=== PATIENT | female | born 1965 | race Caucasian/White ===

== ENCOUNTER 2021-06-09 20:17 | Inpatient (IN) | payer MEDICARE, MEDICAID ==
[~2021-06-09] VITALS: Ht 165.1 cm; Wt 85.4 kg
[2021-06-09] MEDS ORDERED: MAG HYDROX/AL HYDROX/SIMETH 30 ML ORAL.SUSP PO PRN (21:45)
[2021-06-09] MEDS ORDERED: MAGNESIUM HYDROXIDE 2,400 MG/30 ML ORAL.SUSP. PO PRN (21:45)
[2021-06-09] MEDS ORDERED: METHYL SALICYLATE/MENTHOL TOPICAL OINTMENT 57GM TUBE. TP PRN (21:45)
[2021-06-09 22:09] LABS: BASO # 0.1 x10^3/uL (0.0-0.2); BASO % 1 % (0-3); EOS # 0.2 x10^3/uL (0.0-0.7); EOS % 2 % (0-3); HEMOGLOBIN 11.3 g/dL (12.0-15.5); LYMPH % 19 % (24-48); MEAN CORPUSCULAR HEMOGLOBIN 29 pg (25-35); MEAN CORPUSCULAR HGB CONC 33 g/dL (31-37); MEAN CORPUSCULAR VOLUME 88 fL (79-100); MONO % 9 % (0-9); NEUT # 7.2 x10^3uL (1.8-7.7); NEUT % 68 % (31-73); PLATELET COUNT 249 x10^3/uL (140-400); RED BLOOD COUNT 3.88 x10^6/uL (3.50-5.40); RED CELL DISTRIBUTION WIDTH 13.9 % (11.5-14.5); WHITE BLOOD COUNT 10.6 x10^3/uL (4.0-11.0)
[2021-06-09] MEDS ORDERED: ATOR20TA58 PO (22:15)
[2021-06-09] MEDS ORDERED: DICY20TA PO (22:15)
[2021-06-09] MEDS ORDERED: ASPI-889 PO (22:15)
[2021-06-09] MEDS ORDERED: FERR324T14 PO (22:15)
[2021-06-09 22:16] LABS: CALCIUM 9.2 mg/dL (8.5-10.1); GFR 57.4; POTASSIUM 3.5 mmol/L (3.5-5.1)
[2021-06-09 22:22] LABS: ALBUMIN 3.7 g/dL (3.4-5.0); ALBUMIN/GLOBULIN RATIO 1.2 (1.0-1.7); MAGNESIUM 2.1 mg/dL (1.8-2.4); TOTAL BILIRUBIN 0.5 mg/dL (0.2-1.0); TOTAL PROTEIN 6.9 g/dL (6.4-8.2)
[2021-06-09] MEDS ORDERED: OLANZapine 5 MG TABLET PO PRN (22:30)
[2021-06-09] MEDS ORDERED: DICYCLOMINE HCL 20 MG TABLET PO PRN (22:30)
[2021-06-09] MEDS ORDERED: SERT100T PO (22:46)
[2021-06-09] MEDS ORDERED: ONDA4TAB12 PO (22:46)
[2021-06-09] MEDS ORDERED: NITR100C PO (22:46)
[2021-06-09] MEDS ORDERED: ASCO500C PO (22:46)
[2021-06-09] MEDS ORDERED: PNV1TABL34 PO (22:46)
[2021-06-09] MEDS ORDERED: PANT40TA3 PO (22:46)
[2021-06-09] MEDS ORDERED: INSU100V8 SQ (22:46)
[2021-06-09] MEDS ORDERED: LINA290C PO (22:46)
[2021-06-09] MEDS ORDERED: LEVO175T5 PO (22:46)
[2021-06-09] MEDS ORDERED: QUET100T4 PO (22:46)
[2021-06-09] MEDS ORDERED: GLIP5TAB10 PO (22:46)
[2021-06-09] MEDS ORDERED: OLAN5TAB3 PO (22:46)
[2021-06-09] MEDS ORDERED: FLUT16SP21 NS (22:46)
[2021-06-09] MEDS ORDERED: ALOG12.5 PO (22:46)
[2021-06-09] MEDS ORDERED: SUCR1TAB PO (22:46)
[2021-06-09] MEDS ORDERED: MEGE400O4 PO (22:46)
[2021-06-09] MEDS ORDERED: LAMO100T5 PO (22:46)
[2021-06-09] MEDS ORDERED: DEXTROSE 50% 25 GM / 50ML DISP.SYRIN. IV PRN (23:00)
[2021-06-09 23:20] VITALS: BP 136/81
[2021-06-10] MEDS: LEVOTHYROXINE 175 MCG TABLET PO SCH (05:30)
[2021-06-10 06:35] VITALS: BP 153/74
[2021-06-10] MEDS: glipiZIDE 5 MG TABLET PO SCH ×2 (08:53→20:38)
[2021-06-10] MEDS: ASCORBIC ACID 500 MG TABLET PO SCH (08:53)
[2021-06-10] MEDS: SERTRALINE 100 MG TABLET. PO SCH (08:53)
[2021-06-10] MEDS: lamoTRIgine 25 MG TABLET. PO SCH ×2 (08:53→20:38)
[2021-06-10] MEDS: QUEtiapine 100 MG TABLET. PO SCH ×3 (08:53→20:38)
[2021-06-10] MEDS: LUBIPROSTONE 24 MCG CAPSULE PO SCH ×2 (08:53→20:38)
[2021-06-10] MEDS: lamoTRIgine 100 MG TABLET. PO SCH ×2 (08:53→20:38)
[2021-06-10] MEDS: PANTOPRAZOLE 40 MG TABLET. PO SCH (08:54)
[2021-06-10] MEDS: FERROUS SULFATE 325 MG TABLET. PO SCH (08:54)
[2021-06-10] MEDS: ASPIRIN ENTERIC COATED 81 MG TABLET.DR. PO SCH (08:54)
[2021-06-10] MEDS: SUCRALFATE 1 GM TABLET. PO SCH ×2 (08:54→20:38)
[2021-06-10] MEDS: PRENATAL MULTIVITAMIN TABLET. PO SCH (08:54)
[2021-06-10] MEDS: MEGESTROL 400 MG/10 ML ORAL.SUSP. PO SCH ×2 (08:54→18:01)
[2021-06-10] MEDS: LINAGLIPTIN 5 MG TABLET PO SCH (08:54)
[2021-06-10] MEDS ORDERED: ONDANSETRON ODT 4 MG TAB.RAPDIS PO SCH (09:00)
[2021-06-10] MEDS: FLUTICASONE 50MCG/NASAL SPRAY 16GM BOTTLE. NS SCH (09:19)
[2021-06-10] MEDS: INSULIN LISPRO 300 UNITS/3 ML VIAL. SQ SCH ×3 (09:27→17:00)
[2021-06-10] MEDS: INSULIN GLARGINE SYRINGE. SQ SCH (09:28)
[2021-06-10] MEDS ORDERED: NITROFURANTOIN MACROCRYSTAL 100 MG PO SCH (10:30)
[2021-06-10] MEDS: NITROFURANTOIN MONOHYD/M-CRYST 100 MG CAPSULE. PO SCH ×2 (13:40→20:38)
[2021-06-10 15:49] VITALS: BP 136/76
[2021-06-10 16:23] LABS: CHOLESTEROL/HDL RATIO 2.8; THYROID STIM HORMONE (TSH) 60.46 uIU/mL (0.358-3.740)
[2021-06-10] MEDS: CHOLECALCIFEROL (VITAMIN D3) 50,000 UNIT CAPSULE PO SCH (18:03)
[2021-06-10] MEDS ORDERED: POLYETHYLENE GLYCOL 3350 17 GM PACKET. PO PRN (19:45)
[2021-06-10] MEDS ORDERED: POLY17PO52 PO (20:03)
[2021-06-10] MEDS ORDERED: ONDANSETRON ODT 4 MG TAB.RAPDIS PO PRN (20:27)
[2021-06-10] MEDS: ATORVASTATIN CALCIUM 20 MG TABLET PO SCH (20:38)
--- NOTE | 2021-06-10 22:26 | PDOC ---
Exam Note: Adolph Note: Please also refer to the separate dictated note~for this date of service dictated separately.~Patient seen individually. Discussed the patient with Nursing staff reviewed the chart.~Reviewed interim history and current functioning. Reviewed vital signs,~Labs/ Radiology~and current medications noted below. Continue current treatment with the changes noted in the dictated addendum note Assessment: Vital Signs/I&O: Vital Signs Date Time Temp Pulse Resp B/P (MAP) Pulse Ox O2 Delivery O2 Flow Rate FiO2 06/10/21 15:49 98.6 74 17 136/76 (96) 96 Labs: Laboratory Tests Test 06/10/21 07:45 06/10/21 11:43 06/10/21 16:34 06/10/21 19:31 Glucose (Fingerstick) 173 mg/dL (70-99) H 144 mg/dL (70-99) H 97 mg/dL (70-99) 118 mg/dL (70-99) H Current Medications: Meds: Current Medications Medications (Trade) Dose Ordered Sig/Karsten Route PRN Reason Start Time Stop Time Status Last Admin Dose Admin Aspirin (Aspirin Enteric Coated) 81 mg DAILY PO 06/10/21 09:00 06/10/21 08:54 Atorvastatin Calcium (Lipitor) 20 mg QHS PO 06/10/21 21:00 06/10/21 20:38 Fluticasone Propionate (Flonase) 2 spray DAILY NS 06/10/21 09:00 06/10/21 09:19 Glipizide (Glucotrol) 5 mg BID PO 06/10/21 09:00 06/10/21 20:38 Insulin Glargine (Lantus Syringe) 16 unit DAILY SQ 06/10/21 09:00 06/10/21 09:28 Lamotrigine (LaMICtal) 100 mg BID PO 06/10/21 09:00 06/10/21 20:38 Levothyroxine Sodium (Synthroid) 175 mcg DAILY06 PO 06/10/21 06:00 06/10/21 05:30 Megestrol Acetate (Megace Oral Susp) 400 mg BIDWMEALS PO 06/10/21 08:00 06/10/21 18:01 Ondansetron HCl (Zofran Odt) 4 mg BID PO 06/10/21 09:00 06/10/21 20:29 DC 06/10/21 08:53 Pantoprazole Sodium (Protonix) 40 mg DAILYAC PO 06/10/21 07:30 06/10/21 08:54 Quetiapine Fumarate (SEROquel) 100 mg TID PO 06/10/21 09:00 06/10/21 20:38 Sertraline HCl (Zoloft) 100 mg DAILY PO 06/10/21 09:00 06/10/21 08:53 Sucralfate (Carafate) 2 gm BID PO 06/10/21 09:00 06/10/21 20:38 Linagliptin (Tradjenta) 5 mg DAILY PO 06/10/21 09:00 06/10/21 08:54 Ascorbic Acid (Vitamin C) 500 mg DAILY PO 06/10/21 09:00 06/10/21 08:53 Ferrous Sulfate (Feosol) 325 mg DAILY PO 06/10/21 09:00 06/10/21 08:54 Lubiprostone (Amitiza) 24 mcg BID PO 06/10/21 09:00 06/10/21 20:38 Multivit/ Folic Acid/Iron (Multivitamin ) 1 tab DAILY PO 06/10/21 09:00 06/10/21 08:54 Insulin Human Lispro (HumaLOG) 0-7 UNITS TIDWMEALS SQ 06/10/21 08:00 06/10/21 09:27 Lamotrigine (LaMICtal) 25 mg BID PO 06/10/21 09:00 06/10/21 20:38 Nitrofurantoin Macrocrystals (Macrobid) 100 mg BID PO 06/10/21 10:45 06/14/21 22:00 06/10/21 20:38 Vitamin D (Vitamin D3) 50,000 unit WEEKLY PO 06/10/21 17:00 06/10/21 18:03 I have reviewed the current psychotropics carefully including drug interactions. Risk benefit ratio favors no change other than as noted in my dictated progress note. RIGOBERTO SANDERS MD Jun 10, 2021 22:26
[2021-06-11 00:12] LABS: HEMOGLOBIN A1C 6.6 % (4.8-5.6)
[2021-06-11 02:08] LABS: THYROXINE 5.4 ug/dL (4.5-12.0)
[2021-06-11] MEDS: LEVOTHYROXINE 175 MCG TABLET PO SCH (04:40)
[2021-06-11 06:11] VITALS: BP 145/71
[2021-06-11] MEDS: NITROFURANTOIN MONOHYD/M-CRYST 100 MG CAPSULE. PO SCH ×2 (07:49→21:21)
[2021-06-11] MEDS: glipiZIDE 5 MG TABLET PO SCH ×2 (07:49→21:19)
[2021-06-11] MEDS: MEGESTROL 400 MG/10 ML ORAL.SUSP. PO SCH ×3 (07:49→17:43)
[2021-06-11] MEDS: lamoTRIgine 100 MG TABLET. PO SCH ×2 (07:49→21:19)
[2021-06-11] MEDS: LUBIPROSTONE 24 MCG CAPSULE PO SCH ×2 (07:49→21:23)
[2021-06-11] MEDS: lamoTRIgine 25 MG TABLET. PO SCH ×2 (07:50→21:19)
[2021-06-11] MEDS: SERTRALINE 100 MG TABLET. PO SCH (07:50)
[2021-06-11] MEDS: FERROUS SULFATE 325 MG TABLET. PO SCH (07:50)
[2021-06-11] MEDS: ASCORBIC ACID 500 MG TABLET PO SCH (07:50)
[2021-06-11] MEDS: PANTOPRAZOLE 40 MG TABLET. PO SCH (07:50)
[2021-06-11] MEDS: LINAGLIPTIN 5 MG TABLET PO SCH (07:50)
[2021-06-11] MEDS: PRENATAL MULTIVITAMIN TABLET. PO SCH (07:50)
[2021-06-11] MEDS: SUCRALFATE 1 GM TABLET. PO SCH ×2 (07:50→21:21)
[2021-06-11] MEDS: QUEtiapine 100 MG TABLET. PO SCH ×3 (07:50→21:19)
[2021-06-11] MEDS: ASPIRIN ENTERIC COATED 81 MG TABLET.DR. PO SCH (07:50)
[2021-06-11] MEDS: FLUTICASONE 50MCG/NASAL SPRAY 16GM BOTTLE. NS SCH ×2 (07:55→09:00)
[2021-06-11] MEDS: INSULIN LISPRO 300 UNITS/3 ML VIAL. SQ SCH ×3 (08:00→17:00)
[2021-06-11] MEDS: INSULIN GLARGINE SYRINGE. SQ SCH (09:10)
--- NOTE | 2021-06-11 15:10 | CONS ---
DATE OF CONSULTATION: 06/10/2021 REASON FOR CONSULTATION: Medical management. HISTORY OF PRESENT ILLNESS: The patient is a 55-year-old female patient, resident at [facility] [place], who apparently was seen at [facility] on 06/07/2021 with marked agitation, behavioral disturbances. She apparently was very combative, screaming, cussing, seeing and hearing things that are not really, like hallucination. Has required sedatives like ketamine and Versed by EMS and antipsychotic in the ER including Haldol to calm her down. She was found to have a UTI and severe hypokalemia with a potassium of only 2.8. She was admitted to the ICU for further care. Her clozapine was discontinued and was started on Seroquel 100 mg 3 times a day, p.r.n. Zyprexa, and p.r.n. Versed. She was basically admitted to [facility] on account of talking to the devil, attempting to climb out of the window, walking in the halls naked, fighting staff, all this in a background of schizoaffective disorder with acute exacerbation. PAST MEDICAL HISTORY: Significant for type 2 diabetes mellitus, hypothyroidism, constipation, hyperlipidemia, irritable bowel syndrome. PAST PSYCHIATRIC HISTORY: Significant for major depressive disorder with questionable bipolar disorder, schizoaffective disorder. PAST SURGICAL HISTORY: Significant for total thyroidectomy for her thyroid cancer. FAMILY HISTORY: Positive for depression and alcoholism. SOCIAL HISTORY: The patient is currently residing at [facility]. ALLERGIES: She is allergic to BETA BLOCKERS, CAFFEINE, and PSEUDOEPHEDRINE. MEDICATIONS: She is currently on the following medications: She is on atorvastatin calcium 20 mg at bedtime, olanzapine 2.5 mg every 2 hours, nitrofurantoin macrocrystal 100 mg twice a day, lamotrigine 25 mg twice a day, multivitamin 1 tablet once a day, Amitiza 24 mcg twice a day, ferrous sulfate 325 mg once a day, ascorbic acid 500 mg once a day, linagliptin 5 mg once a day, sucralfate 2 grams twice a day, sertraline 100 mg daily, quetiapine fumarate 100 mg 3 times a day, ondansetron 4 mg twice a day, lamotrigine 100 mg twice a day. She is on Lantus insulin 16 units at bedtime, glipizide 5 mg twice a day, fluticasone for Flonase 2 sprays to each nostril once a day, aspirin 81 mg once a day. She is on Megace 400 mg twice a day with meals and she is on Humalog insulin as per insulin sliding scale before meals, levothyroxine 175 mcg daily. She is on dicyclomine 20 mg every 6 hours, milk of magnesia 30 mL p.o. daily p.r.n. for constipation, Mylanta 15 mL after meals and as needed, acetaminophen 650 mg p.o. every 6 hours as needed. PHYSICAL EXAMINATION: GENERAL: When I examined her, she was resting flat in bed, in no apparent respiratory distress. No pallor, jaundice, cyanosis or thyromegaly. No jugular venous distention. No limb edema. VITAL SIGNS: Her heart rate was 74, blood pressure was 136/76, temperature 98.6, respiratory rate was 17 and oxygen saturation was 96%. The patient did not allow us to stay there or even talk to her and was dismissive, ____ seems to be grossly intact. LABORATORY DATA: Showed a white cell count of 10.6, hemoglobin 11, hematocrit 34, MCV 88 and platelet count 249,000 with normal manual differential. Her D-dimer was 0.98. Her chemistry showed that her serum sodium was 145, potassium 3.5, chloride 108, bicarbonate 27, anion gap of 10, BUN 10, creatinine 1, estimated GFR was 57 mL per minute. Her glucose 127, calcium was 9.2, magnesium 2.1. Total bilirubin, AST, ALT, alkaline phosphatase were normal. Total protein 6.9, albumin 3.7. Serum iron, TIBC and iron saturation, all consistent with replete iron stores. Her serum triglycerides was 120, total cholesterol 106, LDL was 44, VLDL was 24, HDL was 68 and the ratio was 2.8. Her TSH was extremely high at ____ and her 25-hydroxy vitamin D was only 16 ng/mL. Her treponema pallidum antibodies nonreactive. ASSESSMENT AND PLAN: In summary, this is a 55-year-old female patient, a resident at [facility] [place], who was admitted to this unit on account of talking to the devil, attempting to climb out of the window, walking in the [place] naked, fighting staff, all this in a background of schizoaffective disorder. Medically, she has multiple medical problems including type 2 diabetes mellitus, which she is on glipizide as well as Lantus and Humalog insulin; hypothyroidism secondary to total thyroidectomy; however, her TSH was high at 60.460; gastroesophageal reflux disease; hyperlipidemia; chronic constipation; irritable bowel syndrome. She also has a vitamin D deficiency as well as urinary tract infection. My plan is to start her on vitamin D in the form of cholecalciferol 50,000 units once a week and as far as her TSH, she seemed to be on a decent dose of levothyroxine at 175, however, whether she is really compliant with that or not. I will check her baseline T3, T4, free T4 and perhaps repeat this after a week after ensuring that she takes her Synthroid regularly an hour before breakfast. NORI/RYAN/LEXII DR: Tulio TID: [id number]
[2021-06-11 16:36] VITALS: BP 135/77
[2021-06-11] MEDS: ATORVASTATIN CALCIUM 20 MG TABLET PO SCH (21:19)
--- NOTE | 2021-06-11 22:05 | PDOC ---
Exam Note: Adolph Note: Please also refer to the separate dictated note~for this date of service dictated separately.~Patient seen individually. Discussed the patient with Nursing staff reviewed the chart.~Reviewed interim history and current functioning. Reviewed vital signs,~Labs/ Radiology~and current medications noted below. Continue current treatment with the changes noted in the dictated addendum note Assessment: Vital Signs/I&O: Vital Signs Date Time Temp Pulse Resp B/P (MAP) Pulse Ox O2 Delivery O2 Flow Rate FiO2 06/11/21 16:36 98.0 65 18 135/77 (96) 95 I & O 06/10/21 06/10/21 06/11/21 15:00 23:00 07:00 Intake Total 240 ml 960 ml Balance 240 ml 960 ml Labs: Laboratory Tests Test 06/11/21 07:59 06/11/21 12:17 06/11/21 17:42 06/11/21 19:44 Glucose (Fingerstick) 173 mg/dL (70-99) H 131 mg/dL (70-99) H 96 mg/dL (70-99) 152 mg/dL (70-99) H Current Medications: Meds: Laboratory Tests Test 06/11/21 07:59 06/11/21 12:17 06/11/21 17:42 06/11/21 19:44 Glucose (Fingerstick) 173 mg/dL 131 mg/dL 96 mg/dL 152 mg/dL Current Medications Medications (Trade) Dose Ordered Sig/Karsten Route PRN Reason Start Time Stop Time Status Last Admin Dose Admin Acetaminophen (Tylenol) 650 mg PRN Q6HRS PRN PO MILD PAIN / TEMP > 100.3'F 06/09/21 21:45 Multi-Ingredient Ointment (Analgesic [place]) 1 bia PRN QID PRN TP MUSCLE PAIN 06/09/21 21:45 Al Hydroxide/Mg Hydroxide (Mylanta Plus Xs) 15 ml PRN AFTMEALHC PRN PO DYSPEPSIA 06/09/21 21:45 Magnesium Hydroxide (Milk Of Magnesia) 2,400 mg PRN QHS PRN PO CONSTIPATION 06/09/21 21:45 Aspirin (Aspirin Enteric Coated) 81 mg DAILY PO 06/10/21 09:00 06/11/21 07:50 Atorvastatin Calcium (Lipitor) 20 mg QHS PO 06/10/21 21:00 06/11/21 21:19 Dicyclomine HCl (Bentyl) 20 mg PRN Q6HRS PRN PO GI SYMPTOMS 06/09/21 22:30 Fluticasone Propionate (Flonase) 2 spray DAILY NS 06/10/21 09:00 06/10/21 09:19 Glipizide (Glucotrol) 5 mg BID PO 06/10/21 09:00 06/11/21 21:19 Insulin Glargine (Lantus Syringe) 16 unit DAILY SQ 06/10/21 09:00 06/11/21 09:10 Lamotrigine (LaMICtal) 100 mg BID PO 06/10/21 09:00 06/11/21 21:19 Levothyroxine Sodium (Synthroid) 175 mcg DAILY06 PO 06/10/21 06:00 06/11/21 04:40 Megestrol Acetate (Megace Oral Susp) 400 mg BIDWMEALS PO 06/10/21 08:00 06/11/21 17:43 Olanzapine (ZyPREXA) 5 mg PRN Q2HR PRN PO ANXIETY / AGITATION 06/09/21 22:30 06/10/21 10:34 DC Ondansetron HCl (Zofran Odt) 4 mg BID PO 06/10/21 09:00 06/10/21 20:29 DC 06/10/21 08:53 Pantoprazole Sodium (Protonix) 40 mg DAILYAC PO 06/10/21 07:30 06/11/21 07:50 Quetiapine Fumarate (SEROquel) 100 mg TID PO 06/10/21 09:00 06/11/21 21:19 Sertraline HCl (Zoloft) 100 mg DAILY PO 06/10/21 09:00 06/11/21 07:50 Sucralfate (Carafate) 2 gm BID PO 06/10/21 09:00 06/11/21 21:21 Linagliptin (Tradjenta) 5 mg DAILY PO 06/10/21 09:00 06/11/21 07:50 Ascorbic Acid (Vitamin C) 500 mg DAILY PO 06/10/21 09:00 06/11/21 07:50 Ferrous Sulfate (Feosol) 325 mg DAILY PO 06/10/21 09:00 06/11/21 07:50 Lubiprostone (Amitiza) 24 mcg BID PO 06/10/21 09:00 06/11/21 21:23 Non-Formulary Medication (Nitrofurantoin Macrocrystal (Nitrofurantoin)) 100 mg BID PO 06/10/21 10:30 06/14/21 22:00 Cancel Multivit/ Folic Acid/Iron (Multivitamin ) 1 tab DAILY PO 06/10/21 09:00 06/11/21 07:50 Insulin Human Lispro (HumaLOG) 0-7 UNITS TIDWMEALS SQ 06/10/21 08:00 06/10/21 09:27 Dextrose (Dextrose 50%-Water Syringe) 12.5 gm PRN Q15MIN PRN IV SEE COMMENTS 06/09/21 23:00 Lamotrigine (LaMICtal) 25 mg BID PO 06/10/21 09:00 06/11/21 21:19 Nitrofurantoin Macrocrystals (Macrobid) 100 mg BID PO 06/10/21 10:45 06/14/21 22:00 06/11/21 21:21 Olanzapine (ZyPREXA ZYDIS) 2.5 mg PRN Q2HR PRN PO PSYCHOSIS 06/10/21 10:45 Vitamin D (Vitamin D3) 50,000 unit WEEKLY PO 06/10/21 17:00 06/10/21 18:03 Polyethylene Glycol (miraLAX) 17 gm PRN DAILY PRN PO CONSTIPATION 06/10/21 19:45 Ondansetron HCl (Zofran Odt) 4 mg PRN Q4HRS PRN PO NAUSEA/VOMITING 06/10/21 20:27 I have reviewed the current psychotropics carefully including drug interactions. Risk benefit ratio favors no change other than as noted in my dictated progress note. RIGOBERTO SANDERS MD Jun 11, 2021 22:05
--- NOTE | 2021-06-11 23:23 | HP ---
DATE OF SERVICE: 06/11/2021 ADMIT DATE: 06/09/2021 PSYCHIATRIC ADMISSION HISTORY/EVALUATION This is a late entry, date of service 06/10/2021, covers elements not covered in my initial note. I met with the patient on the evening of 06/10, discussed with nursing staff, reviewed the chart. Previously, I discussed the patient with Brianna De Dios, merchandising coordinator and nursing staff. I had reviewed referring information from [facility] briefly. IDENTIFYING DATA: The patient is a 55-year-old female referred to us from the above facility by her primary care physician. She has a diagnosis of schizoaffective disorder, bipolar type with acute exacerbation. She was talking to the devil, attempting to climb out of the window, walking in the halls naked, biting staff. Behaviors were deemed unmanageable at the facility. She had failed outpatient psychiatric interventions resulting in this referral. CHIEF COMPLAINT: "You can go away. Thank you." Despite this, the patient did interact and was able to give me some relevant history, but much of this was obtained from other sources. HISTORY OF PRESENT ILLNESS: The patient has a history of schizoaffective disorder, bipolar type. She has been residing at the [facility] some time increasingly psychotic, manic, grandiose, irritable, angry with some sleep and appetite changes. She was referred from the shelter to the [facility] that also found her to have a UTI and started on Macrobid for it. PAST PSYCHIATRIC HISTORY: As above. MEDICAL HISTORY: UTI, diabetes mellitus, hypothyroidism, GERD, irritable bowel syndrome, chronic constipation, environmental allergies and hyperlipidemia. CODE STATUS: Full code. ALLERGIES: SUDAFED, CAFFEINE, BETA BLOCKERS. CURRENT PSYCHOTROPICS: Zoloft 100 mg a day, Seroquel 100 mg 3 times a day, Lamictal 125 mg b.i.d., Zyprexa was added p.r.n. after she was admitted to us. She has had a poor appetite and is also on Megace. FAMILY HISTORY: Noncontributory. SOCIAL HISTORY: No alcohol, drug abuse, physical, sexual, elder abuse history is noted. She is not known to be a perpetrator. Reaction to hospitalization, the patient accepting of it. REVIEW OF SYSTEMS: No CV, , pulmonary, eye system symptoms on review. MENTAL STATUS EXAM: The patient was seen individually on evening of 06/10. She is oriented reasonably. Speech is coherent, often responses monosyllabic, paranoid, suspicious, somewhat dismissive, distractible. No active suicidal or homicidal ideation. She appears psychotic. IMPRESSION: Schizoaffective disorder, bipolar type, mixed, with psychotic features; anxiety disorder, unspecified; impulse control disorder, unspecified. Rest as above. PLAN: Admit to Geropsychiatry Unit at [facility]. I will see the patient daily individually from a psychiatric standpoint. Medical followup, Dr. Whipple/Dr. Alarcon. Continue patient on current psychotropics. Consider changing Seroquel to Risperdal given her marked psychotic symptoms. Consider adding Depakote as a mood stabilizer. We will get past psychiatric records to make further adjustments as clinically indicated. The patient was also staffed at a treatment team meeting with the entire team on 06/10. Uche, RN and Chepe RN were the nurses at treatment team meeting together with Pam and Eddie. Appetite is 50%. She has been spending much time in her room. We will continue to monitor this as we adjust her psychotropics. ESTIMATED LENGTH OF STAY: 10-12 days. DISPOSITION PLANS: Back to shelter when stable. ROBERTO DR: Jolie TID: [id number]
[2021-06-12 01:24] LABS: THYROXINE 5.8 ug/dL (4.5-12.0)
[2021-06-12] MEDS: LEVOTHYROXINE 175 MCG TABLET PO SCH (06:00)
[2021-06-12 06:59] VITALS: BP 130/63
[2021-06-12] MEDS: FLUTICASONE 50MCG/NASAL SPRAY 16GM BOTTLE. NS SCH (07:28)
[2021-06-12] MEDS: NITROFURANTOIN MONOHYD/M-CRYST 100 MG CAPSULE. PO SCH ×2 (07:28→21:16)
[2021-06-12] MEDS: lamoTRIgine 25 MG TABLET. PO SCH ×2 (07:28→21:17)
[2021-06-12] MEDS: LINAGLIPTIN 5 MG TABLET PO SCH (07:29)
[2021-06-12] MEDS: glipiZIDE 5 MG TABLET PO SCH ×2 (07:29→21:16)
[2021-06-12] MEDS: lamoTRIgine 100 MG TABLET. PO SCH ×2 (07:29→21:17)
[2021-06-12] MEDS: PRENATAL MULTIVITAMIN TABLET. PO SCH (07:29)
[2021-06-12] MEDS: PANTOPRAZOLE 40 MG TABLET. PO SCH (07:30)
[2021-06-12] MEDS: ASCORBIC ACID 500 MG TABLET PO SCH (07:30)
[2021-06-12] MEDS: MEGESTROL 400 MG/10 ML ORAL.SUSP. PO SCH ×2 (07:30→17:33)
[2021-06-12] MEDS: FERROUS SULFATE 325 MG TABLET. PO SCH (07:30)
[2021-06-12] MEDS: LUBIPROSTONE 24 MCG CAPSULE PO SCH ×2 (07:40→21:16)
[2021-06-12] MEDS: SERTRALINE 100 MG TABLET. PO SCH (07:40)
[2021-06-12] MEDS: SUCRALFATE 1 GM TABLET. PO SCH ×2 (07:40→21:17)
[2021-06-12] MEDS: ASPIRIN ENTERIC COATED 81 MG TABLET.DR. PO SCH (07:40)
--- NOTE | 2021-06-12 08:55 | PN ---
DATE: 06/11/2021 PSYCHIATRIC PROGRESS NOTE This note covers elements not covered in my initial note of 06/11. SUBJECTIVE: I met with the patient on the evening of 06/11, discussed with CRISS Steward. The patient has been withdrawn, remains psychotic, refused her Megace. Appetite is fair. She has had some intermittent hallucinations as well. Reviewed her history, diagnosis of schizoaffective disorder, bipolar type. Met with her in her room. REVIEW OF SYSTEMS: No CV, , pulmonary, eye system symptoms on review. Reliability poor. She remains paranoid and dismissive. MENTAL STATUS EXAMINATION: Oriented to herself, situation. Speech is moderate latency, often responses monosyllabic. Abstraction fair. Computation impaired. Language function intact. Remains quite paranoid. LABORATORY DATA: Reviewed. IMPRESSION: Schizoaffective disorder, bipolar type, mixed, with psychotic features; anxiety disorder, unspecified; impulse control disorder. Rest as above. PLAN: Change the Seroquel 100 mg t.i.d. to Risperdal 0.5 mg twice a day and given her diagnosis of schizoaffective disorder, we will go ahead and add Depakote extended release 500 mg p.o. at bedtime. Check CBC, CMP, valproic acid level in 3 days and make further adjustments as clinically indicated. KAYLAN DR: Jolie TID: [id number]
[2021-06-12 08:57] LABS: VAL ACID < 3 mcg/mL (50-100)
[2021-06-12] MEDS: INSULIN LISPRO 300 UNITS/3 ML VIAL. SQ SCH ×3 (10:08→18:50)
[2021-06-12] MEDS: INSULIN GLARGINE SYRINGE. SQ SCH (10:56)
[2021-06-12] MEDS: risperiDONE 0.25 MG TABLET. PO SCH ×2 (11:07→21:16)
[2021-06-12 15:57] VITALS: BP 120/77
[2021-06-12] MEDS: ATORVASTATIN CALCIUM 20 MG TABLET PO SCH (21:17)
[2021-06-12] MEDS: DIVALPROEX ER 500 MG TAB.ER.24H PO SCH (21:22)
--- NOTE | 2021-06-12 22:11 | PDOC ---
Exam Note: Adolph Note: Please also refer to the separate dictated note~for this date of service dictated separately.~Patient seen individually. Discussed the patient with Nursing staff reviewed the chart.~Reviewed interim history and current functioning. Reviewed vital signs,~Labs/ Radiology~and current medications noted below. Continue current treatment with the changes noted in the dictated addendum note Assessment: Vital Signs/I&O: Vital Signs Date Time Temp Pulse Resp B/P (MAP) Pulse Ox O2 Delivery O2 Flow Rate FiO2 06/12/21 15:57 97.4 76 20 120/77 (91) 97 06/12/21 06:59 Room Air I & O 06/11/21 06/11/21 06/12/21 15:00 23:00 07:00 Intake Total 400 ml Output Total 100 ml Balance 300 ml Labs: Laboratory Tests Test 06/12/21 07:45 06/12/21 07:52 06/12/21 10:42 06/12/21 11:46 Valproic Acid Level < 3 mcg/mL (50-100) L Valproic Acid Last Dose Date Unknown Valproic Acid Last Dose Time Unknown Glucose (Fingerstick) 169 mg/dL (70-99) H 142 mg/dL (70-99) H 166 mg/dL (70-99) H Test 06/12/21 16:59 06/12/21 20:14 Glucose (Fingerstick) 226 mg/dL (70-99) H 165 mg/dL (70-99) H Current Medications: Meds: Laboratory Tests Test 06/12/21 07:45 06/12/21 07:52 06/12/21 10:42 06/12/21 11:46 Valproic Acid (Depakene) Level < 3 mcg/mL Valproic Acid Last Dose Date Unknown Valproic Acid Last Dose Time Unknown Glucose (Fingerstick) 169 mg/dL 142 mg/dL 166 mg/dL Test 06/12/21 16:59 06/12/21 20:14 Glucose (Fingerstick) 226 mg/dL 165 mg/dL Current Medications Medications (Trade) Dose Ordered Sig/Karsten Route PRN Reason Start Time Stop Time Status Last Admin Dose Admin Acetaminophen (Tylenol) 650 mg PRN Q6HRS PRN PO MILD PAIN / TEMP > 100.3'F 06/09/21 21:45 Multi-Ingredient Ointment (Analgesic [place]) 1 bia PRN QID PRN TP MUSCLE PAIN 06/09/21 21:45 Al Hydroxide/Mg Hydroxide (Mylanta Plus Xs) 15 ml PRN AFTMEALHC PRN PO DYSPEPSIA 06/09/21 21:45 Magnesium Hydroxide (Milk Of Magnesia) 2,400 mg PRN QHS PRN PO CONSTIPATION 06/09/21 21:45 Aspirin (Aspirin Enteric Coated) 81 mg DAILY PO 06/10/21 09:00 06/12/21 07:40 Atorvastatin Calcium (Lipitor) 20 mg QHS PO 06/10/21 21:00 06/12/21 21:17 Dicyclomine HCl (Bentyl) 20 mg PRN Q6HRS PRN PO GI SYMPTOMS 06/09/21 22:30 Fluticasone Propionate (Flonase) 2 spray DAILY NS 06/10/21 09:00 06/12/21 07:28 Glipizide (Glucotrol) 5 mg BID PO 06/10/21 09:00 06/12/21 21:16 Insulin Glargine (Lantus Syringe) 16 unit DAILY SQ 06/10/21 09:00 06/12/21 10:56 Lamotrigine (LaMICtal) 100 mg BID PO 06/10/21 09:00 06/12/21 21:17 Levothyroxine Sodium (Synthroid) 175 mcg DAILY06 PO 06/10/21 06:00 06/12/21 06:00 Megestrol Acetate (Megace Oral Susp) 400 mg BIDWMEALS PO 06/10/21 08:00 06/12/21 17:33 Olanzapine (ZyPREXA) 5 mg PRN Q2HR PRN PO ANXIETY / AGITATION 06/09/21 22:30 06/10/21 10:34 DC Ondansetron HCl (Zofran Odt) 4 mg BID PO 06/10/21 09:00 06/10/21 20:29 DC 06/10/21 08:53 Pantoprazole Sodium (Protonix) 40 mg DAILYAC PO 06/10/21 07:30 06/12/21 07:30 Quetiapine Fumarate (SEROquel) 100 mg TID PO 06/10/21 09:00 06/12/21 04:58 DC 06/11/21 21:19 Sertraline HCl (Zoloft) 100 mg DAILY PO 06/10/21 09:00 06/12/21 07:40 Sucralfate (Carafate) 2 gm BID PO 06/10/21 09:00 06/12/21 21:17 Linagliptin (Tradjenta) 5 mg DAILY PO 06/10/21 09:00 06/12/21 07:29 Ascorbic Acid (Vitamin C) 500 mg DAILY PO 06/10/21 09:00 06/12/21 07:30 Ferrous Sulfate (Feosol) 325 mg DAILY PO 06/10/21 09:00 06/12/21 07:30 Lubiprostone (Amitiza) 24 mcg BID PO 06/10/21 09:00 06/12/21 21:16 Non-Formulary Medication (Nitrofurantoin Macrocrystal (Nitrofurantoin)) 100 mg BID PO 06/10/21 10:30 06/14/21 22:00 Cancel Multivit/ Folic Acid/Iron (Multivitamin ) 1 tab DAILY PO 06/10/21 09:00 06/12/21 07:29 Insulin Human Lispro (HumaLOG) 0-7 UNITS TIDWMEALS SQ 06/10/21 08:00 06/12/21 18:50 Dextrose (Dextrose 50%-Water Syringe) 12.5 gm PRN Q15MIN PRN IV SEE COMMENTS 06/09/21 23:00 Lamotrigine (LaMICtal) 25 mg BID PO 06/10/21 09:00 06/12/21 21:17 Nitrofurantoin Macrocrystals (Macrobid) 100 mg BID PO 06/10/21 10:45 06/14/21 22:00 06/12/21 21:16 Olanzapine (ZyPREXA ZYDIS) 2.5 mg PRN Q2HR PRN PO PSYCHOSIS 06/10/21 10:45 Vitamin D (Vitamin D3) 50,000 unit WEEKLY PO 06/10/21 17:00 06/10/21 18:03 Polyethylene Glycol (miraLAX) 17 gm PRN DAILY PRN PO CONSTIPATION 06/10/21 19:45 Ondansetron HCl (Zofran Odt) 4 mg PRN Q4HRS PRN PO NAUSEA/VOMITING 06/10/21 20:27 Risperidone (RisperDAL) 0.5 mg BID PO 06/12/21 09:00 06/12/21 21:16 Divalproex Sodium (Depakote Er) 500 mg QHS PO 06/12/21 21:00 06/12/21 21:22 Current Medications Medications (Trade) Dose Ordered Sig/Karsten Route PRN Reason Start Time Stop Time Status Last Admin Dose Admin Risperidone (RisperDAL) 0.5 mg BID PO 06/12/21 09:00 06/12/21 21:16 Divalproex Sodium (Depakote Er) 500 mg QHS PO 06/12/21 21:00 06/12/21 21:22 I have reviewed the current psychotropics carefully including drug interactions. Risk benefit ratio favors no change other than as noted in my dictated progress note. Diagnosis: Problems: (1) Schizoaffective disorder, bipolar type (2) Bipolar disorder, current episode mixed, severe, with psychotic features (3) Anxiety disorder, unspecified (4) Impulse control disorder, unspecified RIGOBERTO SANDERS MD Jun 12, 2021 22:11
[2021-06-13] MEDS: ACETAMINOPHEN 325 MG TABLET PO PRN ×2 (03:15→22:26)
[2021-06-13] MEDS: LEVOTHYROXINE 175 MCG TABLET PO SCH (05:52)
[2021-06-13 06:49] VITALS: BP 137/65
[2021-06-13] MEDS: INSULIN LISPRO 300 UNITS/3 ML VIAL. SQ SCH ×3 (08:00→17:00)
[2021-06-13] MEDS: lamoTRIgine 100 MG TABLET. PO SCH ×2 (09:00→19:44)
[2021-06-13] MEDS: LUBIPROSTONE 24 MCG CAPSULE PO SCH ×2 (09:00→19:44)
[2021-06-13] MEDS: FLUTICASONE 50MCG/NASAL SPRAY 16GM BOTTLE. NS SCH (09:00)
[2021-06-13] MEDS: INSULIN GLARGINE SYRINGE. SQ SCH (09:00)
--- NOTE | 2021-06-13 09:06 | PDOC ---
Exam Note: Adolph Note: This note is a late entry for 06/12/2021 covers elements not covered in my initial note. Subjective: The patient was seen individually on 06/12/2021, discussed and reviewed the chart with Bin KAHN. The patient slept 7-3/4 hours previous night. Reportedly the patient remains somewhat anxious, labile, pushing the limits with staff members per nursing report, asking to leave, refusing more than 2 medications at a time. Review of Systems: Ambulation impaired, in wheelchair. No CV, , pulmonary, eye, ENT system symptoms on review. Reliability poor. Mental Status Exam: Patient is reasonably oriented. She was lying in bed. Speech coherent, rapid. Abstraction fair. Computation impaired. Language function intact. Mood and affect is less labile. Laboratory Data: Reviewed. Impression: Schizoaffective disorder, bipolar type, mixed with psychotic features. Anxiety disorder unspecified. Impulse control disorder. Plan: Maintain rest of the psychotropics unchanged. Reviewed drug interactions, risk-benefit ratio. Assessment: Vital Signs/I&O: Vital Signs Date Time Temp Pulse Resp B/P (MAP) Pulse Ox O2 Delivery O2 Flow Rate FiO2 06/13/21 06:49 99.8 63 18 137/65 (89) 97 06/12/21 06:59 Room Air I & O 06/12/21 06/12/21 06/13/21 15:00 23:00 07:00 Intake Total 0 ml 100 ml Balance 0 ml 100 ml Labs: Laboratory Tests Test 06/12/21 10:42 06/12/21 11:46 06/12/21 16:59 06/12/21 20:14 Glucose (Fingerstick) 142 mg/dL (70-99) H 166 mg/dL (70-99) H 226 mg/dL (70-99) H 165 mg/dL (70-99) H Test 06/13/21 07:46 Glucose (Fingerstick) 211 mg/dL (70-99) H Current Medications: Meds: Current Medications Medications (Trade) Dose Ordered Sig/Karsten Route PRN Reason Start Time Stop Time Status Last Admin Dose Admin Divalproex Sodium (Depakote Er) 500 mg QHS PO 06/12/21 21:00 06/12/21 21:22 I have reviewed the current psychotropics carefully including drug interactions. Risk benefit ratio favors no change other than as noted in my dictated progress note. Diagnosis: Problems: (1) Schizoaffective disorder, bipolar type (2) Impulse control disorder, unspecified (3) Anxiety disorder, unspecified (4) Bipolar disorder, current episode mixed, severe, with psychotic features RIGOBERTO SANDERS MD Jun 13, 2021 09:05
[2021-06-13] MEDS: PRENATAL MULTIVITAMIN TABLET. PO SCH (09:20)
[2021-06-13] MEDS: LINAGLIPTIN 5 MG TABLET PO SCH (09:20)
[2021-06-13] MEDS: NITROFURANTOIN MONOHYD/M-CRYST 100 MG CAPSULE. PO SCH ×2 (09:20→19:44)
[2021-06-13] MEDS: MEGESTROL 400 MG/10 ML ORAL.SUSP. PO SCH ×2 (09:20→17:32)
[2021-06-13] MEDS: ASCORBIC ACID 500 MG TABLET PO SCH (09:20)
[2021-06-13] MEDS: FERROUS SULFATE 325 MG TABLET. PO SCH (09:20)
[2021-06-13] MEDS: glipiZIDE 5 MG TABLET PO SCH ×2 (09:20→19:43)
[2021-06-13] MEDS: risperiDONE 0.25 MG TABLET. PO SCH (09:20)
[2021-06-13] MEDS: SERTRALINE 100 MG TABLET. PO SCH (09:21)
[2021-06-13] MEDS: PANTOPRAZOLE 40 MG TABLET. PO SCH (09:21)
[2021-06-13] MEDS: ASPIRIN ENTERIC COATED 81 MG TABLET.DR. PO SCH (09:21)
[2021-06-13] MEDS: lamoTRIgine 25 MG TABLET. PO SCH ×2 (09:21→19:44)
[2021-06-13] MEDS: SUCRALFATE 1 GM TABLET. PO SCH ×2 (09:21→19:43)
[2021-06-13 16:05] VITALS: BP 160/82
[2021-06-13] MEDS: DIVALPROEX ER 500 MG TAB.ER.24H PO SCH (19:44)
[2021-06-13] MEDS: ATORVASTATIN CALCIUM 20 MG TABLET PO SCH (19:44)
[2021-06-13] MEDS: risperiDONE 1 MG TABLET. PO SCH (19:46)
--- NOTE | 2021-06-13 22:00 | PDOC ---
Exam Note: Adolph Note: Please also refer to the separate dictated note~for this date of service dictated separately.~Patient seen individually. Discussed the patient with Nursing staff reviewed the chart.~Reviewed interim history and current functioning. Reviewed vital signs,~Labs/ Radiology~and current medications noted below. Continue current treatment with the changes noted in the dictated addendum note Assessment: Vital Signs/I&O: Vital Signs Date Time Temp Pulse Resp B/P (MAP) Pulse Ox O2 Delivery O2 Flow Rate FiO2 06/13/21 16:05 98.1 88 18 160/82 (108) 99 06/12/21 06:59 Room Air I & O 06/12/21 06/12/21 06/13/21 15:00 23:00 07:00 Intake Total 0 ml 100 ml Balance 0 ml 100 ml Labs: Laboratory Tests Test 06/13/21 07:46 06/13/21 11:45 06/13/21 16:32 Glucose (Fingerstick) 211 mg/dL (70-99) H 158 mg/dL (70-99) H 142 mg/dL (70-99) H Current Medications: Meds: Laboratory Tests Test 06/13/21 07:46 06/13/21 11:45 06/13/21 16:32 Glucose (Fingerstick) 211 mg/dL 158 mg/dL 142 mg/dL Current Medications Medications (Trade) Dose Ordered Sig/Karsten Route PRN Reason Start Time Stop Time Status Last Admin Dose Admin Acetaminophen (Tylenol) 650 mg PRN Q6HRS PRN PO MILD PAIN / TEMP > 100.3'F 06/09/21 21:45 06/13/21 03:15 Multi-Ingredient Ointment (Analgesic [place]) 1 bia PRN QID PRN TP MUSCLE PAIN 06/09/21 21:45 Al Hydroxide/Mg Hydroxide (Mylanta Plus Xs) 15 ml PRN AFTMEALHC PRN PO DYSPEPSIA 06/09/21 21:45 Magnesium Hydroxide (Milk Of Magnesia) 2,400 mg PRN QHS PRN PO CONSTIPATION 06/09/21 21:45 Aspirin (Aspirin Enteric Coated) 81 mg DAILY PO 06/10/21 09:00 06/13/21 09:21 Atorvastatin Calcium (Lipitor) 20 mg QHS PO 06/10/21 21:00 06/13/21 19:44 Dicyclomine HCl (Bentyl) 20 mg PRN Q6HRS PRN PO GI SYMPTOMS 06/09/21 22:30 Fluticasone Propionate (Flonase) 2 spray DAILY NS 06/10/21 09:00 06/13/21 09:00 Glipizide (Glucotrol) 5 mg BID PO 06/10/21 09:00 06/13/21 19:43 Insulin Glargine (Lantus Syringe) 16 unit DAILY SQ 06/10/21 09:00 06/12/21 10:56 Lamotrigine (LaMICtal) 100 mg BID PO 06/10/21 09:00 06/13/21 19:44 Levothyroxine Sodium (Synthroid) 175 mcg DAILY06 PO 06/10/21 06:00 06/13/21 05:52 Megestrol Acetate (Megace Oral Susp) 400 mg BIDWMEALS PO 06/10/21 08:00 06/13/21 17:32 Olanzapine (ZyPREXA) 5 mg PRN Q2HR PRN PO ANXIETY / AGITATION 06/09/21 22:30 06/10/21 10:34 DC Ondansetron HCl (Zofran Odt) 4 mg BID PO 06/10/21 09:00 06/10/21 20:29 DC 06/10/21 08:53 Pantoprazole Sodium (Protonix) 40 mg DAILYAC PO 06/10/21 07:30 06/13/21 09:21 Quetiapine Fumarate (SEROquel) 100 mg TID PO 06/10/21 09:00 06/12/21 04:58 DC 06/11/21 21:19 Sertraline HCl (Zoloft) 100 mg DAILY PO 06/10/21 09:00 06/13/21 09:21 Sucralfate (Carafate) 2 gm BID PO 06/10/21 09:00 06/13/21 19:43 Linagliptin (Tradjenta) 5 mg DAILY PO 06/10/21 09:00 06/13/21 09:20 Ascorbic Acid (Vitamin C) 500 mg DAILY PO 06/10/21 09:00 06/13/21 09:20 Ferrous Sulfate (Feosol) 325 mg DAILY PO 06/10/21 09:00 06/13/21 09:20 Lubiprostone (Amitiza) 24 mcg BID PO 06/10/21 09:00 06/13/21 19:44 Non-Formulary Medication (Nitrofurantoin Macrocrystal (Nitrofurantoin)) 100 mg BID PO 06/10/21 10:30 06/14/21 22:00 Cancel Multivit/ Folic Acid/Iron (Multivitamin ) 1 tab DAILY PO 06/10/21 09:00 06/13/21 09:20 Insulin Human Lispro (HumaLOG) 0-7 UNITS TIDWMEALS SQ 06/10/21 08:00 06/12/21 18:50 Dextrose (Dextrose 50%-Water Syringe) 12.5 gm PRN Q15MIN PRN IV SEE COMMENTS 06/09/21 23:00 Lamotrigine (LaMICtal) 25 mg BID PO 06/10/21 09:00 06/13/21 19:44 Nitrofurantoin Macrocrystals (Macrobid) 100 mg BID PO 06/10/21 10:45 06/14/21 22:00 06/13/21 19:44 Olanzapine (ZyPREXA ZYDIS) 2.5 mg PRN Q2HR PRN PO PSYCHOSIS 06/10/21 10:45 06/13/21 13:38 Vitamin D (Vitamin D3) 50,000 unit WEEKLY PO 06/10/21 17:00 06/10/21 18:03 Polyethylene Glycol (miraLAX) 17 gm PRN DAILY PRN PO CONSTIPATION 06/10/21 19:45 Ondansetron HCl (Zofran Odt) 4 mg PRN Q4HRS PRN PO NAUSEA/VOMITING 06/10/21 20:27 Risperidone (RisperDAL) 0.5 mg BID PO 06/12/21 09:00 06/13/21 18:26 DC 06/13/21 09:20 Divalproex Sodium (Depakote Er) 500 mg QHS PO 06/12/21 21:00 06/13/21 19:44 Risperidone (RisperDAL) 1 mg BID PO 06/13/21 21:00 06/13/21 19:46 Current Medications Medications (Trade) Dose Ordered Sig/Karsten Route PRN Reason Start Time Stop Time Status Last Admin Dose Admin Risperidone (RisperDAL) 1 mg BID PO 4/11/22 21:00 06/13/21 19:46 I have reviewed the current psychotropics carefully including drug interactions. Risk benefit ratio favors no change other than as noted in my dictated progress note. Diagnosis: Problems: (1) Schizoaffective disorder, bipolar type (2) Impulse control disorder, unspecified (3) Anxiety disorder, unspecified (4) Bipolar disorder, current episode mixed, severe, with psychotic features RIGOBERTO SANDERS MD Jun 13, 2021 22:00
[2021-06-14] MEDS: LEVOTHYROXINE 175 MCG TABLET PO SCH (05:31)
[2021-06-14 06:32] VITALS: BP 157/86
[2021-06-14 07:10] LABS: VAL ACID 19 mcg/mL (50-100)
[2021-06-14] MEDS: PANTOPRAZOLE 40 MG TABLET. PO SCH (07:30)
[2021-06-14] MEDS: INSULIN LISPRO 300 UNITS/3 ML VIAL. SQ SCH ×3 (08:00→17:00)
[2021-06-14] MEDS: MEGESTROL 400 MG/10 ML ORAL.SUSP. PO SCH ×2 (08:00→17:29)
[2021-06-14] MEDS: lamoTRIgine 100 MG TABLET. PO SCH ×2 (09:00→20:01)
[2021-06-14] MEDS: glipiZIDE 5 MG TABLET PO SCH ×2 (09:00→20:02)
[2021-06-14] MEDS: risperiDONE 1 MG TABLET. PO SCH (09:00)
[2021-06-14] MEDS: ASCORBIC ACID 500 MG TABLET PO SCH (09:00)
[2021-06-14] MEDS: ASPIRIN ENTERIC COATED 81 MG TABLET.DR. PO SCH (09:00)
[2021-06-14] MEDS: SUCRALFATE 1 GM TABLET. PO SCH ×2 (09:00→20:02)
[2021-06-14] MEDS: LUBIPROSTONE 24 MCG CAPSULE PO SCH ×2 (09:00→20:02)
[2021-06-14] MEDS: FLUTICASONE 50MCG/NASAL SPRAY 16GM BOTTLE. NS SCH (09:00)
[2021-06-14] MEDS: NITROFURANTOIN MONOHYD/M-CRYST 100 MG CAPSULE. PO SCH ×2 (09:00→20:01)
[2021-06-14] MEDS: SERTRALINE 100 MG TABLET. PO SCH (09:00)
[2021-06-14] MEDS: PRENATAL MULTIVITAMIN TABLET. PO SCH (09:00)
[2021-06-14] MEDS: LINAGLIPTIN 5 MG TABLET PO SCH (09:00)
[2021-06-14] MEDS: lamoTRIgine 25 MG TABLET. PO SCH ×2 (09:00→20:01)
[2021-06-14] MEDS: FERROUS SULFATE 325 MG TABLET. PO SCH (09:00)
[2021-06-14] MEDS: INSULIN GLARGINE SYRINGE. SQ SCH (09:27)
[2021-06-14 15:54] VITALS: BP 146/77
[2021-06-14] MEDS: DIVALPROEX ER 500 MG TAB.ER.24H PO SCH (20:01)
[2021-06-14] MEDS: risperiDONE ORAL 1 MG/ML 30ml BOTTLE. PO SCH (20:01)
[2021-06-14] MEDS: ATORVASTATIN CALCIUM 20 MG TABLET PO SCH (20:02)
[2021-06-14] MEDS ORDERED: risperiDONE ORAL 1 MG/ML 30ml BOTTLE. SL SCH (21:00)
--- NOTE | 2021-06-14 21:56 | PDOC ---
Exam Note: Adolph Note: Please also refer to the separate dictated note~for this date of service dictated separately.~Patient seen individually. Discussed the patient with Nursing staff reviewed the chart.~Reviewed interim history and current functioning. Reviewed vital signs,~Labs/ Radiology~and current medications noted below. Continue current treatment with the changes noted in the dictated addendum note Assessment: Vital Signs/I&O: Vital Signs Date Time Temp Pulse Resp B/P (MAP) Pulse Ox O2 Delivery O2 Flow Rate FiO2 06/14/21 15:54 98.4 67 18 146/77 (100) 96 06/12/21 06:59 Room Air I & O 06/13/21 06/13/21 06/14/21 15:00 23:00 07:00 Intake Total 240 ml 120 ml Output Total 100 ml Balance 140 ml 120 ml Labs: Laboratory Tests Test 06/14/21 06:38 06/14/21 07:47 06/14/21 12:03 06/14/21 17:09 Valproic Acid Level 19 mcg/mL (50-100) L Valproic Acid Last Dose Date 06/13/21 Valproic Acid Last Dose Time 2100 Glucose (Fingerstick) 106 mg/dL (70-99) H 118 mg/dL (70-99) H 134 mg/dL (70-99) H Test 06/14/21 19:33 Glucose (Fingerstick) 174 mg/dL (70-99) H Current Medications: Meds: Laboratory Tests Test 06/14/21 06:38 06/14/21 07:47 06/14/21 12:03 06/14/21 17:09 Valproic Acid (Depakene) Level 19 mcg/mL Valproic Acid Last Dose Date 06/13/21 Valproic Acid Last Dose Time 2100 Glucose (Fingerstick) 106 mg/dL 118 mg/dL 134 mg/dL Test 06/14/21 19:33 Glucose (Fingerstick) 174 mg/dL Current Medications Medications (Trade) Dose Ordered Sig/Karsten Route PRN Reason Start Time Stop Time Status Last Admin Dose Admin Acetaminophen (Tylenol) 650 mg PRN Q6HRS PRN PO MILD PAIN / TEMP > 100.3'F 06/09/21 21:45 06/13/21 22:26 Multi-Ingredient Ointment (Analgesic [place]) 1 bia PRN QID PRN TP MUSCLE PAIN 06/09/21 21:45 Al Hydroxide/Mg Hydroxide (Mylanta Plus Xs) 15 ml PRN AFTMEALHC PRN PO DYSPEPSIA 06/09/21 21:45 Magnesium Hydroxide (Milk Of Magnesia) 2,400 mg PRN QHS PRN PO 1ST CHOICE CONSTIPATION 06/09/21 21:45 Aspirin (Aspirin Enteric Coated) 81 mg DAILY PO 06/10/21 09:00 06/13/21 09:21 Atorvastatin Calcium (Lipitor) 20 mg QHS PO 06/10/21 21:00 06/14/21 20:02 Dicyclomine HCl (Bentyl) 20 mg PRN Q6HRS PRN PO GI SYMPTOMS 06/09/21 22:30 Fluticasone Propionate (Flonase) 2 spray DAILY NS 06/10/21 09:00 06/13/21 09:00 Glipizide (Glucotrol) 5 mg BID PO 06/10/21 09:00 06/14/21 20:02 Insulin Glargine (Lantus Syringe) 16 unit DAILY SQ 06/10/21 09:00 06/14/21 09:27 Lamotrigine (LaMICtal) 100 mg BID PO 06/10/21 09:00 06/14/21 20:01 Levothyroxine Sodium (Synthroid) 175 mcg DAILY06 PO 06/10/21 06:00 06/14/21 05:31 Megestrol Acetate (Megace Oral Susp) 400 mg BIDWMEALS PO 06/10/21 08:00 06/14/21 17:29 Olanzapine (ZyPREXA) 5 mg PRN Q2HR PRN PO ANXIETY / AGITATION 06/09/21 22:30 06/10/21 10:34 DC Ondansetron HCl (Zofran Odt) 4 mg BID PO 06/10/21 09:00 06/10/21 20:29 DC 06/10/21 08:53 Pantoprazole Sodium (Protonix) 40 mg DAILYAC PO 06/10/21 07:30 06/13/21 09:21 Quetiapine Fumarate (SEROquel) 100 mg TID PO 06/10/21 09:00 06/12/21 04:58 DC 06/11/21 21:19 Sertraline HCl (Zoloft) 100 mg DAILY PO 06/10/21 09:00 06/13/21 09:21 Sucralfate (Carafate) 2 gm BID PO 06/10/21 09:00 06/14/21 20:02 Linagliptin (Tradjenta) 5 mg DAILY PO 06/10/21 09:00 06/13/21 09:20 Ascorbic Acid (Vitamin C) 500 mg DAILY PO 06/10/21 09:00 06/13/21 09:20 Ferrous Sulfate (Feosol) 325 mg DAILY PO 06/10/21 09:00 06/13/21 09:20 Lubiprostone (Amitiza) 24 mcg BID PO 06/10/21 09:00 06/14/21 20:02 Non-Formulary Medication (Nitrofurantoin Macrocrystal (Nitrofurantoin)) 100 mg BID PO 06/10/21 10:30 06/14/21 22:00 Cancel Multivit/ Folic Acid/Iron (Multivitamin ) 1 tab DAILY PO 06/10/21 09:00 06/13/21 09:20 Insulin Human Lispro (HumaLOG) 0-7 UNITS TIDWMEALS SQ 06/10/21 08:00 06/12/21 18:50 Dextrose (Dextrose 50%-Water Syringe) 12.5 gm PRN Q15MIN PRN IV SEE COMMENTS 06/09/21 23:00 Lamotrigine (LaMICtal) 25 mg BID PO 06/10/21 09:00 06/14/21 20:01 Nitrofurantoin Macrocrystals (Macrobid) 100 mg BID PO 06/10/21 10:45 06/14/21 22:00 06/14/21 20:01 Olanzapine (ZyPREXA ZYDIS) 2.5 mg PRN Q2HR PRN PO PSYCHOSIS 06/10/21 10:45 06/14/21 19:52 DC 06/13/21 22:29 Vitamin D (Vitamin D3) 50,000 unit WEEKLY PO 06/10/21 17:00 06/10/21 18:03 Polyethylene Glycol (miraLAX) 17 gm PRN DAILY PRN PO 2ND CHOICE CONSTIPATION 06/10/21 19:45 Ondansetron HCl (Zofran Odt) 4 mg PRN Q4HRS PRN PO NAUSEA/VOMITING 06/10/21 20:27 06/14/21 11:11 Risperidone (RisperDAL) 0.5 mg BID PO 06/12/21 09:00 06/13/21 18:26 DC 06/13/21 09:20 Divalproex Sodium (Depakote Er) 500 mg QHS PO 06/12/21 21:00 06/14/21 17:08 DC 06/13/21 19:44 Risperidone (RisperDAL) 1 mg BID PO 06/13/21 21:00 06/14/21 18:34 DC 06/13/21 19:46 Divalproex Sodium (Depakote Er) 1,000 mg QHS PO 06/14/21 21:00 06/14/21 20:01 Risperidone (RisperDAL) 2 mg BID SL 06/14/21 21:00 Cancel Risperidone (RisperDAL) 2 mg DAILY PO 06/14/21 18:45 06/14/21 20:01 Olanzapine (ZyPREXA ZYDIS) 5 mg PRN Q2HR PRN PO PSYCHOSIS 06/14/21 20:00 Olanzapine (ZyPREXA ZYDIS) 10 mg 1X ONCE PO 06/14/21 20:00 06/14/21 20:01 DC 06/14/21 20:02 Current Medications Medications (Trade) Dose Ordered Sig/Karsten Route PRN Reason Start Time Stop Time Status Last Admin Dose Admin Divalproex Sodium (Depakote Er) 1,000 mg QHS PO 06/14/21 21:00 06/14/21 20:01 Risperidone (RisperDAL) 2 mg DAILY PO 06/14/21 18:45 06/14/21 20:01 Olanzapine (ZyPREXA ZYDIS) 10 mg 1X ONCE PO 06/14/21 20:00 06/14/21 20:01 DC 06/14/21 20:02 I have reviewed the current psychotropics carefully including drug interactions. Risk benefit ratio favors no change other than as noted in my dictated progress note. Diagnosis: Problems: (1) Schizoaffective disorder, bipolar type (2) Impulse control disorder, unspecified (3) Anxiety disorder, unspecified (4) Bipolar disorder, current episode mixed, severe, with psychotic features RIGOBERTO SANDERS MD Jun 14, 2021 21:56
[2021-06-15] MEDS: LEVOTHYROXINE 175 MCG TABLET PO SCH (06:08)
[2021-06-15 06:24] VITALS: BP 148/82
[2021-06-15] MEDS: SUCRALFATE 1 GM TABLET. PO SCH ×2 (07:58→20:02)
[2021-06-15] MEDS: ASPIRIN ENTERIC COATED 81 MG TABLET.DR. PO SCH (07:58)
[2021-06-15] MEDS: FERROUS SULFATE 325 MG TABLET. PO SCH (07:58)
[2021-06-15] MEDS: PRENATAL MULTIVITAMIN TABLET. PO SCH (07:59)
[2021-06-15] MEDS: LINAGLIPTIN 5 MG TABLET PO SCH (07:59)
[2021-06-15] MEDS: LUBIPROSTONE 24 MCG CAPSULE PO SCH ×2 (07:59→20:02)
[2021-06-15] MEDS: lamoTRIgine 25 MG TABLET. PO SCH ×2 (07:59→20:02)
[2021-06-15] MEDS: lamoTRIgine 100 MG TABLET. PO SCH ×2 (07:59→20:02)
[2021-06-15] MEDS: glipiZIDE 5 MG TABLET PO SCH ×2 (07:59→20:02)
[2021-06-15] MEDS: PANTOPRAZOLE 40 MG TABLET. PO SCH (08:00)
[2021-06-15] MEDS: SERTRALINE 100 MG TABLET. PO SCH (08:00)
[2021-06-15] MEDS: INSULIN LISPRO 300 UNITS/3 ML VIAL. SQ SCH ×3 (08:00→18:20)
[2021-06-15] MEDS: FLUTICASONE 50MCG/NASAL SPRAY 16GM BOTTLE. NS SCH (08:00)
[2021-06-15] MEDS: MEGESTROL 400 MG/10 ML ORAL.SUSP. PO SCH ×2 (08:00→18:17)
[2021-06-15] MEDS: ASCORBIC ACID 500 MG TABLET PO SCH (08:00)
[2021-06-15] MEDS: risperiDONE ORAL 1 MG/ML 30ml BOTTLE. PO SCH (08:01)
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
[2021-06-15] MEDS: INSULIN GLARGINE SYRINGE. SQ SCH (09:00)
[2021-06-15] MEDS: DIVALPROEX ER 500 MG TAB.ER.24H PO SCH (20:02)
[2021-06-15] MEDS: ATORVASTATIN CALCIUM 20 MG TABLET PO SCH (20:02)
[2021-06-15 21:00] VITALS: BP 137/79
--- NOTE | 2021-06-15 21:53 | PDOC ---
Exam Note: Adolph Note: Please also refer to the separate dictated note~for this date of service dictated separately.~Patient seen individually. Discussed the patient with Nursing staff reviewed the chart.~Reviewed interim history and current functioning. Reviewed vital signs,~Labs/ Radiology~and current medications noted below. Continue current treatment with the changes noted in the dictated addendum note Assessment: Vital Signs/I&O: Vital Signs Date Time Temp Pulse Resp B/P (MAP) Pulse Ox O2 Delivery O2 Flow Rate FiO2 06/15/21 06:24 97.9 67 22 148/82 (104) 98 06/12/21 06:59 Room Air I & O 06/14/21 06/14/21 06/15/21 15:00 23:00 07:00 Intake Total 0 ml 180 ml Balance 0 ml 180 ml Labs: Laboratory Tests Test 06/15/21 08:13 06/15/21 12:01 06/15/21 17:11 06/15/21 19:26 Glucose (Fingerstick) 119 mg/dL (70-99) H 127 mg/dL (70-99) H 204 mg/dL (70-99) H 143 mg/dL (70-99) H Current Medications: Meds: Laboratory Tests Test 06/15/21 08:13 06/15/21 12:01 06/15/21 17:11 06/15/21 19:26 Glucose (Fingerstick) 119 mg/dL 127 mg/dL 204 mg/dL 143 mg/dL Current Medications Medications (Trade) Dose Ordered Sig/Karsten Route PRN Reason Start Time Stop Time Status Last Admin Dose Admin Acetaminophen (Tylenol) 650 mg PRN Q6HRS PRN PO MILD PAIN / TEMP > 100.3'F 06/09/21 21:45 06/13/21 22:26 Multi-Ingredient Ointment (Analgesic [place]) 1 bia PRN QID PRN TP MUSCLE PAIN 06/09/21 21:45 Al Hydroxide/Mg Hydroxide (Mylanta Plus Xs) 15 ml PRN AFTMEALHC PRN PO DYSPEPSIA 06/09/21 21:45 Magnesium Hydroxide (Milk Of Magnesia) 2,400 mg PRN QHS PRN PO 1ST CHOICE CONSTIPATION 06/09/21 21:45 Aspirin (Aspirin Enteric Coated) 81 mg DAILY PO 06/10/21 09:00 06/15/21 07:58 Atorvastatin Calcium (Lipitor) 20 mg QHS PO 06/10/21 21:00 06/15/21 20:02 Dicyclomine HCl (Bentyl) 20 mg PRN Q6HRS PRN PO GI SYMPTOMS 06/09/21 22:30 Fluticasone Propionate (Flonase) 2 spray DAILY NS 06/10/21 09:00 06/15/21 08:00 Glipizide (Glucotrol) 5 mg BID PO 06/10/21 09:00 06/15/21 20:02 Insulin Glargine (Lantus Syringe) 16 unit DAILY SQ 06/10/21 09:00 06/15/21 09:00 Lamotrigine (LaMICtal) 100 mg BID PO 06/10/21 09:00 06/15/21 20:02 Levothyroxine Sodium (Synthroid) 175 mcg DAILY06 PO 06/10/21 06:00 06/15/21 06:08 Megestrol Acetate (Megace Oral Susp) 400 mg BIDWMEALS PO 06/10/21 08:00 06/15/21 18:17 Olanzapine (ZyPREXA) 5 mg PRN Q2HR PRN PO ANXIETY / AGITATION 06/09/21 22:30 06/10/21 10:34 DC Ondansetron HCl (Zofran Odt) 4 mg BID PO 06/10/21 09:00 06/10/21 20:29 DC 06/10/21 08:53 Pantoprazole Sodium (Protonix) 40 mg DAILYAC PO 06/10/21 07:30 06/15/21 08:00 Quetiapine Fumarate (SEROquel) 100 mg TID PO 06/10/21 09:00 06/12/21 04:58 DC 06/11/21 21:19 Sertraline HCl (Zoloft) 100 mg DAILY PO 06/10/21 09:00 06/15/21 08:00 Sucralfate (Carafate) 2 gm BID PO 06/10/21 09:00 06/15/21 20:02 Linagliptin (Tradjenta) 5 mg DAILY PO 06/10/21 09:00 06/15/21 07:59 Ascorbic Acid (Vitamin C) 500 mg DAILY PO 06/10/21 09:00 06/15/21 08:00 Ferrous Sulfate (Feosol) 325 mg DAILY PO 06/10/21 09:00 06/15/21 07:58 Lubiprostone (Amitiza) 24 mcg BID PO 06/10/21 09:00 06/15/21 20:02 Non-Formulary Medication (Nitrofurantoin Macrocrystal (Nitrofurantoin)) 100 mg BID PO 06/10/21 10:30 06/14/21 22:00 Cancel Multivit/ Folic Acid/Iron (Multivitamin ) 1 tab DAILY PO 06/10/21 09:00 06/15/21 07:59 Insulin Human Lispro (HumaLOG) 0-7 UNITS TIDWMEALS SQ 06/10/21 08:00 06/15/21 18:20 Dextrose (Dextrose 50%-Water Syringe) 12.5 gm PRN Q15MIN PRN IV SEE COMMENTS 06/09/21 23:00 Lamotrigine (LaMICtal) 25 mg BID PO 06/10/21 09:00 06/15/21 20:02 Nitrofurantoin Macrocrystals (Macrobid) 100 mg BID PO 06/10/21 10:45 06/14/21 22:00 DC 06/14/21 20:01 Olanzapine (ZyPREXA ZYDIS) 2.5 mg PRN Q2HR PRN PO PSYCHOSIS 06/10/21 10:45 06/14/21 19:52 DC 06/13/21 22:29 Vitamin D (Vitamin D3) 50,000 unit WEEKLY PO 06/10/21 17:00 06/10/21 18:03 Polyethylene Glycol (miraLAX) 17 gm PRN DAILY PRN PO 2ND CHOICE CONSTIPATION 06/10/21 19:45 Ondansetron HCl (Zofran Odt) 4 mg PRN Q4HRS PRN PO NAUSEA/VOMITING 06/10/21 20:27 06/14/21 11:11 Risperidone (RisperDAL) 0.5 mg BID PO 06/12/21 09:00 06/13/21 18:26 DC 06/13/21 09:20 Divalproex Sodium (Depakote Er) 500 mg QHS PO 06/12/21 21:00 06/14/21 17:08 DC 06/13/21 19:44 Risperidone (RisperDAL) 1 mg BID PO 06/13/21 21:00 06/14/21 18:34 DC 06/13/21 19:46 Divalproex Sodium (Depakote Er) 1,000 mg QHS PO 06/14/21 21:00 06/15/21 20:02 Risperidone (RisperDAL) 2 mg BID SL 06/14/21 21:00 Cancel Risperidone (RisperDAL) 2 mg DAILY PO 06/14/21 18:45 06/15/21 08:01 Olanzapine (ZyPREXA ZYDIS) 5 mg PRN Q2HR PRN PO PSYCHOSIS 06/14/21 20:00 06/15/21 20:59 Olanzapine (ZyPREXA ZYDIS) 10 mg 1X ONCE PO 06/14/21 20:00 06/14/21 20:01 DC 06/14/21 20:02 I have reviewed the current psychotropics carefully including drug interactions. Risk benefit ratio favors no change other than as noted in my dictated progress note. Diagnosis: Problems: (1) Schizoaffective disorder, bipolar type (2) Impulse control disorder, unspecified (3) Anxiety disorder, unspecified (4) Bipolar disorder, current episode mixed, severe, with psychotic features RIGOBERTO SANDERS MD Jun 15, 2021 21:53
[2021-06-15 23:05] LABS: BASO # 0.2 x10^3/uL (0.0-0.2); BASO % 1 % (0-3); EOS # 0.2 x10^3/uL (0.0-0.7); EOS % 2 % (0-3); HEMATOCRIT 33.9 % (36.0-47.0); HEMOGLOBIN 11.2 g/dL (12.0-15.5); LYMPH # 2.3 x10^3/uL (1.0-4.8); LYMPH % 19 % (24-48); MEAN CORPUSCULAR HEMOGLOBIN 29 pg (25-35); MEAN CORPUSCULAR HGB CONC 33 g/dL (31-37); MEAN CORPUSCULAR VOLUME 88 fL (79-100); MONO # 1.1 x10^3/uL (0.0-1.1); MONO % 9 % (0-9); NEUT # 8.6 x10^3uL (1.8-7.7); NEUT % 70 % (31-73); PLATELET COUNT 267 x10^3/uL (140-400); RED BLOOD COUNT 3.84 x10^6/uL (3.50-5.40); RED CELL DISTRIBUTION WIDTH 14.4 % (11.5-14.5); WHITE BLOOD COUNT 12.4 x10^3/uL (4.0-11.0)
--- NOTE | 2021-06-15 23:26 | EKG ---
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
[2021-06-15 23:48] LABS: ALBUMIN 3.8 g/dL (3.4-5.0); ALBUMIN/GLOBULIN RATIO 1.3 (1.0-1.7); CALCIUM 9.1 mg/dL (8.5-10.1); CREATININE 1.1 mg/dL (0.6-1.0); GFR 51.4; POTASSIUM 4.8 mmol/L (3.5-5.1); TOTAL BILIRUBIN 0.4 mg/dL (0.2-1.0); TOTAL PROTEIN 6.7 g/dL (6.4-8.2)
[2021-06-16] MEDS: LEVOTHYROXINE 175 MCG TABLET PO SCH (04:51)
[2021-06-16] MEDS: ACETAMINOPHEN 325 MG TABLET PO PRN (04:52)
[2021-06-16 06:03] VITALS: BP 148/94
[2021-06-16] MEDS: INSULIN LISPRO 300 UNITS/3 ML VIAL. SQ SCH ×3 (08:00→17:00)
[2021-06-16] MEDS: lamoTRIgine 25 MG TABLET. PO SCH ×2 (09:49→10:00)
[2021-06-16] MEDS: PANTOPRAZOLE 40 MG TABLET. PO SCH (09:49)
[2021-06-16] MEDS: LUBIPROSTONE 24 MCG CAPSULE PO SCH ×2 (09:49→21:00)
[2021-06-16] MEDS: LINAGLIPTIN 5 MG TABLET PO SCH (09:49)
[2021-06-16] MEDS: glipiZIDE 5 MG TABLET PO SCH ×3 (09:49→20:14)
[2021-06-16] MEDS: lamoTRIgine 100 MG TABLET. PO SCH (09:49)
[2021-06-16] MEDS: PRENATAL MULTIVITAMIN TABLET. PO SCH (09:49)
[2021-06-16] MEDS: ASPIRIN ENTERIC COATED 81 MG TABLET.DR. PO SCH ×2 (09:50→10:00)
[2021-06-16] MEDS: SUCRALFATE 1 GM TABLET. PO SCH ×2 (09:50→20:13)
[2021-06-16] MEDS: MEGESTROL 400 MG/10 ML ORAL.SUSP. PO SCH ×2 (09:50→17:00)
[2021-06-16] MEDS: FERROUS SULFATE 325 MG TABLET. PO SCH (09:50)
[2021-06-16] MEDS: SERTRALINE 100 MG TABLET. PO SCH ×2 (09:50→10:00)
[2021-06-16] MEDS: ASCORBIC ACID 500 MG TABLET PO SCH (09:50)
[2021-06-16] MEDS: risperiDONE ORAL 1 MG/ML 30ml BOTTLE. PO SCH ×3 (09:51→11:30)
[2021-06-16] MEDS: FLUTICASONE 50MCG/NASAL SPRAY 16GM BOTTLE. NS SCH (09:54)
[2021-06-16] MEDS: INSULIN GLARGINE SYRINGE. SQ SCH (09:56)
[2021-06-16 16:19] VITALS: BP 127/72
[2021-06-16] MEDS ORDERED: risperiDONE ORAL 1 MG/ML 30ml BOTTLE. SL ONE (20:00)
[2021-06-16] MEDS: DIVALPROEX ER 500 MG TAB.ER.24H PO SCH (20:13)
[2021-06-16] MEDS: traZODone 50 MG TABLET. PO PRN ×2 (20:14→23:44)
[2021-06-16] MEDS: ATORVASTATIN CALCIUM 20 MG TABLET PO SCH (20:14)
--- NOTE | 2021-06-16 22:17 | PDOC ---
Exam Note: Adolph Note: Please also refer to the separate dictated note~for this date of service dictated separately.~Patient seen individually. Discussed the patient with Nursing staff reviewed the chart.~Reviewed interim history and current functioning. Reviewed vital signs,~Labs/ Radiology~and current medications noted below. Continue current treatment with the changes noted in the dictated addendum note Assessment: Vital Signs/I&O: Vital Signs Date Time Temp Pulse Resp B/P (MAP) Pulse Ox O2 Delivery O2 Flow Rate FiO2 06/16/21 16:19 98.1 77 20 127/72 (90) 96 06/16/21 06:03 Room Air I & O 06/15/21 06/15/21 06/16/21 15:00 23:00 07:00 Intake Total 0 ml 0 ml Balance 0 ml 0 ml Labs: Laboratory Tests Test 06/15/21 22:53 06/16/21 07:48 06/16/21 12:19 06/16/21 17:14 White Blood Count 12.4 x10^3/uL (4.0-11.0) H Red Blood Count 3.84 x10^6/uL (3.50-5.40) Hemoglobin 11.2 g/dL (12.0-15.5) L Hematocrit 33.9 % (36.0-47.0) L Mean Corpuscular Volume 88 fL (79-100) Mean Corpuscular Hemoglobin 29 pg (25-35) Mean Corpuscular Hemoglobin Concent 33 g/dL (31-37) Red Cell Distribution Width 14.4 % (11.5-14.5) Platelet Count 267 x10^3/uL (140-400) Neutrophils (%) (Auto) 70 % (31-73) Lymphocytes (%) (Auto) 19 % (24-48) L Monocytes (%) (Auto) 9 % (0-9) Eosinophils (%) (Auto) 2 % (0-3) Basophils (%) (Auto) 1 % (0-3) Neutrophils # (Auto) 8.6 x10^3uL (1.8-7.7) H Lymphocytes # (Auto) 2.3 x10^3/uL (1.0-4.8) Monocytes # (Auto) 1.1 x10^3/uL (0.0-1.1) Eosinophils # (Auto) 0.2 x10^3/uL (0.0-0.7) Basophils # (Auto) 0.2 x10^3/uL (0.0-0.2) Sodium Level 146 mmol/L (136-145) H Potassium Level 4.8 mmol/L (3.5-5.1) Chloride Level 109 mmol/L (98-107) H Carbon Dioxide Level 28 mmol/L (21-32) Anion Gap 9 (6-14) Blood Urea Nitrogen 14 mg/dL (7-20) Creatinine 1.1 mg/dL (0.6-1.0) H Estimated GFR (Cockcroft-Gault) 51.4 BUN/Creatinine Ratio 13 (6-20) Glucose Level 111 mg/dL (70-99) H Calcium Level 9.1 mg/dL (8.5-10.1) Total Bilirubin 0.4 mg/dL (0.2-1.0) Aspartate Amino Transferase (AST) 9 U/L (15-37) L Alanine Aminotransferase (ALT) 19 U/L (14-59) Alkaline Phosphatase 90 U/L (46-116) Creatine Kinase 90 U/L (26-192) Myoglobin 69 ng/mL (9-82) Troponin I High Sensitivity 6 ng/L (4-50) Total Protein 6.7 g/dL (6.4-8.2) Albumin 3.8 g/dL (3.4-5.0) Albumin/Globulin Ratio 1.3 (1.0-1.7) Glucose (Fingerstick) 117 mg/dL (70-99) H 121 mg/dL (70-99) H 102 mg/dL (70-99) H Test 06/16/21 19:07 Glucose (Fingerstick) 130 mg/dL (70-99) H Current Medications: Meds: Laboratory Tests Test 06/15/21 22:53 06/16/21 07:48 06/16/21 12:19 06/16/21 17:14 White Blood Count 12.4 x10^3/uL Red Blood Count 3.84 x10^6/uL Hemoglobin 11.2 g/dL Hematocrit 33.9 % Mean Corpuscular Volume 88 fL Mean Corpuscular Hemoglobin 29 pg Mean Corpuscular Hemoglobin Concent 33 g/dL Red Cell Distribution Width 14.4 % Platelet Count 267 x10^3/uL Neutrophils (%) (Auto) 70 % Lymphocytes (%) (Auto) 19 % Monocytes (%) (Auto) 9 % Eosinophils (%) (Auto) 2 % Basophils (%) (Auto) 1 % Neutrophils # (Auto) 8.6 x10^3uL Lymphocytes # (Auto) 2.3 x10^3/uL Monocytes # (Auto) 1.1 x10^3/uL Eosinophils # (Auto) 0.2 x10^3/uL Basophils # (Auto) 0.2 x10^3/uL Sodium Level 146 mmol/L Potassium Level 4.8 mmol/L Chloride Level 109 mmol/L Carbon Dioxide Level 28 mmol/L Anion Gap 9 Blood Urea Nitrogen 14 mg/dL Creatinine 1.1 mg/dL Estimated GFR (Cockcroft-Gault) 51.4 BUN/Creatinine Ratio 13 Glucose Level 111 mg/dL Calcium Level 9.1 mg/dL Total Bilirubin 0.4 mg/dL Aspartate Amino Transf (AST/SGOT) 9 U/L Alanine Aminotransferase (ALT/SGPT) 19 U/L Alkaline Phosphatase 90 U/L Creatine Kinase 90 U/L Myoglobin 69 ng/mL Troponin I High Sensitivity 6 ng/L Total Protein 6.7 g/dL Albumin 3.8 g/dL Albumin/Globulin Ratio 1.3 Glucose (Fingerstick) 117 mg/dL 121 mg/dL 102 mg/dL Test 06/16/21 19:07 Glucose (Fingerstick) 130 mg/dL Current Medications Medications (Trade) Dose Ordered Sig/Karsten Route PRN Reason Start Time Stop Time Status Last Admin Dose Admin Acetaminophen (Tylenol) 650 mg PRN Q6HRS PRN PO MILD PAIN / TEMP > 100.3'F 06/09/21 21:45 06/16/21 04:52 Multi-Ingredient Ointment (Analgesic [place]) 1 bia PRN QID PRN TP MUSCLE PAIN 06/09/21 21:45 Al Hydroxide/Mg Hydroxide (Mylanta Plus Xs) 15 ml PRN AFTMEALHC PRN PO DYSPEPSIA 06/09/21 21:45 Magnesium Hydroxide (Milk Of Magnesia) 2,400 mg PRN QHS PRN PO 1ST CHOICE CONSTIPATION 06/09/21 21:45 Aspirin (Aspirin Enteric Coated) 81 mg DAILY PO 06/10/21 09:00 06/15/21 07:58 Atorvastatin Calcium (Lipitor) 20 mg QHS PO 06/10/21 21:00 06/16/21 20:14 Dicyclomine HCl (Bentyl) 20 mg PRN Q6HRS PRN PO GI SYMPTOMS 06/09/21 22:30 Fluticasone Propionate (Flonase) 2 spray DAILY NS 06/10/21 09:00 06/16/21 09:54 Glipizide (Glucotrol) 5 mg BID PO 06/10/21 09:00 06/16/21 20:14 Insulin Glargine (Lantus Syringe) 16 unit DAILY SQ 06/10/21 09:00 06/16/21 09:56 Lamotrigine (LaMICtal) 100 mg BID PO 06/10/21 09:00 06/16/21 13:52 DC 06/16/21 09:49 Levothyroxine Sodium (Synthroid) 175 mcg DAILY06 PO 06/10/21 06:00 06/16/21 04:51 Megestrol Acetate (Megace Oral Susp) 400 mg BIDWMEALS PO 06/10/21 08:00 06/16/21 09:50 Olanzapine (ZyPREXA) 5 mg PRN Q2HR PRN PO ANXIETY / AGITATION 06/09/21 22:30 06/10/21 10:34 DC Ondansetron HCl (Zofran Odt) 4 mg BID PO 06/10/21 09:00 06/10/21 20:29 DC 06/10/21 08:53 Pantoprazole Sodium (Protonix) 40 mg DAILYAC PO 06/10/21 07:30 06/16/21 09:49 Quetiapine Fumarate (SEROquel) 100 mg TID PO 06/10/21 09:00 06/12/21 04:58 DC 06/11/21 21:19 Sertraline HCl (Zoloft) 100 mg DAILY PO 06/10/21 09:00 06/16/21 13:52 DC 06/15/21 08:00 Sucralfate (Carafate) 2 gm BID PO 06/10/21 09:00 06/16/21 20:13 Linagliptin (Tradjenta) 5 mg DAILY PO 06/10/21 09:00 06/16/21 09:49 Ascorbic Acid (Vitamin C) 500 mg DAILY PO 06/10/21 09:00 06/16/21 09:50 Ferrous Sulfate (Feosol) 325 mg DAILY PO 06/10/21 09:00 06/16/21 09:50 Lubiprostone (Amitiza) 24 mcg BID PO 06/10/21 09:00 06/16/21 09:49 Non-Formulary Medication (Nitrofurantoin Macrocrystal (Nitrofurantoin)) 100 mg BID PO 06/10/21 10:30 06/14/21 22:00 Cancel Multivit/ Folic Acid/Iron (Multivitamin ) 1 tab DAILY PO 06/10/21 09:00 06/16/21 09:49 Insulin Human Lispro (HumaLOG) 0-7 UNITS TIDWMEALS SQ 06/10/21 08:00 06/15/21 18:20 Dextrose (Dextrose 50%-Water Syringe) 12.5 gm PRN Q15MIN PRN IV SEE COMMENTS 06/09/21 23:00 Lamotrigine (LaMICtal) 25 mg BID PO 06/10/21 09:00 06/16/21 13:52 DC 06/15/21 20:02 Nitrofurantoin Macrocrystals (Macrobid) 100 mg BID PO 06/10/21 10:45 06/14/21 22:00 DC 06/14/21 20:01 Olanzapine (ZyPREXA ZYDIS) 2.5 mg PRN Q2HR PRN PO PSYCHOSIS 06/10/21 10:45 06/14/21 19:52 DC 06/13/21 22:29 Vitamin D (Vitamin D3) 50,000 unit WEEKLY PO 06/10/21 17:00 06/10/21 18:03 Polyethylene Glycol (miraLAX) 17 gm PRN DAILY PRN PO 2ND CHOICE CONSTIPATION 06/10/21 19:45 Ondansetron HCl (Zofran Odt) 4 mg PRN Q4HRS PRN PO NAUSEA/VOMITING 06/10/21 20:27 06/14/21 11:11 Risperidone (RisperDAL) 0.5 mg BID PO 06/12/21 09:00 06/13/21 18:26 DC 06/13/21 09:20 Divalproex Sodium (Depakote Er) 500 mg QHS PO 06/12/21 21:00 06/14/21 17:08 DC 06/13/21 19:44 Risperidone (RisperDAL) 1 mg BID PO 06/13/21 21:00 06/14/21 18:34 DC 06/13/21 19:46 Divalproex Sodium (Depakote Er) 1,000 mg QHS PO 06/14/21 21:00 06/16/21 20:13 Risperidone (RisperDAL) 2 mg BID SL 06/14/21 21:00 Cancel Risperidone (RisperDAL) 2 mg DAILY PO 06/14/21 18:45 06/16/21 19:50 DC 06/16/21 11:30 Olanzapine (ZyPREXA ZYDIS) 5 mg PRN Q2HR PRN PO PSYCHOSIS 06/14/21 20:00 06/16/21 20:15 Olanzapine (ZyPREXA ZYDIS) 10 mg 1X ONCE PO 06/14/21 20:00 06/14/21 20:01 DC 06/14/21 20:02 Risperidone (RisperDAL) 1 mg 1X ONCE SL 06/16/21 20:00 06/16/21 20:01 DC 06/16/21 20:14 Risperidone (RisperDAL) 3 mg DAILY SL 06/17/21 09:00 Trazodone HCl (Desyrel) 50 mg PRN QHS PRN PO INSOMNIA, MAY REPEAT X1 06/16/21 20:00 06/16/21 20:14 Current Medications Medications (Trade) Dose Ordered Sig/Kar[place] Route PRN Reason Start Time Stop Time Status Last Admin Dose Admin Risperidone (RisperDAL) 1 mg 1X ONCE SL 06/16/21 20:00 06/16/21 20:01 DC 06/16/21 20:14 Trazodone HCl (Desyrel) 50 mg PRN QHS PRN PO INSOMNIA, MAY REPEAT X1 06/16/21 20:00 06/16/21 20:14 I have reviewed the current psychotropics carefully including drug interactions. Risk benefit ratio favors no change other than as noted in my dictated progress note. Diagnosis: Problems: (1) Schizoaffective disorder, bipolar type (2) Impulse control disorder, unspecified (3) Anxiety disorder, unspecified (4) Bipolar disorder, current episode mixed, severe, with psychotic features RIGOBERTO SANDERS MD Jun 16, 2021 22:17
[2021-06-16 22:59] LABS: BACTERIA,URINE MANY /HPF (0-FEW); CLARITY,URINE CLOUDY; COLOR,URINE YELLOW; GLUCOSE,URINE NEG (NEG); NITRITE,URINE NEG (NEG); SQUAMOUS EPITHELIAL CELL,UR OCC /LPF; UROBILINOGEN,URINE 0.2 mg/dL (0.2 mg/dL); WBC,URINE >40 /HPF (0-4)
[2021-06-17] MEDS: LEVOTHYROXINE 175 MCG TABLET PO SCH (06:03)
[2021-06-17 06:09] VITALS: BP 138/84
[2021-06-17 06:25] LABS: BASO # 0.1 x10^3/uL (0.0-0.2); BASO % 1 % (0-3); EOS # 0.2 x10^3/uL (0.0-0.7); EOS % 2 % (0-3); HEMOGLOBIN 11.2 g/dL (12.0-15.5); LYMPH # 2.4 x10^3/uL (1.0-4.8); LYMPH % 28 % (24-48); MEAN CORPUSCULAR HEMOGLOBIN 29 pg (25-35); MEAN CORPUSCULAR HGB CONC 33 g/dL (31-37); MEAN CORPUSCULAR VOLUME 89 fL (79-100); MONO # 0.7 x10^3/uL (0.0-1.1); MONO % 8 % (0-9); NEUT # 5.4 x10^3uL (1.8-7.7); NEUT % 61 % (31-73); PLATELET COUNT 264 x10^3/uL (140-400); RED BLOOD COUNT 3.84 x10^6/uL (3.50-5.40); RED CELL DISTRIBUTION WIDTH 14.3 % (11.5-14.5); WHITE BLOOD COUNT 8.8 x10^3/uL (4.0-11.0)
[2021-06-17 06:43] LABS: ALBUMIN 3.5 g/dL (3.4-5.0); ALBUMIN/GLOBULIN RATIO 1.2 (1.0-1.7); ALK PHOS 79 U/L (46-116); ALT (SGPT) 17 U/L (14-59); ANION GAP 11 (6-14); AST (SGOT) 10 U/L (15-37); BLOOD UREA NITROGEN 17 mg/dL (7-20); BUN/CREATININE RATIO 15 (6-20); CALCIUM 8.7 mg/dL (8.5-10.1); CARBON DIOXIDE 26 mmol/L (21-32); CHLORIDE 108 mmol/L (98-107); CREATININE 1.1 mg/dL (0.6-1.0); GFR 51.4; GLUCOSE 92 mg/dL (70-99); POTASSIUM 4.3 mmol/L (3.5-5.1); SODIUM 145 mmol/L (136-145); TOTAL BILIRUBIN 0.4 mg/dL (0.2-1.0); TOTAL PROTEIN 6.4 g/dL (6.4-8.2)
[2021-06-17 06:47] LABS: VAL ACID 71 mcg/mL (50-100)
[2021-06-17] MEDS: INSULIN LISPRO 300 UNITS/3 ML VIAL. SQ SCH ×3 (08:00→17:00)
[2021-06-17] MEDS: glipiZIDE 5 MG TABLET PO SCH ×2 (10:59→21:01)
[2021-06-17] MEDS: PANTOPRAZOLE 40 MG TABLET. PO SCH (10:59)
[2021-06-17] MEDS: ASCORBIC ACID 500 MG TABLET PO SCH (11:00)
[2021-06-17] MEDS: LUBIPROSTONE 24 MCG CAPSULE PO SCH ×2 (11:00→21:02)
[2021-06-17] MEDS: FERROUS SULFATE 325 MG TABLET. PO SCH (11:00)
[2021-06-17] MEDS: SUCRALFATE 1 GM TABLET. PO SCH ×2 (11:00→21:01)
[2021-06-17] MEDS: LINAGLIPTIN 5 MG TABLET PO SCH (11:00)
[2021-06-17] MEDS: ASPIRIN ENTERIC COATED 81 MG TABLET.DR. PO SCH (11:00)
[2021-06-17] MEDS: MEGESTROL 400 MG/10 ML ORAL.SUSP. PO SCH ×2 (11:00→17:33)
[2021-06-17] MEDS: CHOLECALCIFEROL (VITAMIN D3) 50,000 UNIT CAPSULE PO SCH (11:00)
[2021-06-17] MEDS: PRENATAL MULTIVITAMIN TABLET. PO SCH (11:00)
[2021-06-17] MEDS: risperiDONE ORAL 1 MG/ML 30ml BOTTLE. SL SCH (11:02)
[2021-06-17] MEDS: FLUTICASONE 50MCG/NASAL SPRAY 16GM BOTTLE. NS SCH (11:04)
[2021-06-17] MEDS: INSULIN GLARGINE SYRINGE. SQ SCH (11:11)
--- NOTE | 2021-06-17 12:01 | PDOC ---
Exam Note: Adolph Note: This note is a late entry for 06/15/2021 covers elements not covered in my initial note. Subjective: The patient was seen individually on 06/15/2021, discussed and reviewed the chart with Chepe KAHN. The patient slept 3 hours previous night. She has had a very difficult day. She has been psychotic, agitated, grandiose, yelling, screaming, slapping staff and others, spitting on the floor, aggressive, sexually inappropriate. Appetite 10%. She throws her food on the floor. Review of Systems: Ambulation impaired, in wheelchair. No CV, , pulmonary, eye, ENT system symptoms on review. Reliability poor due to her psychosis. Mental Status Exam: Patient is oriented to herself. Insight, judgment, recent and remote memory, attention and concentration, fund of knowledge is poor consistent with her diagnoses. She has marked mood lability, psychotic, paranoid, distractible, yelling out to me Dr. Macario. Laboratory Data: Reviewed. Impression: Bipolar disorder mixed with psychotic features. Anxiety disorder unspecified. Impulse control disorder unspecified. Plan: Maintain rest of the psychotropics unchanged including Risperdal liquid 2 mg a day. We may need to increase this. We may stop her Lamictal since it probably has limited benefit and bipolar manic with psychosis and also Zoloft since it could be worsening her mood swings. Reviewed drug interactions, risk- benefit ratio. Assessment: Vital Signs/I&O: Vital Signs Date Time Temp Pulse Resp B/P (MAP) Pulse Ox O2 Delivery O2 Flow Rate FiO2 06/17/21 06:09 98.8 78 16 138/84 (102) 97 06/16/21 06:03 Room Air I & O 06/16/21 06/16/21 06/17/21 15:00 23:00 07:00 Intake Total 80 ml 60 ml Balance 80 ml 60 ml Labs: Laboratory Tests Test 06/16/21 12:19 06/16/21 17:14 06/16/21 19:07 06/16/21 22:35 Glucose (Fingerstick) 121 mg/dL (70-99) H 102 mg/dL (70-99) H 130 mg/dL (70-99) H Urine Collection Type U cath Urine Color Yellow Urine Clarity Cloudy Urine pH 6.5 Urine Specific [place] >=1.030 Urine Protein Neg (NEG-TRACE) Urine Glucose (UA) Neg mg/dL (NEG) Urine Ketones (Stick) 15 mg/dL (NEG) Urine Blood Trace (NEG) Urine Nitrite Neg (NEG) Urine Bilirubin Neg (NEG) Urine Urobilinogen Dipstick 0.2 mg/dL (0.2 mg/dL) Urine Leukocyte Esterase Large (NEG) Urine RBC 1-2 /HPF (0-2) Urine WBC >40 /HPF (0-4) Urine Squamous Epithelial Cells Occ /LPF Urine Bacteria Many /HPF (0-FEW) Test 06/17/21 06:05 06/17/21 07:51 06/17/21 11:18 White Blood Count 8.8 x10^3/uL (4.0-11.0) Red Blood Count 3.84 x10^6/uL (3.50-5.40) Hemoglobin 11.2 g/dL (12.0-15.5) L Hematocrit 34.0 % (36.0-47.0) L Mean Corpuscular Volume 89 fL (79-100) Mean Corpuscular Hemoglobin 29 pg (25-35) Mean Corpuscular Hemoglobin Concent 33 g/dL (31-37) Red Cell Distribution Width 14.3 % (11.5-14.5) Platelet Count 264 x10^3/uL (140-400) Neutrophils (%) (Auto) 61 % (31-73) Lymphocytes (%) (Auto) 28 % (24-48) Monocytes (%) (Auto) 8 % (0-9) Eosinophils (%) (Auto) 2 % (0-3) Basophils (%) (Auto) 1 % (0-3) Neutrophils # (Auto) 5.4 x10^3uL (1.8-7.7) Lymphocytes # (Auto) 2.4 x10^3/uL (1.0-4.8) Monocytes # (Auto) 0.7 x10^3/uL (0.0-1.1) Eosinophils # (Auto) 0.2 x10^3/uL (0.0-0.7) Basophils # (Auto) 0.1 x10^3/uL (0.0-0.2) Sodium Level 145 mmol/L (136-145) Potassium Level 4.3 mmol/L (3.5-5.1) Chloride Level 108 mmol/L (98-107) H Carbon Dioxide Level 26 mmol/L (21-32) Anion Gap 11 (6-14) Blood Urea Nitrogen 17 mg/dL (7-20) Creatinine 1.1 mg/dL (0.6-1.0) H Estimated GFR (Cockcroft-Gault) 51.4 BUN/Creatinine Ratio 15 (6-20) Glucose Level 92 mg/dL (70-99) Calcium Level 8.7 mg/dL (8.5-10.1) Total Bilirubin 0.4 mg/dL (0.2-1.0) Aspartate Amino Transferase (AST) 10 U/L (15-37) L Alanine Aminotransferase (ALT) 17 U/L (14-59) Alkaline Phosphatase 79 U/L (46-116) Ammonia 14 mcmol/L (11-34) Total Protein 6.4 g/dL (6.4-8.2) Albumin 3.5 g/dL (3.4-5.0) Albumin/Globulin Ratio 1.2 (1.0-1.7) Valproic Acid Level 71 mcg/mL (50-100) Valproic Acid Last Dose Date 06/16/21 Valproic Acid Last Dose Time 2100 Glucose (Fingerstick) 103 mg/dL (70-99) H 116 mg/dL (70-99) H Current Medications: Meds: Current Medications Medications (Trade) Dose Ordered Sig/Kar[place] Route PRN Reason Start Time Stop Time Status Last Admin Dose Admin Risperidone (RisperDAL) 1 mg 1X ONCE SL 06/16/21 20:00 06/16/21 20:01 DC 06/16/21 20:14 Risperidone (RisperDAL) 3 mg DAILY SL 06/17/21 09:00 06/17/21 11:02 Trazodone HCl (Desyrel) 50 mg PRN QHS PRN PO INSOMNIA, MAY REPEAT X1 06/16/21 20:00 06/16/21 23:44 I have reviewed the current psychotropics carefully including drug interactions. Risk benefit ratio favors no change other than as noted in my dictated progress note. Diagnosis: Problems: (1) Schizoaffective disorder, bipolar type (2) Impulse control disorder, unspecified (3) Anxiety disorder, unspecified (4) Bipolar disorder, current episode mixed, severe, with psychotic features RIGOBERTO SANDERS MD Jun 17, 2021 12:01
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
[2021-06-17 15:51] VITALS: BP 146/80
[2021-06-17] MEDS: ATORVASTATIN CALCIUM 20 MG TABLET PO SCH (21:02)
[2021-06-17] MEDS: DIVALPROEX ER 500 MG TAB.ER.24H PO SCH (21:02)
--- NOTE | 2021-06-17 21:26 | PDOC ---
Exam Note: Adolph Note: Please also refer to the separate dictated note~for this date of service dictated separately.~Patient seen individually. Discussed the patient with Nursing staff reviewed the chart.~Reviewed interim history and current functioning. Reviewed vital signs,~Labs/ Radiology~and current medications noted below. Continue current treatment with the changes noted in the dictated addendum note Assessment: Vital Signs/I&O: Vital Signs Date Time Temp Pulse Resp B/P (MAP) Pulse Ox O2 Delivery O2 Flow Rate FiO2 06/17/21 15:51 98.0 67 20 146/80 (102) 98 06/16/21 06:03 Room Air I & O 06/16/21 06/16/21 06/17/21 15:00 23:00 07:00 Intake Total 80 ml 60 ml Balance 80 ml 60 ml Labs: Laboratory Tests Test 06/16/21 22:35 06/17/21 06:05 06/17/21 07:51 06/17/21 11:18 Urine Collection Type U cath Urine Color Yellow Urine Clarity Cloudy Urine pH 6.5 Urine Specific [place] >=1.030 Urine Protein Neg (NEG-TRACE) Urine Glucose (UA) Neg mg/dL (NEG) Urine Ketones (Stick) 15 mg/dL (NEG) Urine Blood Trace (NEG) Urine Nitrite Neg (NEG) Urine Bilirubin Neg (NEG) Urine Urobilinogen Dipstick 0.2 mg/dL (0.2 mg/dL) Urine Leukocyte Esterase Large (NEG) Urine RBC 1-2 /HPF (0-2) Urine WBC >40 /HPF (0-4) Urine Squamous Epithelial Cells Occ /LPF Urine Bacteria Many /HPF (0-FEW) White Blood Count 8.8 x10^3/uL (4.0-11.0) Red Blood Count 3.84 x10^6/uL (3.50-5.40) Hemoglobin 11.2 g/dL (12.0-15.5) L Hematocrit 34.0 % (36.0-47.0) L Mean Corpuscular Volume 89 fL (79-100) Mean Corpuscular Hemoglobin 29 pg (25-35) Mean Corpuscular Hemoglobin Concent 33 g/dL (31-37) Red Cell Distribution Width 14.3 % (11.5-14.5) Platelet Count 264 x10^3/uL (140-400) Neutrophils (%) (Auto) 61 % (31-73) Lymphocytes (%) (Auto) 28 % (24-48) Monocytes (%) (Auto) 8 % (0-9) Eosinophils (%) (Auto) 2 % (0-3) Basophils (%) (Auto) 1 % (0-3) Neutrophils # (Auto) 5.4 x10^3uL (1.8-7.7) Lymphocytes # (Auto) 2.4 x10^3/uL (1.0-4.8) Monocytes # (Auto) 0.7 x10^3/uL (0.0-1.1) Eosinophils # (Auto) 0.2 x10^3/uL (0.0-0.7) Basophils # (Auto) 0.1 x10^3/uL (0.0-0.2) Sodium Level 145 mmol/L (136-145) Potassium Level 4.3 mmol/L (3.5-5.1) Chloride Level 108 mmol/L (98-107) H Carbon Dioxide Level 26 mmol/L (21-32) Anion Gap 11 (6-14) Blood Urea Nitrogen 17 mg/dL (7-20) Creatinine 1.1 mg/dL (0.6-1.0) H Estimated GFR (Cockcroft-Gault) 51.4 BUN/Creatinine Ratio 15 (6-20) Glucose Level 92 mg/dL (70-99) Calcium Level 8.7 mg/dL (8.5-10.1) Total Bilirubin 0.4 mg/dL (0.2-1.0) Aspartate Amino Transferase (AST) 10 U/L (15-37) L Alanine Aminotransferase (ALT) 17 U/L (14-59) Alkaline Phosphatase 79 U/L (46-116) Ammonia 14 mcmol/L (11-34) Total Protein 6.4 g/dL (6.4-8.2) Albumin 3.5 g/dL (3.4-5.0) Albumin/Globulin Ratio 1.2 (1.0-1.7) Valproic Acid Level 71 mcg/mL (50-100) Valproic Acid Last Dose Date 06/16/21 Valproic Acid Last Dose Time 2100 Glucose (Fingerstick) 103 mg/dL (70-99) H 116 mg/dL (70-99) H Test 06/17/21 19:06 Glucose (Fingerstick) 99 mg/dL (70-99) Current Medications: Meds: Laboratory Tests Test 06/16/21 22:35 06/17/21 06:05 06/17/21 07:51 06/17/21 11:18 Urine Collection Type U cath Urine Color Yellow Urine Clarity Cloudy Urine pH 6.5 Urine Specific [place] >=1.030 Urine Protein Neg Urine Glucose (UA) Neg mg/dL Urine Ketones (Stick) 15 mg/dL Urine Blood Trace Urine Nitrite Neg Urine Bilirubin Neg Urine Urobilinogen Dipstick 0.2 mg/dL Urine Leukocyte Esterase Large Urine RBC 1-2 /HPF Urine WBC >40 /HPF Urine Squamous Epithelial Cells Occ /LPF Urine Bacteria Many /HPF White Blood Count 8.8 x10^3/uL Red Blood Count 3.84 x10^6/uL Hemoglobin 11.2 g/dL Hematocrit 34.0 % Mean Corpuscular Volume 89 fL Mean Corpuscular Hemoglobin 29 pg Mean Corpuscular Hemoglobin Concent 33 g/dL Red Cell Distribution Width 14.3 % Platelet Count 264 x10^3/uL Neutrophils (%) (Auto) 61 % Lymphocytes (%) (Auto) 28 % Monocytes (%) (Auto) 8 % Eosinophils (%) (Auto) 2 % Basophils (%) (Auto) 1 % Neutrophils # (Auto) 5.4 x10^3uL Lymphocytes # (Auto) 2.4 x10^3/uL Monocytes # (Auto) 0.7 x10^3/uL Eosinophils # (Auto) 0.2 x10^3/uL Basophils # (Auto) 0.1 x10^3/uL Sodium Level 145 mmol/L Potassium Level 4.3 mmol/L Chloride Level 108 mmol/L Carbon Dioxide Level 26 mmol/L Anion Gap 11 Blood Urea Nitrogen 17 mg/dL Creatinine 1.1 mg/dL Estimated GFR (Cockcroft-Gault) 51.4 BUN/Creatinine Ratio 15 Glucose Level 92 mg/dL Calcium Level 8.7 mg/dL Total Bilirubin 0.4 mg/dL Aspartate Amino Transf (AST/SGOT) 10 U/L Alanine Aminotransferase (ALT/SGPT) 17 U/L Alkaline Phosphatase 79 U/L Ammonia 14 mcmol/L Total Protein 6.4 g/dL Albumin 3.5 g/dL Albumin/Globulin Ratio 1.2 Valproic Acid (Depakene) Level 71 mcg/mL Valproic Acid Last Dose Date 06/16/21 Valproic Acid Last Dose Time 2100 Glucose (Fingerstick) 103 mg/dL 116 mg/dL Test 06/17/21 19:06 Glucose (Fingerstick) 99 mg/dL Current Medications Medications (Trade) Dose Ordered Sig/Karsten Route PRN Reason Start Time Stop Time Status Last Admin Dose Admin Acetaminophen (Tylenol) 650 mg PRN Q6HRS PRN PO MILD PAIN / TEMP > 100.3'F 06/09/21 21:45 06/16/21 04:52 Multi-Ingredient Ointment (Analgesic [place]) 1 bia PRN QID PRN TP MUSCLE PAIN 06/09/21 21:45 Al Hydroxide/Mg Hydroxide (Mylanta Plus Xs) 15 ml PRN AFTMEALHC PRN PO DYSPEPSIA 06/09/21 21:45 Magnesium Hydroxide (Milk Of Magnesia) 2,400 mg PRN QHS PRN PO 1ST CHOICE CONSTIPATION 06/09/21 21:45 Aspirin (Aspirin Enteric Coated) 81 mg DAILY PO 06/10/21 09:00 06/17/21 11:00 Atorvastatin Calcium (Lipitor) 20 mg QHS PO 06/10/21 21:00 06/17/21 21:02 Dicyclomine HCl (Bentyl) 20 mg PRN Q6HRS PRN PO GI SYMPTOMS 06/09/21 22:30 Fluticasone Propionate (Flonase) 2 spray DAILY NS 06/10/21 09:00 06/17/21 11:04 Glipizide (Glucotrol) 5 mg BID PO 06/10/21 09:00 06/17/21 21:01 Insulin Glargine (Lantus Syringe) 16 unit DAILY SQ 06/10/21 09:00 06/17/21 11:11 Lamotrigine (LaMICtal) 100 mg BID PO 06/10/21 09:00 06/16/21 13:52 DC 06/16/21 09:49 Levothyroxine Sodium (Synthroid) 175 mcg DAILY06 PO 06/10/21 06:00 06/17/21 06:03 Megestrol Acetate (Megace Oral Susp) 400 mg BIDWMEALS PO 06/10/21 08:00 06/17/21 17:33 Olanzapine (ZyPREXA) 5 mg PRN Q2HR PRN PO ANXIETY / AGITATION 06/09/21 22:30 06/10/21 10:34 DC Ondansetron HCl (Zofran Odt) 4 mg BID PO 06/10/21 09:00 06/10/21 20:29 DC 06/10/21 08:53 Pantoprazole Sodium (Protonix) 40 mg DAILYAC PO 06/10/21 07:30 06/17/21 10:59 Quetiapine Fumarate (SEROquel) 100 mg TID PO 06/10/21 09:00 06/12/21 04:58 DC 06/11/21 21:19 Sertraline HCl (Zoloft) 100 mg DAILY PO 06/10/21 09:00 06/16/21 13:52 DC 06/15/21 08:00 Sucralfate (Carafate) 2 gm BID PO 06/10/21 09:00 06/17/21 21:01 Linagliptin (Tradjenta) 5 mg DAILY PO 06/10/21 09:00 06/17/21 11:00 Ascorbic Acid (Vitamin C) 500 mg DAILY PO 06/10/21 09:00 06/17/21 11:00 Ferrous Sulfate (Feosol) 325 mg DAILY PO 06/10/21 09:00 06/17/21 11:00 Lubiprostone (Amitiza) 24 mcg BID PO 06/10/21 09:00 06/17/21 21:02 Non-Formulary Medication (Nitrofurantoin Macrocrystal (Nitrofurantoin)) 100 mg BID PO 06/10/21 10:30 06/14/21 22:00 Cancel Multivit/ Folic Acid/Iron (Multivitamin ) 1 tab DAILY PO 06/10/21 09:00 06/17/21 11:00 Insulin Human Lispro (HumaLOG) 0-7 UNITS TIDWMEALS SQ 06/10/21 08:00 06/15/21 18:20 Dextrose (Dextrose 50%-Water Syringe) 12.5 gm PRN Q15MIN PRN IV SEE COMMENTS 06/09/21 23:00 Lamotrigine (LaMICtal) 25 mg BID PO 06/10/21 09:00 06/16/21 13:52 DC 06/15/21 20:02 Nitrofurantoin Macrocrystals (Macrobid) 100 mg BID PO 06/10/21 10:45 06/14/21 22:00 DC 06/14/21 20:01 Olanzapine (ZyPREXA ZYDIS) 2.5 mg PRN Q2HR PRN PO PSYCHOSIS 06/10/21 10:45 06/14/21 19:52 DC 06/13/21 22:29 Vitamin D (Vitamin D3) 50,000 unit WEEKLY PO 06/10/21 17:00 06/17/21 11:00 Polyethylene Glycol (miraLAX) 17 gm PRN DAILY PRN PO 2ND CHOICE CONSTIPATION 06/10/21 19:45 Ondansetron HCl (Zofran Odt) 4 mg PRN Q4HRS PRN PO NAUSEA/VOMITING 06/10/21 20:27 06/14/21 11:11 Risperidone (RisperDAL) 0.5 mg BID PO 06/12/21 09:00 06/13/21 18:26 DC 06/13/21 09:20 Divalproex Sodium (Depakote Er) 500 mg QHS PO 06/12/21 21:00 06/14/21 17:08 DC 06/13/21 19:44 Risperidone (RisperDAL) 1 mg BID PO 06/13/21 21:00 06/14/21 18:34 DC 06/13/21 19:46 Divalproex Sodium (Depakote Er) 1,000 mg QHS PO 06/14/21 21:00 06/17/21 21:02 Risperidone (RisperDAL) 2 mg BID SL 06/14/21 21:00 Cancel Risperidone (RisperDAL) 2 mg DAILY PO 06/14/21 18:45 06/16/21 19:50 DC 06/16/21 11:30 Olanzapine (ZyPREXA ZYDIS) 5 mg PRN Q2HR PRN PO PSYCHOSIS 06/14/21 20:00 06/16/21 20:15 Olanzapine (ZyPREXA ZYDIS) 10 mg 1X ONCE PO 06/14/21 20:00 06/14/21 20:01 DC 06/14/21 20:02 Risperidone (RisperDAL) 1 mg 1X ONCE SL 06/16/21 20:00 06/16/21 20:01 DC 06/16/21 20:14 Risperidone (RisperDAL) 3 mg DAILY SL 06/17/21 09:00 06/17/21 11:02 Trazodone HCl (Desyrel) 50 mg PRN QHS PRN PO INSOMNIA, MAY REPEAT X1 06/16/21 20:00 06/16/21 23:44 Current Medications Medications (Trade) Dose Ordered Sig/Karsten Route PRN Reason Start Time Stop Time Status Last Admin Dose Admin Risperidone (RisperDAL) 3 mg DAILY SL 06/17/21 09:00 06/17/21 11:02 I have reviewed the current psychotropics carefully including drug interactions. Risk benefit ratio favors no change other than as noted in my dictated progress note. Diagnosis: Problems: (1) Schizoaffective disorder, bipolar type (2) Impulse control disorder, unspecified (3) Anxiety disorder, unspecified (4) Bipolar disorder, current episode mixed, severe, with psychotic features RIGOBERTO SANDERS MD Jun 17, 2021 21:26
[2021-06-18] MEDS: LEVOTHYROXINE 175 MCG TABLET PO SCH (05:59)
--- NOTE | 2021-06-18 06:32 | PDOC ---
Exam Note: Adolph Note: This note is a late entry for 06/17/2021 covers elements not covered in my initial note. Subjective: The patient was seen individually on 06/17/2021, discussed and reviewed the chart with Uche KAHN. The patient slept 4-3/4 hours previous night. Previous night the patient was talking to herself, resistive to m edications. She was in her bed most of the day, did take her Risperdal which has been increased to 3 mg liquid and valproic acid level today is 71 therapeutic. I met with her in her room. She confuses me for someone else. Review of Systems: Ambulation impaired, in wheelchair. No CV, , pulmonary, eye, ENT system symptoms on review. Mental Status Exam: Patient is oriented to herself. Insight, judgment, recent memory is intact. Language function intact. Attention span short. She is not undressing herself, not yelling or actively hallucinating though still delusional as I closely assessed her. She seems to be responding to the changes in her psychotropics. No suicidal or homicidal ideation. Laboratory Data: Reviewed. Impression: Bipolar 1 disorder manic with psychotic features. Anxiety disorder unspecified. Impulse control disorder unspecified. Mild cognitive impairment. Plan: Continue Depakote at current dosage, Risperdal oral 3 mg daily and rest unchanged. Reviewed drug interactions, risk-benefit ratio. Assessment: Vital Signs/I&O: Vital Signs Date Time Temp Pulse Resp B/P (MAP) Pulse Ox O2 Delivery O2 Flow Rate FiO2 06/17/21 15:51 98.0 67 20 146/80 (102) 98 06/16/21 06:03 Room Air I & O 06/17/21 06/17/21 06/18/21 15:00 23:00 07:00 Intake Total 0 ml 120 ml Balance 0 ml 120 ml Labs: Laboratory Tests Test 06/17/21 07:51 06/17/21 11:18 06/17/21 19:06 Glucose (Fingerstick) 103 mg/dL (70-99) H 116 mg/dL (70-99) H 99 mg/dL (70-99) Current Medications: Meds: Current Medications Medications (Trade) Dose Ordered Sig/Karsten Route PRN Reason Start Time Stop Time Status Last Admin Dose Admin Risperidone (RisperDAL) 3 mg DAILY SL 06/17/21 09:00 06/17/21 11:02 I have reviewed the current psychotropics carefully including drug interactions. Risk benefit ratio favors no change other than as noted in my dictated progress note. Diagnosis: Problems: (1) Schizoaffective disorder, bipolar type (2) Impulse control disorder, unspecified (3) Anxiety disorder, unspecified (4) Bipolar disorder, current episode mixed, severe, with psychotic features RIGOBERTO SANDERS MD Jun 18, 2021 06:32
[2021-06-18 06:47] VITALS: BP 114/72
[2021-06-18] MEDS: INSULIN LISPRO 300 UNITS/3 ML VIAL. SQ SCH ×3 (08:00→17:00)
[2021-06-18] MEDS: INSULIN GLARGINE SYRINGE. SQ SCH ×2 (09:00→11:59)
[2021-06-18] MEDS: FERROUS SULFATE 325 MG TABLET. PO SCH (09:56)
[2021-06-18] MEDS: ASCORBIC ACID 500 MG TABLET PO SCH (09:56)
[2021-06-18] MEDS: glipiZIDE 5 MG TABLET PO SCH ×2 (09:56→20:20)
[2021-06-18] MEDS: PANTOPRAZOLE 40 MG TABLET. PO SCH (09:57)
[2021-06-18] MEDS: SUCRALFATE 1 GM TABLET. PO SCH ×2 (09:57→20:20)
[2021-06-18] MEDS: LINAGLIPTIN 5 MG TABLET PO SCH (09:57)
[2021-06-18] MEDS: risperiDONE ORAL 1 MG/ML 30ml BOTTLE. SL SCH (09:57)
[2021-06-18] MEDS: PRENATAL MULTIVITAMIN TABLET. PO SCH (09:57)
[2021-06-18] MEDS: ASPIRIN ENTERIC COATED 81 MG TABLET.DR. PO SCH (09:57)
[2021-06-18] MEDS: MEGESTROL 400 MG/10 ML ORAL.SUSP. PO SCH ×2 (09:57→17:00)
[2021-06-18] MEDS: LUBIPROSTONE 24 MCG CAPSULE PO SCH ×2 (09:57→20:20)
[2021-06-18] MEDS: FLUTICASONE 50MCG/NASAL SPRAY 16GM BOTTLE. NS SCH (09:59)
[2021-06-18 16:00] VITALS: BP 107/60
[2021-06-18] MEDS: DIVALPROEX ER 500 MG TAB.ER.24H PO SCH (20:19)
[2021-06-18] MEDS: ATORVASTATIN CALCIUM 20 MG TABLET PO SCH (20:19)
--- NOTE | 2021-06-18 22:26 | PDOC ---
Exam Note: Adolph Note: Please also refer to the separate dictated note~for this date of service dictated separately.~Patient seen individually. Discussed the patient with Nursing staff reviewed the chart.~Reviewed interim history and current functioning. Reviewed vital signs,~Labs/ Radiology~and current medications noted below. Continue current treatment with the changes noted in the dictated addendum note Assessment: Vital Signs/I&O: Vital Signs Date Time Temp Pulse Resp B/P (MAP) Pulse Ox O2 Delivery O2 Flow Rate FiO2 06/18/21 16:00 97.7 80 22 107/60 (76) 96 06/16/21 06:03 Room Air I & O 06/17/21 06/17/21 06/18/21 15:00 23:00 07:00 Intake Total 0 ml 120 ml Balance 0 ml 120 ml Labs: Laboratory Tests Test 06/18/21 07:26 06/18/21 11:33 06/18/21 16:51 06/18/21 19:22 Glucose (Fingerstick) 75 mg/dL (70-99) 157 mg/dL (70-99) H 149 mg/dL (70-99) H 118 mg/dL (70-99) H Current Medications: Meds: Laboratory Tests Test 06/18/21 07:26 06/18/21 11:33 06/18/21 16:51 06/18/21 19:22 Glucose (Fingerstick) 75 mg/dL 157 mg/dL 149 mg/dL 118 mg/dL Current Medications Medications (Trade) Dose Ordered Sig/Karsten Route PRN Reason Start Time Stop Time Status Last Admin Dose Admin Acetaminophen (Tylenol) 650 mg PRN Q6HRS PRN PO MILD PAIN / TEMP > 100.3'F 06/09/21 21:45 06/16/21 04:52 Multi-Ingredient Ointment (Analgesic [place]) 1 bia PRN QID PRN TP MUSCLE PAIN 06/09/21 21:45 Al Hydroxide/Mg Hydroxide (Mylanta Plus Xs) 15 ml PRN AFTMEALHC PRN PO DYSPEPSIA 06/09/21 21:45 Magnesium Hydroxide (Milk Of Magnesia) 2,400 mg PRN QHS PRN PO 1ST CHOICE CONSTIPATION 06/09/21 21:45 Aspirin (Aspirin Enteric Coated) 81 mg DAILY PO 06/10/21 09:00 06/18/21 09:57 Atorvastatin Calcium (Lipitor) 20 mg QHS PO 06/10/21 21:00 06/18/21 20:19 Dicyclomine HCl (Bentyl) 20 mg PRN Q6HRS PRN PO GI SYMPTOMS 06/09/21 22:30 Fluticasone Propionate (Flonase) 2 spray DAILY NS 06/10/21 09:00 06/18/21 09:59 Glipizide (Glucotrol) 5 mg BID PO 06/10/21 09:00 06/18/21 20:20 Insulin Glargine (Lantus Syringe) 16 unit DAILY SQ 06/10/21 09:00 06/18/21 11:59 Lamotrigine (LaMICtal) 100 mg BID PO 06/10/21 09:00 06/16/21 13:52 DC 06/16/21 09:49 Levothyroxine Sodium (Synthroid) 175 mcg DAILY06 PO 06/10/21 06:00 06/18/21 05:59 Megestrol Acetate (Megace Oral Susp) 400 mg BIDWMEALS PO 06/10/21 08:00 06/18/21 09:57 Olanzapine (ZyPREXA) 5 mg PRN Q2HR PRN PO ANXIETY / AGITATION 06/09/21 22:30 06/10/21 10:34 DC Ondansetron HCl (Zofran Odt) 4 mg BID PO 06/10/21 09:00 06/10/21 20:29 DC 06/10/21 08:53 Pantoprazole Sodium (Protonix) 40 mg DAILYAC PO 06/10/21 07:30 06/18/21 09:57 Quetiapine Fumarate (SEROquel) 100 mg TID PO 06/10/21 09:00 06/12/21 04:58 DC 06/11/21 21:19 Sertraline HCl (Zoloft) 100 mg DAILY PO 06/10/21 09:00 06/16/21 13:52 DC 06/15/21 08:00 Sucralfate (Carafate) 2 gm BID PO 06/10/21 09:00 06/18/21 20:20 Linagliptin (Tradjenta) 5 mg DAILY PO 06/10/21 09:00 06/18/21 09:57 Ascorbic Acid (Vitamin C) 500 mg DAILY PO 06/10/21 09:00 06/18/21 09:56 Ferrous Sulfate (Feosol) 325 mg DAILY PO 06/10/21 09:00 06/18/21 09:56 Lubiprostone (Amitiza) 24 mcg BID PO 06/10/21 09:00 06/18/21 20:20 Non-Formulary Medication (Nitrofurantoin Macrocrystal (Nitrofurantoin)) 100 mg BID PO 06/10/21 10:30 06/14/21 22:00 Cancel Multivit/ Folic Acid/Iron (Multivitamin ) 1 tab DAILY PO 06/10/21 09:00 06/18/21 09:57 Insulin Human Lispro (HumaLOG) 0-7 UNITS TIDWMEALS SQ 06/10/21 08:00 06/15/21 18:20 Dextrose (Dextrose 50%-Water Syringe) 12.5 gm PRN Q15MIN PRN IV SEE COMMENTS 06/09/21 23:00 Lamotrigine (LaMICtal) 25 mg BID PO 06/10/21 09:00 06/16/21 13:52 DC 06/15/21 20:02 Nitrofurantoin Macrocrystals (Macrobid) 100 mg BID PO 06/10/21 10:45 06/14/21 22:00 DC 06/14/21 20:01 Olanzapine (ZyPREXA ZYDIS) 2.5 mg PRN Q2HR PRN PO PSYCHOSIS 06/10/21 10:45 06/14/21 19:52 DC 06/13/21 22:29 Vitamin D (Vitamin D3) 50,000 unit WEEKLY PO 06/10/21 17:00 06/17/21 11:00 Polyethylene Glycol (miraLAX) 17 gm PRN DAILY PRN PO 2ND CHOICE CONSTIPATION 06/10/21 19:45 Ondansetron HCl (Zofran Odt) 4 mg PRN Q4HRS PRN PO NAUSEA/VOMITING 06/10/21 20:27 06/14/21 11:11 Risperidone (RisperDAL) 0.5 mg BID PO 06/12/21 09:00 06/13/21 18:26 DC 06/13/21 09:20 Divalproex Sodium (Depakote Er) 500 mg QHS PO 06/12/21 21:00 06/14/21 17:08 DC 06/13/21 19:44 Risperidone (RisperDAL) 1 mg BID PO 06/13/21 21:00 06/14/21 18:34 DC 06/13/21 19:46 Divalproex Sodium (Depakote Er) 1,000 mg QHS PO 06/14/21 21:00 06/18/21 20:19 Risperidone (RisperDAL) 2 mg BID SL 06/14/21 21:00 Cancel Risperidone (RisperDAL) 2 mg DAILY PO 06/14/21 18:45 06/16/21 19:50 DC 06/16/21 11:30 Olanzapine (ZyPREXA ZYDIS) 5 mg PRN Q2HR PRN PO PSYCHOSIS 06/14/21 20:00 06/18/21 03:23 Olanzapine (ZyPREXA ZYDIS) 10 mg 1X ONCE PO 06/14/21 20:00 06/14/21 20:01 DC 06/14/21 20:02 Risperidone (RisperDAL) 1 mg 1X ONCE SL 06/16/21 20:00 06/16/21 20:01 DC 06/16/21 20:14 Risperidone (RisperDAL) 3 mg DAILY SL 06/17/21 09:00 06/18/21 09:57 Trazodone HCl (Desyrel) 50 mg PRN QHS PRN PO INSOMNIA, MAY REPEAT X1 06/16/21 20:00 06/16/21 23:44 I have reviewed the current psychotropics carefully including drug interactions. Risk benefit ratio favors no change other than as noted in my dictated progress note. Diagnosis: Problems: (1) Schizoaffective disorder, bipolar type (2) Impulse control disorder, unspecified (3) Anxiety disorder, unspecified (4) Bipolar disorder, current episode mixed, severe, with psychotic features RIGOBERTO SANDERS MD Jun 18, 2021 22:26
[2021-06-19] MEDS: LEVOTHYROXINE 175 MCG TABLET PO SCH (05:34)
[2021-06-19] MEDS: PANTOPRAZOLE 40 MG TABLET. PO SCH ×2 (07:30→08:46)
[2021-06-19] MEDS: INSULIN LISPRO 300 UNITS/3 ML VIAL. SQ SCH ×3 (08:00→17:36)
[2021-06-19] MEDS: ASPIRIN ENTERIC COATED 81 MG TABLET.DR. PO SCH ×2 (08:46→09:00)
[2021-06-19] MEDS: FLUTICASONE 50MCG/NASAL SPRAY 16GM BOTTLE. NS SCH ×2 (08:46→09:00)
[2021-06-19] MEDS: glipiZIDE 5 MG TABLET PO SCH ×4 (08:46→21:00)
[2021-06-19] MEDS: SUCRALFATE 1 GM TABLET. PO SCH ×4 (08:46→21:00)
[2021-06-19] MEDS: LUBIPROSTONE 24 MCG CAPSULE PO SCH ×4 (08:46→21:00)
[2021-06-19] MEDS: risperiDONE ORAL 1 MG/ML 30ml BOTTLE. SL SCH ×2 (08:46→09:00)
[2021-06-19] MEDS: PRENATAL MULTIVITAMIN TABLET. PO SCH ×2 (08:46→09:00)
[2021-06-19] MEDS: ASCORBIC ACID 500 MG TABLET PO SCH ×2 (08:47→09:00)
[2021-06-19] MEDS: LINAGLIPTIN 5 MG TABLET PO SCH ×2 (08:47→09:00)
[2021-06-19] MEDS: FERROUS SULFATE 325 MG TABLET. PO SCH ×2 (08:47→09:00)
[2021-06-19] MEDS: INSULIN GLARGINE SYRINGE. SQ SCH (09:14)
[2021-06-19 16:53] VITALS: BP 133/64
[2021-06-19] MEDS: DIVALPROEX ER 500 MG TAB.ER.24H PO SCH ×2 (20:29→21:00)
[2021-06-19] MEDS: ATORVASTATIN CALCIUM 20 MG TABLET PO SCH ×2 (20:30→21:00)
[2021-06-19] MEDS: NITROFURANTOIN MONOHYD/M-CRYST 100 MG CAPSULE. PO SCH ×2 (20:30→21:00)
--- NOTE | 2021-06-19 21:50 | PDOC ---
Exam Note: Adolph Note: Please also refer to the separate dictated note~for this date of service dictated separately.~Patient seen individually. Discussed the patient with Nursing staff reviewed the chart.~Reviewed interim history and current functioning. Reviewed vital signs,~Labs/ Radiology~and current medications noted below. Continue current treatment with the changes noted in the dictated addendum note Assessment: Vital Signs/I&O: Vital Signs Date Time Temp Pulse Resp B/P (MAP) Pulse Ox O2 Delivery O2 Flow Rate FiO2 06/19/21 16:53 98.7 85 13 133/64 (87) 98 Room Air I & O 06/18/21 06/18/21 06/19/21 15:00 23:00 07:00 Intake Total 240 ml 1000 ml Balance 240 ml 1000 ml Labs: Laboratory Tests Test 06/19/21 07:35 06/19/21 12:32 06/19/21 16:51 06/19/21 19:29 Glucose (Fingerstick) 163 mg/dL (70-99) H 223 mg/dL (70-99) H 164 mg/dL (70-99) H 200 mg/dL (70-99) H Current Medications: Meds: Laboratory Tests Test 06/19/21 07:35 06/19/21 12:32 06/19/21 16:51 06/19/21 19:29 Glucose (Fingerstick) 163 mg/dL 223 mg/dL 164 mg/dL 200 mg/dL Current Medications Medications (Trade) Dose Ordered Sig/Karsten Route PRN Reason Start Time Stop Time Status Last Admin Dose Admin Acetaminophen (Tylenol) 650 mg PRN Q6HRS PRN PO MILD PAIN / TEMP > 100.3'F 06/09/21 21:45 06/16/21 04:52 Multi-Ingredient Ointment (Analgesic [place]) 1 bia PRN QID PRN TP MUSCLE PAIN 06/09/21 21:45 Al Hydroxide/Mg Hydroxide (Mylanta Plus Xs) 15 ml PRN AFTMEALHC PRN PO DYSPEPSIA 06/09/21 21:45 Magnesium Hydroxide (Milk Of Magnesia) 2,400 mg PRN QHS PRN PO 1ST CHOICE CONSTIPATION 06/09/21 21:45 Aspirin (Aspirin Enteric Coated) 81 mg DAILY PO 06/10/21 09:00 06/19/21 09:00 Atorvastatin Calcium (Lipitor) 20 mg QHS PO 06/10/21 21:00 06/19/21 20:30 Dicyclomine HCl (Bentyl) 20 mg PRN Q6HRS PRN PO GI SYMPTOMS 06/09/21 22:30 Fluticasone Propionate (Flonase) 2 spray DAILY NS 06/10/21 09:00 06/18/21 09:59 Glipizide (Glucotrol) 5 mg BID PO 06/10/21 09:00 06/19/21 20:29 Insulin Glargine (Lantus Syringe) 16 unit DAILY SQ 06/10/21 09:00 06/19/21 09:14 Lamotrigine (LaMICtal) 100 mg BID PO 06/10/21 09:00 06/16/21 13:52 DC 06/16/21 09:49 Levothyroxine Sodium (Synthroid) 175 mcg DAILY06 PO 06/10/21 06:00 06/19/21 05:34 Megestrol Acetate (Megace Oral Susp) 400 mg BIDWMEALS PO 06/10/21 08:00 06/19/21 01:22 DC 06/18/21 09:57 Olanzapine (ZyPREXA) 5 mg PRN Q2HR PRN PO ANXIETY / AGITATION 06/09/21 22:30 06/10/21 10:34 DC Ondansetron HCl (Zofran Odt) 4 mg BID PO 06/10/21 09:00 06/10/21 20:29 DC 06/10/21 08:53 Pantoprazole Sodium (Protonix) 40 mg DAILYAC PO 06/10/21 07:30 06/19/21 07:30 Quetiapine Fumarate (SEROquel) 100 mg TID PO 06/10/21 09:00 06/12/21 04:58 DC 06/11/21 21:19 Sertraline HCl (Zoloft) 100 mg DAILY PO 06/10/21 09:00 06/16/21 13:52 DC 06/15/21 08:00 Sucralfate (Carafate) 2 gm BID PO 06/10/21 09:00 06/19/21 20:28 Linagliptin (Tradjenta) 5 mg DAILY PO 06/10/21 09:00 06/19/21 09:00 Ascorbic Acid (Vitamin C) 500 mg DAILY PO 06/10/21 09:00 06/19/21 09:00 Ferrous Sulfate (Feosol) 325 mg DAILY PO 06/10/21 09:00 06/19/21 09:00 Lubiprostone (Amitiza) 24 mcg BID PO 06/10/21 09:00 06/19/21 20:28 Non-Formulary Medication (Nitrofurantoin Macrocrystal (Nitrofurantoin)) 100 mg BID PO 06/10/21 10:30 06/14/21 22:00 Cancel Multivit/ Folic Acid/Iron (Multivitamin ) 1 tab DAILY PO 06/10/21 09:00 06/19/21 09:00 Insulin Human Lispro (HumaLOG) 0-7 UNITS TIDWMEALS SQ 06/10/21 08:00 06/19/21 17:36 Dextrose (Dextrose 50%-Water Syringe) 12.5 gm PRN Q15MIN PRN IV SEE COMMENTS 06/09/21 23:00 Lamotrigine (LaMICtal) 25 mg BID PO 06/10/21 09:00 06/16/21 13:52 DC 06/15/21 20:02 Nitrofurantoin Macrocrystals (Macrobid) 100 mg BID PO 06/10/21 10:45 06/14/21 22:00 DC 06/14/21 20:01 Olanzapine (ZyPREXA ZYDIS) 2.5 mg PRN Q2HR PRN PO PSYCHOSIS 06/10/21 10:45 06/14/21 19:52 DC 06/13/21 22:29 Vitamin D (Vitamin D3) 50,000 unit WEEKLY PO 06/10/21 17:00 06/17/21 11:00 Polyethylene Glycol (miraLAX) 17 gm PRN DAILY PRN PO 2ND CHOICE CONSTIPATION 06/10/21 19:45 Ondansetron HCl (Zofran Odt) 4 mg PRN Q4HRS PRN PO NAUSEA/VOMITING 06/10/21 20:27 06/14/21 11:11 Risperidone (RisperDAL) 0.5 mg BID PO 06/12/21 09:00 06/13/21 18:26 DC 06/13/21 09:20 Divalproex Sodium (Depakote Er) 500 mg QHS PO 06/12/21 21:00 06/14/21 17:08 DC 06/13/21 19:44 Risperidone (RisperDAL) 1 mg BID PO 06/13/21 21:00 06/14/21 18:34 DC 06/13/21 19:46 Divalproex Sodium (Depakote Er) 1,000 mg QHS PO 06/14/21 21:00 06/19/21 20:29 Risperidone (RisperDAL) 2 mg BID SL 06/14/21 21:00 Cancel Risperidone (RisperDAL) 2 mg DAILY PO 06/14/21 18:45 06/16/21 19:50 DC 06/16/21 11:30 Olanzapine (ZyPREXA ZYDIS) 5 mg PRN Q2HR PRN PO PSYCHOSIS 06/14/21 20:00 06/19/21 05:50 Olanzapine (ZyPREXA ZYDIS) 10 mg 1X ONCE PO 06/14/21 20:00 06/14/21 20:01 DC 06/14/21 20:02 Risperidone (RisperDAL) 1 mg 1X ONCE SL 06/16/21 20:00 06/16/21 20:01 DC 06/16/21 20:14 Risperidone (RisperDAL) 3 mg DAILY SL 06/17/21 09:00 06/19/21 09:00 Trazodone HCl (Desyrel) 50 mg PRN QHS PRN PO INSOMNIA, MAY REPEAT X1 06/16/21 20:00 06/16/21 23:44 Nitrofurantoin Macrocrystals (Macrobid) 100 mg BID PO 06/19/21 21:00 06/26/21 09:01 06/19/21 20:30 Current Medications Medications (Trade) Dose Ordered Sig/Karsten Route PRN Reason Start Time Stop Time Status Last Admin Dose Admin Nitrofurantoin Macrocrystals (Macrobid) 100 mg BID PO 06/19/21 21:00 06/26/21 09:01 06/19/21 20:30 I have reviewed the current psychotropics carefully including drug interactions. Risk benefit ratio favors no change other than as noted in my dictated progress note. Diagnosis: Problems: (1) Schizoaffective disorder, bipolar type (2) Impulse control disorder, unspecified (3) Anxiety disorder, unspecified (4) Bipolar disorder, current episode mixed, severe, with psychotic features RIGOBERTO SANDERS MD Jun 19, 2021 21:50
[2021-06-20] MEDS: risperiDONE ORAL 1 MG/ML 30ml BOTTLE. SL SCH ×2 (05:32→08:37)
[2021-06-20] MEDS: LEVOTHYROXINE 175 MCG TABLET PO SCH ×2 (05:32→10:30)
[2021-06-20 06:32] VITALS: BP 119/78
[2021-06-20] MEDS: INSULIN LISPRO 300 UNITS/3 ML VIAL. SQ SCH ×3 (08:00→17:00)
--- NOTE | 2021-06-20 08:13 | PDOC ---
Exam Note: Adolph Note: This note is a late entry for 06/18/2021 covers elements not covered in my initial note. Subjective: The patient was seen individually on 06/18/2021, discussed and reviewed the chart with Yemi KAHN. The patient slept 5-1/2 hours previous night. She took a snack and some Glucerna for supper. At 3 a.m. she woke up, was quite psychotic and paranoid, talking about the satan and the devil, delusional. Appetite is fair. We will stop the Megace. UA has reflex to culture. We will defer to Dr. Alarcon/Dr. Whipple. I met with her in her room. She was lying in bed, half off the bed. Staff intervened. She remains psychotic. Review of Systems: Ambulation impaired, in wheelchair. No CV, , pulmonary, eye, ENT system symptoms on review. She complains of tiredness. Reliability poor. Mental Status Exam: Patient is oriented to herself. Insight, judgment, recent memory is intact. Language function intact. Attention span short. Mood and affect labile, quite paranoid, psychotic. No suicidal or homicidal ideation. Laboratory Data: Reviewed. Impression: Bipolar 1 disorder manic with psychotic features. Anxiety disorder unspecified. Impulse control disorder unspecified. Mild cognitive impairment. Plan: Treat the UTI. Maintain oral Risperdal 3 mg daily, Depakote ER 1000 mg h.s. level is therapeutic. Adjust as clinically indicated. Reviewed drug interactions, risk-benefit ratio. Assessment: Vital Signs/I&O: Vital Signs Date Time Temp Pulse Resp B/P (MAP) Pulse Ox O2 Delivery O2 Flow Rate FiO2 06/20/21 06:32 98.1 76 16 119/78 (92) 97 06/19/21 16:53 Room Air I & O 06/19/21 06/19/21 06/20/21 15:00 23:00 07:00 Intake Total 120 ml 100 ml Balance 120 ml 100 ml Labs: Laboratory Tests Test 06/19/21 12:32 06/19/21 16:51 06/19/21 19:29 06/20/21 08:03 Glucose (Fingerstick) 223 mg/dL (70-99) H 164 mg/dL (70-99) H 200 mg/dL (70-99) H 149 mg/dL (70-99) H Current Medications: I have reviewed the current psychotropics carefully including drug interactions. Risk benefit ratio favors no change other than as noted in my dictated progress note. Diagnosis: Problems: (1) Schizoaffective disorder, bipolar type (2) Impulse control disorder, unspecified (3) Anxiety disorder, unspecified (4) Bipolar disorder, current episode mixed, severe, with psychotic features RIGOBERTO SANDERS MD Jun 20, 2021 08:13
--- NOTE | 2021-06-20 08:32 | PDOC ---
Exam Note: Adolph Note: This note is a late entry for 06/19/2021 covers elements not covered in my initial note. Subjective: The patient was seen individually on 06/19/2021, discussed and reviewed the chart with Yemi KAHN. The patient slept 7 hours previous night. She did well last night. Refused a.m. medications. Appetite was good last evening. She was threatening to punch at nursing staff but did not act out. Paranoia is better. I met with her in the dayroom. She was seated in the side not watching television. She does have recurrent UTI. Macrobid has been restarted. Review of Systems: Ambulation impaired, in wheelchair. No CV, , pulmonary, eye, ENT system symptoms on review. Mental Status Exam: Patient is oriented to herself and situation. Speech coherent, less pressured. Abstraction fair. Computation impaired. Language function intact less paranoid. No suicidal or homicidal ideation. Laboratory Data: Reviewed. Impression: Bipolar 1 disorder manic with psychotic features. Anxiety disorder unspecified. Impulse control disorder unspecified. Mild cognitive impairment. Plan: Treat the UTI, defer to Dr. Alarcon. Maintain rest psychotropics unchanged including Risperdal liquid 3 mg daily, Depakote ER 1000mg h.s. Level therapeutic at 71, Zyprexa p.r.n. Reviewed drug interactions, risk-benefit ratio. Assessment: Vital Signs/I&O: Vital Signs Date Time Temp Pulse Resp B/P (MAP) Pulse Ox O2 Delivery O2 Flow Rate FiO2 06/20/21 06:32 98.1 76 16 119/78 (92) 97 06/19/21 16:53 Room Air I & O 06/19/21 06/19/21 06/20/21 15:00 23:00 07:00 Intake Total 120 ml 100 ml Balance 120 ml 100 ml Labs: Laboratory Tests Test 06/19/21 12:32 06/19/21 16:51 06/19/21 19:29 06/20/21 08:03 Glucose (Fingerstick) 223 mg/dL (70-99) H 164 mg/dL (70-99) H 200 mg/dL (70-99) H 149 mg/dL (70-99) H Current Medications: I have reviewed the current psychotropics carefully including drug interactions. Risk benefit ratio favors no change other than as noted in my dictated progress note. Diagnosis: Problems: (1) Schizoaffective disorder, bipolar type (2) Impulse control disorder, unspecified (3) Anxiety disorder, unspecified (4) Bipolar disorder, current episode mixed, severe, with psychotic features RIGOBERTO SANDERS MD Jun 20, 2021 08:32
[2021-06-20] MEDS: INSULIN GLARGINE SYRINGE. SQ SCH (09:00)
[2021-06-20] MEDS: FLUTICASONE 50MCG/NASAL SPRAY 16GM BOTTLE. NS SCH (09:00)
[2021-06-20] MEDS: glipiZIDE 5 MG TABLET PO SCH ×2 (10:30→21:00)
[2021-06-20] MEDS: LINAGLIPTIN 5 MG TABLET PO SCH (10:30)
[2021-06-20] MEDS: ASCORBIC ACID 500 MG TABLET PO SCH (10:30)
[2021-06-20] MEDS: ASPIRIN ENTERIC COATED 81 MG TABLET.DR. PO SCH (10:30)
[2021-06-20] MEDS: PANTOPRAZOLE 40 MG TABLET. PO SCH (10:30)
[2021-06-20] MEDS: FERROUS SULFATE 325 MG TABLET. PO SCH (10:30)
[2021-06-20] MEDS: PRENATAL MULTIVITAMIN TABLET. PO SCH (10:30)
[2021-06-20] MEDS: NITROFURANTOIN MONOHYD/M-CRYST 100 MG CAPSULE. PO SCH ×2 (10:30→21:00)
[2021-06-20] MEDS: SUCRALFATE 1 GM TABLET. PO SCH ×2 (10:30→21:00)
[2021-06-20] MEDS: LUBIPROSTONE 24 MCG CAPSULE PO SCH ×2 (10:30→21:00)
[2021-06-20 15:50] VITALS: BP 146/96
[2021-06-20 15:52] VITALS: BP 146/92
[2021-06-20] MEDS: DIVALPROEX ER 500 MG TAB.ER.24H PO SCH (21:00)
[2021-06-20] MEDS: ATORVASTATIN CALCIUM 20 MG TABLET PO SCH (21:00)
--- NOTE | 2021-06-20 21:52 | PDOC ---
Exam Note: Adolph Note: Please also refer to the separate dictated note~for this date of service dictated separately.~Patient seen individually. Discussed the patient with Nursing staff reviewed the chart.~Reviewed interim history and current functioning. Reviewed vital signs,~Labs/ Radiology~and current medications noted below. Continue current treatment with the changes noted in the dictated addendum note Assessment: Vital Signs/I&O: Vital Signs Date Time Temp Pulse Resp B/P (MAP) Pulse Ox O2 Delivery O2 Flow Rate FiO2 06/20/21 15:52 97.5 76 18 146/92 (110) 98 06/19/21 16:53 Room Air I & O 06/19/21 06/19/21 06/20/21 15:00 23:00 07:00 Intake Total 120 ml 100 ml Balance 120 ml 100 ml Labs: Laboratory Tests Test 06/20/21 08:03 06/20/21 11:32 06/20/21 16:59 06/20/21 19:34 Glucose (Fingerstick) 149 mg/dL (70-99) H 178 mg/dL (70-99) H 225 mg/dL (70-99) H 165 mg/dL (70-99) H Current Medications: Meds: Laboratory Tests Test 06/20/21 08:03 06/20/21 11:32 06/20/21 16:59 06/20/21 19:34 Glucose (Fingerstick) 149 mg/dL 178 mg/dL 225 mg/dL 165 mg/dL Current Medications Medications (Trade) Dose Ordered Sig/Karsten Route PRN Reason Start Time Stop Time Status Last Admin Dose Admin Acetaminophen (Tylenol) 650 mg PRN Q6HRS PRN PO MILD PAIN / TEMP > 100.3'F 06/09/21 21:45 06/16/21 04:52 Multi-Ingredient Ointment (Analgesic [place]) 1 bia PRN QID PRN TP MUSCLE PAIN 06/09/21 21:45 Al Hydroxide/Mg Hydroxide (Mylanta Plus Xs) 15 ml PRN AFTMEALHC PRN PO DYSPEPSIA 06/09/21 21:45 Magnesium Hydroxide (Milk Of Magnesia) 2,400 mg PRN QHS PRN PO 1ST CHOICE CONSTIPATION 06/09/21 21:45 Aspirin (Aspirin Enteric Coated) 81 mg DAILY PO 06/10/21 09:00 06/20/21 10:30 Atorvastatin Calcium (Lipitor) 20 mg QHS PO 06/10/21 21:00 06/20/21 21:00 Dicyclomine HCl (Bentyl) 20 mg PRN Q6HRS PRN PO GI SYMPTOMS 06/09/21 22:30 Fluticasone Propionate (Flonase) 2 spray DAILY NS 06/10/21 09:00 06/18/21 09:59 Glipizide (Glucotrol) 5 mg BID PO 06/10/21 09:00 06/20/21 21:00 Insulin Glargine (Lantus Syringe) 16 unit DAILY SQ 06/10/21 09:00 06/19/21 09:14 Lamotrigine (LaMICtal) 100 mg BID PO 06/10/21 09:00 06/16/21 13:52 DC 06/16/21 09:49 Levothyroxine Sodium (Synthroid) 175 mcg DAILY06 PO 06/10/21 06:00 06/20/21 10:30 Megestrol Acetate (Megace Oral Susp) 400 mg BIDWMEALS PO 06/10/21 08:00 06/19/21 01:22 DC 06/18/21 09:57 Olanzapine (ZyPREXA) 5 mg PRN Q2HR PRN PO ANXIETY / AGITATION 06/09/21 22:30 06/10/21 10:34 DC Ondansetron HCl (Zofran Odt) 4 mg BID PO 06/10/21 09:00 06/10/21 20:29 DC 06/10/21 08:53 Pantoprazole Sodium (Protonix) 40 mg DAILYAC PO 06/10/21 07:30 06/20/21 10:30 Quetiapine Fumarate (SEROquel) 100 mg TID PO 06/10/21 09:00 06/12/21 04:58 DC 06/11/21 21:19 Sertraline HCl (Zoloft) 100 mg DAILY PO 06/10/21 09:00 06/16/21 13:52 DC 06/15/21 08:00 Sucralfate (Carafate) 2 gm BID PO 06/10/21 09:00 06/20/21 21:00 Linagliptin (Tradjenta) 5 mg DAILY PO 06/10/21 09:00 06/20/21 10:30 Ascorbic Acid (Vitamin C) 500 mg DAILY PO 06/10/21 09:00 06/20/21 10:30 Ferrous Sulfate (Feosol) 325 mg DAILY PO 06/10/21 09:00 06/20/21 10:30 Lubiprostone (Amitiza) 24 mcg BID PO 06/10/21 09:00 06/20/21 21:00 Non-Formulary Medication (Nitrofurantoin Macrocrystal (Nitrofurantoin)) 100 mg BID PO 06/10/21 10:30 06/14/21 22:00 Cancel Multivit/ Folic Acid/Iron (Multivitamin ) 1 tab DAILY PO 06/10/21 09:00 06/20/21 10:30 Insulin Human Lispro (HumaLOG) 0-7 UNITS TIDWMEALS SQ 06/10/21 08:00 06/20/21 12:44 Dextrose (Dextrose 50%-Water Syringe) 12.5 gm PRN Q15MIN PRN IV SEE COMMENTS 06/09/21 23:00 Lamotrigine (LaMICtal) 25 mg BID PO 06/10/21 09:00 06/16/21 13:52 DC 06/15/21 20:02 Nitrofurantoin Macrocrystals (Macrobid) 100 mg BID PO 06/10/21 10:45 06/14/21 22:00 DC 06/14/21 20:01 Olanzapine (ZyPREXA ZYDIS) 2.5 mg PRN Q2HR PRN PO PSYCHOSIS 06/10/21 10:45 06/14/21 19:52 DC 06/13/21 22:29 Vitamin D (Vitamin D3) 50,000 unit WEEKLY PO 06/10/21 17:00 06/17/21 11:00 Polyethylene Glycol (miraLAX) 17 gm PRN DAILY PRN PO 2ND CHOICE CONSTIPATION 06/10/21 19:45 Ondansetron HCl (Zofran Odt) 4 mg PRN Q4HRS PRN PO NAUSEA/VOMITING 06/10/21 20:27 06/14/21 11:11 Risperidone (RisperDAL) 0.5 mg BID PO 06/12/21 09:00 06/13/21 18:26 DC 06/13/21 09:20 Divalproex Sodium (Depakote Er) 500 mg QHS PO 06/12/21 21:00 06/14/21 17:08 DC 06/13/21 19:44 Risperidone (RisperDAL) 1 mg BID PO 06/13/21 21:00 06/14/21 18:34 DC 06/13/21 19:46 Divalproex Sodium (Depakote Er) 1,000 mg QHS PO 06/14/21 21:00 06/20/21 21:00 Risperidone (RisperDAL) 2 mg BID SL 06/14/21 21:00 Cancel Risperidone (RisperDAL) 2 mg DAILY PO 06/14/21 18:45 06/16/21 19:50 DC 06/16/21 11:30 Olanzapine (ZyPREXA ZYDIS) 5 mg PRN Q2HR PRN PO PSYCHOSIS 06/14/21 20:00 06/19/21 05:50 Olanzapine (ZyPREXA ZYDIS) 10 mg 1X ONCE PO 06/14/21 20:00 06/14/21 20:01 DC 06/14/21 20:02 Risperidone (RisperDAL) 1 mg 1X ONCE SL 06/16/21 20:00 06/16/21 20:01 DC 06/16/21 20:14 Risperidone (RisperDAL) 3 mg DAILY SL 06/17/21 09:00 06/20/21 08:37 Trazodone HCl (Desyrel) 50 mg PRN QHS PRN PO INSOMNIA, MAY REPEAT X1 06/16/21 20:00 06/16/21 23:44 Nitrofurantoin Macrocrystals (Macrobid) 100 mg BID PO 06/19/21 21:00 06/26/21 09:01 06/20/21 21:00 I have reviewed the current psychotropics carefully including drug interactions. Risk benefit ratio favors no change other than as noted in my dictated progress note. Diagnosis: Problems: (1) Schizoaffective disorder, bipolar type (2) Impulse control disorder, unspecified (3) Anxiety disorder, unspecified (4) Bipolar disorder, current episode mixed, severe, with psychotic features RIGOBERTO SANDERS MD Jun 20, 2021 21:52
[2021-06-21] MEDS: LEVOTHYROXINE 175 MCG TABLET PO SCH (06:00)
[2021-06-21] MEDS: LUBIPROSTONE 24 MCG CAPSULE PO SCH ×3 (07:48→21:27)
[2021-06-21] MEDS: PANTOPRAZOLE 40 MG TABLET. PO SCH (07:48)
[2021-06-21] MEDS: ASCORBIC ACID 500 MG TABLET PO SCH (07:49)
[2021-06-21] MEDS: SUCRALFATE 1 GM TABLET. PO SCH ×3 (07:49→21:28)
[2021-06-21] MEDS: glipiZIDE 5 MG TABLET PO SCH ×3 (07:49→21:28)
[2021-06-21] MEDS: PRENATAL MULTIVITAMIN TABLET. PO SCH (07:49)
[2021-06-21] MEDS: FERROUS SULFATE 325 MG TABLET. PO SCH (07:49)
[2021-06-21] MEDS: ASPIRIN ENTERIC COATED 81 MG TABLET.DR. PO SCH (07:50)
[2021-06-21] MEDS: NITROFURANTOIN MONOHYD/M-CRYST 100 MG CAPSULE. PO SCH ×3 (07:50→21:28)
[2021-06-21] MEDS: FLUTICASONE 50MCG/NASAL SPRAY 16GM BOTTLE. NS SCH (08:06)
[2021-06-21] MEDS: risperiDONE ORAL 1 MG/ML 30ml BOTTLE. SL SCH (08:06)
[2021-06-21] MEDS: LINAGLIPTIN 5 MG TABLET PO SCH (08:08)
--- NOTE | 2021-06-21 08:37 | PDOC ---
Exam Note: Adolph Note: This note is a late entry for 06/20/2021 covers elements not covered in my initial note. Subjective: The patient was seen individually on 06/20/2021, discussed and reviewed the chart with Claire KAHN. The patient slept 7-1/4 hours previous night. The patient refused her medications this morning, took them later at 10.30. This evening she has been quite psychotic but more redirectable. I met with her in her room. She puts herself frequently on the floor. Review of Systems: Ambulation impaired, in wheelchair. No CV, , pulmonary, eye, ENT system symptoms on review. Reliability poor. Mental Status Exam: Patient is oriented to herself and situation. Speech coherent, has some latency, rapid at times. Abstraction fair. Computation impaired. Language function intact Mood and affect labile. Laboratory Data: Reviewed. Impression: Bipolar 1 disorder manic with psychotic features. Anxiety disorder unspecified. Impulse control disorder unspecified. Mild cognitive impairment. Plan: Continue current psychotropics. Encourage compliance with her medicatio ns. Maintain Risperdal, Depakote along with Zyprexa and trazodone p.r.n. Adjust as clinically indicated. Assessment: Vital Signs/I&O: Vital Signs Date Time Temp Pulse Resp B/P (MAP) Pulse Ox O2 Delivery O2 Flow Rate FiO2 06/20/21 15:52 97.5 76 18 146/92 (110) 98 06/19/21 16:53 Room Air I & O 06/20/21 06/20/21 06/21/21 14:59 22:59 06:59 Intake Total 600 ml 0 ml Balance 600 ml 0 ml Labs: Laboratory Tests Test 06/20/21 11:32 06/20/21 16:59 06/20/21 19:34 06/21/21 07:51 Glucose (Fingerstick) 178 mg/dL (70-99) H 225 mg/dL (70-99) H 165 mg/dL (70-99) H 173 mg/dL (70-99) H Current Medications: I have reviewed the current psychotropics carefully including drug interactions. Risk benefit ratio favors no change other than as noted in my dictated progress note. Diagnosis: Problems: (1) Schizoaffective disorder, bipolar type (2) Impulse control disorder, unspecified (3) Anxiety disorder, unspecified (4) Bipolar disorder, current episode manic severe with psychotic features RIGOBERTO SANDERS MD Jun 21, 2021 08:37
[2021-06-21] MEDS: INSULIN LISPRO 300 UNITS/3 ML VIAL. SQ SCH ×3 (09:17→17:45)
[2021-06-21] MEDS: INSULIN GLARGINE SYRINGE. SQ SCH (09:18)
[2021-06-21 16:06] VITALS: BP 143/82
[2021-06-21] MEDS: ATORVASTATIN CALCIUM 20 MG TABLET PO SCH ×2 (19:52→21:28)
[2021-06-21] MEDS: DIVALPROEX ER 500 MG TAB.ER.24H PO SCH ×2 (19:53→21:28)
--- NOTE | 2021-06-21 21:32 | PDOC ---
Exam Note: Adolph Note: Please also refer to the separate dictated note~for this date of service dictated separately.~Patient seen individually. Discussed the patient with Nursing staff reviewed the chart.~Reviewed interim history and current functioning. Reviewed vital signs,~Labs/ Radiology~and current medications noted below. Continue current treatment with the changes noted in the dictated addendum note Assessment: Vital Signs/I&O: Vital Signs Date Time Temp Pulse Resp B/P (MAP) Pulse Ox O2 Delivery O2 Flow Rate FiO2 06/21/21 16:06 98.4 83 20 143/82 (102) 96 06/19/21 16:53 Room Air I & O 06/20/21 06/20/21 06/21/21 14:59 22:59 06:59 Intake Total 600 ml 0 ml Balance 600 ml 0 ml Labs: Laboratory Tests Test 06/21/21 07:51 06/21/21 10:43 06/21/21 12:07 06/21/21 17:03 Glucose (Fingerstick) 173 mg/dL (70-99) H 195 mg/dL (70-99) H 285 mg/dL (70-99) H POC SARS CoV-2 Antigen Negative (NEGATIVE) Test 06/21/21 19:06 Glucose (Fingerstick) 320 mg/dL (70-99) H Current Medications: Meds: Laboratory Tests Test 06/21/21 07:51 06/21/21 10:43 06/21/21 12:07 06/21/21 17:03 Glucose (Fingerstick) 173 mg/dL 195 mg/dL 285 mg/dL POC SARS CoV-2 Antigen Negative Test 06/21/21 19:06 Glucose (Fingerstick) 320 mg/dL Current Medications Medications (Trade) Dose Ordered Sig/Karsten Route PRN Reason Start Time Stop Time Status Last Admin Dose Admin Acetaminophen (Tylenol) 650 mg PRN Q6HRS PRN PO MILD PAIN / TEMP > 100.3'F 06/09/21 21:45 06/16/21 04:52 Multi-Ingredient Ointment (Analgesic [place]) 1 bia PRN QID PRN TP MUSCLE PAIN 06/09/21 21:45 Al Hydroxide/Mg Hydroxide (Mylanta Plus Xs) 15 ml PRN AFTMEALHC PRN PO DYSPEPSIA 06/09/21 21:45 Magnesium Hydroxide (Milk Of Magnesia) 2,400 mg PRN QHS PRN PO 1ST CHOICE CONSTIPATION 06/09/21 21:45 Aspirin (Aspirin Enteric Coated) 81 mg DAILY PO 06/10/21 09:00 06/21/21 07:50 Atorvastatin Calcium (Lipitor) 20 mg QHS PO 06/10/21 21:00 06/20/21 21:00 Dicyclomine HCl (Bentyl) 20 mg PRN Q6HRS PRN PO GI SYMPTOMS 06/09/21 22:30 Fluticasone Propionate (Flonase) 2 spray DAILY NS 06/10/21 09:00 06/21/21 08:06 Glipizide (Glucotrol) 5 mg BID PO 06/10/21 09:00 06/21/21 07:49 Insulin Glargine (Lantus Syringe) 16 unit DAILY SQ 06/10/21 09:00 06/21/21 09:18 Lamotrigine (LaMICtal) 100 mg BID PO 06/10/21 09:00 06/16/21 13:52 DC 06/16/21 09:49 Levothyroxine Sodium (Synthroid) 175 mcg DAILY06 PO 06/10/21 06:00 06/21/21 06:00 Megestrol Acetate (Megace Oral Susp) 400 mg BIDWMEALS PO 06/10/21 08:00 06/19/21 01:22 DC 06/18/21 09:57 Olanzapine (ZyPREXA) 5 mg PRN Q2HR PRN PO ANXIETY / AGITATION 06/09/21 22:30 06/10/21 10:34 DC Ondansetron HCl (Zofran Odt) 4 mg BID PO 06/10/21 09:00 06/10/21 20:29 DC 06/10/21 08:53 Pantoprazole Sodium (Protonix) 40 mg DAILYAC PO 06/10/21 07:30 06/21/21 07:48 Quetiapine Fumarate (SEROquel) 100 mg TID PO 06/10/21 09:00 06/12/21 04:58 DC 06/11/21 21:19 Sertraline HCl (Zoloft) 100 mg DAILY PO 06/10/21 09:00 06/16/21 13:52 DC 06/15/21 08:00 Sucralfate (Carafate) 2 gm BID PO 4/8/22 09:00 06/21/21 07:49 Linagliptin (Tradjenta) 5 mg DAILY PO 06/10/21 09:00 06/21/21 08:08 Ascorbic Acid (Vitamin C) 500 mg DAILY PO 06/10/21 09:00 06/21/21 07:49 Ferrous Sulfate (Feosol) 325 mg DAILY PO 06/10/21 09:00 06/21/21 07:49 Lubiprostone (Amitiza) 24 mcg BID PO 06/10/21 09:00 06/21/21 07:48 Non-Formulary Medication (Nitrofurantoin Macrocrystal (Nitrofurantoin)) 100 mg BID PO 06/10/21 10:30 06/14/21 22:00 Cancel Multivit/ Folic Acid/Iron (Multivitamin ) 1 tab DAILY PO 06/10/21 09:00 06/21/21 07:49 Insulin Human Lispro (HumaLOG) 0-7 UNITS TIDWMEALS SQ 06/10/21 08:00 06/21/21 17:45 Dextrose (Dextrose 50%-Water Syringe) 12.5 gm PRN Q15MIN PRN IV SEE COMMENTS 06/09/21 23:00 Lamotrigine (LaMICtal) 25 mg BID PO 06/10/21 09:00 06/16/21 13:52 DC 06/15/21 20:02 Nitrofurantoin Macrocrystals (Macrobid) 100 mg BID PO 06/10/21 10:45 06/14/21 22:00 DC 06/14/21 20:01 Olanzapine (ZyPREXA ZYDIS) 2.5 mg PRN Q2HR PRN PO PSYCHOSIS 06/10/21 10:45 06/14/21 19:52 DC 06/13/21 22:29 Vitamin D (Vitamin D3) 50,000 unit WEEKLY PO 06/10/21 17:00 06/17/21 11:00 Polyethylene Glycol (miraLAX) 17 gm PRN DAILY PRN PO 2ND CHOICE CONSTIPATION 06/10/21 19:45 Ondansetron HCl (Zofran Odt) 4 mg PRN Q4HRS PRN PO NAUSEA/VOMITING 06/10/21 20:27 06/14/21 11:11 Risperidone (RisperDAL) 0.5 mg BID PO 06/12/21 09:00 06/13/21 18:26 DC 06/13/21 09:20 Divalproex Sodium (Depakote Er) 500 mg QHS PO 06/12/21 21:00 06/14/21 17:08 DC 06/13/21 19:44 Risperidone (RisperDAL) 1 mg BID PO 06/13/21 21:00 06/14/21 18:34 DC 06/13/21 19:46 Divalproex Sodium (Depakote Er) 1,000 mg QHS PO 06/14/21 21:00 06/20/21 21:00 Risperidone (RisperDAL) 2 mg BID SL 06/14/21 21:00 Cancel Risperidone (RisperDAL) 2 mg DAILY PO 06/14/21 18:45 06/16/21 19:50 DC 06/16/21 11:30 Olanzapine (ZyPREXA ZYDIS) 5 mg PRN Q2HR PRN PO PSYCHOSIS 06/14/21 20:00 06/19/21 05:50 Olanzapine (ZyPREXA ZYDIS) 10 mg 1X ONCE PO 06/14/21 20:00 06/14/21 20:01 DC 06/14/21 20:02 Risperidone (RisperDAL) 1 mg 1X ONCE SL 06/16/21 20:00 06/16/21 20:01 DC 06/16/21 20:14 Risperidone (RisperDAL) 3 mg DAILY SL 06/17/21 09:00 06/21/21 08:06 Trazodone HCl (Desyrel) 50 mg PRN QHS PRN PO INSOMNIA, MAY REPEAT X1 06/16/21 20:00 06/16/21 23:44 Nitrofurantoin Macrocrystals (Macrobid) 100 mg BID PO 06/19/21 21:00 06/26/21 09:01 06/21/21 07:50 I have reviewed the current psychotropics carefully including drug interactions. Risk benefit ratio favors no change other than as noted in my dictated progress note. Diagnosis: Problems: (1) Schizoaffective disorder, bipolar type (2) Impulse control disorder, unspecified (3) Anxiety disorder, unspecified (4) Bipolar disorder, current episode manic severe with psychotic features RIGOBERTO SANDERS MD Jun 21, 2021 21:32
[2021-06-22] MEDS: LEVOTHYROXINE 175 MCG TABLET PO SCH (05:53)
[2021-06-22 06:02] VITALS: BP 142/81
[2021-06-22] MEDS: INSULIN LISPRO 300 UNITS/3 ML VIAL. SQ SCH ×3 (07:51→18:05)
[2021-06-22] MEDS: glipiZIDE 5 MG TABLET PO SCH ×3 (08:38→21:00)
[2021-06-22] MEDS: LINAGLIPTIN 5 MG TABLET PO SCH (08:38)
[2021-06-22] MEDS: FLUTICASONE 50MCG/NASAL SPRAY 16GM BOTTLE. NS SCH (08:38)
[2021-06-22] MEDS: NITROFURANTOIN MONOHYD/M-CRYST 100 MG CAPSULE. PO SCH ×3 (08:38→21:00)
[2021-06-22] MEDS: LUBIPROSTONE 24 MCG CAPSULE PO SCH ×3 (08:38→21:00)
[2021-06-22] MEDS: FERROUS SULFATE 325 MG TABLET. PO SCH (08:39)
[2021-06-22] MEDS: SUCRALFATE 1 GM TABLET. PO SCH ×3 (08:39→21:00)
[2021-06-22] MEDS: ASCORBIC ACID 500 MG TABLET PO SCH (08:39)
[2021-06-22] MEDS: ASPIRIN ENTERIC COATED 81 MG TABLET.DR. PO SCH (08:39)
[2021-06-22] MEDS: PRENATAL MULTIVITAMIN TABLET. PO SCH (08:39)
[2021-06-22] MEDS: PANTOPRAZOLE 40 MG TABLET. PO SCH (08:39)
--- NOTE | 2021-06-22 08:43 | PDOC ---
Exam Note: Adolph Note: This note is a late entry for 06/21/2021 covers elements not covered in my initial note. Subjective: The patient was seen individually on 06/21/2021, discussed and reviewed the chart with Chepe KAHN. The patient slept 9 hours previous night. Overall the patient is doing well. Appetite is fair. She ate her breakfast and lunch in her room. She did attend a group activity, compliant with medications, less aggressive, less psychotic. Review of Systems: Ambulation impaired, in wheelchair. No CV, , pulmonary, eye, ENT system symptoms on review. Mental Status Exam: Patient is oriented to herself and situation. Speech coherent, has some latency. Abstraction fair. Computation impaired. Language function intact. Attention span short. Mood and affect withdrawn, still psychotic but improved. Laboratory Data: Reviewed. Impression: Bipolar 1 disorder manic with psychotic features. Anxiety disorder unspecified. Impulse control disorder unspecified. Mild cognitive impairment. Plan: Continue current psychotropics. Adjust as clinically indicated. We are repeating valproic acid level. Maintain Risperdal 3 mg a day, Zyprexa p.r.n. Assessment: Vital Signs/I&O: Vital Signs Date Time Temp Pulse Resp B/P (MAP) Pulse Ox O2 Delivery O2 Flow Rate FiO2 06/22/21 06:02 98.5 66 18 142/81 (101) 97 Room Air I & O 06/21/21 06/21/21 06/22/21 15:00 23:00 07:00 Intake Total 480 ml 660 ml Balance 480 ml 660 ml Labs: Laboratory Tests Test 06/21/21 10:43 06/21/21 12:07 06/21/21 17:03 06/21/21 19:06 POC SARS CoV-2 Antigen Negative (NEGATIVE) Glucose (Fingerstick) 195 mg/dL (70-99) H 285 mg/dL (70-99) H 320 mg/dL (70-99) H Test 06/22/21 07:26 Glucose (Fingerstick) 149 mg/dL (70-99) H Current Medications: I have reviewed the current psychotropics carefully including drug interactions. Risk benefit ratio favors no change other than as noted in my dictated progress note. Diagnosis: Problems: (1) Schizoaffective disorder, bipolar type (2) Impulse control disorder, unspecified (3) Anxiety disorder, unspecified (4) Bipolar disorder, current episode manic severe with psychotic features RIGOEBRTO SANDERS MD Jun 22, 2021 08:43
[2021-06-22] MEDS: INSULIN GLARGINE SYRINGE. SQ SCH (09:00)
[2021-06-22] MEDS: risperiDONE ORAL 1 MG/ML 30ml BOTTLE. SL SCH (10:23)
[2021-06-22 16:14] VITALS: BP 128/83
[2021-06-22] MEDS: DIVALPROEX ER 500 MG TAB.ER.24H PO SCH (20:03)
[2021-06-22] MEDS: ATORVASTATIN CALCIUM 20 MG TABLET PO SCH ×2 (20:03→21:00)
--- NOTE | 2021-06-22 21:40 | PDOC ---
Exam Note: Adolph Note: Please also refer to the separate dictated note~for this date of service dictated separately.~Patient seen individually. Discussed the patient with Nursing staff reviewed the chart.~Reviewed interim history and current functioning. Reviewed vital signs,~Labs/ Radiology~and current medications noted below. Continue current treatment with the changes noted in the dictated addendum note Assessment: Vital Signs/I&O: Vital Signs Date Time Temp Pulse Resp B/P (MAP) Pulse Ox O2 Delivery O2 Flow Rate FiO2 06/22/21 16:14 97.6 94 16 128/83 (98) 98 06/22/21 06:02 Room Air I & O 06/21/21 06/21/21 06/22/21 14:59 22:59 06:59 Intake Total 480 ml 660 ml Balance 480 ml 660 ml Labs: Laboratory Tests Test 06/22/21 07:26 06/22/21 12:05 06/22/21 16:58 06/22/21 19:40 Glucose (Fingerstick) 149 mg/dL (70-99) H 292 mg/dL (70-99) H 358 mg/dL (70-99) H 291 mg/dL (70-99) H Current Medications: Meds: Laboratory Tests Test 06/22/21 07:26 06/22/21 12:05 06/22/21 16:58 06/22/21 19:40 Glucose (Fingerstick) 149 mg/dL 292 mg/dL 358 mg/dL 291 mg/dL Current Medications Medications (Trade) Dose Ordered Sig/Karsten Route PRN Reason Start Time Stop Time Status Last Admin Dose Admin Acetaminophen (Tylenol) 650 mg PRN Q6HRS PRN PO MILD PAIN / TEMP > 100.3'F 06/09/21 21:45 06/16/21 04:52 Multi-Ingredient Ointment (Analgesic [place]) 1 bia PRN QID PRN TP MUSCLE PAIN 06/09/21 21:45 Al Hydroxide/Mg Hydroxide (Mylanta Plus Xs) 15 ml PRN AFTMEALHC PRN PO DYSPEPSIA 06/09/21 21:45 Magnesium Hydroxide (Milk Of Magnesia) 2,400 mg PRN QHS PRN PO 1ST CHOICE CONSTIPATION 06/09/21 21:45 Aspirin (Aspirin Enteric Coated) 81 mg DAILY PO 06/10/21 09:00 06/22/21 08:39 Atorvastatin Calcium (Lipitor) 20 mg QHS PO 06/10/21 21:00 06/22/21 20:03 Dicyclomine HCl (Bentyl) 20 mg PRN Q6HRS PRN PO GI SYMPTOMS 06/09/21 22:30 Fluticasone Propionate (Flonase) 2 spray DAILY NS 06/10/21 09:00 06/22/21 08:38 Glipizide (Glucotrol) 5 mg BID PO 06/10/21 09:00 06/22/21 20:03 Insulin Glargine (Lantus Syringe) 16 unit DAILY SQ 06/10/21 09:00 06/22/21 09:00 Lamotrigine (LaMICtal) 100 mg BID PO 06/10/21 09:00 06/16/21 13:52 DC 06/16/21 09:49 Levothyroxine Sodium (Synthroid) 175 mcg DAILY06 PO 06/10/21 06:00 06/22/21 05:53 Megestrol Acetate (Megace Oral Susp) 400 mg BIDWMEALS PO 06/10/21 08:00 06/19/21 01:22 DC 06/18/21 09:57 Olanzapine (ZyPREXA) 5 mg PRN Q2HR PRN PO ANXIETY / AGITATION 06/09/21 22:30 06/10/21 10:34 DC Ondansetron HCl (Zofran Odt) 4 mg BID PO 06/10/21 09:00 06/10/21 20:29 DC 06/10/21 08:53 Pantoprazole Sodium (Protonix) 40 mg DAILYAC PO 06/10/21 07:30 06/22/21 08:39 Quetiapine Fumarate (SEROquel) 100 mg TID PO 06/10/21 09:00 06/12/21 04:58 DC 06/11/21 21:19 Sertraline HCl (Zoloft) 100 mg DAILY PO 06/10/21 09:00 06/16/21 13:52 DC 06/15/21 08:00 Sucralfate (Carafate) 2 gm BID PO 06/10/21 09:00 06/22/21 20:04 Linagliptin (Tradjenta) 5 mg DAILY PO 06/10/21 09:00 06/22/21 08:38 Ascorbic Acid (Vitamin C) 500 mg DAILY PO 06/10/21 09:00 06/22/21 08:39 Ferrous Sulfate (Feosol) 325 mg DAILY PO 06/10/21 09:00 06/22/21 08:39 Lubiprostone (Amitiza) 24 mcg BID PO 06/10/21 09:00 06/22/21 20:04 Non-Formulary Medication (Nitrofurantoin Macrocrystal (Nitrofurantoin)) 100 mg BID PO 06/10/21 10:30 06/14/21 22:00 Cancel Multivit/ Folic Acid/Iron (Multivitamin ) 1 tab DAILY PO 06/10/21 09:00 06/22/21 08:39 Insulin Human Lispro (HumaLOG) 0-7 UNITS TIDWMEALS SQ 06/10/21 08:00 06/22/21 18:05 Dextrose (Dextrose 50%-Water Syringe) 12.5 gm PRN Q15MIN PRN IV SEE COMMENTS 06/09/21 23:00 Lamotrigine (LaMICtal) 25 mg BID PO 06/10/21 09:00 06/16/21 13:52 DC 06/15/21 20:02 Nitrofurantoin Macrocrystals (Macrobid) 100 mg BID PO 06/10/21 10:45 06/14/21 22:00 DC 06/14/21 20:01 Olanzapine (ZyPREXA ZYDIS) 2.5 mg PRN Q2HR PRN PO PSYCHOSIS 06/10/21 10:45 06/14/21 19:52 DC 06/13/21 22:29 Vitamin D (Vitamin D3) 50,000 unit WEEKLY PO 06/10/21 17:00 06/17/21 11:00 Polyethylene Glycol (miraLAX) 17 gm PRN DAILY PRN PO 2ND CHOICE CONSTIPATION 06/10/21 19:45 Ondansetron HCl (Zofran Odt) 4 mg PRN Q4HRS PRN PO NAUSEA/VOMITING 06/10/21 20:27 06/14/21 11:11 Risperidone (RisperDAL) 0.5 mg BID PO 06/12/21 09:00 06/13/21 18:26 DC 06/13/21 09:20 Divalproex Sodium (Depakote Er) 500 mg QHS PO 06/12/21 21:00 06/14/21 17:08 DC 06/13/21 19:44 Risperidone (RisperDAL) 1 mg BID PO 06/13/21 21:00 06/14/21 18:34 DC 06/13/21 19:46 Divalproex Sodium (Depakote Er) 1,000 mg QHS PO 06/14/21 21:00 06/22/21 20:03 Risperidone (RisperDAL) 2 mg BID SL 06/14/21 21:00 Cancel Risperidone (RisperDAL) 2 mg DAILY PO 06/14/21 18:45 06/16/21 19:50 DC 06/16/21 11:30 Olanzapine (ZyPREXA ZYDIS) 5 mg PRN Q2HR PRN PO PSYCHOSIS 06/14/21 20:00 06/19/21 05:50 Olanzapine (ZyPREXA ZYDIS) 10 mg 1X ONCE PO 06/14/21 20:00 06/14/21 20:01 DC 06/14/21 20:02 Risperidone (RisperDAL) 1 mg 1X ONCE SL 06/16/21 20:00 06/16/21 20:01 DC 06/16/21 20:14 Risperidone (RisperDAL) 3 mg DAILY SL 06/17/21 09:00 06/22/21 10:23 Trazodone HCl (Desyrel) 50 mg PRN QHS PRN PO INSOMNIA, MAY REPEAT X1 06/16/21 20:00 06/16/21 23:44 Nitrofurantoin Macrocrystals (Macrobid) 100 mg BID PO 06/19/21 21:00 06/26/21 09:01 06/22/21 20:03 I have reviewed the current psychotropics carefully including drug interactions. Risk benefit ratio favors no change other than as noted in my dictated progress note. Diagnosis: Problems: (1) Schizoaffective disorder, bipolar type (2) Impulse control disorder, unspecified (3) Anxiety disorder, unspecified (4) Bipolar disorder, current episode mixed, severe, with psychotic features (5) Bipolar disorder, current episode manic severe with psychotic features RIGOBERTO SANDERS MD Jun 22, 2021 21:40
[2021-06-23] MEDS: LEVOTHYROXINE 175 MCG TABLET PO SCH ×2 (05:45→06:00)
[2021-06-23 06:11] VITALS: BP 126/76
[2021-06-23 06:24] LABS: BASO # 0.1 x10^3/uL (0.0-0.2); BASO % 1 % (0-3); EOS # 0.2 x10^3/uL (0.0-0.7); EOS % 2 % (0-3); HEMATOCRIT 32.9 % (36.0-47.0); HEMOGLOBIN 10.8 g/dL (12.0-15.5); LYMPH # 1.8 x10^3/uL (1.0-4.8); LYMPH % 18 % (24-48); MEAN CORPUSCULAR HEMOGLOBIN 29 pg (25-35); MEAN CORPUSCULAR HGB CONC 33 g/dL (31-37); MEAN CORPUSCULAR VOLUME 89 fL (79-100); MONO # 0.8 x10^3/uL (0.0-1.1); MONO % 8 % (0-9); NEUT # 7.2 x10^3uL (1.8-7.7); NEUT % 71 % (31-73); PLATELET COUNT 224 x10^3/uL (140-400); RED BLOOD COUNT 3.71 x10^6/uL (3.50-5.40); RED CELL DISTRIBUTION WIDTH 13.9 % (11.5-14.5); WHITE BLOOD COUNT 10.2 x10^3/uL (4.0-11.0)
[2021-06-23 07:06] LABS: ALBUMIN 3.2 g/dL (3.4-5.0); ALBUMIN/GLOBULIN RATIO 1.1 (1.0-1.7); ALK PHOS 83 U/L (46-116); ALT (SGPT) 15 U/L (14-59); ANION GAP 7 (6-14); AST (SGOT) 7 U/L (15-37); BLOOD UREA NITROGEN 21 mg/dL (7-20); BUN/CREATININE RATIO 26 (6-20); CALCIUM 8.9 mg/dL (8.5-10.1); CARBON DIOXIDE 26 mmol/L (21-32); CHLORIDE 107 mmol/L (98-107); CREATININE 0.8 mg/dL (0.6-1.0); GFR 74.2; GLUCOSE 205 mg/dL (70-99); POTASSIUM 4.5 mmol/L (3.5-5.1); SODIUM 140 mmol/L (136-145); TOTAL BILIRUBIN 0.2 mg/dL (0.2-1.0)
[2021-06-23 07:14] LABS: VAL ACID 37 mcg/mL (50-100)
[2021-06-23] MEDS: INSULIN LISPRO 300 UNITS/3 ML VIAL. SQ SCH ×3 (08:00→17:00)
[2021-06-23] MEDS: LUBIPROSTONE 24 MCG CAPSULE PO SCH ×2 (08:11→20:36)
[2021-06-23] MEDS: NITROFURANTOIN MONOHYD/M-CRYST 100 MG CAPSULE. PO SCH ×2 (08:11→20:36)
[2021-06-23] MEDS: glipiZIDE 5 MG TABLET PO SCH ×2 (08:11→20:36)
[2021-06-23] MEDS: ASPIRIN ENTERIC COATED 81 MG TABLET.DR. PO SCH (08:11)
[2021-06-23] MEDS: PANTOPRAZOLE 40 MG TABLET. PO SCH (08:11)
[2021-06-23] MEDS: FERROUS SULFATE 325 MG TABLET. PO SCH (08:12)
[2021-06-23] MEDS: PRENATAL MULTIVITAMIN TABLET. PO SCH (08:12)
[2021-06-23] MEDS: LINAGLIPTIN 5 MG TABLET PO SCH (08:12)
[2021-06-23] MEDS: SUCRALFATE 1 GM TABLET. PO SCH ×2 (08:12→20:36)
[2021-06-23] MEDS: ASCORBIC ACID 500 MG TABLET PO SCH (08:12)
[2021-06-23] MEDS: FLUTICASONE 50MCG/NASAL SPRAY 16GM BOTTLE. NS SCH (08:13)
--- NOTE | 2021-06-23 08:28 | PDOC ---
Exam Note: Adolph Note: This note is a late entry for 06/22/2021 covers elements not covered in my initial note. Subjective: The patient was seen individually on 06/22/2021, discussed and reviewed the chart with Chepe KAHN. The patient slept 6 hours previous night. I met with the patient after she had had her supper. Overall the patient has been somewhat impulsive, making sexually inappropriate comments. She had less than 50% breakfast and dinner, somewhat sedated, tired. Blood sugar was 292, defer to Dr. Whipple. We will repeat CBC, CMP, valproic acid level in the morning. Review of Systems: Ambulation impaired. No CV, , pulmonary, eye, ENT system symptoms on review. Mental Status Exam: Patient is awake, alert and oriented to place and situation. She often refers to me as Dr. Macario, apparently remembering her psychiatrist who has treated her in the past. Speech has some latency, coherent. Often response is monosyllabic, less paranoid, less psychotic, somewhat distractible. Abstraction fair. Computation impaired. Language function intact. Mood and affect withdrawn, less psychotic. No suicidal or homicidal ideation. Laboratory Data: Reviewed. Impression: Bipolar 1 disorder manic with psychotic features. Anxiety disorder unspecified. Impulse control disorder unspecified. Mild cognitive impairment. Plan: Continue current psychotropics. Adjust as clinically indicated. We are repeating valproic acid level. Maintain Risperdal at current dosage. We will check valproic acid level to maintain therapeutic level. Continue Zyprexa p.r.n. Assessment: Vital Signs/I&O: Vital Signs Date Time Temp Pulse Resp B/P (MAP) Pulse Ox O2 Delivery O2 Flow Rate FiO2 06/23/21 06:11 98.3 60 18 126/76 (93) 100 06/22/21 06:02 Room Air I & O 06/22/21 06/22/21 06/23/21 15:00 23:00 07:00 Intake Total 920 ml 480 ml Balance 920 ml 480 ml Labs: Laboratory Tests Test 06/22/21 12:05 06/22/21 16:58 06/22/21 19:40 06/23/21 06:15 Glucose (Fingerstick) 292 mg/dL (70-99) H 358 mg/dL (70-99) H 291 mg/dL (70-99) H White Blood Count 10.2 x10^3/uL (4.0-11.0) Red Blood Count 3.71 x10^6/uL (3.50-5.40) Hemoglobin 10.8 g/dL (12.0-15.5) L Hematocrit 32.9 % (36.0-47.0) L Mean Corpuscular Volume 89 fL (79-100) Mean Corpuscular Hemoglobin 29 pg (25-35) Mean Corpuscular Hemoglobin Concent 33 g/dL (31-37) Red Cell Distribution Width 13.9 % (11.5-14.5) Platelet Count 224 x10^3/uL (140-400) Neutrophils (%) (Auto) 71 % (31-73) Lymphocytes (%) (Auto) 18 % (24-48) L Monocytes (%) (Auto) 8 % (0-9) Eosinophils (%) (Auto) 2 % (0-3) Basophils (%) (Auto) 1 % (0-3) Neutrophils # (Auto) 7.2 x10^3uL (1.8-7.7) Lymphocytes # (Auto) 1.8 x10^3/uL (1.0-4.8) Monocytes # (Auto) 0.8 x10^3/uL (0.0-1.1) Eosinophils # (Auto) 0.2 x10^3/uL (0.0-0.7) Basophils # (Auto) 0.1 x10^3/uL (0.0-0.2) Sodium Level 140 mmol/L (136-145) Potassium Level 4.5 mmol/L (3.5-5.1) Chloride Level 107 mmol/L (98-107) Carbon Dioxide Level 26 mmol/L (21-32) Anion Gap 7 (6-14) Blood Urea Nitrogen 21 mg/dL (7-20) H Creatinine 0.8 mg/dL (0.6-1.0) Estimated GFR (Cockcroft-Gault) 74.2 BUN/Creatinine Ratio 26 (6-20) H Glucose Level 205 mg/dL (70-99) H Calcium Level 8.9 mg/dL (8.5-10.1) Total Bilirubin 0.2 mg/dL (0.2-1.0) Aspartate Amino Transferase (AST) 7 U/L (15-37) L Alanine Aminotransferase (ALT) 15 U/L (14-59) Alkaline Phosphatase 83 U/L (46-116) Total Protein 6.0 g/dL (6.4-8.2) L Albumin 3.2 g/dL (3.4-5.0) L Albumin/Globulin Ratio 1.1 (1.0-1.7) Valproic Acid Level 37 mcg/mL (50-100) L Valproic Acid Last Dose Date 06/22/21 Valproic Acid Last Dose Time 2100 Test 06/23/21 07:41 Glucose (Fingerstick) 207 mg/dL (70-99) H Current Medications: I have reviewed the current psychotropics carefully including drug interactions. Risk benefit ratio favors no change other than as noted in my dictated progress note. Diagnosis: Problems: (1) Schizoaffective disorder, bipolar type (2) Impulse control disorder, unspecified (3) Anxiety disorder, unspecified (4) Bipolar disorder, current episode mixed, severe, with psychotic features RIGOBERTO SANDERS MD Jun 23, 2021 08:28
[2021-06-23] MEDS: INSULIN GLARGINE SYRINGE. SQ SCH (09:00)
[2021-06-23] MEDS: risperiDONE ORAL 1 MG/ML 30ml BOTTLE. SL SCH (13:29)
[2021-06-23 15:43] VITALS: BP 136/78
[2021-06-23] MEDS: DIVALPROEX ER 500 MG TAB.ER.24H PO SCH (20:36)
[2021-06-23] MEDS: ATORVASTATIN CALCIUM 20 MG TABLET PO SCH (20:36)
--- NOTE | 2021-06-23 21:26 | PDOC ---
Exam Note: Adolph Note: Please also refer to the separate dictated note~for this date of service dictated separately.~Patient seen individually. Discussed the patient with Nursing staff reviewed the chart.~Reviewed interim history and current functioning. Reviewed vital signs,~Labs/ Radiology~and current medications noted below. Continue current treatment with the changes noted in the dictated addendum note Assessment: Vital Signs/I&O: Vital Signs Date Time Temp Pulse Resp B/P (MAP) Pulse Ox O2 Delivery O2 Flow Rate FiO2 06/23/21 15:43 98.6 62 19 136/78 (97) 97 06/22/21 06:02 Room Air I & O 06/22/21 06/22/21 06/23/21 14:59 22:59 06:59 Intake Total 920 ml 480 ml Balance 920 ml 480 ml Labs: Laboratory Tests Test 06/23/21 06:15 06/23/21 07:41 06/23/21 12:09 06/23/21 17:01 White Blood Count 10.2 x10^3/uL (4.0-11.0) Red Blood Count 3.71 x10^6/uL (3.50-5.40) Hemoglobin 10.8 g/dL (12.0-15.5) L Hematocrit 32.9 % (36.0-47.0) L Mean Corpuscular Volume 89 fL (79-100) Mean Corpuscular Hemoglobin 29 pg (25-35) Mean Corpuscular Hemoglobin Concent 33 g/dL (31-37) Red Cell Distribution Width 13.9 % (11.5-14.5) Platelet Count 224 x10^3/uL (140-400) Neutrophils (%) (Auto) 71 % (31-73) Lymphocytes (%) (Auto) 18 % (24-48) L Monocytes (%) (Auto) 8 % (0-9) Eosinophils (%) (Auto) 2 % (0-3) Basophils (%) (Auto) 1 % (0-3) Neutrophils # (Auto) 7.2 x10^3uL (1.8-7.7) Lymphocytes # (Auto) 1.8 x10^3/uL (1.0-4.8) Monocytes # (Auto) 0.8 x10^3/uL (0.0-1.1) Eosinophils # (Auto) 0.2 x10^3/uL (0.0-0.7) Basophils # (Auto) 0.1 x10^3/uL (0.0-0.2) Sodium Level 140 mmol/L (136-145) Potassium Level 4.5 mmol/L (3.5-5.1) Chloride Level 107 mmol/L (98-107) Carbon Dioxide Level 26 mmol/L (21-32) Anion Gap 7 (6-14) Blood Urea Nitrogen 21 mg/dL (7-20) H Creatinine 0.8 mg/dL (0.6-1.0) Estimated GFR (Cockcroft-Gault) 74.2 BUN/Creatinine Ratio 26 (6-20) H Glucose Level 205 mg/dL (70-99) H Calcium Level 8.9 mg/dL (8.5-10.1) Total Bilirubin 0.2 mg/dL (0.2-1.0) Aspartate Amino Transferase (AST) 7 U/L (15-37) L Alanine Aminotransferase (ALT) 15 U/L (14-59) Alkaline Phosphatase 83 U/L (46-116) Total Protein 6.0 g/dL (6.4-8.2) L Albumin 3.2 g/dL (3.4-5.0) L Albumin/Globulin Ratio 1.1 (1.0-1.7) Valproic Acid Level 37 mcg/mL (50-100) L Valproic Acid Last Dose Date 06/22/21 Valproic Acid Last Dose Time 2100 Glucose (Fingerstick) 207 mg/dL (70-99) H 132 mg/dL (70-99) H 209 mg/dL (70-99) H Test 06/23/21 19:21 Glucose (Fingerstick) 194 mg/dL (70-99) H Current Medications: Meds: Laboratory Tests Test 06/23/21 06:15 06/23/21 07:41 06/23/21 12:09 06/23/21 17:01 White Blood Count 10.2 x10^3/uL Red Blood Count 3.71 x10^6/uL Hemoglobin 10.8 g/dL Hematocrit 32.9 % Mean Corpuscular Volume 89 fL Mean Corpuscular Hemoglobin 29 pg Mean Corpuscular Hemoglobin Concent 33 g/dL Red Cell Distribution Width 13.9 % Platelet Count 224 x10^3/uL Neutrophils (%) (Auto) 71 % Lymphocytes (%) (Auto) 18 % Monocytes (%) (Auto) 8 % Eosinophils (%) (Auto) 2 % Basophils (%) (Auto) 1 % Neutrophils # (Auto) 7.2 x10^3uL Lymphocytes # (Auto) 1.8 x10^3/uL Monocytes # (Auto) 0.8 x10^3/uL Eosinophils # (Auto) 0.2 x10^3/uL Basophils # (Auto) 0.1 x10^3/uL Sodium Level 140 mmol/L Potassium Level 4.5 mmol/L Chloride Level 107 mmol/L Carbon Dioxide Level 26 mmol/L Anion Gap 7 Blood Urea Nitrogen 21 mg/dL Creatinine 0.8 mg/dL Estimated GFR (Cockcroft-Gault) 74.2 BUN/Creatinine Ratio 26 Glucose Level 205 mg/dL Calcium Level 8.9 mg/dL Total Bilirubin 0.2 mg/dL Aspartate Amino Transf (AST/SGOT) 7 U/L Alanine Aminotransferase (ALT/SGPT) 15 U/L Alkaline Phosphatase 83 U/L Total Protein 6.0 g/dL Albumin 3.2 g/dL Albumin/Globulin Ratio 1.1 Valproic Acid (Depakene) Level 37 mcg/mL Valproic Acid Last Dose Date 06/22/21 Valproic Acid Last Dose Time 2100 Glucose (Fingerstick) 207 mg/dL 132 mg/dL 209 mg/dL Test 06/23/21 19:21 Glucose (Fingerstick) 194 mg/dL Current Medications Medications (Trade) Dose Ordered Sig/Karsten Route PRN Reason Start Time Stop Time Status Last Admin Dose Admin Acetaminophen (Tylenol) 650 mg PRN Q6HRS PRN PO MILD PAIN / TEMP > 100.3'F 06/09/21 21:45 06/16/21 04:52 Multi-Ingredient Ointment (Analgesic [place]) 1 bia PRN QID PRN TP MUSCLE PAIN 06/09/21 21:45 Al Hydroxide/Mg Hydroxide (Mylanta Plus Xs) 15 ml PRN AFTMEALHC PRN PO DYSPEPSIA 06/09/21 21:45 Magnesium Hydroxide (Milk Of Magnesia) 2,400 mg PRN QHS PRN PO 1ST CHOICE CONSTIPATION 06/09/21 21:45 Aspirin (Aspirin Enteric Coated) 81 mg DAILY PO 06/10/21 09:00 06/23/21 08:11 Atorvastatin Calcium (Lipitor) 20 mg QHS PO 06/10/21 21:00 06/23/21 20:36 Dicyclomine HCl (Bentyl) 20 mg PRN Q6HRS PRN PO GI SYMPTOMS 06/09/21 22:30 Fluticasone Propionate (Flonase) 2 spray DAILY NS 06/10/21 09:00 06/23/21 08:13 Glipizide (Glucotrol) 5 mg BID PO 06/10/21 09:00 06/23/21 20:36 Insulin Glargine (Lantus Syringe) 16 unit DAILY SQ 06/10/21 09:00 06/23/21 09:00 Lamotrigine (LaMICtal) 100 mg BID PO 06/10/21 09:00 06/16/21 13:52 DC 06/16/21 09:49 Levothyroxine Sodium (Synthroid) 175 mcg DAILY06 PO 06/10/21 06:00 06/23/21 06:00 Megestrol Acetate (Megace Oral Susp) 400 mg BIDWMEALS PO 06/10/21 08:00 06/19/21 01:22 DC 06/18/21 09:57 Olanzapine (ZyPREXA) 5 mg PRN Q2HR PRN PO ANXIETY / AGITATION 06/09/21 22:30 06/10/21 10:34 DC Ondansetron HCl (Zofran Odt) 4 mg BID PO 06/10/21 09:00 06/10/21 20:29 DC 06/10/21 08:53 Pantoprazole Sodium (Protonix) 40 mg DAILYAC PO 06/10/21 07:30 06/23/21 08:11 Quetiapine Fumarate (SEROquel) 100 mg TID PO 06/10/21 09:00 06/12/21 04:58 DC 06/11/21 21:19 Sertraline HCl (Zoloft) 100 mg DAILY PO 06/10/21 09:00 06/16/21 13:52 DC 06/15/21 08:00 Sucralfate (Carafate) 2 gm BID PO 06/10/21 09:00 06/23/21 20:36 Linagliptin (Tradjenta) 5 mg DAILY PO 06/10/21 09:00 06/23/21 08:12 Ascorbic Acid (Vitamin C) 500 mg DAILY PO 06/10/21 09:00 06/23/21 08:12 Ferrous Sulfate (Feosol) 325 mg DAILY PO 06/10/21 09:00 06/23/21 08:12 Lubiprostone (Amitiza) 24 mcg BID PO 06/10/21 09:00 06/23/21 20:36 Non-Formulary Medication (Nitrofurantoin Macrocrystal (Nitrofurantoin)) 100 mg BID PO 06/10/21 10:30 06/14/21 22:00 Cancel Multivit/ Folic Acid/Iron (Multivitamin ) 1 tab DAILY PO 06/10/21 09:00 06/23/21 08:12 Insulin Human Lispro (HumaLOG) 0-7 UNITS TIDWMEALS SQ 06/10/21 08:00 06/22/21 18:05 Dextrose (Dextrose 50%-Water Syringe) 12.5 gm PRN Q15MIN PRN IV SEE COMMENTS 06/09/21 23:00 Lamotrigine (LaMICtal) 25 mg BID PO 06/10/21 09:00 06/16/21 13:52 DC 06/15/21 20:02 Nitrofurantoin Macrocrystals (Macrobid) 100 mg BID PO 06/10/21 10:45 06/14/21 22:00 DC 06/14/21 20:01 Olanzapine (ZyPREXA ZYDIS) 2.5 mg PRN Q2HR PRN PO PSYCHOSIS 06/10/21 10:45 06/14/21 19:52 DC 06/13/21 22:29 Vitamin D (Vitamin D3) 50,000 unit WEEKLY PO 06/10/21 17:00 06/17/21 11:00 Polyethylene Glycol (miraLAX) 17 gm PRN DAILY PRN PO 2ND CHOICE CONSTIPATION 06/10/21 19:45 Ondansetron HCl (Zofran Odt) 4 mg PRN Q4HRS PRN PO NAUSEA/VOMITING 06/10/21 20:27 06/14/21 11:11 Risperidone (RisperDAL) 0.5 mg BID PO 06/12/21 09:00 06/13/21 18:26 DC 06/13/21 09:20 Divalproex Sodium (Depakote Er) 500 mg QHS PO 06/12/21 21:00 06/14/21 17:08 DC 06/13/21 19:44 Risperidone (RisperDAL) 1 mg BID PO 06/13/21 21:00 06/14/21 18:34 DC 06/13/21 19:46 Divalproex Sodium (Depakote Er) 1,000 mg QHS PO 06/14/21 21:00 06/23/21 18:52 DC 06/22/21 20:03 Risperidone (RisperDAL) 2 mg BID SL 06/14/21 21:00 Cancel Risperidone (RisperDAL) 2 mg DAILY PO 06/14/21 18:45 06/16/21 19:50 DC 06/16/21 11:30 Olanzapine (ZyPREXA ZYDIS) 5 mg PRN Q2HR PRN PO PSYCHOSIS 06/14/21 20:00 06/19/21 05:50 Olanzapine (ZyPREXA ZYDIS) 10 mg 1X ONCE PO 06/14/21 20:00 06/14/21 20:01 DC 06/14/21 20:02 Risperidone (RisperDAL) 1 mg 1X ONCE SL 06/16/21 20:00 06/16/21 20:01 DC 06/16/21 20:14 Risperidone (RisperDAL) 3 mg DAILY SL 06/17/21 09:00 06/23/21 13:29 Trazodone HCl (Desyrel) 50 mg PRN QHS PRN PO INSOMNIA, MAY REPEAT X1 06/16/21 20:00 06/16/21 23:44 Nitrofurantoin Macrocrystals (Macrobid) 100 mg BID PO 06/19/21 21:00 06/26/21 09:01 06/23/21 20:36 Divalproex Sodium (Depakote Er) 1,500 mg QHS PO 06/23/21 21:00 06/23/21 20:36 Current Medications Medications (Trade) Dose Ordered Sig/Karsten Route PRN Reason Start Time Stop Time Status Last Admin Dose Admin Divalproex Sodium (Depakote Er) 1,500 mg QHS PO 06/23/21 21:00 06/23/21 20:36 I have reviewed the current psychotropics carefully including drug interactions. Risk benefit ratio favors no change other than as noted in my dictated progress note. Diagnosis: Problems: (1) Schizoaffective disorder, bipolar type (2) Impulse control disorder, unspecified (3) Anxiety disorder, unspecified (4) Bipolar disorder, current episode mixed, severe, with psychotic features (5) Bipolar disorder, current episode manic severe with psychotic features RIGOBERTO SANDERS MD Jun 23, 2021 21:26
[2021-06-24] MEDS: LEVOTHYROXINE 175 MCG TABLET PO SCH (05:27)
[2021-06-24 06:20] VITALS: BP 123/78
[2021-06-24] MEDS: INSULIN LISPRO 300 UNITS/3 ML VIAL. SQ SCH ×3 (08:00→17:00)
[2021-06-24] MEDS: PANTOPRAZOLE 40 MG TABLET. PO SCH (08:01)
[2021-06-24] MEDS: NITROFURANTOIN MONOHYD/M-CRYST 100 MG CAPSULE. PO SCH ×2 (08:02→20:11)
[2021-06-24] MEDS: FERROUS SULFATE 325 MG TABLET. PO SCH (08:02)
[2021-06-24] MEDS: CHOLECALCIFEROL (VITAMIN D3) 50,000 UNIT CAPSULE PO SCH (08:02)
[2021-06-24] MEDS: LUBIPROSTONE 24 MCG CAPSULE PO SCH ×2 (08:02→20:11)
[2021-06-24] MEDS: ASCORBIC ACID 500 MG TABLET PO SCH (08:02)
[2021-06-24] MEDS: LINAGLIPTIN 5 MG TABLET PO SCH (08:02)
[2021-06-24] MEDS: ASPIRIN ENTERIC COATED 81 MG TABLET.DR. PO SCH (08:02)
[2021-06-24] MEDS: glipiZIDE 5 MG TABLET PO SCH ×2 (08:02→20:11)
[2021-06-24] MEDS: PRENATAL MULTIVITAMIN TABLET. PO SCH (08:02)
[2021-06-24] MEDS: SUCRALFATE 1 GM TABLET. PO SCH ×2 (08:03→20:12)
[2021-06-24] MEDS: FLUTICASONE 50MCG/NASAL SPRAY 16GM BOTTLE. NS SCH (08:04)
[2021-06-24] MEDS: risperiDONE ORAL 1 MG/ML 30ml BOTTLE. SL SCH (08:04)
--- NOTE | 2021-06-24 09:00 | PDOC ---
Exam Note: Adolph Note: This note is a late entry for 06/23/2021 covers elements not covered in my initial note. Subjective: The patient was reviewed at treatment team meeting individually in the morning on 06/23/2021 with Thi Marsh, Brianna Massey, and Anita Alan (social work administrator), Krystin, activity therapy, and Jacey KAHN, discussed and reviewed the chart. The patient slept 6 hours previous night. Appetite 29%. Average sleep 4-3/4 hours. She often refuses her medications, takes it later, calling staff by interrogatory names. Staff refer to her as wild one. Previous night she was biting at staff, yesterday provoking other patients against the staff. I met with her in her room. Review of Systems: Ambulation impaired. No CV, , pulmonary, eye, ENT system symptoms on review. Mental Status Exam: Patient is awake, alert and oriented to place and situation. She remains somewhat paranoid but as I processed this with her gradually she was more accepting of where she was and less paranoid, psychotic. Speech coherent. Often response is monosyllabic, less paranoid, less psychotic, somewhat distractible. Abstraction fair. Computation impaired. Language function intact. Mood and affect less paranoid, psychotic. No suicidal or homicidal ideation. Laboratory Data: Reviewed. Impression: Bipolar 1 disorder manic with psychotic features. Anxiety disorder unspecified. Impulse control disorder unspecified. Mild cognitive impairment. Plan: Continue current psychotropics. Adjust as clinically indicated. Assessment: Vital Signs/I&O: Vital Signs Date Time Temp Pulse Resp B/P (MAP) Pulse Ox O2 Delivery O2 Flow Rate FiO2 06/24/21 06:20 98.4 75 20 123/78 (93) 96 Room Air I & O 06/23/21 06/23/21 06/24/21 15:00 23:00 07:00 Intake Total 240 ml 120 ml Balance 240 ml 120 ml Labs: Laboratory Tests Test 06/23/21 12:09 06/23/21 17:01 06/23/21 19:21 06/24/21 08:11 Glucose (Fingerstick) 132 mg/dL (70-99) H 209 mg/dL (70-99) H 194 mg/dL (70-99) H 225 mg/dL (70-99) H Current Medications: Meds: Current Medications Medications (Trade) Dose Ordered Sig/Karsten Route PRN Reason Start Time Stop Time Status Last Admin Dose Admin Divalproex Sodium (Depakote Er) 1,500 mg QHS PO 06/23/21 21:00 06/23/21 20:36 I have reviewed the current psychotropics carefully including drug interactions. Risk benefit ratio favors no change other than as noted in my dictated progress note. Diagnosis: Problems: (1) Schizoaffective disorder, bipolar type (2) Impulse control disorder, unspecified (3) Anxiety disorder, unspecified (4) Bipolar disorder, current episode mixed, severe, with psychotic features (5) Bipolar disorder, current episode manic severe with psychotic features RIGOBERTO SANDERS MD Jun 24, 2021 09:00
[2021-06-24] MEDS: INSULIN GLARGINE SYRINGE. SQ SCH (09:17)
[2021-06-24 15:24] VITALS: BP 133/84
[2021-06-24] MEDS: ATORVASTATIN CALCIUM 20 MG TABLET PO SCH (20:12)
[2021-06-24] MEDS: DIVALPROEX ER 500 MG TAB.ER.24H PO SCH (20:13)
--- NOTE | 2021-06-24 21:45 | PDOC ---
Exam Note: Adolph Note: Please also refer to the separate dictated note~for this date of service dictated separately.~Patient seen individually. Discussed the patient with Nursing staff reviewed the chart.~Reviewed interim history and current functioning. Reviewed vital signs,~Labs/ Radiology~and current medications noted below. Continue current treatment with the changes noted in the dictated addendum note Assessment: Vital Signs/I&O: Vital Signs Date Time Temp Pulse Resp B/P (MAP) Pulse Ox O2 Delivery O2 Flow Rate FiO2 06/24/21 15:24 97.7 65 17 133/84 (100) 100 Room Air I & O 06/23/21 06/23/21 06/24/21 15:00 23:00 07:00 Intake Total 240 ml 120 ml Balance 240 ml 120 ml Labs: Laboratory Tests Test 06/24/21 08:11 06/24/21 11:11 06/24/21 16:28 06/24/21 19:14 Glucose (Fingerstick) 225 mg/dL (70-99) H 228 mg/dL (70-99) H 275 mg/dL (70-99) H 191 mg/dL (70-99) H Current Medications: Meds: Laboratory Tests Test 06/24/21 08:11 06/24/21 11:11 06/24/21 16:28 06/24/21 19:14 Glucose (Fingerstick) 225 mg/dL 228 mg/dL 275 mg/dL 191 mg/dL Current Medications Medications (Trade) Dose Ordered Sig/Karsten Route PRN Reason Start Time Stop Time Status Last Admin Dose Admin Acetaminophen (Tylenol) 650 mg PRN Q6HRS PRN PO MILD PAIN / TEMP > 100.3'F 06/09/21 21:45 06/16/21 04:52 Multi-Ingredient Ointment (Analgesic [place]) 1 bia PRN QID PRN TP MUSCLE PAIN 06/09/21 21:45 Al Hydroxide/Mg Hydroxide (Mylanta Plus Xs) 15 ml PRN AFTMEALHC PRN PO DYSPEPSIA 06/09/21 21:45 Magnesium Hydroxide (Milk Of Magnesia) 2,400 mg PRN QHS PRN PO 1ST CHOICE CONSTIPATION 06/09/21 21:45 Aspirin (Aspirin Enteric Coated) 81 mg DAILY PO 06/10/21 09:00 06/24/21 08:02 Atorvastatin Calcium (Lipitor) 20 mg QHS PO 06/10/21 21:00 06/24/21 20:12 Dicyclomine HCl (Bentyl) 20 mg PRN Q6HRS PRN PO GI SYMPTOMS 06/09/21 22:30 Fluticasone Propionate (Flonase) 2 spray DAILY NS 06/10/21 09:00 06/24/21 08:04 Glipizide (Glucotrol) 5 mg BID PO 06/10/21 09:00 06/24/21 20:11 Insulin Glargine (Lantus Syringe) 16 unit DAILY SQ 06/10/21 09:00 06/24/21 09:17 Lamotrigine (LaMICtal) 100 mg BID PO 06/10/21 09:00 06/16/21 13:52 DC 06/16/21 09:49 Levothyroxine Sodium (Synthroid) 175 mcg DAILY06 PO 06/10/21 06:00 06/24/21 05:27 Megestrol Acetate (Megace Oral Susp) 400 mg BIDWMEALS PO 06/10/21 08:00 06/19/21 01:22 DC 06/18/21 09:57 Olanzapine (ZyPREXA) 5 mg PRN Q2HR PRN PO ANXIETY / AGITATION 06/09/21 22:30 06/10/21 10:34 DC Ondansetron HCl (Zofran Odt) 4 mg BID PO 06/10/21 09:00 06/10/21 20:29 DC 06/10/21 08:53 Pantoprazole Sodium (Protonix) 40 mg DAILYAC PO 06/10/21 07:30 06/24/21 08:01 Quetiapine Fumarate (SEROquel) 100 mg TID PO 06/10/21 09:00 06/12/21 04:58 DC 06/11/21 21:19 Sertraline HCl (Zoloft) 100 mg DAILY PO 06/10/21 09:00 06/16/21 13:52 DC 06/15/21 08:00 Sucralfate (Carafate) 2 gm BID PO 06/10/21 09:00 06/24/21 20:12 Linagliptin (Tradjenta) 5 mg DAILY PO 06/10/21 09:00 06/24/21 08:02 Ascorbic Acid (Vitamin C) 500 mg DAILY PO 06/10/21 09:00 06/24/21 08:02 Ferrous Sulfate (Feosol) 325 mg DAILY PO 06/10/21 09:00 06/24/21 08:02 Lubiprostone (Amitiza) 24 mcg BID PO 06/10/21 09:00 06/24/21 20:11 Non-Formulary Medication (Nitrofurantoin Macrocrystal (Nitrofurantoin)) 100 mg BID PO 06/10/21 10:30 06/14/21 22:00 Cancel Multivit/ Folic Acid/Iron (Multivitamin ) 1 tab DAILY PO 06/10/21 09:00 06/24/21 08:02 Insulin Human Lispro (HumaLOG) 0-7 UNITS TIDWMEALS SQ 06/10/21 08:00 06/24/21 17:00 Dextrose (Dextrose 50%-Water Syringe) 12.5 gm PRN Q15MIN PRN IV SEE COMMENTS 06/09/21 23:00 Lamotrigine (LaMICtal) 25 mg BID PO 06/10/21 09:00 06/16/21 13:52 DC 06/15/21 20:02 Nitrofurantoin Macrocrystals (Macrobid) 100 mg BID PO 06/10/21 10:45 06/14/21 22:00 DC 06/14/21 20:01 Olanzapine (ZyPREXA ZYDIS) 2.5 mg PRN Q2HR PRN PO PSYCHOSIS 06/10/21 10:45 06/14/21 19:52 DC 06/13/21 22:29 Vitamin D (Vitamin D3) 50,000 unit WEEKLY PO 06/10/21 17:00 06/24/21 08:02 Polyethylene Glycol (miraLAX) 17 gm PRN DAILY PRN PO 2ND CHOICE CONSTIPATION 06/10/21 19:45 Ondansetron HCl (Zofran Odt) 4 mg PRN Q4HRS PRN PO NAUSEA/VOMITING 06/10/21 20:27 06/14/21 11:11 Risperidone (RisperDAL) 0.5 mg BID PO 06/12/21 09:00 06/13/21 18:26 DC 06/13/21 09:20 Divalproex Sodium (Depakote Er) 500 mg QHS PO 06/12/21 21:00 06/14/21 17:08 DC 06/13/21 19:44 Risperidone (RisperDAL) 1 mg BID PO 06/13/21 21:00 06/14/21 18:34 DC 06/13/21 19:46 Divalproex Sodium (Depakote Er) 1,000 mg QHS PO 06/14/21 21:00 06/23/21 18:52 DC 06/22/21 20:03 Risperidone (RisperDAL) 2 mg BID SL 06/14/21 21:00 Cancel Risperidone (RisperDAL) 2 mg DAILY PO 06/14/21 18:45 06/16/21 19:50 DC 06/16/21 11:30 Olanzapine (ZyPREXA ZYDIS) 5 mg PRN Q2HR PRN PO PSYCHOSIS 06/14/21 20:00 06/24/21 20:11 Olanzapine (ZyPREXA ZYDIS) 10 mg 1X ONCE PO 06/14/21 20:00 06/14/21 20:01 DC 06/14/21 20:02 Risperidone (RisperDAL) 1 mg 1X ONCE SL 06/16/21 20:00 06/16/21 20:01 DC 06/16/21 20:14 Risperidone (RisperDAL) 3 mg DAILY SL 06/17/21 09:00 06/24/21 08:04 Trazodone HCl (Desyrel) 50 mg PRN QHS PRN PO INSOMNIA, MAY REPEAT X1 06/16/21 20:00 06/16/21 23:44 Nitrofurantoin Macrocrystals (Macrobid) 100 mg BID PO 06/19/21 21:00 06/26/21 09:01 06/24/21 20:11 Divalproex Sodium (Depakote Er) 1,500 mg QHS PO 06/23/21 21:00 06/24/21 20:13 I have reviewed the current psychotropics carefully including drug interactions. Risk benefit ratio favors no change other than as noted in my dictated progress note. Diagnosis: Problems: (1) Schizoaffective disorder, bipolar type (2) Impulse control disorder, unspecified (3) Anxiety disorder, unspecified (4) Bipolar disorder, current episode mixed, severe, with psychotic features RIGOBERTO SANDERS MD Jun 24, 2021 21:45
[2021-06-25 05:21] VITALS: BP 112/63
[2021-06-25] MEDS: risperiDONE ORAL 1 MG/ML 30ml BOTTLE. SL SCH (06:16)
[2021-06-25] MEDS: LEVOTHYROXINE 175 MCG TABLET PO SCH (06:16)
[2021-06-25] MEDS: PANTOPRAZOLE 40 MG TABLET. PO SCH (07:30)
[2021-06-25] MEDS: INSULIN LISPRO 300 UNITS/3 ML VIAL. SQ SCH ×3 (08:00→17:00)
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
[2021-06-25] MEDS: FLUTICASONE 50MCG/NASAL SPRAY 16GM BOTTLE. NS SCH (09:00)
[2021-06-25] MEDS: INSULIN GLARGINE SYRINGE. SQ SCH (09:00)
[2021-06-25] MEDS: SUCRALFATE 1 GM TABLET. PO SCH ×3 (09:00→21:00)
[2021-06-25] MEDS: PRENATAL MULTIVITAMIN TABLET. PO SCH (09:00)
[2021-06-25] MEDS: ASPIRIN ENTERIC COATED 81 MG TABLET.DR. PO SCH (10:43)
[2021-06-25] MEDS: LUBIPROSTONE 24 MCG CAPSULE PO SCH ×3 (10:43→21:00)
[2021-06-25] MEDS: LINAGLIPTIN 5 MG TABLET PO SCH (10:43)
[2021-06-25] MEDS: ASCORBIC ACID 500 MG TABLET PO SCH (10:43)
[2021-06-25] MEDS: NITROFURANTOIN MONOHYD/M-CRYST 100 MG CAPSULE. PO SCH ×3 (10:43→21:00)
[2021-06-25] MEDS: FERROUS SULFATE 325 MG TABLET. PO SCH (10:44)
[2021-06-25] MEDS: glipiZIDE 5 MG TABLET PO SCH ×3 (10:44→21:00)
[2021-06-25 15:58] VITALS: BP 137/84
[2021-06-25] MEDS: ATORVASTATIN CALCIUM 20 MG TABLET PO SCH ×2 (20:44→21:00)
[2021-06-25] MEDS: DIVALPROEX ER 500 MG TAB.ER.24H PO SCH ×2 (20:45→21:00)
--- NOTE | 2021-06-25 22:03 | PDOC ---
Exam Note: Adolph Note: Please also refer to the separate dictated note~for this date of service dictated separately.~Patient seen individually. Discussed the patient with Nursing staff reviewed the chart.~Reviewed interim history and current functioning. Reviewed vital signs,~Labs/ Radiology~and current medications noted below. Continue current treatment with the changes noted in the dictated addendum note Assessment: Vital Signs/I&O: Vital Signs Date Time Temp Pulse Resp B/P (MAP) Pulse Ox O2 Delivery O2 Flow Rate FiO2 06/25/21 15:58 97.2 88 18 137/84 (101) 98 06/24/21 15:24 Room Air I & O 06/24/21 06/24/21 06/25/21 15:00 23:00 07:00 Intake Total 720 ml 360 ml Balance 720 ml 360 ml Labs: Laboratory Tests Test 06/25/21 07:48 06/25/21 11:37 06/25/21 16:45 06/25/21 19:30 Glucose (Fingerstick) 166 mg/dL (70-99) H 238 mg/dL (70-99) H 145 mg/dL (70-99) H 209 mg/dL (70-99) H Current Medications: Meds: Laboratory Tests Test 06/25/21 07:48 06/25/21 11:37 06/25/21 16:45 06/25/21 19:30 Glucose (Fingerstick) 166 mg/dL 238 mg/dL 145 mg/dL 209 mg/dL Current Medications Medications (Trade) Dose Ordered Sig/Karsten Route PRN Reason Start Time Stop Time Status Last Admin Dose Admin Acetaminophen (Tylenol) 650 mg PRN Q6HRS PRN PO MILD PAIN / TEMP > 100.3'F 06/09/21 21:45 06/16/21 04:52 Multi-Ingredient Ointment (Analgesic [place]) 1 bia PRN QID PRN TP MUSCLE PAIN 06/09/21 21:45 Al Hydroxide/Mg Hydroxide (Mylanta Plus Xs) 15 ml PRN AFTMEALHC PRN PO DYSPEPSIA 06/09/21 21:45 Magnesium Hydroxide (Milk Of Magnesia) 2,400 mg PRN QHS PRN PO 1ST CHOICE CONSTIPATION 06/09/21 21:45 Aspirin (Aspirin Enteric Coated) 81 mg DAILY PO 06/10/21 09:00 06/25/21 10:43 Atorvastatin Calcium (Lipitor) 20 mg QHS PO 06/10/21 21:00 06/25/21 20:44 Dicyclomine HCl (Bentyl) 20 mg PRN Q6HRS PRN PO GI SYMPTOMS 06/09/21 22:30 Fluticasone Propionate (Flonase) 2 spray DAILY NS 06/10/21 09:00 06/25/21 09:00 Glipizide (Glucotrol) 5 mg BID PO 06/10/21 09:00 06/25/21 20:43 Insulin Glargine (Lantus Syringe) 16 unit DAILY SQ 06/10/21 09:00 06/25/21 09:00 Lamotrigine (LaMICtal) 100 mg BID PO 06/10/21 09:00 06/16/21 13:52 DC 06/16/21 09:49 Levothyroxine Sodium (Synthroid) 175 mcg DAILY06 PO 06/10/21 06:00 06/25/21 06:16 Megestrol Acetate (Megace Oral Susp) 400 mg BIDWMEALS PO 06/10/21 08:00 06/19/21 01:22 DC 06/18/21 09:57 Olanzapine (ZyPREXA) 5 mg PRN Q2HR PRN PO ANXIETY / AGITATION 06/09/21 22:30 06/10/21 10:34 DC Ondansetron HCl (Zofran Odt) 4 mg BID PO 06/10/21 09:00 06/10/21 20:29 DC 06/10/21 08:53 Pantoprazole Sodium (Protonix) 40 mg DAILYAC PO 06/10/21 07:30 06/25/21 07:30 Quetiapine Fumarate (SEROquel) 100 mg TID PO 06/10/21 09:00 06/12/21 04:58 DC 06/11/21 21:19 Sertraline HCl (Zoloft) 100 mg DAILY PO 06/10/21 09:00 06/16/21 13:52 DC 06/15/21 08:00 Sucralfate (Carafate) 2 gm BID PO 06/10/21 09:00 06/25/21 20:44 Linagliptin (Tradjenta) 5 mg DAILY PO 06/10/21 09:00 06/25/21 10:43 Ascorbic Acid (Vitamin C) 500 mg DAILY PO 06/10/21 09:00 06/25/21 10:43 Ferrous Sulfate (Feosol) 325 mg DAILY PO 06/10/21 09:00 06/25/21 10:44 Lubiprostone (Amitiza) 24 mcg BID PO 06/10/21 09:00 06/25/21 20:44 Non-Formulary Medication (Nitrofurantoin Macrocrystal (Nitrofurantoin)) 100 mg BID PO 06/10/21 10:30 06/14/21 22:00 Cancel Multivit/ Folic Acid/Iron (Multivitamin ) 1 tab DAILY PO 06/10/21 09:00 06/25/21 09:00 Insulin Human Lispro (HumaLOG) 0-7 UNITS TIDWMEALS SQ 06/10/21 08:00 06/25/21 12:00 Dextrose (Dextrose 50%-Water Syringe) 12.5 gm PRN Q15MIN PRN IV SEE COMMENTS 06/09/21 23:00 Lamotrigine (LaMICtal) 25 mg BID PO 06/10/21 09:00 06/16/21 13:52 DC 06/15/21 20:02 Nitrofurantoin Macrocrystals (Macrobid) 100 mg BID PO 06/10/21 10:45 06/14/21 22:00 DC 06/14/21 20:01 Olanzapine (ZyPREXA ZYDIS) 2.5 mg PRN Q2HR PRN PO PSYCHOSIS 06/10/21 10:45 06/14/21 19:52 DC 06/13/21 22:29 Vitamin D (Vitamin D3) 50,000 unit WEEKLY PO 06/10/21 17:00 06/24/21 08:02 Polyethylene Glycol (miraLAX) 17 gm PRN DAILY PRN PO 2ND CHOICE CONSTIPATION 06/10/21 19:45 Ondansetron HCl (Zofran Odt) 4 mg PRN Q4HRS PRN PO NAUSEA/VOMITING 06/10/21 20:27 06/14/21 11:11 Risperidone (RisperDAL) 0.5 mg BID PO 06/12/21 09:00 06/13/21 18:26 DC 06/13/21 09:20 Divalproex Sodium (Depakote Er) 500 mg QHS PO 06/12/21 21:00 06/14/21 17:08 DC 06/13/21 19:44 Risperidone (RisperDAL) 1 mg BID PO 06/13/21 21:00 06/14/21 18:34 DC 06/13/21 19:46 Divalproex Sodium (Depakote Er) 1,000 mg QHS PO 06/14/21 21:00 06/23/21 18:52 DC 06/22/21 20:03 Risperidone (RisperDAL) 2 mg BID SL 06/14/21 21:00 Cancel Risperidone (RisperDAL) 2 mg DAILY PO 06/14/21 18:45 06/16/21 19:50 DC 06/16/21 11:30 Olanzapine (ZyPREXA ZYDIS) 5 mg PRN Q2HR PRN PO PSYCHOSIS 06/14/21 20:00 06/25/21 17:48 Olanzapine (ZyPREXA ZYDIS) 10 mg 1X ONCE PO 06/14/21 20:00 06/14/21 20:01 DC 06/14/21 20:02 Risperidone (RisperDAL) 1 mg 1X ONCE SL 06/16/21 20:00 06/16/21 20:01 DC 06/16/21 20:14 Risperidone (RisperDAL) 3 mg DAILY SL 06/17/21 09:00 06/25/21 06:16 Trazodone HCl (Desyrel) 50 mg PRN QHS PRN PO INSOMNIA, MAY REPEAT X1 06/16/21 20:00 06/16/21 23:44 Nitrofurantoin Macrocrystals (Macrobid) 100 mg BID PO 06/19/21 21:00 06/26/21 09:01 06/25/21 20:44 Divalproex Sodium (Depakote Er) 1,500 mg QHS PO 06/23/21 21:00 06/25/21 20:45 Risperidone (RisperDAL [place]) 25 mg Q2WKS IM 06/26/21 09:00 UNV I have reviewed the current psychotropics carefully including drug interactions. Risk benefit ratio favors no change other than as noted in my dictated progress note. Diagnosis: Problems: (1) Schizoaffective disorder, bipolar type (2) Impulse control disorder, unspecified (3) Anxiety disorder, unspecified (4) Bipolar disorder, current episode mixed, severe, with psychotic features RIGOBERTO SANDERS MD Jun 25, 2021 22:03
[2021-06-26] MEDS: risperiDONE ORAL 1 MG/ML 30ml BOTTLE. SL SCH (06:21)
[2021-06-26] MEDS: LEVOTHYROXINE 175 MCG TABLET PO SCH (06:21)
[2021-06-26 06:40] VITALS: BP 120/76
[2021-06-26] MEDS: PANTOPRAZOLE 40 MG TABLET. PO SCH (07:30)
[2021-06-26] MEDS: INSULIN LISPRO 300 UNITS/3 ML VIAL. SQ SCH ×3 (08:00→17:00)
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
[2021-06-26 08:41] LABS: BASO # 0.1 x10^3/uL (0.0-0.2); BASO % 1 % (0-3); EOS # 0.2 x10^3/uL (0.0-0.7); EOS % 2 % (0-3); HEMATOCRIT 37.6 % (36.0-47.0); HEMOGLOBIN 12.3 g/dL (12.0-15.5); LYMPH # 1.7 x10^3/uL (1.0-4.8); LYMPH % 16 % (24-48); MEAN CORPUSCULAR HEMOGLOBIN 29 pg (25-35); MEAN CORPUSCULAR HGB CONC 33 g/dL (31-37); MEAN CORPUSCULAR VOLUME 89 fL (79-100); MONO # 0.9 x10^3/uL (0.0-1.1); MONO % 9 % (0-9); NEUT # 7.4 x10^3uL (1.8-7.7); NEUT % 72 % (31-73); PLATELET COUNT 239 x10^3/uL (140-400); RED BLOOD COUNT 4.21 x10^6/uL (3.50-5.40); RED CELL DISTRIBUTION WIDTH 13.8 % (11.5-14.5); WHITE BLOOD COUNT 10.4 x10^3/uL (4.0-11.0)
[2021-06-26] MEDS: SUCRALFATE 1 GM TABLET. PO SCH ×2 (08:47→20:12)
[2021-06-26] MEDS: FERROUS SULFATE 325 MG TABLET. PO SCH (08:47)
[2021-06-26] MEDS: PRENATAL MULTIVITAMIN TABLET. PO SCH (08:47)
[2021-06-26] MEDS: FLUTICASONE 50MCG/NASAL SPRAY 16GM BOTTLE. NS SCH (08:47)
[2021-06-26 08:51] LABS: ALBUMIN 3.7 g/dL (3.4-5.0); ALBUMIN/GLOBULIN RATIO 0.9 (1.0-1.7); ALK PHOS 86 U/L (46-116); ALT (SGPT) 18 U/L (14-59); ANION GAP 8 (6-14); AST (SGOT) 12 U/L (15-37); BLOOD UREA NITROGEN 18 mg/dL (7-20); BUN/CREATININE RATIO 18 (6-20); CALCIUM 9.8 mg/dL (8.5-10.1); CARBON DIOXIDE 29 mmol/L (21-32); CHLORIDE 103 mmol/L (98-107); GFR 57.4; GLUCOSE 181 mg/dL (70-99); POTASSIUM 4.7 mmol/L (3.5-5.1); SODIUM 140 mmol/L (136-145); TOTAL BILIRUBIN 0.4 mg/dL (0.2-1.0); TOTAL PROTEIN 7.6 g/dL (6.4-8.2)
[2021-06-26] MEDS: ASCORBIC ACID 500 MG TABLET PO SCH (09:00)
[2021-06-26 09:01] LABS: VAL ACID 64 mcg/mL (50-100)
[2021-06-26] MEDS: ASPIRIN ENTERIC COATED 81 MG TABLET.DR. PO SCH (09:19)
[2021-06-26] MEDS: glipiZIDE 5 MG TABLET PO SCH ×2 (09:19→21:12)
[2021-06-26] MEDS: LINAGLIPTIN 5 MG TABLET PO SCH (09:19)
[2021-06-26] MEDS: LUBIPROSTONE 24 MCG CAPSULE PO SCH ×2 (09:19→20:12)
[2021-06-26] MEDS: NITROFURANTOIN MONOHYD/M-CRYST 100 MG CAPSULE. PO SCH (09:19)
[2021-06-26] MEDS: INSULIN GLARGINE SYRINGE. SQ SCH (09:20)
[2021-06-26 15:55] VITALS: BP 142/89
[2021-06-26] MEDS: ATORVASTATIN CALCIUM 20 MG TABLET PO SCH (20:12)
[2021-06-26] MEDS: VALPROATE ACID 250 MG/5 ML ORAL SOLUTION PO SCH (21:12)
--- NOTE | 2021-06-26 21:58 | PDOC ---
Exam Note: Adolph Note: Please also refer to the separate dictated note~for this date of service dictated separately.~Patient seen individually. Discussed the patient with Nursing staff reviewed the chart.~Reviewed interim history and current functioning. Reviewed vital signs,~Labs/ Radiology~and current medications noted below. Continue current treatment with the changes noted in the dictated addendum note Assessment: Vital Signs/I&O: Vital Signs Date Time Temp Pulse Resp B/P (MAP) Pulse Ox O2 Delivery O2 Flow Rate FiO2 06/26/21 15:55 97.3 69 20 142/89 (106) 95 06/26/21 06:40 Room Air I & O 06/25/21 06/25/21 06/26/21 15:00 23:00 07:00 Intake Total 200 ml 0 ml Balance 200 ml 0 ml Labs: Laboratory Tests Test 06/26/21 07:46 06/26/21 08:00 06/26/21 11:45 06/26/21 17:01 Glucose (Fingerstick) 172 mg/dL (70-99) H 257 mg/dL (70-99) H 111 mg/dL (70-99) H White Blood Count 10.4 x10^3/uL (4.0-11.0) Red Blood Count 4.21 x10^6/uL (3.50-5.40) Hemoglobin 12.3 g/dL (12.0-15.5) Hematocrit 37.6 % (36.0-47.0) Mean Corpuscular Volume 89 fL (79-100) Mean Corpuscular Hemoglobin 29 pg (25-35) Mean Corpuscular Hemoglobin Concent 33 g/dL (31-37) Red Cell Distribution Width 13.8 % (11.5-14.5) Platelet Count 239 x10^3/uL (140-400) Neutrophils (%) (Auto) 72 % (31-73) Lymphocytes (%) (Auto) 16 % (24-48) L Monocytes (%) (Auto) 9 % (0-9) Eosinophils (%) (Auto) 2 % (0-3) Basophils (%) (Auto) 1 % (0-3) Neutrophils # (Auto) 7.4 x10^3uL (1.8-7.7) Lymphocytes # (Auto) 1.7 x10^3/uL (1.0-4.8) Monocytes # (Auto) 0.9 x10^3/uL (0.0-1.1) Eosinophils # (Auto) 0.2 x10^3/uL (0.0-0.7) Basophils # (Auto) 0.1 x10^3/uL (0.0-0.2) Sodium Level 140 mmol/L (136-145) Potassium Level 4.7 mmol/L (3.5-5.1) Chloride Level 103 mmol/L (98-107) Carbon Dioxide Level 29 mmol/L (21-32) Anion Gap 8 (6-14) Blood Urea Nitrogen 18 mg/dL (7-20) Creatinine 1.0 mg/dL (0.6-1.0) Estimated GFR (Cockcroft-Gault) 57.4 BUN/Creatinine Ratio 18 (6-20) Glucose Level 181 mg/dL (70-99) H Calcium Level 9.8 mg/dL (8.5-10.1) Total Bilirubin 0.4 mg/dL (0.2-1.0) Aspartate Amino Transferase (AST) 12 U/L (15-37) L Alanine Aminotransferase (ALT) 18 U/L (14-59) Alkaline Phosphatase 86 U/L (46-116) Ammonia < 10 mcmol/L (11-34) L Total Protein 7.6 g/dL (6.4-8.2) Albumin 3.7 g/dL (3.4-5.0) Albumin/Globulin Ratio 0.9 (1.0-1.7) L Valproic Acid Level 64 mcg/mL (50-100) Valproic Acid Last Dose Date 06/25/21 Valproic Acid Last Dose Time 2100 Test 06/26/21 20:17 Glucose (Fingerstick) 264 mg/dL (70-99) H Current Medications: Meds: Laboratory Tests Test 06/26/21 07:46 06/26/21 08:00 06/26/21 11:45 06/26/21 17:01 Glucose (Fingerstick) 172 mg/dL 257 mg/dL 111 mg/dL White Blood Count 10.4 x10^3/uL Red Blood Count 4.21 x10^6/uL Hemoglobin 12.3 g/dL Hematocrit 37.6 % Mean Corpuscular Volume 89 fL Mean Corpuscular Hemoglobin 29 pg Mean Corpuscular Hemoglobin Concent 33 g/dL Red Cell Distribution Width 13.8 % Platelet Count 239 x10^3/uL Neutrophils (%) (Auto) 72 % Lymphocytes (%) (Auto) 16 % Monocytes (%) (Auto) 9 % Eosinophils (%) (Auto) 2 % Basophils (%) (Auto) 1 % Neutrophils # (Auto) 7.4 x10^3uL Lymphocytes # (Auto) 1.7 x10^3/uL Monocytes # (Auto) 0.9 x10^3/uL Eosinophils # (Auto) 0.2 x10^3/uL Basophils # (Auto) 0.1 x10^3/uL Sodium Level 140 mmol/L Potassium Level 4.7 mmol/L Chloride Level 103 mmol/L Carbon Dioxide Level 29 mmol/L Anion Gap 8 Blood Urea Nitrogen 18 mg/dL Creatinine 1.0 mg/dL Estimated GFR (Cockcroft-Gault) 57.4 BUN/Creatinine Ratio 18 Glucose Level 181 mg/dL Calcium Level 9.8 mg/dL Total Bilirubin 0.4 mg/dL Aspartate Amino Transf (AST/SGOT) 12 U/L Alanine Aminotransferase (ALT/SGPT) 18 U/L Alkaline Phosphatase 86 U/L Ammonia < 10 mcmol/L Total Protein 7.6 g/dL Albumin 3.7 g/dL Albumin/Globulin Ratio 0.9 Valproic Acid (Depakene) Level 64 mcg/mL Valproic Acid Last Dose Date 06/25/21 Valproic Acid Last Dose Time 2100 Test 06/26/21 20:17 Glucose (Fingerstick) 264 mg/dL Current Medications Medications (Trade) Dose Ordered Sig/Karsten Route PRN Reason Start Time Stop Time Status Last Admin Dose Admin Acetaminophen (Tylenol) 650 mg PRN Q6HRS PRN PO MILD PAIN / TEMP > 100.3'F 06/09/21 21:45 06/16/21 04:52 Multi-Ingredient Ointment (Analgesic [place]) 1 bia PRN QID PRN TP MUSCLE PAIN 06/09/21 21:45 Al Hydroxide/Mg Hydroxide (Mylanta Plus Xs) 15 ml PRN AFTMEALHC PRN PO DYSPEPSIA 06/09/21 21:45 Magnesium Hydroxide (Milk Of Magnesia) 2,400 mg PRN QHS PRN PO 1ST CHOICE CONSTIPATION 06/09/21 21:45 Aspirin (Aspirin Enteric Coated) 81 mg DAILY PO 06/10/21 09:00 06/26/21 09:19 Atorvastatin Calcium (Lipitor) 20 mg QHS PO 06/10/21 21:00 06/24/21 20:12 Dicyclomine HCl (Bentyl) 20 mg PRN Q6HRS PRN PO GI SYMPTOMS 06/09/21 22:30 Fluticasone Propionate (Flonase) 2 spray DAILY NS 06/10/21 09:00 06/25/21 09:00 Glipizide (Glucotrol) 5 mg BID PO 06/10/21 09:00 06/26/21 21:12 Insulin Glargine (Lantus Syringe) 16 unit DAILY SQ 06/10/21 09:00 06/26/21 09:20 Lamotrigine (LaMICtal) 100 mg BID PO 06/10/21 09:00 06/16/21 13:52 DC 06/16/21 09:49 Levothyroxine Sodium (Synthroid) 175 mcg DAILY06 PO 06/10/21 06:00 06/26/21 06:21 Megestrol Acetate (Megace Oral Susp) 400 mg BIDWMEALS PO 06/10/21 08:00 06/19/21 01:22 DC 06/18/21 09:57 Olanzapine (ZyPREXA) 5 mg PRN Q2HR PRN PO ANXIETY / AGITATION 06/09/21 22:30 06/10/21 10:34 DC Ondansetron HCl (Zofran Odt) 4 mg BID PO 06/10/21 09:00 06/10/21 20:29 DC 06/10/21 08:53 Pantoprazole Sodium (Protonix) 40 mg DAILYAC PO 06/10/21 07:30 06/25/21 07:30 Quetiapine Fumarate (SEROquel) 100 mg TID PO 06/10/21 09:00 06/12/21 04:58 DC 06/11/21 21:19 Sertraline HCl (Zoloft) 100 mg DAILY PO 06/10/21 09:00 06/16/21 13:52 DC 06/15/21 08:00 Sucralfate (Carafate) 2 gm BID PO 06/10/21 09:00 06/25/21 09:00 Linagliptin (Tradjenta) 5 mg DAILY PO 06/10/21 09:00 06/26/21 09:19 Ascorbic Acid (Vitamin C) 500 mg DAILY PO 06/10/21 09:00 06/25/21 10:43 Ferrous Sulfate (Feosol) 325 mg DAILY PO 06/10/21 09:00 06/25/21 10:44 Lubiprostone (Amitiza) 24 mcg BID PO 06/10/21 09:00 06/26/21 09:19 Non-Formulary Medication (Nitrofurantoin Macrocrystal (Nitrofurantoin)) 100 mg BID PO 06/10/21 10:30 06/14/21 22:00 Cancel Multivit/ Folic Acid/Iron (Multivitamin ) 1 tab DAILY PO 06/10/21 09:00 06/25/21 09:00 Insulin Human Lispro (HumaLOG) 0-7 UNITS TIDWMEALS SQ 06/10/21 08:00 06/26/21 12:00 Dextrose (Dextrose 50%-Water Syringe) 12.5 gm PRN Q15MIN PRN IV SEE COMMENTS 06/09/21 23:00 Lamotrigine (LaMICtal) 25 mg BID PO 06/10/21 09:00 06/16/21 13:52 DC 06/15/21 20:02 Nitrofurantoin Macrocrystals (Macrobid) 100 mg BID PO 06/10/21 10:45 06/14/21 22:00 DC 06/14/21 20:01 Olanzapine (ZyPREXA ZYDIS) 2.5 mg PRN Q2HR PRN PO PSYCHOSIS 06/10/21 10:45 06/14/21 19:52 DC 06/13/21 22:29 Vitamin D (Vitamin D3) 50,000 unit WEEKLY PO 06/10/21 17:00 06/24/21 08:02 Polyethylene Glycol (miraLAX) 17 gm PRN DAILY PRN PO 2ND CHOICE CONSTIPATION 06/10/21 19:45 Ondansetron HCl (Zofran Odt) 4 mg PRN Q4HRS PRN PO NAUSEA/VOMITING 06/10/21 20:27 06/14/21 11:11 Risperidone (RisperDAL) 0.5 mg BID PO 06/12/21 09:00 06/13/21 18:26 DC 06/13/21 09:20 Divalproex Sodium (Depakote Er) 500 mg QHS PO 06/12/21 21:00 06/14/21 17:08 DC 06/13/21 19:44 Risperidone (RisperDAL) 1 mg BID PO 06/13/21 21:00 06/14/21 18:34 DC 06/13/21 19:46 Divalproex Sodium (Depakote Er) 1,000 mg QHS PO 06/14/21 21:00 06/23/21 18:52 DC 06/22/21 20:03 Risperidone (RisperDAL) 2 mg BID SL 06/14/21 21:00 Cancel Risperidone (RisperDAL) 2 mg DAILY PO 06/14/21 18:45 06/16/21 19:50 DC 06/16/21 11:30 Olanzapine (ZyPREXA ZYDIS) 5 mg PRN Q2HR PRN PO PSYCHOSIS 06/14/21 20:00 06/25/21 17:48 Olanzapine (ZyPREXA ZYDIS) 10 mg 1X ONCE PO 06/14/21 20:00 06/14/21 20:01 DC 06/14/21 20:02 Risperidone (RisperDAL) 1 mg 1X ONCE SL 06/16/21 20:00 06/16/21 20:01 DC 06/16/21 20:14 Risperidone (RisperDAL) 3 mg DAILY SL 06/17/21 09:00 06/26/21 06:21 Trazodone HCl (Desyrel) 50 mg PRN QHS PRN PO INSOMNIA, MAY REPEAT X1 06/16/21 20:00 06/16/21 23:44 Nitrofurantoin Macrocrystals (Macrobid) 100 mg BID PO 06/19/21 21:00 06/26/21 09:01 DC 06/26/21 09:19 Divalproex Sodium (Depakote Er) 1,500 mg QHS PO 06/23/21 21:00 06/26/21 20:35 DC 06/24/21 20:13 Risperidone (RisperDAL CONSTA) 25 mg Q2WKS IM 06/27/21 09:00 Risperidone (RisperDAL CONSTA) 25 mg Q2WKS IM 06/27/21 09:00 UNV Valproic Acid (Depakene) 500 mg DAILY PO 06/27/21 09:00 Valproic Acid (Depakene) 1,000 mg HS PO 06/26/21 21:00 06/26/21 21:12 Current Medications Medications (Trade) Dose Ordered Sig/Karsten Route PRN Reason Start Time Stop Time Status Last Admin Dose Admin Valproic Acid (Depakene) 1,000 mg HS PO 06/26/21 21:00 06/26/21 21:12 I have reviewed the current psychotropics carefully including drug interactions. Risk benefit ratio favors no change other than as noted in my dictated progress note. Diagnosis: Problems: (1) Schizoaffective disorder, bipolar type (2) Impulse control disorder, unspecified (3) Anxiety disorder, unspecified (4) Bipolar disorder, current episode mixed, severe, with psychotic features RIGOBERTO SANDERS MD Jun 26, 2021 21:58
[2021-06-27] MEDS: LEVOTHYROXINE 175 MCG TABLET PO SCH (05:47)
[2021-06-27 06:35] VITALS: BP 147/75
[2021-06-27] MEDS: SUCRALFATE 1 GM TABLET. PO SCH ×2 (07:57→20:05)
[2021-06-27] MEDS: LUBIPROSTONE 24 MCG CAPSULE PO SCH ×2 (07:58→20:05)
[2021-06-27] MEDS: PRENATAL MULTIVITAMIN TABLET. PO SCH (07:58)
[2021-06-27] MEDS: ASPIRIN ENTERIC COATED 81 MG TABLET.DR. PO SCH (07:58)
[2021-06-27] MEDS: ASCORBIC ACID 500 MG TABLET PO SCH (07:58)
[2021-06-27] MEDS: PANTOPRAZOLE 40 MG TABLET. PO SCH (07:58)
[2021-06-27] MEDS: LINAGLIPTIN 5 MG TABLET PO SCH (07:58)
[2021-06-27] MEDS: glipiZIDE 5 MG TABLET PO SCH ×2 (07:58→20:05)
[2021-06-27] MEDS: FERROUS SULFATE 325 MG TABLET. PO SCH (07:58)
[2021-06-27] MEDS: risperiDONE ORAL 1 MG/ML 30ml BOTTLE. SL SCH (08:00)
[2021-06-27] MEDS: INSULIN LISPRO 300 UNITS/3 ML VIAL. SQ SCH ×3 (08:00→17:00)
[2021-06-27] MEDS: VALPROATE ACID 250 MG/5 ML ORAL SOLUTION PO SCH ×2 (08:02→20:05)
[2021-06-27] MEDS: FLUTICASONE 50MCG/NASAL SPRAY 16GM BOTTLE. NS SCH (08:04)
[2021-06-27] MEDS: INSULIN GLARGINE SYRINGE. SQ SCH (08:45)
[2021-06-27] MEDS ORDERED: risperiDONE MICROSPHERES 25 MG/2 ML DISP.SYRIN. IM SCH ×2 (09:00)
--- NOTE | 2021-06-27 09:25 | PDOC ---
Exam Note: Adolph Note: This note is a late entry for 06/26/2021 covers elements not covered in my initial note. Subjective: The patient was seen individually on 06/26/2021, discussed and reviewed the chart with Erica KAHN. The patient slept 7 hours previous night. She has had very difficult day. She has been hitting, biting staff. Valproic acid level therapeutic at 64. She spit out her medications, rolling on the floor, later refused her medications. She will be started on Risperdal Consta tomorrow. We will also change the Depakote extended release 1500 mg h.s. to 500 mg a.m. and 1000 mg h.s. of the liquid to help with compliance. Review of Systems: Positive for tremors, sedation. Ambulation impaired, in wheelchair. No CV, , pulmonary, eye, ENT system symptoms on review. Mental Status Exam: Patient is oriented to herself. She was seen in the [place]. She was quite sedated, not very verbally interactive. Insight, judgment, recent memory is impaired. Language function intact. Mood and affect remains somewhat anxious, labile. She is quite psychotic. Laboratory Data: Reviewed. Impression: Bipolar 1 disorder manic with psychotic features. Anxiety disorder unspecified. Impulse control disorder unspecified. Mild cognitive impairment. Plan: Continue rest of the psychotropics unchanged. We will start Risperdal Consta in the morning. Reviewed drug interactions and risk-benefit ratio. Assessment: Vital Signs/I&O: Vital Signs Date Time Temp Pulse Resp B/P (MAP) Pulse Ox O2 Delivery O2 Flow Rate FiO2 06/27/21 06:35 97.3 79 16 147/75 (99) 99 06/26/21 06:40 Room Air I & O 06/26/21 06/26/21 06/27/21 14:59 22:59 06:59 Intake Total 0 ml 600 ml Balance 0 ml 600 ml Labs: Laboratory Tests Test 06/26/21 11:45 06/26/21 17:01 06/26/21 20:17 06/27/21 07:35 Glucose (Fingerstick) 257 mg/dL (70-99) H 111 mg/dL (70-99) H 264 mg/dL (70-99) H 148 mg/dL (70-99) H Current Medications: Meds: Current Medications Medications (Trade) Dose Ordered Sig/Karsten Route PRN Reason Start Time Stop Time Status Last Admin Dose Admin Valproic Acid (Depakene) 500 mg DAILY PO 06/27/21 09:00 06/27/21 08:02 Valproic Acid (Depakene) 1,000 mg HS PO 06/26/21 21:00 06/26/21 21:12 I have reviewed the current psychotropics carefully including drug interactions. Risk benefit ratio favors no change other than as noted in my dictated progress note. Diagnosis: Problems: (1) Schizoaffective disorder, bipolar type (2) Impulse control disorder, unspecified (3) Anxiety disorder, unspecified (4) Bipolar disorder, current episode manic severe with psychotic features RIGOBERTO SANDERS MD Jun 27, 2021 09:25
[2021-06-27 15:58] VITALS: BP 128/97
[2021-06-27] MEDS: ATORVASTATIN CALCIUM 20 MG TABLET PO SCH (20:05)
--- NOTE | 2021-06-27 21:23 | PDOC ---
Exam Note: Adolph Note: Please also refer to the separate dictated note~for this date of service dictated separately.~Patient seen individually. Discussed the patient with Nursing staff reviewed the chart.~Reviewed interim history and current functioning. Reviewed vital signs,~Labs/ Radiology~and current medications noted below. Continue current treatment with the changes noted in the dictated addendum note Assessment: Vital Signs/I&O: Vital Signs Date Time Temp Pulse Resp B/P (MAP) Pulse Ox O2 Delivery O2 Flow Rate FiO2 06/27/21 15:58 98.8 73 16 128/97 (107) 98 06/26/21 06:40 Room Air I & O 06/26/21 06/26/21 06/27/21 15:00 23:00 07:00 Intake Total 0 ml 600 ml Balance 0 ml 600 ml Labs: Laboratory Tests Test 06/27/21 07:35 06/27/21 12:00 06/27/21 19:59 Glucose (Fingerstick) 148 mg/dL (70-99) H 158 mg/dL (70-99) H 115 mg/dL (70-99) H Current Medications: Meds: Laboratory Tests Test 06/27/21 07:35 06/27/21 12:00 06/27/21 19:59 Glucose (Fingerstick) 148 mg/dL 158 mg/dL 115 mg/dL Current Medications Medications (Trade) Dose Ordered Sig/Karsten Route PRN Reason Start Time Stop Time Status Last Admin Dose Admin Acetaminophen (Tylenol) 650 mg PRN Q6HRS PRN PO MILD PAIN / TEMP > 100.3'F 06/09/21 21:45 06/16/21 04:52 Multi-Ingredient Ointment (Analgesic [place]) 1 bia PRN QID PRN TP MUSCLE PAIN 06/09/21 21:45 Al Hydroxide/Mg Hydroxide (Mylanta Plus Xs) 15 ml PRN AFTMEALHC PRN PO DYSPEPSIA 06/09/21 21:45 Magnesium Hydroxide (Milk Of Magnesia) 2,400 mg PRN QHS PRN PO 1ST CHOICE CONSTIPATION 06/09/21 21:45 Aspirin (Aspirin Enteric Coated) 81 mg DAILY PO 06/10/21 09:00 06/27/21 07:58 Atorvastatin Calcium (Lipitor) 20 mg QHS PO 06/10/21 21:00 06/27/21 20:05 Dicyclomine HCl (Bentyl) 20 mg PRN Q6HRS PRN PO GI SYMPTOMS 06/09/21 22:30 Fluticasone Propionate (Flonase) 2 spray DAILY NS 06/10/21 09:00 06/25/21 09:00 Glipizide (Glucotrol) 5 mg BID PO 06/10/21 09:00 06/27/21 20:05 Insulin Glargine (Lantus Syringe) 16 unit DAILY SQ 06/10/21 09:00 06/27/21 08:45 Lamotrigine (LaMICtal) 100 mg BID PO 06/10/21 09:00 06/16/21 13:52 DC 06/16/21 09:49 Levothyroxine Sodium (Synthroid) 175 mcg DAILY06 PO 06/10/21 06:00 06/27/21 05:47 Megestrol Acetate (Megace Oral Susp) 400 mg BIDWMEALS PO 06/10/21 08:00 06/19/21 01:22 DC 06/18/21 09:57 Olanzapine (ZyPREXA) 5 mg PRN Q2HR PRN PO ANXIETY / AGITATION 06/09/21 22:30 06/10/21 10:34 DC Ondansetron HCl (Zofran Odt) 4 mg BID PO 06/10/21 09:00 06/10/21 20:29 DC 06/10/21 08:53 Pantoprazole Sodium (Protonix) 40 mg DAILYAC PO 06/10/21 07:30 06/27/21 07:58 Quetiapine Fumarate (SEROquel) 100 mg TID PO 06/10/21 09:00 06/12/21 04:58 DC 06/11/21 21:19 Sertraline HCl (Zoloft) 100 mg DAILY PO 06/10/21 09:00 06/16/21 13:52 DC 06/15/21 08:00 Sucralfate (Carafate) 2 gm BID PO 06/10/21 09:00 06/27/21 20:05 Linagliptin (Tradjenta) 5 mg DAILY PO 06/10/21 09:00 06/27/21 07:58 Ascorbic Acid (Vitamin C) 500 mg DAILY PO 06/10/21 09:00 06/27/21 07:58 Ferrous Sulfate (Feosol) 325 mg DAILY PO 06/10/21 09:00 06/27/21 07:58 Lubiprostone (Amitiza) 24 mcg BID PO 06/10/21 09:00 06/27/21 20:05 Non-Formulary Medication (Nitrofurantoin Macrocrystal (Nitrofurantoin)) 100 mg BID PO 06/10/21 10:30 06/14/21 22:00 Cancel Multivit/ Folic Acid/Iron (Multivitamin ) 1 tab DAILY PO 06/10/21 09:00 06/27/21 07:58 Insulin Human Lispro (HumaLOG) 0-7 UNITS TIDWMEALS SQ 06/10/21 08:00 06/26/21 12:00 Dextrose (Dextrose 50%-Water Syringe) 12.5 gm PRN Q15MIN PRN IV SEE COMMENTS 06/09/21 23:00 Lamotrigine (LaMICtal) 25 mg BID PO 06/10/21 09:00 06/16/21 13:52 DC 06/15/21 20:02 Nitrofurantoin Macrocrystals (Macrobid) 100 mg BID PO 06/10/21 10:45 06/14/21 22:00 DC 06/14/21 20:01 Olanzapine (ZyPREXA ZYDIS) 2.5 mg PRN Q2HR PRN PO PSYCHOSIS 06/10/21 10:45 06/14/21 19:52 DC 06/13/21 22:29 Vitamin D (Vitamin D3) 50,000 unit WEEKLY PO 06/10/21 17:00 06/24/21 08:02 Polyethylene Glycol (miraLAX) 17 gm PRN DAILY PRN PO 2ND CHOICE CONSTIPATION 06/10/21 19:45 Ondansetron HCl (Zofran Odt) 4 mg PRN Q4HRS PRN PO NAUSEA/VOMITING 06/10/21 20:27 06/14/21 11:11 Risperidone (RisperDAL) 0.5 mg BID PO 06/12/21 09:00 06/13/21 18:26 DC 06/13/21 09:20 Divalproex Sodium (Depakote Er) 500 mg QHS PO 06/12/21 21:00 06/14/21 17:08 DC 06/13/21 19:44 Risperidone (RisperDAL) 1 mg BID PO 06/13/21 21:00 06/14/21 18:34 DC 06/13/21 19:46 Divalproex Sodium (Depakote Er) 1,000 mg QHS PO 06/14/21 21:00 06/23/21 18:52 DC 06/22/21 20:03 Risperidone (RisperDAL) 2 mg BID SL 06/14/21 21:00 Cancel Risperidone (RisperDAL) 2 mg DAILY PO 06/14/21 18:45 06/16/21 19:50 DC 06/16/21 11:30 Olanzapine (ZyPREXA ZYDIS) 5 mg PRN Q2HR PRN PO PSYCHOSIS 06/14/21 20:00 06/25/21 17:48 Olanzapine (ZyPREXA ZYDIS) 10 mg 1X ONCE PO 06/14/21 20:00 06/14/21 20:01 DC 06/14/21 20:02 Risperidone (RisperDAL) 1 mg 1X ONCE SL 06/16/21 20:00 06/16/21 20:01 DC 06/16/21 20:14 Risperidone (RisperDAL) 3 mg DAILY SL 06/17/21 09:00 06/27/21 08:00 Trazodone HCl (Desyrel) 50 mg PRN QHS PRN PO INSOMNIA, MAY REPEAT X1 06/16/21 20:00 06/16/21 23:44 Nitrofurantoin Macrocrystals (Macrobid) 100 mg BID PO 06/19/21 21:00 06/26/21 09:01 DC 06/26/21 09:19 Divalproex Sodium (Depakote Er) 1,500 mg QHS PO 06/23/21 21:00 06/26/21 20:35 DC 06/24/21 20:13 Risperidone (RisperDAL CONSTA) 25 mg Q2WKS IM 06/27/21 09:00 06/27/21 11:44 Risperidone (RisperDAL CONSTA) 25 mg Q2WKS IM 06/27/21 09:00 UNV Valproic Acid (Depakene) 500 mg DAILY PO 06/27/21 09:00 06/27/21 08:02 Valproic Acid (Depakene) 1,000 mg HS PO 06/26/21 21:00 06/27/21 20:05 Current Medications Medications (Trade) Dose Ordered Sig/Karsten Route PRN Reason Start Time Stop Time Status Last Admin Dose Admin Risperidone (RisperDAL CONSTA) 25 mg Q2WKS IM 06/27/21 09:00 06/27/21 11:44 Valproic Acid (Depakene) 500 mg DAILY PO 06/27/21 09:00 06/27/21 08:02 I have reviewed the current psychotropics carefully including drug interactions. Risk benefit ratio favors no change other than as noted in my dictated progress note. Diagnosis: Problems: (1) Schizoaffective disorder, bipolar type (2) Impulse control disorder, unspecified (3) Anxiety disorder, unspecified (4) Bipolar disorder, current episode mixed, severe, with psychotic features RIGOBERTO SANDERS MD Jun 27, 2021 21:23
--- NOTE | 2021-06-27 22:53 | PDOC ---
Exam Note: Adolph Note: This note is for 06/27/2021 covers elements not covered in my initial note. Subjective: The patient was seen individually on 06/27/2021, discussed and reviewed the chart with Sujatha KAHN. The patient slept 5 hours previous night. She was sedated in the morning, evening was in the dayroom but by the time I saw her late this evening she was in the [place] hallway in the quiet area, because of her significant psychosis. Risperdal Consta has been started post consent by the guardian who was legally appointed. The patient was seated on the floor in the [facility]. Review of Systems: Ambulation impaired, in wheelchair. No CV, , pulmonary, eye, ENT system symptoms on review. Mental Status Exam: Patient is oriented to herself. She was quite sedated, interactive. Insight, judgment, recent memory is impaired. Language function intact. Mood and affect remains somewhat anxious, labile. Laboratory Data: Reviewed. Impression: Bipolar 1 disorder manic with psychotic features. Anxiety disorder unspecified. Impulse control disorder unspecified. Mild cognitive impairment. Plan: Continue rest of the psychotropics unchanged. She was started on Risperdal Consta today. We will reduce the oral Risperdal in a few days. Reviewed drug interactions and risk-benefit ratio. Assessment: Vital Signs/I&O: Vital Signs Date Time Temp Pulse Resp B/P (MAP) Pulse Ox O2 Delivery O2 Flow Rate FiO2 06/27/21 15:58 98.8 73 16 128/97 (107) 98 06/26/21 06:40 Room Air I & O 06/26/21 06/26/21 06/27/21 15:00 23:00 07:00 Intake Total 0 ml 600 ml Balance 0 ml 600 ml Labs: Laboratory Tests Test 06/27/21 07:35 06/27/21 12:00 06/27/21 19:59 Glucose (Fingerstick) 148 mg/dL (70-99) H 158 mg/dL (70-99) H 115 mg/dL (70-99) H Current Medications: Meds: Current Medications Medications (Trade) Dose Ordered Sig/Karsten Route PRN Reason Start Time Stop Time Status Last Admin Dose Admin Risperidone (RisperDAL CONSTA) 25 mg Q2WKS IM 06/27/21 09:00 06/27/21 11:44 Valproic Acid (Depakene) 500 mg DAILY PO 06/27/21 09:00 06/27/21 08:02 I have reviewed the current psychotropics carefully including drug interactions. Risk benefit ratio favors no change other than as noted in my dictated progress note. Diagnosis: Problems: (1) Impulse control disorder, unspecified (2) Anxiety disorder, unspecified (3) Schizoaffective disorder, bipolar type (4) Bipolar disorder, current episode mixed, severe, with psychotic features RIGOBERTO SANDERS MD Jun 27, 2021 22:53
[2021-06-28] MEDS: LEVOTHYROXINE 175 MCG TABLET PO SCH (06:01)
[2021-06-28 06:02] VITALS: BP 154/85
[2021-06-28] MEDS: PANTOPRAZOLE 40 MG TABLET. PO SCH ×2 (07:30→16:30)
[2021-06-28] MEDS: INSULIN LISPRO 300 UNITS/3 ML VIAL. SQ SCH ×3 (07:41→17:00)
[2021-06-28] MEDS: LINAGLIPTIN 5 MG TABLET PO SCH (08:10)
[2021-06-28] MEDS: LUBIPROSTONE 24 MCG CAPSULE PO SCH ×2 (08:10→22:05)
[2021-06-28] MEDS: glipiZIDE 5 MG TABLET PO SCH ×3 (08:11→22:41)
[2021-06-28] MEDS: VALPROATE ACID 250 MG/5 ML ORAL SOLUTION PO SCH ×2 (08:11→22:02)
[2021-06-28] MEDS: ASPIRIN ENTERIC COATED 81 MG TABLET.DR. PO SCH (08:11)
[2021-06-28] MEDS: risperiDONE ORAL 1 MG/ML 30ml BOTTLE. SL SCH (08:14)
[2021-06-28] MEDS: PRENATAL MULTIVITAMIN TABLET. PO SCH ×2 (08:35→16:30)
[2021-06-28] MEDS: ASCORBIC ACID 500 MG TABLET PO SCH ×2 (08:35→16:30)
[2021-06-28] MEDS: FERROUS SULFATE 325 MG TABLET. PO SCH ×2 (08:35→16:30)
[2021-06-28] MEDS: FLUTICASONE 50MCG/NASAL SPRAY 16GM BOTTLE. NS SCH (08:35)
[2021-06-28] MEDS: SUCRALFATE 1 GM TABLET. PO SCH ×3 (08:35→22:05)
[2021-06-28] MEDS: INSULIN GLARGINE SYRINGE. SQ SCH (09:00)
[2021-06-28 16:08] VITALS: BP 119/79
--- NOTE | 2021-06-28 21:43 | PDOC ---
Exam Note: Adolph Note: Please also refer to the separate dictated note~for this date of service dictated separately.~Patient seen individually. Discussed the patient with Nursing staff reviewed the chart.~Reviewed interim history and current functioning. Reviewed vital signs,~Labs/ Radiology~and current medications noted below. Continue current treatment with the changes noted in the dictated addendum note Assessment: Vital Signs/I&O: Vital Signs Date Time Temp Pulse Resp B/P (MAP) Pulse Ox O2 Delivery O2 Flow Rate FiO2 06/28/21 16:08 97.7 78 20 119/79 (92) 100 06/26/21 06:40 Room Air I & O 06/27/21 06/27/21 06/28/21 15:00 23:00 07:00 Intake Total 240 ml 50 ml Balance 240 ml 50 ml Labs: Laboratory Tests Test 06/28/21 07:40 06/28/21 11:15 06/28/21 11:56 06/28/21 17:07 Glucose (Fingerstick) 131 mg/dL (70-99) H 184 mg/dL (70-99) H 225 mg/dL (70-99) H POC SARS CoV-2 Antigen Negative (NEGATIVE) Test 06/28/21 19:20 Glucose (Fingerstick) 190 mg/dL (70-99) H Current Medications: Meds: Laboratory Tests Test 06/28/21 07:40 06/28/21 11:15 06/28/21 11:56 06/28/21 17:07 Glucose (Fingerstick) 131 mg/dL 184 mg/dL 225 mg/dL POC SARS CoV-2 Antigen Negative Test 06/28/21 19:20 Glucose (Fingerstick) 190 mg/dL Current Medications Medications (Trade) Dose Ordered Sig/Karsten Route PRN Reason Start Time Stop Time Status Last Admin Dose Admin Acetaminophen (Tylenol) 650 mg PRN Q6HRS PRN PO MILD PAIN / TEMP > 100.3'F 06/09/21 21:45 06/16/21 04:52 Multi-Ingredient Ointment (Analgesic [place]) 1 bia PRN QID PRN TP MUSCLE PAIN 06/09/21 21:45 Al Hydroxide/Mg Hydroxide (Mylanta Plus Xs) 15 ml PRN AFTMEALHC PRN PO DYSPEPSIA 06/09/21 21:45 Magnesium Hydroxide (Milk Of Magnesia) 2,400 mg PRN QHS PRN PO 1ST CHOICE CONSTIPATION 06/09/21 21:45 Aspirin (Aspirin Enteric Coated) 81 mg DAILY PO 06/10/21 09:00 06/28/21 08:11 Atorvastatin Calcium (Lipitor) 20 mg QHS PO 06/10/21 21:00 06/27/21 20:05 Dicyclomine HCl (Bentyl) 20 mg PRN Q6HRS PRN PO GI SYMPTOMS 06/09/21 22:30 Fluticasone Propionate (Flonase) 2 spray DAILY NS 06/10/21 09:00 06/25/21 09:00 Glipizide (Glucotrol) 5 mg BID PO 06/10/21 09:00 06/28/21 08:11 Insulin Glargine (Lantus Syringe) 16 unit DAILY SQ 06/10/21 09:00 06/28/21 09:00 Lamotrigine (LaMICtal) 100 mg BID PO 06/10/21 09:00 06/16/21 13:52 DC 06/16/21 09:49 Levothyroxine Sodium (Synthroid) 175 mcg DAILY06 PO 06/10/21 06:00 06/28/21 06:01 Megestrol Acetate (Megace Oral Susp) 400 mg BIDWMEALS PO 06/10/21 08:00 06/19/21 01:22 DC 06/18/21 09:57 Olanzapine (ZyPREXA) 5 mg PRN Q2HR PRN PO ANXIETY / AGITATION 06/09/21 22:30 06/10/21 10:34 DC Ondansetron HCl (Zofran Odt) 4 mg BID PO 06/10/21 09:00 06/10/21 20:29 DC 06/10/21 08:53 Pantoprazole Sodium (Protonix) 40 mg DAILYAC PO 06/10/21 07:30 06/28/21 16:30 Quetiapine Fumarate (SEROquel) 100 mg TID PO 06/10/21 09:00 06/12/21 04:58 DC 06/11/21 21:19 Sertraline HCl (Zoloft) 100 mg DAILY PO 06/10/21 09:00 06/16/21 13:52 DC 06/15/21 08:00 Sucralfate (Carafate) 2 gm BID PO 06/10/21 09:00 06/28/21 16:30 Linagliptin (Tradjenta) 5 mg DAILY PO 06/10/21 09:00 06/28/21 08:10 Ascorbic Acid (Vitamin C) 500 mg DAILY PO 06/10/21 09:00 06/28/21 16:30 Ferrous Sulfate (Feosol) 325 mg DAILY PO 06/10/21 09:00 06/28/21 16:30 Lubiprostone (Amitiza) 24 mcg BID PO 06/10/21 09:00 06/28/21 08:10 Non-Formulary Medication (Nitrofurantoin Macrocrystal (Nitrofurantoin)) 100 mg BID PO 06/10/21 10:30 06/14/21 22:00 Cancel Multivit/ Folic Acid/Iron (Multivitamin ) 1 tab DAILY PO 06/10/21 09:00 06/28/21 16:30 Insulin Human Lispro (HumaLOG) 0-7 UNITS TIDWMEALS SQ 06/10/21 08:00 06/28/21 17:00 Dextrose (Dextrose 50%-Water Syringe) 12.5 gm PRN Q15MIN PRN IV SEE COMMENTS 06/09/21 23:00 Lamotrigine (LaMICtal) 25 mg BID PO 06/10/21 09:00 06/16/21 13:52 DC 06/15/21 20:02 Nitrofurantoin Macrocrystals (Macrobid) 100 mg BID PO 06/10/21 10:45 06/14/21 22:00 DC 06/14/21 20:01 Olanzapine (ZyPREXA ZYDIS) 2.5 mg PRN Q2HR PRN PO PSYCHOSIS 06/10/21 10:45 06/14/21 19:52 DC 06/13/21 22:29 Vitamin D (Vitamin D3) 50,000 unit WEEKLY PO 06/10/21 17:00 06/24/21 08:02 Polyethylene Glycol (miraLAX) 17 gm PRN DAILY PRN PO 2ND CHOICE CONSTIPATION 06/10/21 19:45 Ondansetron HCl (Zofran Odt) 4 mg PRN Q4HRS PRN PO NAUSEA/VOMITING 06/10/21 20:27 06/14/21 11:11 Risperidone (RisperDAL) 0.5 mg BID PO 06/12/21 09:00 06/13/21 18:26 DC 06/13/21 09:20 Divalproex Sodium (Depakote Er) 500 mg QHS PO 06/12/21 21:00 06/14/21 17:08 DC 06/13/21 19:44 Risperidone (RisperDAL) 1 mg BID PO 06/13/21 21:00 06/14/21 18:34 DC 06/13/21 19:46 Divalproex Sodium (Depakote Er) 1,000 mg QHS PO 06/14/21 21:00 06/23/21 18:52 DC 06/22/21 20:03 Risperidone (RisperDAL) 2 mg BID SL 06/14/21 21:00 Cancel Risperidone (RisperDAL) 2 mg DAILY PO 06/14/21 18:45 06/16/21 19:50 DC 06/16/21 11:30 Olanzapine (ZyPREXA ZYDIS) 5 mg PRN Q2HR PRN PO PSYCHOSIS 06/14/21 20:00 06/25/21 17:48 Olanzapine (ZyPREXA ZYDIS) 10 mg 1X ONCE PO 06/14/21 20:00 06/14/21 20:01 DC 06/14/21 20:02 Risperidone (RisperDAL) 1 mg 1X ONCE SL 06/16/21 20:00 06/16/21 20:01 DC 06/16/21 20:14 Risperidone (RisperDAL) 3 mg DAILY SL 06/17/21 09:00 06/28/21 08:14 Trazodone HCl (Desyrel) 50 mg PRN QHS PRN PO INSOMNIA, MAY REPEAT X1 06/16/21 20:00 06/16/21 23:44 Nitrofurantoin Macrocrystals (Macrobid) 100 mg BID PO 06/19/21 21:00 06/26/21 09:01 DC 06/26/21 09:19 Divalproex Sodium (Depakote Er) 1,500 mg QHS PO 06/23/21 21:00 06/26/21 20:35 DC 06/24/21 20:13 Risperidone (RisperDAL CONSTA) 25 mg Q2WKS IM 06/27/21 09:00 06/27/21 11:44 Risperidone (RisperDAL CONSTA) 25 mg Q2WKS IM 06/27/21 09:00 UNV Valproic Acid (Depakene) 500 mg DAILY PO 06/27/21 09:00 06/28/21 08:11 Valproic Acid (Depakene) 1,000 mg HS PO 06/26/21 21:00 06/27/21 20:05 I have reviewed the current psychotropics carefully including drug interactions. Risk benefit ratio favors no change other than as noted in my dictated progress note. Diagnosis: Problems: (1) Schizoaffective disorder, bipolar type (2) Impulse control disorder, unspecified (3) Anxiety disorder, unspecified (4) Bipolar disorder, current episode mixed, severe, with psychotic features RIGOBERTO SANDERS MD Jun 28, 2021 21:43
[2021-06-28] MEDS: ATORVASTATIN CALCIUM 20 MG TABLET PO SCH ×2 (22:06→22:41)
[2021-06-28] MEDS: traZODone 50 MG TABLET. PO PRN (22:41)
[2021-06-29] MEDS: LEVOTHYROXINE 175 MCG TABLET PO SCH (06:07)
--- NOTE | 2021-06-29 06:12 | PDOC ---
Exam Note: Adolph Note: This note is for 06/28/2021 covers elements not covered in my initial note. Subjective: The patient was seen individually on 06/28/2021, discussed and reviewed the chart with Vanessa KAHN. The patient slept 4 hours previous night. She refused breakfast and lunch, ate very little for supper. There was another patient walking by her with a snack in her hand and the patient grabbed it out of this patients hand and had two staff had to intervene. She takes her medications crushed in [place]uc[place]. Refused to answer assessment questions. I encouraged her to have some of her supper but she again did not eat very much. Review of Systems: Ambulation impaired, in wheelchair. No CV, , pulmonary, eye, ENT system symptoms on review. Positive for tiredness. Reliability poor. Mental Status Exam: Patient is oriented to herself. Insight, judgment, recent memory is impaired. Language function intact. Mood and affect remains somewhat anxious, labile. Laboratory Data: Reviewed. Impression: Bipolar 1 disorder manic with psychotic features. Anxiety disorder unspecified. Impulse control disorder unspecified. Mild cognitive impairment. Plan: Continue rest of the psychotropics unchanged. She has received Risperdal Consta which should hopefully help with her psychosis gradually and reduce the need for the oral antipsychotic and improve compliance as the psychosis recedes. Reviewed drug interactions and risk-benefit ratio. Assessment: Vital Signs/I&O: Vital Signs Date Time Temp Pulse Resp B/P (MAP) Pulse Ox O2 Delivery O2 Flow Rate FiO2 06/29/21 06:02 98.5 102 20 95 06/28/21 16:08 119/79 (92) 06/26/21 06:40 Room Air I & O 06/28/21 06/28/21 06/29/21 15:00 23:00 07:00 Intake Total 240 ml 180 ml Balance 240 ml 180 ml Labs: Laboratory Tests Test 06/28/21 07:40 06/28/21 11:15 06/28/21 11:56 06/28/21 17:07 Glucose (Fingerstick) 131 mg/dL (70-99) H 184 mg/dL (70-99) H 225 mg/dL (70-99) H POC SARS CoV-2 Antigen Negative (NEGATIVE) Test 06/28/21 19:20 Glucose (Fingerstick) 190 mg/dL (70-99) H Current Medications: I have reviewed the current psychotropics carefully including drug interactions. Risk benefit ratio favors no change other than as noted in my dictated progress note. Diagnosis: Problems: (1) Schizoaffective disorder, bipolar type (2) Impulse control disorder, unspecified (3) Anxiety disorder, unspecified (4) Bipolar disorder, current episode mixed, severe, with psychotic features RIGOBERTO SANDERS MD Jun 29, 2021 06:12
[2021-06-29] MEDS: INSULIN LISPRO 300 UNITS/3 ML VIAL. SQ SCH ×3 (08:00→17:00)
[2021-06-29] MEDS: VALPROATE ACID 250 MG/5 ML ORAL SOLUTION PO SCH ×2 (08:25→20:35)
[2021-06-29] MEDS: PRENATAL MULTIVITAMIN TABLET. PO SCH (08:26)
[2021-06-29] MEDS: glipiZIDE 5 MG TABLET PO SCH ×2 (08:26→20:35)
[2021-06-29] MEDS: PANTOPRAZOLE 40 MG TABLET. PO SCH (08:26)
[2021-06-29] MEDS: LUBIPROSTONE 24 MCG CAPSULE PO SCH ×2 (08:26→20:32)
[2021-06-29] MEDS: SUCRALFATE 1 GM TABLET. PO SCH ×2 (08:26→20:33)
[2021-06-29] MEDS: LINAGLIPTIN 5 MG TABLET PO SCH (08:26)
[2021-06-29] MEDS: ASCORBIC ACID 500 MG TABLET PO SCH (08:26)
[2021-06-29] MEDS: ASPIRIN ENTERIC COATED 81 MG TABLET.DR. PO SCH (08:26)
[2021-06-29] MEDS: FERROUS SULFATE 325 MG TABLET. PO SCH (08:26)
[2021-06-29] MEDS: FLUTICASONE 50MCG/NASAL SPRAY 16GM BOTTLE. NS SCH (08:27)
[2021-06-29] MEDS: risperiDONE ORAL 1 MG/ML 30ml BOTTLE. SL SCH (08:28)
[2021-06-29] MEDS: INSULIN GLARGINE SYRINGE. SQ SCH (08:30)
[2021-06-29 15:50] VITALS: BP 123/82
[2021-06-29] MEDS: ATORVASTATIN CALCIUM 20 MG TABLET PO SCH (20:35)
--- NOTE | 2021-06-29 21:30 | PDOC ---
Exam Note: Adolph Note: Please also refer to the separate dictated note~for this date of service dictated separately.~Patient seen individually. Discussed the patient with Nursing staff reviewed the chart.~Reviewed interim history and current functioning. Reviewed vital signs,~Labs/ Radiology~and current medications noted below. Continue current treatment with the changes noted in the dictated addendum note Assessment: Vital Signs/I&O: Vital Signs Date Time Temp Pulse Resp B/P (MAP) Pulse Ox O2 Delivery O2 Flow Rate FiO2 06/29/21 15:50 98.2 79 18 123/82 (96) 97 Room Air I & O 06/28/21 06/28/21 06/29/21 15:00 23:00 07:00 Intake Total 240 ml 180 ml Balance 240 ml 180 ml Labs: Laboratory Tests Test 06/29/21 07:33 06/29/21 12:14 06/29/21 16:57 06/29/21 19:15 Glucose (Fingerstick) 158 mg/dL (70-99) H 148 mg/dL (70-99) H 199 mg/dL (70-99) H 250 mg/dL (70-99) H Current Medications: Meds: Laboratory Tests Test 06/29/21 07:33 06/29/21 12:14 06/29/21 16:57 06/29/21 19:15 Glucose (Fingerstick) 158 mg/dL 148 mg/dL 199 mg/dL 250 mg/dL Current Medications Medications (Trade) Dose Ordered Sig/Karsten Route PRN Reason Start Time Stop Time Status Last Admin Dose Admin Acetaminophen (Tylenol) 650 mg PRN Q6HRS PRN PO MILD PAIN / TEMP > 100.3'F 06/09/21 21:45 06/16/21 04:52 Multi-Ingredient Ointment (Analgesic [place]) 1 bia PRN QID PRN TP MUSCLE PAIN 06/09/21 21:45 Al Hydroxide/Mg Hydroxide (Mylanta Plus Xs) 15 ml PRN AFTMEALHC PRN PO DYSPEPSIA 06/09/21 21:45 Magnesium Hydroxide (Milk Of Magnesia) 2,400 mg PRN QHS PRN PO 1ST CHOICE CONSTIPATION 06/09/21 21:45 Aspirin (Aspirin Enteric Coated) 81 mg DAILY PO 06/10/21 09:00 06/29/21 08:26 Atorvastatin Calcium (Lipitor) 20 mg QHS PO 06/10/21 21:00 06/29/21 20:35 Dicyclomine HCl (Bentyl) 20 mg PRN Q6HRS PRN PO GI SYMPTOMS 06/09/21 22:30 Fluticasone Propionate (Flonase) 2 spray DAILY NS 06/10/21 09:00 06/25/21 09:00 Glipizide (Glucotrol) 5 mg BID PO 06/10/21 09:00 06/29/21 20:35 Insulin Glargine (Lantus Syringe) 16 unit DAILY SQ 06/10/21 09:00 06/29/21 08:30 Lamotrigine (LaMICtal) 100 mg BID PO 06/10/21 09:00 06/16/21 13:52 DC 06/16/21 09:49 Levothyroxine Sodium (Synthroid) 175 mcg DAILY06 PO 06/10/21 06:00 06/29/21 06:07 Megestrol Acetate (Megace Oral Susp) 400 mg BIDWMEALS PO 06/10/21 08:00 06/19/21 01:22 DC 06/18/21 09:57 Olanzapine (ZyPREXA) 5 mg PRN Q2HR PRN PO ANXIETY / AGITATION 06/09/21 22:30 06/10/21 10:34 DC Ondansetron HCl (Zofran Odt) 4 mg BID PO 06/10/21 09:00 06/10/21 20:29 DC 06/10/21 08:53 Pantoprazole Sodium (Protonix) 40 mg DAILYAC PO 06/10/21 07:30 06/29/21 08:26 Quetiapine Fumarate (SEROquel) 100 mg TID PO 06/10/21 09:00 06/12/21 04:58 DC 06/11/21 21:19 Sertraline HCl (Zoloft) 100 mg DAILY PO 06/10/21 09:00 06/16/21 13:52 DC 06/15/21 08:00 Sucralfate (Carafate) 2 gm BID PO 06/10/21 09:00 06/29/21 20:33 Linagliptin (Tradjenta) 5 mg DAILY PO 06/10/21 09:00 06/29/21 08:26 Ascorbic Acid (Vitamin C) 500 mg DAILY PO 06/10/21 09:00 06/29/21 08:26 Ferrous Sulfate (Feosol) 325 mg DAILY PO 06/10/21 09:00 06/29/21 08:26 Lubiprostone (Amitiza) 24 mcg BID PO 06/10/21 09:00 06/29/21 20:32 Non-Formulary Medication (Nitrofurantoin Macrocrystal (Nitrofurantoin)) 100 mg BID PO 06/10/21 10:30 06/14/21 22:00 Cancel Multivit/ Folic Acid/Iron (Multivitamin ) 1 tab DAILY PO 06/10/21 09:00 06/29/21 08:26 Insulin Human Lispro (HumaLOG) 0-7 UNITS TIDWMEALS SQ 06/10/21 08:00 06/28/21 17:00 Dextrose (Dextrose 50%-Water Syringe) 12.5 gm PRN Q15MIN PRN IV SEE COMMENTS 06/09/21 23:00 Lamotrigine (LaMICtal) 25 mg BID PO 06/10/21 09:00 06/16/21 13:52 DC 06/15/21 20:02 Nitrofurantoin Macrocrystals (Macrobid) 100 mg BID PO 06/10/21 10:45 06/14/21 22:00 DC 06/14/21 20:01 Olanzapine (ZyPREXA ZYDIS) 2.5 mg PRN Q2HR PRN PO PSYCHOSIS 06/10/21 10:45 06/14/21 19:52 DC 06/13/21 22:29 Vitamin D (Vitamin D3) 50,000 unit WEEKLY PO 06/10/21 17:00 06/24/21 08:02 Polyethylene Glycol (miraLAX) 17 gm PRN DAILY PRN PO 2ND CHOICE CONSTIPATION 06/10/21 19:45 Ondansetron HCl (Zofran Odt) 4 mg PRN Q4HRS PRN PO NAUSEA/VOMITING 06/10/21 20:27 06/14/21 11:11 Risperidone (RisperDAL) 0.5 mg BID PO 06/12/21 09:00 06/13/21 18:26 DC 06/13/21 09:20 Divalproex Sodium (Depakote Er) 500 mg QHS PO 06/12/21 21:00 06/14/21 17:08 DC 06/13/21 19:44 Risperidone (RisperDAL) 1 mg BID PO 06/13/21 21:00 06/14/21 18:34 DC 06/13/21 19:46 Divalproex Sodium (Depakote Er) 1,000 mg QHS PO 06/14/21 21:00 06/23/21 18:52 DC 06/22/21 20:03 Risperidone (RisperDAL) 2 mg BID SL 06/14/21 21:00 Cancel Risperidone (RisperDAL) 2 mg DAILY PO 06/14/21 18:45 06/16/21 19:50 DC 06/16/21 11:30 Olanzapine (ZyPREXA ZYDIS) 5 mg PRN Q2HR PRN PO PSYCHOSIS 06/14/21 20:00 06/28/21 22:41 Olanzapine (ZyPREXA ZYDIS) 10 mg 1X ONCE PO 06/14/21 20:00 06/14/21 20:01 DC 06/14/21 20:02 Risperidone (RisperDAL) 1 mg 1X ONCE SL 06/16/21 20:00 06/16/21 20:01 DC 06/16/21 20:14 Risperidone (RisperDAL) 3 mg DAILY SL 06/17/21 09:00 06/29/21 17:00 DC 06/29/21 08:28 Trazodone HCl (Desyrel) 50 mg PRN QHS PRN PO INSOMNIA, MAY REPEAT X1 06/16/21 20:00 06/28/21 22:41 Nitrofurantoin Macrocrystals (Macrobid) 100 mg BID PO 06/19/21 21:00 06/26/21 09:01 DC 06/26/21 09:19 Divalproex Sodium (Depakote Er) 1,500 mg QHS PO 06/23/21 21:00 06/26/21 20:35 DC 06/24/21 20:13 Risperidone (RisperDAL CONSTA) 25 mg Q2WKS IM 06/27/21 09:00 06/27/21 11:44 Risperidone (RisperDAL CONSTA) 25 mg Q2WKS IM 06/27/21 09:00 UNV Valproic Acid (Depakene) 500 mg DAILY PO 06/27/21 09:00 06/29/21 08:25 Valproic Acid (Depakene) 1,000 mg HS PO 06/26/21 21:00 06/29/21 20:35 Risperidone (RisperDAL) 4 mg DAILY SL 06/30/21 09:00 I have reviewed the current psychotropics carefully including drug interactions. Risk benefit ratio favors no change other than as noted in my dictated progress note. Diagnosis: Problems: (1) Schizoaffective disorder, bipolar type (2) Impulse control disorder, unspecified (3) Anxiety disorder, unspecified (4) Bipolar disorder, current episode mixed, severe, with psychotic features RIGOBERTO SANDERS MD Jun 29, 2021 21:30
[2021-06-30] MEDS: LEVOTHYROXINE 175 MCG TABLET PO SCH ×2 (06:00→06:19)
[2021-06-30 06:28] VITALS: BP 129/80
[2021-06-30] MEDS: PANTOPRAZOLE 40 MG TABLET. PO SCH (07:30)
[2021-06-30] MEDS: INSULIN LISPRO 300 UNITS/3 ML VIAL. SQ SCH ×3 (08:00→17:00)
[2021-06-30] MEDS: VALPROATE ACID 250 MG/5 ML ORAL SOLUTION PO SCH ×2 (08:44→20:02)
--- NOTE | 2021-06-30 08:46 | PDOC ---
Exam Note: Adolph Note: This note is for 06/29/2021 covers elements not covered in my initial note. Subjective: The patient was seen individually on 06/29/2021, discussed and reviewed the chart with Jane KAHN. The patient slept 1-3/4 hours previous night. Previous evening, the patient was extremely psychotic, agitated, aggressive, choking others around her, throwing herself on the door frame, rolling herself on the floor. Today she is less aggressive. Oral intake is poor, refusing oral medications, spitting them out. She did take the Depakote and Risperdal in Sprite, then urinated on the floor. UA is negative. I met with her in her room. Review of Systems: Ambulation impaired, in wheelchair. No CV, , pulmonary, eye, ENT system symptoms on review. Reliability poor. Mental Status Exam: Patient is oriented to herself. She was trying to transfer herself from wheelchair to the bed and I assisted her partly, then staff helped her. Insight, judgment, recent memory is impaired. Language function intact. Attention span short. Mood and affect somewhat withdrawn, still paranoid. Laboratory Data: Reviewed. Impression: Bipolar 1 disorder manic with psychotic features. Anxiety disorder unspecified. Impulse control disorder unspecified. Mild cognitive impairment. Plan: Continue rest of the psychotropics unchanged. Reviewed drug interactions and risk-benefit ratio. The patient is still psychotic. We will increase the Risperdal oral from 3 mg a day to 4 mg a day. Continue Risperdal Consta. Assessment: Vital Signs/I&O: Vital Signs Date Time Temp Pulse Resp B/P (MAP) Pulse Ox O2 Delivery O2 Flow Rate FiO2 06/30/21 06:28 98.3 72 20 129/80 (96) 96 Room Air I & O 06/29/21 06/29/21 06/30/21 15:00 23:00 07:00 Intake Total 180 ml 480 ml Balance 180 ml 480 ml Labs: Laboratory Tests Test 06/29/21 12:14 06/29/21 16:57 06/29/21 19:15 06/30/21 07:46 Glucose (Fingerstick) 148 mg/dL (70-99) H 199 mg/dL (70-99) H 250 mg/dL (70-99) H 117 mg/dL (70-99) H Current Medications: I have reviewed the current psychotropics carefully including drug interactions. Risk benefit ratio favors no change other than as noted in my dictated progress note. Diagnosis: Problems: (1) Schizoaffective disorder, bipolar type (2) Impulse control disorder, unspecified (3) Anxiety disorder, unspecified (4) Bipolar disorder, current episode mixed, severe, with psychotic features RIGOBERTO SANDERS MD Jun 30, 2021 08:46
[2021-06-30] MEDS: ASPIRIN ENTERIC COATED 81 MG TABLET.DR. PO SCH (08:49)
[2021-06-30] MEDS: FLUTICASONE 50MCG/NASAL SPRAY 16GM BOTTLE. NS SCH (08:49)
[2021-06-30] MEDS: LUBIPROSTONE 24 MCG CAPSULE PO SCH ×2 (08:49→20:01)
[2021-06-30] MEDS: SUCRALFATE 1 GM TABLET. PO SCH ×2 (08:49→20:01)
[2021-06-30] MEDS: glipiZIDE 5 MG TABLET PO SCH ×2 (08:50→20:01)
[2021-06-30] MEDS: ASCORBIC ACID 500 MG TABLET PO SCH (08:50)
[2021-06-30] MEDS: LINAGLIPTIN 5 MG TABLET PO SCH (08:50)
[2021-06-30] MEDS: PRENATAL MULTIVITAMIN TABLET. PO SCH (08:50)
[2021-06-30] MEDS: FERROUS SULFATE 325 MG TABLET. PO SCH (08:50)
[2021-06-30] MEDS: risperiDONE ORAL 1 MG/ML 30ml BOTTLE. SL SCH (08:51)
[2021-06-30] MEDS: INSULIN GLARGINE SYRINGE. SQ SCH (09:00)
[2021-06-30 15:39] VITALS: BP 144/94
[2021-06-30 18:39] LABS: CLARITY,URINE CLOUDY; COLOR,URINE YELLOW; GLUCOSE,URINE NEG (NEG)
[2021-06-30 18:40] LABS: BACTERIA,URINE MANY /HPF (0-FEW); NITRITE,URINE POS (NEG); SQUAMOUS EPITHELIAL CELL,UR MOD /LPF; UROBILINOGEN,URINE 0.2 mg/dL (0.2 mg/dL); WBC,URINE 20-40 /HPF (0-4)
[2021-06-30] MEDS: ATORVASTATIN CALCIUM 20 MG TABLET PO SCH (20:01)
[2021-06-30] MEDS: traZODone 50 MG TABLET. PO PRN (20:01)
--- NOTE | 2021-06-30 22:05 | PDOC ---
Exam Note: Adolph Note: Please also refer to the separate dictated note~for this date of service dictated separately.~Patient seen individually. Discussed the patient with Nursing staff reviewed the chart.~Reviewed interim history and current functioning. Reviewed vital signs,~Labs/ Radiology~and current medications noted below. Continue current treatment with the changes noted in the dictated addendum note Assessment: Vital Signs/I&O: Vital Signs Date Time Temp Pulse Resp B/P (MAP) Pulse Ox O2 Delivery O2 Flow Rate FiO2 06/30/21 15:39 98.4 86 16 144/94 (111) 98 06/30/21 06:28 Room Air I & O 06/29/21 06/29/21 06/30/21 15:00 23:00 07:00 Intake Total 180 ml 480 ml Balance 180 ml 480 ml Labs: Laboratory Tests Test 06/30/21 07:46 06/30/21 12:17 06/30/21 16:15 06/30/21 18:00 Glucose (Fingerstick) 117 mg/dL (70-99) H 202 mg/dL (70-99) H 179 mg/dL (70-99) H Urine Collection Type U cath Urine Color Yellow Urine Clarity Cloudy Urine pH 5.5 Urine Specific [place] >=1.030 Urine Protein 30 mg/dl (NEG-TRACE) Urine Glucose (UA) Neg mg/dL (NEG) Urine Ketones (Stick) Trace mg/dL (NEG) Urine Blood Neg (NEG) Urine Nitrite Pos (NEG) Urine Bilirubin Neg (NEG) Urine Urobilinogen Dipstick 0.2 mg/dL (0.2 mg/dL) Urine Leukocyte Esterase Trace (NEG) Urine RBC 1-2 /HPF (0-2) Urine WBC 20-40 /HPF (0-4) Urine Squamous Epithelial Cells Mod /LPF Urine Bacteria Many /HPF (0-FEW) Urine Mucus Marked /LPF Test 06/30/21 19:13 Glucose (Fingerstick) 196 mg/dL (70-99) H Current Medications: Meds: Laboratory Tests Test 06/30/21 07:46 06/30/21 12:17 06/30/21 16:15 06/30/21 18:00 Glucose (Fingerstick) 117 mg/dL 202 mg/dL 179 mg/dL Urine Collection Type U cath Urine Color Yellow Urine Clarity Cloudy Urine pH 5.5 Urine Specific [place] >=1.030 Urine Protein 30 mg/dl Urine Glucose (UA) Neg mg/dL Urine Ketones (Stick) Trace mg/dL Urine Blood Neg Urine Nitrite Pos Urine Bilirubin Neg Urine Urobilinogen Dipstick 0.2 mg/dL Urine Leukocyte Esterase Trace Urine RBC 1-2 /HPF Urine WBC 20-40 /HPF Urine Squamous Epithelial Cells Mod /LPF Urine Bacteria Many /HPF Urine Mucus Marked /LPF Test 06/30/21 19:13 Glucose (Fingerstick) 196 mg/dL Current Medications Medications (Trade) Dose Ordered Sig/Karsten Route PRN Reason Start Time Stop Time Status Last Admin Dose Admin Acetaminophen (Tylenol) 650 mg PRN Q6HRS PRN PO MILD PAIN / TEMP > 100.3'F 06/09/21 21:45 06/16/21 04:52 Multi-Ingredient Ointment (Analgesic [place]) 1 bia PRN QID PRN TP MUSCLE PAIN 06/09/21 21:45 Al Hydroxide/Mg Hydroxide (Mylanta Plus Xs) 15 ml PRN AFTMEALHC PRN PO DYSPEPSIA 06/09/21 21:45 Magnesium Hydroxide (Milk Of Magnesia) 2,400 mg PRN QHS PRN PO 1ST CHOICE CONSTIPATION 06/09/21 21:45 Aspirin (Aspirin Enteric Coated) 81 mg DAILY PO 06/10/21 09:00 06/30/21 08:49 Atorvastatin Calcium (Lipitor) 20 mg QHS PO 06/10/21 21:00 06/30/21 20:01 Dicyclomine HCl (Bentyl) 20 mg PRN Q6HRS PRN PO GI SYMPTOMS 06/09/21 22:30 Fluticasone Propionate (Flonase) 2 spray DAILY NS 06/10/21 09:00 06/30/21 08:49 Glipizide (Glucotrol) 5 mg BID PO 06/10/21 09:00 06/30/21 20:01 Insulin Glargine (Lantus Syringe) 16 unit DAILY SQ 06/10/21 09:00 06/30/21 09:00 Lamotrigine (LaMICtal) 100 mg BID PO 06/10/21 09:00 06/16/21 13:52 DC 06/16/21 09:49 Levothyroxine Sodium (Synthroid) 175 mcg DAILY06 PO 06/10/21 06:00 06/30/21 06:00 Megestrol Acetate (Megace Oral Susp) 400 mg BIDWMEALS PO 06/10/21 08:00 06/19/21 01:22 DC 06/18/21 09:57 Olanzapine (ZyPREXA) 5 mg PRN Q2HR PRN PO ANXIETY / AGITATION 06/09/21 22:30 06/10/21 10:34 DC Ondansetron HCl (Zofran Odt) 4 mg BID PO 06/10/21 09:00 06/10/21 20:29 DC 06/10/21 08:53 Pantoprazole Sodium (Protonix) 40 mg DAILYAC PO 06/10/21 07:30 06/30/21 07:30 Quetiapine Fumarate (SEROquel) 100 mg TID PO 06/10/21 09:00 06/12/21 04:58 DC 06/11/21 21:19 Sertraline HCl (Zoloft) 100 mg DAILY PO 06/10/21 09:00 06/16/21 13:52 DC 06/15/21 08:00 Sucralfate (Carafate) 2 gm BID PO 06/10/21 09:00 06/30/21 20:01 Linagliptin (Tradjenta) 5 mg DAILY PO 06/10/21 09:00 06/30/21 08:50 Ascorbic Acid (Vitamin C) 500 mg DAILY PO 06/10/21 09:00 06/30/21 08:50 Ferrous Sulfate (Feosol) 325 mg DAILY PO 06/10/21 09:00 06/30/21 08:50 Lubiprostone (Amitiza) 24 mcg BID PO 06/10/21 09:00 06/30/21 20:01 Non-Formulary Medication (Nitrofurantoin Macrocrystal (Nitrofurantoin)) 100 mg BID PO 06/10/21 10:30 06/14/21 22:00 Cancel Multivit/ Folic Acid/Iron (Multivitamin ) 1 tab DAILY PO 06/10/21 09:00 06/30/21 08:50 Insulin Human Lispro (HumaLOG) 0-7 UNITS TIDWMEALS SQ 06/10/21 08:00 06/30/21 17:00 Dextrose (Dextrose 50%-Water Syringe) 12.5 gm PRN Q15MIN PRN IV SEE COMMENTS 06/09/21 23:00 Lamotrigine (LaMICtal) 25 mg BID PO 06/10/21 09:00 06/16/21 13:52 DC 06/15/21 20:02 Nitrofurantoin Macrocrystals (Macrobid) 100 mg BID PO 06/10/21 10:45 06/14/21 22:00 DC 06/14/21 20:01 Olanzapine (ZyPREXA ZYDIS) 2.5 mg PRN Q2HR PRN PO PSYCHOSIS 06/10/21 10:45 06/14/21 19:52 DC 06/13/21 22:29 Vitamin D (Vitamin D3) 50,000 unit WEEKLY PO 06/10/21 17:00 06/24/21 08:02 Polyethylene Glycol (miraLAX) 17 gm PRN DAILY PRN PO 2ND CHOICE CONSTIPATION 06/10/21 19:45 Ondansetron HCl (Zofran Odt) 4 mg PRN Q4HRS PRN PO NAUSEA/VOMITING 06/10/21 20:27 06/14/21 11:11 Risperidone (RisperDAL) 0.5 mg BID PO 06/12/21 09:00 06/13/21 18:26 DC 06/13/21 09:20 Divalproex Sodium (Depakote Er) 500 mg QHS PO 06/12/21 21:00 06/14/21 17:08 DC 06/13/21 19:44 Risperidone (RisperDAL) 1 mg BID PO 06/13/21 21:00 06/14/21 18:34 DC 06/13/21 19:46 Divalproex Sodium (Depakote Er) 1,000 mg QHS PO 06/14/21 21:00 06/23/21 18:52 DC 06/22/21 20:03 Risperidone (RisperDAL) 2 mg BID SL 06/14/21 21:00 Cancel Risperidone (RisperDAL) 2 mg DAILY PO 06/14/21 18:45 06/16/21 19:50 DC 06/16/21 11:30 Olanzapine (ZyPREXA ZYDIS) 5 mg PRN Q2HR PRN PO PSYCHOSIS 06/14/21 20:00 06/28/21 22:41 Olanzapine (ZyPREXA ZYDIS) 10 mg 1X ONCE PO 06/14/21 20:00 06/14/21 20:01 DC 06/14/21 20:02 Risperidone (RisperDAL) 1 mg 1X ONCE SL 06/16/21 20:00 06/16/21 20:01 DC 06/16/21 20:14 Risperidone (RisperDAL) 3 mg DAILY SL 06/17/21 09:00 06/29/21 17:00 DC 06/29/21 08:28 Trazodone HCl (Desyrel) 50 mg PRN QHS PRN PO INSOMNIA, MAY REPEAT X1 06/16/21 20:00 06/30/21 20:01 Nitrofurantoin Macrocrystals (Macrobid) 100 mg BID PO 06/19/21 21:00 06/26/21 09:01 DC 06/26/21 09:19 Divalproex Sodium (Depakote Er) 1,500 mg QHS PO 06/23/21 21:00 06/26/21 20:35 DC 06/24/21 20:13 Risperidone (RisperDAL CON[place]) 25 mg Q2WKS IM 06/27/21 09:00 06/27/21 11:44 Risperidone (RisperDAL CONSTA) 25 mg Q2WKS IM 06/27/21 09:00 UNV Valproic Acid (Depakene) 500 mg DAILY PO 06/27/21 09:00 06/30/21 08:44 Valproic Acid (Depakene) 1,000 mg HS PO 06/26/21 21:00 06/30/21 20:02 Risperidone (RisperDAL) 4 mg DAILY SL 06/30/21 09:00 06/30/21 08:51 Current Medications Medications (Trade) Dose Ordered Sig/Karsten Route PRN Reason Start Time Stop Time Status Last Admin Dose Admin Risperidone (RisperDAL) 4 mg DAILY SL 06/30/21 09:00 06/30/21 08:51 I have reviewed the current psychotropics carefully including drug interactions. Risk benefit ratio favors no change other than as noted in my dictated progress note. Diagnosis: Problems: (1) Schizoaffective disorder, bipolar type (2) Impulse control disorder, unspecified (3) Anxiety disorder, unspecified (4) Bipolar disorder, current episode mixed, severe, with psychotic features RIGOBERTO SANDERS MD Jun 30, 2021 22:05
[2021-07-01] MEDS: LEVOTHYROXINE 175 MCG TABLET PO SCH (05:24)
[2021-07-01 06:52] LABS: BASO # 0.1 x10^3/uL (0.0-0.2); BASO % 1 % (0-3); EOS # 0.2 x10^3/uL (0.0-0.7); EOS % 2 % (0-3); HEMATOCRIT 35.2 % (36.0-47.0); HEMOGLOBIN 11.6 g/dL (12.0-15.5); LYMPH # 1.9 x10^3/uL (1.0-4.8); LYMPH % 23 % (24-48); MEAN CORPUSCULAR HEMOGLOBIN 29 pg (25-35); MEAN CORPUSCULAR HGB CONC 33 g/dL (31-37); MEAN CORPUSCULAR VOLUME 89 fL (79-100); MONO # 0.9 x10^3/uL (0.0-1.1); MONO % 11 % (0-9); NEUT # 5.3 x10^3uL (1.8-7.7); NEUT % 63 % (31-73); PLATELET COUNT 224 x10^3/uL (140-400); RED BLOOD COUNT 3.96 x10^6/uL (3.50-5.40); RED CELL DISTRIBUTION WIDTH 13.8 % (11.5-14.5); WHITE BLOOD COUNT 8.4 x10^3/uL (4.0-11.0)
[2021-07-01 07:04] VITALS: BP 138/78
[2021-07-01 07:05] VITALS: BP 127/70
[2021-07-01 07:07] LABS: ALBUMIN 3.2 g/dL (3.4-5.0); ALBUMIN/GLOBULIN RATIO 0.9 (1.0-1.7); ALK PHOS 68 U/L (46-116); ALT (SGPT) 22 U/L (14-59); ANION GAP 9 (6-14); AST (SGOT) 15 U/L (15-37); BLOOD UREA NITROGEN 14 mg/dL (7-20); BUN/CREATININE RATIO 16 (6-20); CALCIUM 8.9 mg/dL (8.5-10.1); CARBON DIOXIDE 28 mmol/L (21-32); CHLORIDE 104 mmol/L (98-107); CREATININE 0.9 mg/dL (0.6-1.0); GFR 64.8; GLUCOSE 103 mg/dL (70-99); POTASSIUM 4.3 mmol/L (3.5-5.1); SODIUM 141 mmol/L (136-145); TOTAL BILIRUBIN 0.3 mg/dL (0.2-1.0); TOTAL PROTEIN 6.6 g/dL (6.4-8.2)
[2021-07-01 07:19] LABS: VAL ACID 88 mcg/mL (50-100)
[2021-07-01] MEDS: INSULIN LISPRO 300 UNITS/3 ML VIAL. SQ SCH ×3 (08:00→17:00)
--- NOTE | 2021-07-01 08:53 | PDOC ---
Exam Note: Adolph Note: This note is a late entry for 06/30/2021 covers elements not covered in my initial note. Subjective: The patient was reviewed at treatment team meeting individually in the morning on 06/30/2021 with Thi Marsh, Brianna Massey, and Anita Alan (social services designee), Krystin, activity therapy, and Jacey KAHN, discussed and reviewed the chart. The patient slept 7 hours previous night. She remains psychotic with marked mood lability. Often her medications have to be syringed. Risperdal was increased and she is on the Risperdal [place] as well. Earlier this week she was quite impulsive, grabbing food off the hands of another patient walking by her. We will check CBC, CMP, valproic acid level in the morning. She has not attended any groups. Also discussed with Karina KAHN in the evening. Patient has been withdrawn, resistive, combative. She had a straight cath, UA has reflex to culture. We will check labs in the morning. I met with the patient in the dayroom, somewhat withdrawn, not very verbally interactive. Review of Systems: Ambulation impaired, in wheelchair. No CV, , pulmonary, eye, ENT system symptoms on review. Reliability poor. She is less putting herself on the floor. Mental Status Exam: Patient is oriented to herself and situation. Speech moderate latency, often response is monosyllabic. Abstraction fair. Computation impaired. Language function intact. Attention span short, less psychotic. Laboratory Data: Reviewed. Impression: Bipolar 1 disorder manic with psychotic features. Anxiety disorder unspecified. Impulse control disorder unspecified. Mild cognitive impairment. Plan: Continue rest of the psychotropics unchanged. Reviewed drug interactions and risk-benefit ratio. Assessment: Vital Signs/I&O: Vital Signs Date Time Temp Pulse Resp B/P (MAP) Pulse Ox O2 Delivery O2 Flow Rate FiO2 07/01/21 07:05 97.9 72 16 127/70 (89) 96 06/30/21 06:28 Room Air I & O 06/30/21 06/30/21 07/01/21 15:00 23:00 07:00 Intake Total 420 ml 480 ml Balance 420 ml 480 ml Labs: Laboratory Tests Test 06/30/21 12:17 06/30/21 16:15 4/28/22 18:00 06/30/21 19:13 Glucose (Fingerstick) 202 mg/dL (70-99) H 179 mg/dL (70-99) H 196 mg/dL (70-99) H Urine Collection Type U cath Urine Color Yellow Urine Clarity Cloudy Urine pH 5.5 Urine Specific [place] >=1.030 Urine Protein 30 mg/dl (NEG-TRACE) Urine Glucose (UA) Neg mg/dL (NEG) Urine Ketones (Stick) Trace mg/dL (NEG) Urine Blood Neg (NEG) Urine Nitrite Pos (NEG) Urine Bilirubin Neg (NEG) Urine Urobilinogen Dipstick 0.2 mg/dL (0.2 mg/dL) Urine Leukocyte Esterase Trace (NEG) Urine RBC 1-2 /HPF (0-2) Urine WBC 20-40 /HPF (0-4) Urine Squamous Epithelial Cells Mod /LPF Urine Bacteria Many /HPF (0-FEW) Urine Mucus Marked /LPF Test 07/01/21 06:34 07/01/21 07:29 White Blood Count 8.4 x10^3/uL (4.0-11.0) Red Blood Count 3.96 x10^6/uL (3.50-5.40) Hemoglobin 11.6 g/dL (12.0-15.5) L Hematocrit 35.2 % (36.0-47.0) L Mean Corpuscular Volume 89 fL (79-100) Mean Corpuscular Hemoglobin 29 pg (25-35) Mean Corpuscular Hemoglobin Concent 33 g/dL (31-37) Red Cell Distribution Width 13.8 % (11.5-14.5) Platelet Count 224 x10^3/uL (140-400) Neutrophils (%) (Auto) 63 % (31-73) Lymphocytes (%) (Auto) 23 % (24-48) L Monocytes (%) (Auto) 11 % (0-9) H Eosinophils (%) (Auto) 2 % (0-3) Basophils (%) (Auto) 1 % (0-3) Neutrophils # (Auto) 5.3 x10^3uL (1.8-7.7) Lymphocytes # (Auto) 1.9 x10^3/uL (1.0-4.8) Monocytes # (Auto) 0.9 x10^3/uL (0.0-1.1) Eosinophils # (Auto) 0.2 x10^3/uL (0.0-0.7) Basophils # (Auto) 0.1 x10^3/uL (0.0-0.2) Sodium Level 141 mmol/L (136-145) Potassium Level 4.3 mmol/L (3.5-5.1) Chloride Level 104 mmol/L (98-107) Carbon Dioxide Level 28 mmol/L (21-32) Anion Gap 9 (6-14) Blood Urea Nitrogen 14 mg/dL (7-20) Creatinine 0.9 mg/dL (0.6-1.0) Estimated GFR (Cockcroft-Gault) 64.8 BUN/Creatinine Ratio 16 (6-20) Glucose Level 103 mg/dL (70-99) H Calcium Level 8.9 mg/dL (8.5-10.1) Total Bilirubin 0.3 mg/dL (0.2-1.0) Aspartate Amino Transferase (AST) 15 U/L (15-37) Alanine Aminotransferase (ALT) 22 U/L (14-59) Alkaline Phosphatase 68 U/L (46-116) Total Protein 6.6 g/dL (6.4-8.2) Albumin 3.2 g/dL (3.4-5.0) L Albumin/Globulin Ratio 0.9 (1.0-1.7) L Valproic Acid Level 88 mcg/mL (50-100) Valproic Acid Last Dose Date 06/30/21 Valproic Acid Last Dose Time 2100 Glucose (Fingerstick) 109 mg/dL (70-99) H Current Medications: Meds: Current Medications Medications (Trade) Dose Ordered Sig/Karsten Route PRN Reason Start Time Stop Time Status Last Admin Dose Admin Risperidone (RisperDAL) 4 mg DAILY SL 06/30/21 09:00 06/30/21 08:51 I have reviewed the current psychotropics carefully including drug interactions. Risk benefit ratio favors no change other than as noted in my dictated progress note. Diagnosis: Problems: (1) Schizoaffective disorder, bipolar type (2) Impulse control disorder, unspecified (3) Anxiety disorder, unspecified (4) Bipolar disorder, current episode mixed, severe, with psychotic features RIGOBERTO SANDERS MD Jul 01, 2021 08:53
[2021-07-01] MEDS: FLUTICASONE 50MCG/NASAL SPRAY 16GM BOTTLE. NS SCH (09:00)
[2021-07-01] MEDS: FERROUS SULFATE 325 MG TABLET. PO SCH (09:00)
[2021-07-01] MEDS: INSULIN GLARGINE SYRINGE. SQ SCH (09:00)
[2021-07-01] MEDS: PANTOPRAZOLE 40 MG TABLET. PO SCH (09:10)
[2021-07-01] MEDS: LINAGLIPTIN 5 MG TABLET PO SCH (09:10)
[2021-07-01] MEDS: ASPIRIN ENTERIC COATED 81 MG TABLET.DR. PO SCH (09:10)
[2021-07-01] MEDS: CHOLECALCIFEROL (VITAMIN D3) 50,000 UNIT CAPSULE PO SCH (09:10)
[2021-07-01] MEDS: glipiZIDE 5 MG TABLET PO SCH ×2 (09:10→19:53)
[2021-07-01] MEDS: VALPROATE ACID 250 MG/5 ML ORAL SOLUTION PO SCH ×2 (09:10→19:52)
[2021-07-01] MEDS: LUBIPROSTONE 24 MCG CAPSULE PO SCH ×3 (09:11→20:50)
[2021-07-01] MEDS: ASCORBIC ACID 500 MG TABLET PO SCH (09:11)
[2021-07-01] MEDS: SUCRALFATE 1 GM TABLET. PO SCH ×3 (09:11→20:51)
[2021-07-01] MEDS: PRENATAL MULTIVITAMIN TABLET. PO SCH (09:11)
[2021-07-01] MEDS: risperiDONE ORAL 1 MG/ML 30ml BOTTLE. SL SCH (09:15)
[2021-07-01 17:21] VITALS: BP 133/79
[2021-07-01] MEDS: ATORVASTATIN CALCIUM 20 MG TABLET PO SCH ×2 (19:53→20:51)
[2021-07-01] MEDS: traZODone 50 MG TABLET. PO PRN (19:53)
--- NOTE | 2021-07-01 21:36 | PDOC ---
Exam Note: Adolph Note: Please also refer to the separate dictated note~for this date of service dictated separately.~Patient seen individually. Discussed the patient with Nursing staff reviewed the chart.~Reviewed interim history and current functioning. Reviewed vital signs,~Labs/ Radiology~and current medications noted below. Continue current treatment with the changes noted in the dictated addendum note Assessment: Vital Signs/I&O: Vital Signs Date Time Temp Pulse Resp B/P (MAP) Pulse Ox O2 Delivery O2 Flow Rate FiO2 07/01/21 17:21 97.8 75 20 133/79 (97) 100 06/30/21 06:28 Room Air I & O 06/30/21 06/30/21 07/01/21 15:00 23:00 07:00 Intake Total 420 ml 480 ml Balance 420 ml 480 ml Labs: Laboratory Tests Test 07/01/21 06:34 07/01/21 07:29 07/01/21 11:40 07/01/21 16:47 White Blood Count 8.4 x10^3/uL (4.0-11.0) Red Blood Count 3.96 x10^6/uL (3.50-5.40) Hemoglobin 11.6 g/dL (12.0-15.5) L Hematocrit 35.2 % (36.0-47.0) L Mean Corpuscular Volume 89 fL (79-100) Mean Corpuscular Hemoglobin 29 pg (25-35) Mean Corpuscular Hemoglobin Concent 33 g/dL (31-37) Red Cell Distribution Width 13.8 % (11.5-14.5) Platelet Count 224 x10^3/uL (140-400) Neutrophils (%) (Auto) 63 % (31-73) Lymphocytes (%) (Auto) 23 % (24-48) L Monocytes (%) (Auto) 11 % (0-9) H Eosinophils (%) (Auto) 2 % (0-3) Basophils (%) (Auto) 1 % (0-3) Neutrophils # (Auto) 5.3 x10^3uL (1.8-7.7) Lymphocytes # (Auto) 1.9 x10^3/uL (1.0-4.8) Monocytes # (Auto) 0.9 x10^3/uL (0.0-1.1) Eosinophils # (Auto) 0.2 x10^3/uL (0.0-0.7) Basophils # (Auto) 0.1 x10^3/uL (0.0-0.2) Sodium Level 141 mmol/L (136-145) Potassium Level 4.3 mmol/L (3.5-5.1) Chloride Level 104 mmol/L (98-107) Carbon Dioxide Level 28 mmol/L (21-32) Anion Gap 9 (6-14) Blood Urea Nitrogen 14 mg/dL (7-20) Creatinine 0.9 mg/dL (0.6-1.0) Estimated GFR (Cockcroft-Gault) 64.8 BUN/Creatinine Ratio 16 (6-20) Glucose Level 103 mg/dL (70-99) H Calcium Level 8.9 mg/dL (8.5-10.1) Total Bilirubin 0.3 mg/dL (0.2-1.0) Aspartate Amino Transferase (AST) 15 U/L (15-37) Alanine Aminotransferase (ALT) 22 U/L (14-59) Alkaline Phosphatase 68 U/L (46-116) Total Protein 6.6 g/dL (6.4-8.2) Albumin 3.2 g/dL (3.4-5.0) L Albumin/Globulin Ratio 0.9 (1.0-1.7) L Valproic Acid Level 88 mcg/mL (50-100) Valproic Acid Last Dose Date 06/30/21 Valproic Acid Last Dose Time 2100 Glucose (Fingerstick) 109 mg/dL (70-99) H 209 mg/dL (70-99) H 165 mg/dL (70-99) H Test 07/01/21 19:07 Glucose (Fingerstick) 122 mg/dL (70-99) H Current Medications: Meds: Laboratory Tests Test 07/01/21 06:34 07/01/21 07:29 07/01/21 11:40 07/01/21 16:47 White Blood Count 8.4 x10^3/uL Red Blood Count 3.96 x10^6/uL Hemoglobin 11.6 g/dL Hematocrit 35.2 % Mean Corpuscular Volume 89 fL Mean Corpuscular Hemoglobin 29 pg Mean Corpuscular Hemoglobin Concent 33 g/dL Red Cell Distribution Width 13.8 % Platelet Count 224 x10^3/uL Neutrophils (%) (Auto) 63 % Lymphocytes (%) (Auto) 23 % Monocytes (%) (Auto) 11 % Eosinophils (%) (Auto) 2 % Basophils (%) (Auto) 1 % Neutrophils # (Auto) 5.3 x10^3uL Lymphocytes # (Auto) 1.9 x10^3/uL Monocytes # (Auto) 0.9 x10^3/uL Eosinophils # (Auto) 0.2 x10^3/uL Basophils # (Auto) 0.1 x10^3/uL Sodium Level 141 mmol/L Potassium Level 4.3 mmol/L Chloride Level 104 mmol/L Carbon Dioxide Level 28 mmol/L Anion Gap 9 Blood Urea Nitrogen 14 mg/dL Creatinine 0.9 mg/dL Estimated GFR (Cockcroft-Gault) 64.8 BUN/Creatinine Ratio 16 Glucose Level 103 mg/dL Calcium Level 8.9 mg/dL Total Bilirubin 0.3 mg/dL Aspartate Amino Transf (AST/SGOT) 15 U/L Alanine Aminotransferase (ALT/SGPT) 22 U/L Alkaline Phosphatase 68 U/L Total Protein 6.6 g/dL Albumin 3.2 g/dL Albumin/Globulin Ratio 0.9 Valproic Acid (Depakene) Level 88 mcg/mL Valproic Acid Last Dose Date 06/30/21 Valproic Acid Last Dose Time 2100 Glucose (Fingerstick) 109 mg/dL 209 mg/dL 165 mg/dL Test 07/01/21 19:07 Glucose (Fingerstick) 122 mg/dL Current Medications Medications (Trade) Dose Ordered Sig/Karsten Route PRN Reason Start Time Stop Time Status Last Admin Dose Admin Acetaminophen (Tylenol) 650 mg PRN Q6HRS PRN PO MILD PAIN / TEMP > 100.3'F 06/09/21 21:45 06/16/21 04:52 Multi-Ingredient Ointment (Analgesic [place]) 1 bia PRN QID PRN TP MUSCLE PAIN 06/09/21 21:45 Al Hydroxide/Mg Hydroxide (Mylanta Plus Xs) 15 ml PRN AFTMEALHC PRN PO DYSPEPSIA 06/09/21 21:45 Magnesium Hydroxide (Milk Of Magnesia) 2,400 mg PRN QHS PRN PO 1ST CHOICE CONSTIPATION 06/09/21 21:45 Aspirin (Aspirin Enteric Coated) 81 mg DAILY PO 06/10/21 09:00 07/01/21 09:10 Atorvastatin Calcium (Lipitor) 20 mg QHS PO 06/10/21 21:00 06/30/21 20:01 Dicyclomine HCl (Bentyl) 20 mg PRN Q6HRS PRN PO GI SYMPTOMS 06/09/21 22:30 Fluticasone Propionate (Flonase) 2 spray DAILY NS 06/10/21 09:00 07/01/21 09:00 Glipizide (Glucotrol) 5 mg BID PO 06/10/21 09:00 07/01/21 19:53 Insulin Glargine (Lantus Syringe) 16 unit DAILY SQ 06/10/21 09:00 07/01/21 09:00 Lamotrigine (LaMICtal) 100 mg BID PO 06/10/21 09:00 06/16/21 13:52 DC 06/16/21 09:49 Levothyroxine Sodium (Synthroid) 175 mcg DAILY06 PO 06/10/21 06:00 07/01/21 05:24 Megestrol Acetate (Megace Oral Susp) 400 mg BIDWMEALS PO 06/10/21 08:00 06/19/21 01:22 DC 06/18/21 09:57 Olanzapine (ZyPREXA) 5 mg PRN Q2HR PRN PO ANXIETY / AGITATION 06/09/21 22:30 06/10/21 10:34 DC Ondansetron HCl (Zofran Odt) 4 mg BID PO 06/10/21 09:00 06/10/21 20:29 DC 06/10/21 08:53 Pantoprazole Sodium (Protonix) 40 mg DAILYAC PO 06/10/21 07:30 07/01/21 09:10 Quetiapine Fumarate (SEROquel) 100 mg TID PO 06/10/21 09:00 06/12/21 04:58 DC 06/11/21 21:19 Sertraline HCl (Zoloft) 100 mg DAILY PO 06/10/21 09:00 06/16/21 13:52 DC 06/15/21 08:00 Sucralfate (Carafate) 2 gm BID PO 06/10/21 09:00 07/01/21 09:11 Linagliptin (Tradjenta) 5 mg DAILY PO 06/10/21 09:00 07/01/21 09:10 Ascorbic Acid (Vitamin C) 500 mg DAILY PO 06/10/21 09:00 07/01/21 09:11 Ferrous Sulfate (Feosol) 325 mg DAILY PO 06/10/21 09:00 07/01/21 09:00 Lubiprostone (Amitiza) 24 mcg BID PO 06/10/21 09:00 07/01/21 09:11 Non-Formulary Medication (Nitrofurantoin Macrocrystal (Nitrofurantoin)) 100 mg BID PO 06/10/21 10:30 06/14/21 22:00 Cancel Multivit/ Folic Acid/Iron (Multivitamin ) 1 tab DAILY PO 06/10/21 09:00 07/01/21 09:11 Insulin Human Lispro (HumaLOG) 0-7 UNITS TIDWMEALS SQ 06/10/21 08:00 07/01/21 17:00 Dextrose (Dextrose 50%-Water Syringe) 12.5 gm PRN Q15MIN PRN IV SEE COMMENTS 06/09/21 23:00 Lamotrigine (LaMICtal) 25 mg BID PO 06/10/21 09:00 06/16/21 13:52 DC 06/15/21 20:02 Nitrofurantoin Macrocrystals (Macrobid) 100 mg BID PO 06/10/21 10:45 06/14/21 22:00 DC 06/14/21 20:01 Olanzapine (ZyPREXA ZYDIS) 2.5 mg PRN Q2HR PRN PO PSYCHOSIS 06/10/21 10:45 06/14/21 19:52 DC 06/13/21 22:29 Vitamin D (Vitamin D3) 50,000 unit WEEKLY PO 06/10/21 17:00 07/01/21 09:10 Polyethylene Glycol (miraLAX) 17 gm PRN DAILY PRN PO 2ND CHOICE CONSTIPATION 06/10/21 19:45 Ondansetron HCl (Zofran Odt) 4 mg PRN Q4HRS PRN PO NAUSEA/VOMITING 06/10/21 20:27 06/14/21 11:11 Risperidone (RisperDAL) 0.5 mg BID PO 06/12/21 09:00 06/13/21 18:26 DC 06/13/21 09:20 Divalproex Sodium (Depakote Er) 500 mg QHS PO 06/12/21 21:00 06/14/21 17:08 DC 06/13/21 19:44 Risperidone (RisperDAL) 1 mg BID PO 06/13/21 21:00 06/14/21 18:34 DC 06/13/21 19:46 Divalproex Sodium (Depakote Er) 1,000 mg QHS PO 06/14/21 21:00 06/23/21 18:52 DC 06/22/21 20:03 Risperidone (RisperDAL) 2 mg BID SL 06/14/21 21:00 Cancel Risperidone (RisperDAL) 2 mg DAILY PO 06/14/21 18:45 06/16/21 19:50 DC 06/16/21 11:30 Olanzapine (ZyPREXA ZYDIS) 5 mg PRN Q2HR PRN PO PSYCHOSIS 06/14/21 20:00 07/01/21 20:03 Olanzapine (ZyPREXA ZYDIS) 10 mg 1X ONCE PO 06/14/21 20:00 06/14/21 20:01 DC 06/14/21 20:02 Risperidone (RisperDAL) 1 mg 1X ONCE SL 06/16/21 20:00 06/16/21 20:01 DC 06/16/21 20:14 Risperidone (RisperDAL) 3 mg DAILY SL 06/17/21 09:00 06/29/21 17:00 DC 06/29/21 08:28 Trazodone HCl (Desyrel) 50 mg PRN QHS PRN PO INSOMNIA, MAY REPEAT X1 06/16/21 20:00 07/01/21 19:53 Nitrofurantoin Macrocrystals (Macrobid) 100 mg BID PO 06/19/21 21:00 06/26/21 09:01 DC 06/26/21 09:19 Divalproex Sodium (Depakote Er) 1,500 mg QHS PO 06/23/21 21:00 06/26/21 20:35 DC 06/24/21 20:13 Risperidone (RisperDAL CONSTA) 25 mg Q2WKS IM 06/27/21 09:00 06/27/21 11:44 Risperidone (RisperDAL CONSTA) 25 mg Q2WKS IM 06/27/21 09:00 UNV Valproic Acid (Depakene) 500 mg DAILY PO 06/27/21 09:00 07/01/21 09:10 Valproic Acid (Depakene) 1,000 mg HS PO 06/26/21 21:00 07/01/21 19:52 Risperidone (RisperDAL) 4 mg DAILY SL 06/30/21 09:00 07/01/21 09:15 I have reviewed the current psychotropics carefully including drug interactions. Risk benefit ratio favors no change other than as noted in my dictated progress note. Diagnosis: Problems: (1) Schizoaffective disorder, bipolar type (2) Impulse control disorder, unspecified (3) Anxiety disorder, unspecified (4) Bipolar disorder, current episode mixed, severe, with psychotic features RIGOBERTO SANDERS MD Jul 01, 2021 21:36
[2021-07-02] MEDS: LEVOTHYROXINE 175 MCG TABLET PO SCH (05:30)
[2021-07-02 06:19] VITALS: BP 129/65
[2021-07-02] MEDS: PANTOPRAZOLE 40 MG TABLET. PO SCH (07:30)
[2021-07-02] MEDS: INSULIN LISPRO 300 UNITS/3 ML VIAL. SQ SCH ×3 (08:00→17:00)
[2021-07-02] MEDS: LUBIPROSTONE 24 MCG CAPSULE PO SCH ×2 (08:34→19:40)
[2021-07-02] MEDS: FLUTICASONE 50MCG/NASAL SPRAY 16GM BOTTLE. NS SCH (08:34)
[2021-07-02] MEDS: ASPIRIN ENTERIC COATED 81 MG TABLET.DR. PO SCH (08:34)
[2021-07-02] MEDS: SUCRALFATE 1 GM TABLET. PO SCH ×2 (08:34→19:40)
[2021-07-02] MEDS: VALPROATE ACID 250 MG/5 ML ORAL SOLUTION PO SCH ×2 (08:36→19:41)
[2021-07-02] MEDS: FERROUS SULFATE 325 MG TABLET. PO SCH (08:36)
[2021-07-02] MEDS: PRENATAL MULTIVITAMIN TABLET. PO SCH (08:36)
[2021-07-02] MEDS: ASCORBIC ACID 500 MG TABLET PO SCH (08:36)
[2021-07-02] MEDS: glipiZIDE 5 MG TABLET PO SCH ×2 (08:36→19:40)
[2021-07-02] MEDS: risperiDONE ORAL 1 MG/ML 30ml BOTTLE. SL SCH (08:36)
[2021-07-02] MEDS: LINAGLIPTIN 5 MG TABLET PO SCH (09:00)
[2021-07-02] MEDS: INSULIN GLARGINE SYRINGE. SQ SCH (09:00)
--- NOTE | 2021-07-02 09:04 | PDOC ---
Exam Note: Adolph Note: This note is a late entry for 07/01/2021 covers elements not covered in my initial note. Subjective: The patient was seen individually on 07/01/2021, discussed and reviewed the chart with Jacey KAHN. The patient slept 6-1/2 hours previous night. She refused her medications, then later got Risperdal and Depakene liquid in Sprite. Valproic acid level is 88. Liver enzymes unremarkable. She has been little more cooperative, less psychotic despite refusing medications. Review of Systems: Ambulation impaired, in wheelchair. No CV, , pulmonary, eye, ENT system symptoms on review. Mental Status Exam: Patient is oriented to herself and situation. She is not very verbally interactive. Speech coherent. Abstraction fair. Computation impaired. Language function intact. Attention span short, less psychotic. Laboratory Data: Reviewed. Impression: Bipolar 1 disorder manic with psychotic features. Anxiety disorder unspecified. Impulse control disorder unspecified. Mild cognitive impairment. Plan: Continue current psychotropics unchanged Risperdal oral 4 mg a day, Risperdal Consta, Depakene. Reviewed drug interactions and risk-benefit ratio. Valproic acid level is therapeutic. Assessment: Vital Signs/I&O: Vital Signs Date Time Temp Pulse Resp B/P (MAP) Pulse Ox O2 Delivery O2 Flow Rate FiO2 07/02/21 06:19 97.7 81 20 129/65 (86) 92 06/30/21 06:28 Room Air I & O 07/01/21 07/01/21 07/02/21 15:00 23:00 07:00 Intake Total 590 ml 360 ml Balance 590 ml 360 ml Labs: Laboratory Tests Test 07/01/21 11:40 07/01/21 16:47 07/01/21 19:07 07/02/21 07:37 Glucose (Fingerstick) 209 mg/dL (70-99) H 165 mg/dL (70-99) H 122 mg/dL (70-99) H 161 mg/dL (70-99) H Current Medications: I have reviewed the current psychotropics carefully including drug interactions. Risk benefit ratio favors no change other than as noted in my dictated progress note. Diagnosis: Problems: (1) Schizoaffective disorder, bipolar type (2) Impulse control disorder, unspecified (3) Anxiety disorder, unspecified (4) Bipolar disorder, current episode mixed, severe, with psychotic features RIGOBERTO SANDERS MD Jul 02, 2021 09:04
[2021-07-02 15:50] VITALS: BP 153/74
[2021-07-02] MEDS: traZODone 50 MG TABLET. PO PRN (19:40)
[2021-07-02] MEDS: ATORVASTATIN CALCIUM 20 MG TABLET PO SCH (19:40)
--- NOTE | 2021-07-02 21:54 | PDOC ---
Exam Note: Adolph Note: Please also refer to the separate dictated note~for this date of service dictated separately.~Patient seen individually. Discussed the patient with Nursing staff reviewed the chart.~Reviewed interim history and current functioning. Reviewed vital signs,~Labs/ Radiology~and current medications noted below. Continue current treatment with the changes noted in the dictated addendum note Assessment: Vital Signs/I&O: Vital Signs Date Time Temp Pulse Resp B/P (MAP) Pulse Ox O2 Delivery O2 Flow Rate FiO2 07/02/21 15:50 98.8 83 20 153/74 (100) 99 06/30/21 06:28 Room Air I & O 07/01/21 07/01/21 07/02/21 15:00 23:00 07:00 Intake Total 590 ml 360 ml Balance 590 ml 360 ml Labs: Laboratory Tests Test 07/02/21 07:37 07/02/21 11:41 07/02/21 17:02 07/02/21 19:31 Glucose (Fingerstick) 161 mg/dL (70-99) H 229 mg/dL (70-99) H 188 mg/dL (70-99) H 195 mg/dL (70-99) H Current Medications: Meds: Laboratory Tests Test 07/02/21 07:37 07/02/21 11:41 07/02/21 17:02 07/02/21 19:31 Glucose (Fingerstick) 161 mg/dL 229 mg/dL 188 mg/dL 195 mg/dL Current Medications Medications (Trade) Dose Ordered Sig/Karsten Route PRN Reason Start Time Stop Time Status Last Admin Dose Admin Acetaminophen (Tylenol) 650 mg PRN Q6HRS PRN PO MILD PAIN / TEMP > 100.3'F 06/09/21 21:45 06/16/21 04:52 Multi-Ingredient Ointment (Analgesic [place]) 1 bia PRN QID PRN TP MUSCLE PAIN 06/09/21 21:45 Al Hydroxide/Mg Hydroxide (Mylanta Plus Xs) 15 ml PRN AFTMEALHC PRN PO DYSPEPSIA 06/09/21 21:45 Magnesium Hydroxide (Milk Of Magnesia) 2,400 mg PRN QHS PRN PO 1ST CHOICE CONSTIPATION 06/09/21 21:45 Aspirin (Aspirin Enteric Coated) 81 mg DAILY PO 06/10/21 09:00 07/02/21 08:34 Atorvastatin Calcium (Lipitor) 20 mg QHS PO 06/10/21 21:00 07/02/21 19:40 Dicyclomine HCl (Bentyl) 20 mg PRN Q6HRS PRN PO GI SYMPTOMS 06/09/21 22:30 Fluticasone Propionate (Flonase) 2 spray DAILY NS 06/10/21 09:00 07/02/21 08:34 Glipizide (Glucotrol) 5 mg BID PO 06/10/21 09:00 07/02/21 19:40 Insulin Glargine (Lantus Syringe) 16 unit DAILY SQ 06/10/21 09:00 07/02/21 09:00 Lamotrigine (LaMICtal) 100 mg BID PO 06/10/21 09:00 06/16/21 13:52 DC 06/16/21 09:49 Levothyroxine Sodium (Synthroid) 175 mcg DAILY06 PO 06/10/21 06:00 07/02/21 05:30 Megestrol Acetate (Megace Oral Susp) 400 mg BIDWMEALS PO 06/10/21 08:00 06/19/21 01:22 DC 06/18/21 09:57 Olanzapine (ZyPREXA) 5 mg PRN Q2HR PRN PO ANXIETY / AGITATION 06/09/21 22:30 06/10/21 10:34 DC Ondansetron HCl (Zofran Odt) 4 mg BID PO 06/10/21 09:00 06/10/21 20:29 DC 06/10/21 08:53 Pantoprazole Sodium (Protonix) 40 mg DAILYAC PO 06/10/21 07:30 07/02/21 07:30 Quetiapine Fumarate (SEROquel) 100 mg TID PO 06/10/21 09:00 06/12/21 04:58 DC 06/11/21 21:19 Sertraline HCl (Zoloft) 100 mg DAILY PO 06/10/21 09:00 06/16/21 13:52 DC 06/15/21 08:00 Sucralfate (Carafate) 2 gm BID PO 06/10/21 09:00 07/02/21 19:40 Linagliptin (Tradjenta) 5 mg DAILY PO 06/10/21 09:00 07/02/21 09:00 Ascorbic Acid (Vitamin C) 500 mg DAILY PO 06/10/21 09:00 07/02/21 08:36 Ferrous Sulfate (Feosol) 325 mg DAILY PO 06/10/21 09:00 07/02/21 08:36 Lubiprostone (Amitiza) 24 mcg BID PO 06/10/21 09:00 07/02/21 19:40 Non-Formulary Medication (Nitrofurantoin Macrocrystal (Nitrofurantoin)) 100 mg BID PO 06/10/21 10:30 06/14/21 22:00 Cancel Multivit/ Folic Acid/Iron (Multivitamin ) 1 tab DAILY PO 06/10/21 09:00 07/02/21 08:36 Insulin Human Lispro (HumaLOG) 0-7 UNITS TIDWMEALS SQ 06/10/21 08:00 07/02/21 17:00 Dextrose (Dextrose 50%-Water Syringe) 12.5 gm PRN Q15MIN PRN IV SEE COMMENTS 06/09/21 23:00 Lamotrigine (LaMICtal) 25 mg BID PO 06/10/21 09:00 06/16/21 13:52 DC 06/15/21 20:02 Nitrofurantoin Macrocrystals (Macrobid) 100 mg BID PO 06/10/21 10:45 06/14/21 22:00 DC 06/14/21 20:01 Olanzapine (ZyPREXA ZYDIS) 2.5 mg PRN Q2HR PRN PO PSYCHOSIS 06/10/21 10:45 06/14/21 19:52 DC 06/13/21 22:29 Vitamin D (Vitamin D3) 50,000 unit WEEKLY PO 06/10/21 17:00 07/01/21 09:10 Polyethylene Glycol (miraLAX) 17 gm PRN DAILY PRN PO 2ND CHOICE CONSTIPATION 06/10/21 19:45 Ondansetron HCl (Zofran Odt) 4 mg PRN Q4HRS PRN PO NAUSEA/VOMITING 06/10/21 20:27 06/14/21 11:11 Risperidone (RisperDAL) 0.5 mg BID PO 06/12/21 09:00 06/13/21 18:26 DC 06/13/21 09:20 Divalproex Sodium (Depakote Er) 500 mg QHS PO 06/12/21 21:00 06/14/21 17:08 DC 06/13/21 19:44 Risperidone (RisperDAL) 1 mg BID PO 06/13/21 21:00 06/14/21 18:34 DC 06/13/21 19:46 Divalproex Sodium (Depakote Er) 1,000 mg QHS PO 06/14/21 21:00 06/23/21 18:52 DC 06/22/21 20:03 Risperidone (RisperDAL) 2 mg BID SL 06/14/21 21:00 Cancel Risperidone (RisperDAL) 2 mg DAILY PO 06/14/21 18:45 06/16/21 19:50 DC 06/16/21 11:30 Olanzapine (ZyPREXA ZYDIS) 5 mg PRN Q2HR PRN PO PSYCHOSIS 06/14/21 20:00 07/02/21 20:15 Olanzapine (ZyPREXA ZYDIS) 10 mg 1X ONCE PO 06/14/21 20:00 06/14/21 20:01 DC 06/14/21 20:02 Risperidone (RisperDAL) 1 mg 1X ONCE SL 06/16/21 20:00 06/16/21 20:01 DC 06/16/21 20:14 Risperidone (RisperDAL) 3 mg DAILY SL 06/17/21 09:00 06/29/21 17:00 DC 06/29/21 08:28 Trazodone HCl (Desyrel) 50 mg PRN QHS PRN PO INSOMNIA, MAY REPEAT X1 06/16/21 20:00 07/02/21 19:40 Nitrofurantoin Macrocrystals (Macrobid) 100 mg BID PO 06/19/21 21:00 06/26/21 09:01 DC 06/26/21 09:19 Divalproex Sodium (Depakote Er) 1,500 mg QHS PO 06/23/21 21:00 06/26/21 20:35 DC 06/24/21 20:13 Risperidone (RisperDAL CONSTA) 25 mg Q2WKS IM 06/27/21 09:00 06/27/21 11:44 Risperidone (RisperDAL CONSTA) 25 mg Q2WKS IM 06/27/21 09:00 UNV Valproic Acid (Depakene) 500 mg DAILY PO 06/27/21 09:00 07/02/21 08:36 Valproic Acid (Depakene) 1,000 mg HS PO 06/26/21 21:00 07/02/21 19:41 Risperidone (RisperDAL) 4 mg DAILY SL 06/30/21 09:00 07/02/21 08:36 Gabapentin (Neurontin) 100 mg TID PO 07/03/21 09:00 UNV I have reviewed the current psychotropics carefully including drug interactions. Risk benefit ratio favors no change other than as noted in my dictated progress note. Diagnosis: Problems: (1) Schizoaffective disorder, bipolar type (2) Impulse control disorder, unspecified (3) Anxiety disorder, unspecified (4) Bipolar disorder, current episode mixed, severe, with psychotic features RIGOBERTO SANDERS MD Jul 02, 2021 21:54
[2021-07-03] MEDS: LEVOTHYROXINE 175 MCG TABLET PO SCH (05:51)
[2021-07-03 06:28] VITALS: BP 146/65
[2021-07-03] MEDS: PANTOPRAZOLE 40 MG TABLET. PO SCH (07:30)
[2021-07-03] MEDS: INSULIN LISPRO 300 UNITS/3 ML VIAL. SQ SCH ×3 (07:53→16:56)
[2021-07-03] MEDS: LUBIPROSTONE 24 MCG CAPSULE PO SCH ×2 (08:33→20:18)
[2021-07-03] MEDS: VALPROATE ACID 250 MG/5 ML ORAL SOLUTION PO SCH ×3 (08:34→20:18)
[2021-07-03] MEDS: FERROUS SULFATE 325 MG TABLET. PO SCH ×2 (08:34→09:00)
[2021-07-03] MEDS: SUCRALFATE 1 GM TABLET. PO SCH ×3 (08:34→20:18)
[2021-07-03] MEDS: PRENATAL MULTIVITAMIN TABLET. PO SCH ×2 (08:34→09:00)
[2021-07-03] MEDS: glipiZIDE 5 MG TABLET PO SCH ×2 (08:34→20:19)
[2021-07-03] MEDS: ASPIRIN ENTERIC COATED 81 MG TABLET.DR. PO SCH (08:34)
[2021-07-03] MEDS: LINAGLIPTIN 5 MG TABLET PO SCH (08:35)
[2021-07-03] MEDS: ASCORBIC ACID 500 MG TABLET PO SCH ×2 (08:35→09:00)
[2021-07-03] MEDS: risperiDONE ORAL 1 MG/ML 30ml BOTTLE. SL SCH (09:00)
[2021-07-03] MEDS: GABAPENTIN 100 MG CAPSULE. PO SCH ×3 (09:00→17:00)
[2021-07-03] MEDS: INSULIN GLARGINE SYRINGE. SQ SCH (09:00)
[2021-07-03] MEDS: FLUTICASONE 50MCG/NASAL SPRAY 16GM BOTTLE. NS SCH (09:00)
[2021-07-03 15:46] VITALS: BP 148/80
[2021-07-03 19:30] LABS: BACTERIA,URINE MANY /HPF (0-FEW); CLARITY,URINE HAZY; COLOR,URINE YELLOW; GLUCOSE,URINE NEG (NEG); NITRITE,URINE POS (NEG); RBC,URINE 0 /HPF (0-2); SQUAMOUS EPITHELIAL CELL,UR FEW /LPF; UROBILINOGEN,URINE 0.2 mg/dL (0.2 mg/dL)
[2021-07-03] MEDS: ATORVASTATIN CALCIUM 20 MG TABLET PO SCH (20:18)
--- NOTE | 2021-07-03 21:34 | PDOC ---
Exam Note: Adolph Note: Please also refer to the separate dictated note~for this date of service dictated separately.~Patient seen individually. Discussed the patient with Nursing staff reviewed the chart.~Reviewed interim history and current functioning. Reviewed vital signs,~Labs/ Radiology~and current medications noted below. Continue current treatment with the changes noted in the dictated addendum note Assessment: Vital Signs/I&O: Vital Signs Date Time Temp Pulse Resp B/P (MAP) Pulse Ox O2 Delivery O2 Flow Rate FiO2 07/03/21 15:46 98.7 77 16 148/80 (102) 96 Room Air I & O 07/02/21 07/02/21 07/03/21 15:00 23:00 07:00 Intake Total 1920 ml 360 ml Balance 1920 ml 360 ml Labs: Laboratory Tests Test 07/03/21 07:46 07/03/21 11:51 07/03/21 16:53 07/03/21 19:00 Glucose (Fingerstick) 115 mg/dL (70-99) H 224 mg/dL (70-99) H 91 mg/dL (70-99) Urine Collection Type Clean catch Urine Color Yellow Urine Clarity Hazy Urine pH 6.0 Urine Specific [place] >=1.030 Urine Protein Neg (NEG-TRACE) Urine Glucose (UA) Neg mg/dL (NEG) Urine Ketones (Stick) Neg mg/dL (NEG) Urine Blood Neg (NEG) Urine Nitrite Pos (NEG) Urine Bilirubin Neg (NEG) Urine Urobilinogen Dipstick 0.2 mg/dL (0.2 mg/dL) Urine Leukocyte Esterase Trace (NEG) Urine RBC 0 /HPF (0-2) Urine WBC 5-10 /HPF (0-4) Urine Squamous Epithelial Cells Few /LPF Urine Bacteria Many /HPF (0-FEW) Test 07/03/21 19:17 Glucose (Fingerstick) 224 mg/dL (70-99) H Current Medications: Meds: Laboratory Tests Test 07/03/21 07:46 07/03/21 11:51 07/03/21 16:53 07/03/21 19:00 Glucose (Fingerstick) 115 mg/dL 224 mg/dL 91 mg/dL Urine Collection Type Clean catch Urine Color Yellow Urine Clarity Hazy Urine pH 6.0 Urine Specific [place] >=1.030 Urine Protein Neg Urine Glucose (UA) Neg mg/dL Urine Ketones (Stick) Neg mg/dL Urine Blood Neg Urine Nitrite Pos Urine Bilirubin Neg Urine Urobilinogen Dipstick 0.2 mg/dL Urine Leukocyte Esterase Trace Urine RBC 0 /HPF Urine WBC 5-10 /HPF Urine Squamous Epithelial Cells Few /LPF Urine Bacteria Many /HPF Test 07/03/21 19:17 Glucose (Fingerstick) 224 mg/dL Current Medications Medications (Trade) Dose Ordered Sig/Karsten Route PRN Reason Start Time Stop Time Status Last Admin Dose Admin Acetaminophen (Tylenol) 650 mg PRN Q6HRS PRN PO MILD PAIN / TEMP > 100.3'F 06/09/21 21:45 06/16/21 04:52 Multi-Ingredient Ointment (Analgesic [place]) 1 bia PRN QID PRN TP MUSCLE PAIN 06/09/21 21:45 Al Hydroxide/Mg Hydroxide (Mylanta Plus Xs) 15 ml PRN AFTMEALHC PRN PO DYSPEPSIA 06/09/21 21:45 Magnesium Hydroxide (Milk Of Magnesia) 2,400 mg PRN QHS PRN PO 1ST CHOICE CONSTIPATION 06/09/21 21:45 Aspirin (Aspirin Enteric Coated) 81 mg DAILY PO 06/10/21 09:00 07/03/21 08:34 Atorvastatin Calcium (Lipitor) 20 mg QHS PO 06/10/21 21:00 07/03/21 20:18 Dicyclomine HCl (Bentyl) 20 mg PRN Q6HRS PRN PO GI SYMPTOMS 06/09/21 22:30 Fluticasone Propionate (Flonase) 2 spray DAILY NS 06/10/21 09:00 07/02/21 08:34 Glipizide (Glucotrol) 5 mg BID PO 06/10/21 09:00 07/03/21 20:19 Insulin Glargine (Lantus Syringe) 16 unit DAILY SQ 06/10/21 09:00 07/03/21 09:00 Lamotrigine (LaMICtal) 100 mg BID PO 06/10/21 09:00 06/16/21 13:52 DC 06/16/21 09:49 Levothyroxine Sodium (Synthroid) 175 mcg DAILY06 PO 06/10/21 06:00 07/03/21 05:51 Megestrol Acetate (Megace Oral Susp) 400 mg BIDWMEALS PO 06/10/21 08:00 06/19/21 01:22 DC 06/18/21 09:57 Olanzapine (ZyPREXA) 5 mg PRN Q2HR PRN PO ANXIETY / AGITATION 06/09/21 22:30 06/10/21 10:34 DC Ondansetron HCl (Zofran Odt) 4 mg BID PO 06/10/21 09:00 06/10/21 20:29 DC 06/10/21 08:53 Pantoprazole Sodium (Protonix) 40 mg DAILYAC PO 06/10/21 07:30 07/02/21 07:30 Quetiapine Fumarate (SEROquel) 100 mg TID PO 06/10/21 09:00 06/12/21 04:58 DC 06/11/21 21:19 Sertraline HCl (Zoloft) 100 mg DAILY PO 06/10/21 09:00 06/16/21 13:52 DC 06/15/21 08:00 Sucralfate (Carafate) 2 gm BID PO 06/10/21 09:00 07/03/21 20:18 Linagliptin (Tradjenta) 5 mg DAILY PO 06/10/21 09:00 07/03/21 08:35 Ascorbic Acid (Vitamin C) 500 mg DAILY PO 06/10/21 09:00 07/02/21 08:36 Ferrous Sulfate (Feosol) 325 mg DAILY PO 06/10/21 09:00 07/02/21 08:36 Lubiprostone (Amitiza) 24 mcg BID PO 06/10/21 09:00 07/03/21 20:18 Non-Formulary Medication (Nitrofurantoin Macrocrystal (Nitrofurantoin)) 100 mg BID PO 06/10/21 10:30 06/14/21 22:00 Cancel Multivit/ Folic Acid/Iron (Multivitamin ) 1 tab DAILY PO 06/10/21 09:00 07/02/21 08:36 Insulin Human Lispro (HumaLOG) 0-7 UNITS TIDWMEALS SQ 06/10/21 08:00 07/03/21 12:00 Dextrose (Dextrose 50%-Water Syringe) 12.5 gm PRN Q15MIN PRN IV SEE COMMENTS 06/09/21 23:00 Lamotrigine (LaMICtal) 25 mg BID PO 06/10/21 09:00 06/16/21 13:52 DC 06/15/21 20:02 Nitrofurantoin Macrocrystals (Macrobid) 100 mg BID PO 06/10/21 10:45 06/14/21 22:00 DC 06/14/21 20:01 Olanzapine (ZyPREXA ZYDIS) 2.5 mg PRN Q2HR PRN PO PSYCHOSIS 06/10/21 10:45 06/14/21 19:52 DC 06/13/21 22:29 Vitamin D (Vitamin D3) 50,000 unit WEEKLY PO 06/10/21 17:00 07/01/21 09:10 Polyethylene Glycol (miraLAX) 17 gm PRN DAILY PRN PO 2ND CHOICE CONSTIPATION 06/10/21 19:45 Ondansetron HCl (Zofran Odt) 4 mg PRN Q4HRS PRN PO NAUSEA/VOMITING 06/10/21 20:27 06/14/21 11:11 Risperidone (RisperDAL) 0.5 mg BID PO 06/12/21 09:00 06/13/21 18:26 DC 06/13/21 09:20 Divalproex Sodium (Depakote Er) 500 mg QHS PO 06/12/21 21:00 06/14/21 17:08 DC 06/13/21 19:44 Risperidone (RisperDAL) 1 mg BID PO 06/13/21 21:00 06/14/21 18:34 DC 06/13/21 19:46 Divalproex Sodium (Depakote Er) 1,000 mg QHS PO 06/14/21 21:00 06/23/21 18:52 DC 06/22/21 20:03 Risperidone (RisperDAL) 2 mg BID SL 06/14/21 21:00 Cancel Risperidone (RisperDAL) 2 mg DAILY PO 06/14/21 18:45 06/16/21 19:50 DC 06/16/21 11:30 Olanzapine (ZyPREXA ZYDIS) 5 mg PRN Q2HR PRN PO PSYCHOSIS 06/14/21 20:00 07/02/21 20:15 Olanzapine (ZyPREXA ZYDIS) 10 mg 1X ONCE PO 06/14/21 20:00 06/14/21 20:01 DC 06/14/21 20:02 Risperidone (RisperDAL) 1 mg 1X ONCE SL 06/16/21 20:00 06/16/21 20:01 DC 06/16/21 20:14 Risperidone (RisperDAL) 3 mg DAILY SL 06/17/21 09:00 06/29/21 17:00 DC 06/29/21 08:28 Trazodone HCl (Desyrel) 50 mg PRN QHS PRN PO INSOMNIA, MAY REPEAT X1 06/16/21 20:00 07/02/21 19:40 Nitrofurantoin Macrocrystals (Macrobid) 100 mg BID PO 06/19/21 21:00 06/26/21 09:01 DC 06/26/21 09:19 Divalproex Sodium (Depakote Er) 1,500 mg QHS PO 06/23/21 21:00 06/26/21 20:35 DC 06/24/21 20:13 Risperidone (RisperDAL CONSTA) 25 mg Q2WKS IM 06/27/21 09:00 06/27/21 11:44 Risperidone (RisperDAL CONSTA) 25 mg Q2WKS IM 06/27/21 09:00 UNV Valproic Acid (Depakene) 500 mg DAILY PO 06/27/21 09:00 07/03/21 09:41 Valproic Acid (Depakene) 1,000 mg HS PO 06/26/21 21:00 07/03/21 20:18 Risperidone (RisperDAL) 4 mg DAILY SL 06/30/21 09:00 07/03/21 09:00 Gabapentin (Neurontin) 100 mg TID@0900,1300,1700 PO 07/03/21 09:00 07/03/21 17:00 Current Medications Medications (Trade) Dose Ordered Sig/Karsten Route PRN Reason Start Time Stop Time Status Last Admin Dose Admin Gabapentin (Neurontin) 100 mg TID@0900,1300,1700 PO 07/03/21 09:00 07/03/21 17:00 I have reviewed the current psychotropics carefully including drug interactions. Risk benefit ratio favors no change other than as noted in my dictated progress note. Diagnosis: Problems: (1) Schizoaffective disorder, bipolar type (2) Impulse control disorder, unspecified (3) Anxiety disorder, unspecified (4) Bipolar disorder, current episode mixed, severe, with psychotic features RIGOBERTO SANDERS MD July 03, 2021 21:33
[2021-07-04] MEDS: LEVOTHYROXINE 175 MCG TABLET PO SCH (06:00)
[2021-07-04 06:15] VITALS: BP 117/66
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
--- NOTE | 2021-07-04 06:59 | PDOC ---
Exam Note: Adolph Note: This note is a late entry for 07/03/2021 covers elements not covered in my initial note. Subjective: The patient was seen individually on 07/03/2021, discussed and reviewed the chart with Enedelia KAHN. The patient slept 6 hours previous night. She is frequently spitting out her medications. UA was done by straight catheter, nitrites and leukocyte esterase positive, has a foul smell probably has UTI. I will defer to Dr. Alarcon/Dr. Whipple. We will check labs if not done recently. I met with her in her room. Review of Systems: Ambulation impaired, in wheelchair. No CV, , pulmonary, eye, ENT system symptoms on review. Mental Status Exam: Patient is oriented to herself and situation. She is quite withdrawn, verbal response is monosyllabic. Speech coherent. Abstraction fair. Computation impaired. Language function intact. Attention span short. Mood and affect remains labile. Laboratory Data: Reviewed. Impression: Bipolar 1 disorder manic with psychotic features. Anxiety disorder unspecified. Impulse control disorder unspecified. Mild cognitive impairment. UTI. Plan: Continue current psychotropics. Reviewed drug interactions and risk- benefit ratio. Treat the UTI per Dr. Alarcon. Adjust as clinically indicated. Assessment: Vital Signs/I&O: Vital Signs Date Time Temp Pulse Resp B/P (MAP) Pulse Ox O2 Delivery O2 Flow Rate FiO2 07/04/21 06:15 97.8 74 18 117/66 (83) 95 07/03/21 15:46 Room Air I & O 07/03/21 07/03/21 07/04/21 15:00 23:00 07:00 Intake Total 480 ml 360 ml Balance 480 ml 360 ml Labs: Laboratory Tests Test 07/03/21 07:46 07/03/21 11:51 07/03/21 16:53 07/03/21 19:00 Glucose (Fingerstick) 115 mg/dL (70-99) H 224 mg/dL (70-99) H 91 mg/dL (70-99) Urine Collection Type Clean catch Urine Color Yellow Urine Clarity Hazy Urine pH 6.0 Urine Specific [place] >=1.030 Urine Protein Neg (NEG-TRACE) Urine Glucose (UA) Neg mg/dL (NEG) Urine Ketones (Stick) Neg mg/dL (NEG) Urine Blood Neg (NEG) Urine Nitrite Pos (NEG) Urine Bilirubin Neg (NEG) Urine Urobilinogen Dipstick 0.2 mg/dL (0.2 mg/dL) Urine Leukocyte Esterase Trace (NEG) Urine RBC 0 /HPF (0-2) Urine WBC 5-10 /HPF (0-4) Urine Squamous Epithelial Cells Few /LPF Urine Bacteria Many /HPF (0-FEW) Test 07/03/21 19:17 Glucose (Fingerstick) 224 mg/dL (70-99) H Current Medications: Meds: Current Medications Medications (Trade) Dose Ordered Sig/Karsten Route PRN Reason Start Time Stop Time Status Last Admin Dose Admin Gabapentin (Neurontin) 100 mg TID@0900,1300,1700 PO 07/03/21 09:00 07/03/21 17:00 I have reviewed the current psychotropics carefully including drug interactions. Risk benefit ratio favors no change other than as noted in my dictated progress note. Diagnosis: Problems: (1) Schizoaffective disorder, bipolar type (2) Impulse control disorder, unspecified (3) Anxiety disorder, unspecified (4) Bipolar disorder, current episode mixed, severe, with psychotic features RIGOBERTO SANDERS MD July 04, 2021 06:59
[2021-07-04] MEDS: ASPIRIN ENTERIC COATED 81 MG TABLET.DR. PO SCH (07:57)
[2021-07-04] MEDS: PANTOPRAZOLE 40 MG TABLET. PO SCH (07:57)
[2021-07-04] MEDS: FERROUS SULFATE 325 MG TABLET. PO SCH (07:57)
[2021-07-04] MEDS: glipiZIDE 5 MG TABLET PO SCH ×2 (07:57→20:05)
[2021-07-04] MEDS: GABAPENTIN 100 MG CAPSULE. PO SCH ×3 (07:57→16:47)
[2021-07-04] MEDS: LUBIPROSTONE 24 MCG CAPSULE PO SCH ×2 (07:57→20:05)
[2021-07-04] MEDS: ASCORBIC ACID 500 MG TABLET PO SCH (07:57)
[2021-07-04] MEDS: PRENATAL MULTIVITAMIN TABLET. PO SCH (07:57)
[2021-07-04] MEDS: LINAGLIPTIN 5 MG TABLET PO SCH (07:57)
[2021-07-04] MEDS: SUCRALFATE 1 GM TABLET. PO SCH ×2 (07:57→20:05)
[2021-07-04] MEDS: INSULIN LISPRO 300 UNITS/3 ML VIAL. SQ SCH ×4 (08:00→17:00)
[2021-07-04] MEDS: FLUTICASONE 50MCG/NASAL SPRAY 16GM BOTTLE. NS SCH (08:00)
[2021-07-04] MEDS: risperiDONE ORAL 1 MG/ML 30ml BOTTLE. SL SCH (08:02)
[2021-07-04] MEDS: INSULIN GLARGINE SYRINGE. SQ SCH (09:00)
[2021-07-04 15:47] VITALS: BP 126/77
[2021-07-04] MEDS: VALPROATE ACID 250 MG/5 ML ORAL SOLUTION PO SCH (20:05)
[2021-07-04] MEDS: traZODone 50 MG TABLET. PO PRN (20:05)
[2021-07-04] MEDS: ATORVASTATIN CALCIUM 20 MG TABLET PO SCH (20:05)
--- NOTE | 2021-07-04 21:36 | PDOC ---
Exam Note: Adolph Note: Please also refer to the separate dictated note~for this date of service dictated separately.~Patient seen individually. Discussed the patient with Nursing staff reviewed the chart.~Reviewed interim history and current functioning. Reviewed vital signs,~Labs/ Radiology~and current medications noted below. Continue current treatment with the changes noted in the dictated addendum note Assessment: Vital Signs/I&O: Vital Signs Date Time Temp Pulse Resp B/P (MAP) Pulse Ox O2 Delivery O2 Flow Rate FiO2 07/04/21 15:47 98.1 94 16 126/77 (93) 99 07/03/21 15:46 Room Air I & O 07/03/21 07/03/21 07/04/21 15:00 23:00 07:00 Intake Total 480 ml 360 ml Balance 480 ml 360 ml Labs: Laboratory Tests Test 07/04/21 07:20 07/04/21 17:01 Glucose (Fingerstick) 186 mg/dL (70-99) H 218 mg/dL (70-99) H Current Medications: Meds: Laboratory Tests Test 07/04/21 07:20 07/04/21 17:01 Glucose (Fingerstick) 186 mg/dL 218 mg/dL Current Medications Medications (Trade) Dose Ordered Sig/Karsten Route PRN Reason Start Time Stop Time Status Last Admin Dose Admin Acetaminophen (Tylenol) 650 mg PRN Q6HRS PRN PO MILD PAIN / TEMP > 100.3'F 06/09/21 21:45 06/16/21 04:52 Multi-Ingredient Ointment (Analgesic [place]) 1 bia PRN QID PRN TP MUSCLE PAIN 06/09/21 21:45 Al Hydroxide/Mg Hydroxide (Mylanta Plus Xs) 15 ml PRN AFTMEALHC PRN PO DYSPEPSIA 06/09/21 21:45 Magnesium Hydroxide (Milk Of Magnesia) 2,400 mg PRN QHS PRN PO 1ST CHOICE CONSTIPATION 06/09/21 21:45 Aspirin (Aspirin Enteric Coated) 81 mg DAILY PO 06/10/21 09:00 07/04/21 07:57 Atorvastatin Calcium (Lipitor) 20 mg QHS PO 06/10/21 21:00 07/04/21 20:05 Dicyclomine HCl (Bentyl) 20 mg PRN Q6HRS PRN PO GI SYMPTOMS 06/09/21 22:30 Fluticasone Propionate (Flonase) 2 spray DAILY NS 06/10/21 09:00 07/04/21 08:00 Glipizide (Glucotrol) 5 mg BID PO 06/10/21 09:00 07/04/21 20:05 Insulin Glargine (Lantus Syringe) 16 unit DAILY SQ 06/10/21 09:00 07/04/21 09:00 Lamotrigine (LaMICtal) 100 mg BID PO 06/10/21 09:00 06/16/21 13:52 DC 06/16/21 09:49 Levothyroxine Sodium (Synthroid) 175 mcg DAILY06 PO 06/10/21 06:00 07/04/21 06:00 Megestrol Acetate (Megace Oral Susp) 400 mg BIDWMEALS PO 06/10/21 08:00 06/19/21 01:22 DC 06/18/21 09:57 Olanzapine (ZyPREXA) 5 mg PRN Q2HR PRN PO ANXIETY / AGITATION 06/09/21 22:30 06/10/21 10:34 DC Ondansetron HCl (Zofran Odt) 4 mg BID PO 06/10/21 09:00 06/10/21 20:29 DC 06/10/21 08:53 Pantoprazole Sodium (Protonix) 40 mg DAILYAC PO 06/10/21 07:30 07/04/21 07:57 Quetiapine Fumarate (SEROquel) 100 mg TID PO 06/10/21 09:00 06/12/21 04:58 DC 06/11/21 21:19 Sertraline HCl (Zoloft) 100 mg DAILY PO 06/10/21 09:00 06/16/21 13:52 DC 06/15/21 08:00 Sucralfate (Carafate) 2 gm BID PO 06/10/21 09:00 07/04/21 20:05 Linagliptin (Tradjenta) 5 mg DAILY PO 06/10/21 09:00 07/04/21 07:57 Ascorbic Acid (Vitamin C) 500 mg DAILY PO 06/10/21 09:00 07/04/21 07:57 Ferrous Sulfate (Feosol) 325 mg DAILY PO 06/10/21 09:00 07/04/21 07:57 Lubiprostone (Amitiza) 24 mcg BID PO 06/10/21 09:00 07/04/21 20:05 Non-Formulary Medication (Nitrofurantoin Macrocrystal (Nitrofurantoin)) 100 mg BID PO 06/10/21 10:30 06/14/21 22:00 Cancel Multivit/ Folic Acid/Iron (Multivitamin ) 1 tab DAILY PO 06/10/21 09:00 07/04/21 07:57 Insulin Human Lispro (HumaLOG) 0-7 UNITS TIDWMEALS SQ 06/10/21 08:00 07/03/21 12:00 Dextrose (Dextrose 50%-Water Syringe) 12.5 gm PRN Q15MIN PRN IV SEE COMMENTS 06/09/21 23:00 Lamotrigine (LaMICtal) 25 mg BID PO 06/10/21 09:00 06/16/21 13:52 DC 06/15/21 20:02 Nitrofurantoin Macrocrystals (Macrobid) 100 mg BID PO 06/10/21 10:45 06/14/21 22:00 DC 06/14/21 20:01 Olanzapine (ZyPREXA ZYDIS) 2.5 mg PRN Q2HR PRN PO PSYCHOSIS 06/10/21 10:45 06/14/21 19:52 DC 06/13/21 22:29 Vitamin D (Vitamin D3) 50,000 unit WEEKLY PO 06/10/21 17:00 07/01/21 09:10 Polyethylene Glycol (miraLAX) 17 gm PRN DAILY PRN PO 2ND CHOICE CONSTIPATION 06/10/21 19:45 Ondansetron HCl (Zofran Odt) 4 mg PRN Q4HRS PRN PO NAUSEA/VOMITING 06/10/21 20:27 06/14/21 11:11 Risperidone (RisperDAL) 0.5 mg BID PO 06/12/21 09:00 06/13/21 18:26 DC 06/13/21 09:20 Divalproex Sodium (Depakote Er) 500 mg QHS PO 06/12/21 21:00 06/14/21 17:08 DC 06/13/21 19:44 Risperidone (RisperDAL) 1 mg BID PO 06/13/21 21:00 06/14/21 18:34 DC 06/13/21 19:46 Divalproex Sodium (Depakote Er) 1,000 mg QHS PO 06/14/21 21:00 06/23/21 18:52 DC 06/22/21 20:03 Risperidone (RisperDAL) 2 mg BID SL 06/14/21 21:00 Cancel Risperidone (RisperDAL) 2 mg DAILY PO 06/14/21 18:45 06/16/21 19:50 DC 06/16/21 11:30 Olanzapine (ZyPREXA ZYDIS) 5 mg PRN Q2HR PRN PO PSYCHOSIS 06/14/21 20:00 07/04/21 20:05 Olanzapine (ZyPREXA ZYDIS) 10 mg 1X ONCE PO 06/14/21 20:00 06/14/21 20:01 DC 06/14/21 20:02 Risperidone (RisperDAL) 1 mg 1X ONCE SL 06/16/21 20:00 06/16/21 20:01 DC 06/16/21 20:14 Risperidone (RisperDAL) 3 mg DAILY SL 06/17/21 09:00 06/29/21 17:00 DC 06/29/21 08:28 Trazodone HCl (Desyrel) 50 mg PRN QHS PRN PO INSOMNIA, MAY REPEAT X1 06/16/21 20:00 07/04/21 20:05 Nitrofurantoin Macrocrystals (Macrobid) 100 mg BID PO 06/19/21 21:00 06/26/21 09:01 DC 06/26/21 09:19 Divalproex Sodium (Depakote Er) 1,500 mg QHS PO 06/23/21 21:00 06/26/21 20:35 DC 06/24/21 20:13 Risperidone (RisperDAL CONSTA) 25 mg Q2WKS IM 06/27/21 09:00 06/27/21 11:44 Risperidone (RisperDAL CONSTA) 25 mg Q2WKS IM 06/27/21 09:00 UNV Valproic Acid (Depakene) 500 mg DAILY PO 06/27/21 09:00 07/03/21 09:41 Valproic Acid (Depakene) 1,000 mg HS PO 06/26/21 21:00 07/04/21 20:05 Risperidone (RisperDAL) 4 mg DAILY SL 06/30/21 09:00 07/04/21 08:02 Gabapentin (Neurontin) 100 mg TID@0900,1300,1700 PO 07/03/21 09:00 07/04/21 16:47 I have reviewed the current psychotropics carefully including drug interactions. Risk benefit ratio favors no change other than as noted in my dictated progress note. Diagnosis: Problems: (1) Schizoaffective disorder, bipolar type (2) Impulse control disorder, unspecified (3) Anxiety disorder, unspecified (4) Bipolar disorder, current episode mixed, severe, with psychotic features RIGOBERTO SANDERS MD July 04, 2021 21:36
[2021-07-05] MEDS: LEVOTHYROXINE 175 MCG TABLET PO SCH ×2 (06:00→21:37)
[2021-07-05 06:18] VITALS: BP 140/78
[2021-07-05] MEDS: INSULIN LISPRO 300 UNITS/3 ML VIAL. SQ SCH ×3 (07:48→17:00)
[2021-07-05] MEDS: PANTOPRAZOLE 40 MG TABLET. PO SCH (08:11)
[2021-07-05] MEDS: LUBIPROSTONE 24 MCG CAPSULE PO SCH ×2 (08:11→21:00)
[2021-07-05] MEDS: ASPIRIN ENTERIC COATED 81 MG TABLET.DR. PO SCH (08:11)
[2021-07-05] MEDS: VALPROATE ACID 250 MG/5 ML ORAL SOLUTION PO SCH ×2 (08:11→21:00)
[2021-07-05] MEDS: GABAPENTIN 100 MG CAPSULE. PO SCH ×3 (08:12→17:00)
[2021-07-05] MEDS: glipiZIDE 5 MG TABLET PO SCH ×2 (08:12→21:00)
[2021-07-05] MEDS: LINAGLIPTIN 5 MG TABLET PO SCH (08:12)
[2021-07-05] MEDS: INSULIN GLARGINE SYRINGE. SQ SCH (09:00)
[2021-07-05] MEDS: SUCRALFATE 1 GM TABLET. PO SCH ×2 (09:00→21:00)
[2021-07-05] MEDS: risperiDONE ORAL 1 MG/ML 30ml BOTTLE. SL SCH (09:00)
[2021-07-05] MEDS: ASCORBIC ACID 500 MG TABLET PO SCH (09:00)
[2021-07-05] MEDS: FERROUS SULFATE 325 MG TABLET. PO SCH (09:00)
[2021-07-05] MEDS: FLUTICASONE 50MCG/NASAL SPRAY 16GM BOTTLE. NS SCH (09:00)
[2021-07-05] MEDS: PRENATAL MULTIVITAMIN TABLET. PO SCH (09:00)
--- NOTE | 2021-07-05 10:08 | PDOC ---
Exam Note: Adolph Note: This note is a late entry for 07/04/2021 covers elements not covered in my initial note. Subjective: The patient was seen individually on 07/04/2021, discussed and reviewed the chart with Marj KAHN. The patient slept 6-3/4 hours previous night. She slept through breakfast and then in the evening has been sitting herself on the floor. She takes her medications without getting aggressive. UA is positive for nitrites and leukocyte esterase. Culture is awaited. We will defer to Dr. Alarcon/Dr. Whipple but this could be accounted for some of her mood lability and worsening anxiety. Review of Systems: Ambulation impaired, in wheelchair. No CV, , pulmonary, eye, ENT system symptoms on review. I met with her in her room. She laid herself on the floor. Mental Status Exam: Patient is oriented to herself and situation. Speech coherent has some latency. Abstraction fair. Computation impaired. Language function intact. Mood and affect somewhat withdrawn, less paranoid. Laboratory Data: Reviewed. Impression: Bipolar 1 disorder manic with psychotic features. Anxiety disorder unspecified. Impulse control disorder unspecified. Mild cognitive impairment. Plan: Continue current psychotropics. Reviewed drug interactions and risk- benefit ratio. Adjust as clinically indicated. Assessment: Vital Signs/I&O: Vital Signs Date Time Temp Pulse Resp B/P (MAP) Pulse Ox O2 Delivery O2 Flow Rate FiO2 07/05/21 06:18 97.6 80 20 140/78 (98) 94 Room Air I & O 07/04/21 07/04/21 07/05/21 15:00 23:00 07:00 Intake Total 480 ml 120 ml 60 ml Balance 480 ml 120 ml 60 ml Labs: Laboratory Tests Test 07/04/21 17:01 07/05/21 07:42 Glucose (Fingerstick) 218 mg/dL (70-99) H 118 mg/dL (70-99) H Current Medications: I have reviewed the current psychotropics carefully including drug interactions. Risk benefit ratio favors no change other than as noted in my dictated progress note. Diagnosis: Problems: (1) Schizoaffective disorder, bipolar type (2) Impulse control disorder, unspecified (3) Anxiety disorder, unspecified (4) Bipolar disorder, current episode mixed, severe, with psychotic features RIGOBERTO SANDERS MD July 05, 2021 10:08
[2021-07-05] MEDS: levoFLOXacin 250 MG TABLET PO SCH (17:00)
[2021-07-05] MEDS: ATORVASTATIN CALCIUM 20 MG TABLET PO SCH (21:00)
--- NOTE | 2021-07-05 21:46 | PDOC ---
Exam Note: Adolph Note: Please also refer to the separate dictated note~for this date of service dictated separately.~Patient seen individually. Discussed the patient with Nursing staff reviewed the chart.~Reviewed interim history and current functioning. Reviewed vital signs,~Labs/ Radiology~and current medications noted below. Continue current treatment with the changes noted in the dictated addendum note Assessment: Vital Signs/I&O: Vital Signs Date Time Temp Pulse Resp B/P (MAP) Pulse Ox O2 Delivery O2 Flow Rate FiO2 07/05/21 06:18 97.6 80 20 140/78 (98) 94 Room Air I & O 07/04/21 07/04/21 07/05/21 15:00 23:00 07:00 Intake Total 480 ml 120 ml 60 ml Balance 480 ml 120 ml 60 ml Labs: Laboratory Tests Test 07/05/21 07:42 07/05/21 12:01 07/05/21 16:50 07/05/21 19:07 Glucose (Fingerstick) 118 mg/dL (70-99) H 242 mg/dL (70-99) H 207 mg/dL (70-99) H 143 mg/dL (70-99) H Current Medications: Meds: Laboratory Tests Test 07/05/21 07:42 07/05/21 12:01 07/05/21 16:50 07/05/21 19:07 Glucose (Fingerstick) 118 mg/dL 242 mg/dL 207 mg/dL 143 mg/dL Current Medications Medications (Trade) Dose Ordered Sig/Karsten Route PRN Reason Start Time Stop Time Status Last Admin Dose Admin Acetaminophen (Tylenol) 650 mg PRN Q6HRS PRN PO MILD PAIN / TEMP > 100.3'F 06/09/21 21:45 06/16/21 04:52 Multi-Ingredient Ointment (Analgesic [place]) 1 bia PRN QID PRN TP MUSCLE PAIN 06/09/21 21:45 Al Hydroxide/Mg Hydroxide (Mylanta Plus Xs) 15 ml PRN AFTMEALHC PRN PO DYSPEPSIA 06/09/21 21:45 Magnesium Hydroxide (Milk Of Magnesia) 2,400 mg PRN QHS PRN PO 1ST CHOICE CONSTIPATION 06/09/21 21:45 Aspirin (Aspirin Enteric Coated) 81 mg DAILY PO 06/10/21 09:00 07/05/21 08:11 Atorvastatin Calcium (Lipitor) 20 mg QHS PO 06/10/21 21:00 07/05/21 21:00 Dicyclomine HCl (Bentyl) 20 mg PRN Q6HRS PRN PO GI SYMPTOMS 06/09/21 22:30 Fluticasone Propionate (Flonase) 2 spray DAILY NS 06/10/21 09:00 07/04/21 08:00 Glipizide (Glucotrol) 5 mg BID PO 06/10/21 09:00 07/05/21 21:00 Insulin Glargine (Lantus Syringe) 16 unit DAILY SQ 06/10/21 09:00 07/05/21 09:00 Lamotrigine (LaMICtal) 100 mg BID PO 06/10/21 09:00 06/16/21 13:52 DC 06/16/21 09:49 Levothyroxine Sodium (Synthroid) 175 mcg DAILY06 PO 06/10/21 06:00 07/05/21 21:37 Megestrol Acetate (Megace Oral Susp) 400 mg BIDWMEALS PO 06/10/21 08:00 06/19/21 01:22 DC 06/18/21 09:57 Olanzapine (ZyPREXA) 5 mg PRN Q2HR PRN PO ANXIETY / AGITATION 06/09/21 22:30 06/10/21 10:34 DC Ondansetron HCl (Zofran Odt) 4 mg BID PO 06/10/21 09:00 06/10/21 20:29 DC 06/10/21 08:53 Pantoprazole Sodium (Protonix) 40 mg DAILYAC PO 06/10/21 07:30 07/05/21 08:11 Quetiapine Fumarate (SEROquel) 100 mg TID PO 06/10/21 09:00 06/12/21 04:58 DC 06/11/21 21:19 Sertraline HCl (Zoloft) 100 mg DAILY PO 06/10/21 09:00 06/16/21 13:52 DC 06/15/21 08:00 Sucralfate (Carafate) 2 gm BID PO 06/10/21 09:00 07/05/21 21:00 Linagliptin (Tradjenta) 5 mg DAILY PO 06/10/21 09:00 07/05/21 08:12 Ascorbic Acid (Vitamin C) 500 mg DAILY PO 06/10/21 09:00 07/04/21 07:57 Ferrous Sulfate (Feosol) 325 mg DAILY PO 06/10/21 09:00 07/05/21 09:00 Lubiprostone (Amitiza) 24 mcg BID PO 06/10/21 09:00 07/05/21 21:00 Non-Formulary Medication (Nitrofurantoin Macrocrystal (Nitrofurantoin)) 100 mg BID PO 06/10/21 10:30 06/14/21 22:00 Cancel Multivit/ Folic Acid/Iron (Multivitamin ) 1 tab DAILY PO 06/10/21 09:00 07/04/21 07:57 Insulin Human Lispro (HumaLOG) 0-7 UNITS TIDWMEALS SQ 06/10/21 08:00 07/05/21 17:00 Dextrose (Dextrose 50%-Water Syringe) 12.5 gm PRN Q15MIN PRN IV SEE COMMENTS 06/09/21 23:00 Lamotrigine (LaMICtal) 25 mg BID PO 06/10/21 09:00 06/16/21 13:52 DC 06/15/21 20:02 Nitrofurantoin Macrocrystals (Macrobid) 100 mg BID PO 06/10/21 10:45 06/14/21 22:00 DC 06/14/21 20:01 Olanzapine (ZyPREXA ZYDIS) 2.5 mg PRN Q2HR PRN PO PSYCHOSIS 06/10/21 10:45 06/14/21 19:52 DC 06/13/21 22:29 Vitamin D (Vitamin D3) 50,000 unit WEEKLY PO 06/10/21 17:00 07/01/21 09:10 Polyethylene Glycol (miraLAX) 17 gm PRN DAILY PRN PO 2ND CHOICE CONSTIPATION 06/10/21 19:45 Ondansetron HCl (Zofran Odt) 4 mg PRN Q4HRS PRN PO NAUSEA/VOMITING 06/10/21 20:27 06/14/21 11:11 Risperidone (RisperDAL) 0.5 mg BID PO 06/12/21 09:00 06/13/21 18:26 DC 06/13/21 09:20 Divalproex Sodium (Depakote Er) 500 mg QHS PO 06/12/21 21:00 06/14/21 17:08 DC 06/13/21 19:44 Risperidone (RisperDAL) 1 mg BID PO 06/13/21 21:00 06/14/21 18:34 DC 06/13/21 19:46 Divalproex Sodium (Depakote Er) 1,000 mg QHS PO 06/14/21 21:00 06/23/21 18:52 DC 06/22/21 20:03 Risperidone (RisperDAL) 2 mg BID SL 06/14/21 21:00 Cancel Risperidone (RisperDAL) 2 mg DAILY PO 06/14/21 18:45 06/16/21 19:50 DC 06/16/21 11:30 Olanzapine (ZyPREXA ZYDIS) 5 mg PRN Q2HR PRN PO PSYCHOSIS 06/14/21 20:00 07/04/21 20:05 Olanzapine (ZyPREXA ZYDIS) 10 mg 1X ONCE PO 06/14/21 20:00 06/14/21 20:01 DC 06/14/21 20:02 Risperidone (RisperDAL) 1 mg 1X ONCE SL 06/16/21 20:00 06/16/21 20:01 DC 06/16/21 20:14 Risperidone (RisperDAL) 3 mg DAILY SL 06/17/21 09:00 06/29/21 17:00 DC 06/29/21 08:28 Trazodone HCl (Desyrel) 50 mg PRN QHS PRN PO INSOMNIA, MAY REPEAT X1 06/16/21 20:00 07/04/21 20:05 Nitrofurantoin Macrocrystals (Macrobid) 100 mg BID PO 06/19/21 21:00 06/26/21 09:01 DC 06/26/21 09:19 Divalproex Sodium (Depakote Er) 1,500 mg QHS PO 06/23/21 21:00 06/26/21 20:35 DC 06/24/21 20:13 Risperidone (RisperDAL CONSTA) 25 mg Q2WKS IM 06/27/21 09:00 07/05/21 17:36 DC 06/27/21 11:44 Risperidone (RisperDAL [place]) 25 mg Q2WKS IM 06/27/21 09:00 UNV Valproic Acid (Depakene) 500 mg DAILY PO 06/27/21 09:00 07/05/21 08:11 Valproic Acid (Depakene) 1,000 mg HS PO 06/26/21 21:00 07/05/21 21:00 Risperidone (RisperDAL) 4 mg DAILY SL 06/30/21 09:00 07/05/21 09:00 Gabapentin (Neurontin) 100 mg TID@0900,1300,1700 PO 07/03/21 09:00 07/05/21 17:00 Levofloxacin (Levaquin) 250 mg DAILY PO 07/05/21 17:00 07/09/21 23:50 07/05/21 17:00 Risperidone (RisperDAL [place]) 50 mg Q2WKS IM 07/11/21 09:00 07/05/21 17:42 DC Risperidone (RisperDAL [place]) 50 mg Q2WKS IM 07/11/21 09:00 Current Medications Medications (Trade) Dose Ordered Sig/[place] Route PRN Reason Start Time Stop Time Status Last Admin Dose Admin Levofloxacin (Levaquin) 250 mg DAILY PO 07/05/21 17:00 07/09/21 23:50 07/05/21 17:00 I have reviewed the current psychotropics carefully including drug interactions. Risk benefit ratio favors no change other than as noted in my dictated progress note. Diagnosis: Problems: (1) Schizoaffective disorder, bipolar type (2) Impulse control disorder, unspecified (3) Anxiety disorder, unspecified (4) Bipolar disorder, current episode mixed, severe, with psychotic features RIGOBERTO SANDERS MD July 05, 2021 21:46
[2021-07-05 21:48] VITALS: BP 137/75
[2021-07-06 06:02] VITALS: BP 122/74
--- NOTE | 2021-07-06 06:22 | PDOC ---
Exam Note: Adolph Note: This note is a late entry for 07/05/2021 covers elements not covered in my initial note. Subjective: The patient was seen individually on 07/05/2021, discussed and reviewed the chart with Vanessa KAHN. The patient slept 5 hours previous night. She remains disorganized but much more stable with her mood and psychosis and apologizing to the nursing staff for using profanities or otherwise being disruptive over the past 5 days. I met with her in the dayroom. She is somewhat withdrawn. She takes her medications crushed. She is not laying herself on the floor today. She does have UTI started on Levaquin per Dr. Alarcon. She has been crying after lunch. Review of Systems: Ambulation impaired, in wheelchair. No CV, , pulmonary, eye, ENT system symptoms on review. Reliability poor. Mental Status Exam: Patient is oriented to herself and situation. Speech coherent has some latency. Abstraction fair. Computation impaired. Language function intact. Mood and affect withdrawn. She was again apologizing to the nursing staff. Laboratory Data: Reviewed. Impression: Schizoaffective disorder bipolar type. Bipolar 1 disorder manic with psychotic features. Anxiety disorder unspecified. Impulse control disorder unspecified. Mild cognitive impairment. Plan: Continue current psychotropics. Reviewed drug interactions and risk- benefit ratio. Adjust as clinically indicated. Levaquin has been started for UTI per Dr. Alarcon. Assessment: Vital Signs/I&O: Vital Signs Date Time Temp Pulse Resp B/P (MAP) Pulse Ox O2 Delivery O2 Flow Rate FiO2 07/06/21 06:02 97.3 66 16 122/74 (90) 97 Room Air I & O 07/05/21 07/05/21 07/06/21 15:00 23:00 07:00 Intake Total 1140 ml 760 ml Balance 1140 ml 760 ml Labs: Laboratory Tests Test 07/05/21 07:42 07/05/21 12:01 07/05/21 16:50 07/05/21 18:10 Glucose (Fingerstick) 118 mg/dL (70-99) H 242 mg/dL (70-99) H 207 mg/dL (70-99) H POC SARS CoV-2 Antigen Negative (NEGATIVE) Test 07/05/21 19:07 Glucose (Fingerstick) 143 mg/dL (70-99) H Current Medications: Meds: Current Medications Medications (Trade) Dose Ordered Sig/[place] Route PRN Reason Start Time Stop Time Status Last Admin Dose Admin Levofloxacin (Levaquin) 250 mg DAILY PO 07/05/21 17:00 07/09/21 23:50 07/05/21 17:00 I have reviewed the current psychotropics carefully including drug interactions. Risk benefit ratio favors no change other than as noted in my dictated progress note. Diagnosis: Problems: (1) Schizoaffective disorder, bipolar type (2) Impulse control disorder, unspecified (3) Anxiety disorder, unspecified (4) Bipolar disorder, current episode mixed, severe, with psychotic features RIGOBERTO SANDERS MD July 06, 2021 06:22
[2021-07-06 06:43] LABS: BASO # 0.1 x10^3/uL (0.0-0.2); BASO % 1 % (0-3); EOS # 0.2 x10^3/uL (0.0-0.7); EOS % 2 % (0-3); HEMATOCRIT 35.2 % (36.0-47.0); HEMOGLOBIN 11.6 g/dL (12.0-15.5); LYMPH % 24 % (24-48); MEAN CORPUSCULAR HEMOGLOBIN 29 pg (25-35); MEAN CORPUSCULAR HGB CONC 33 g/dL (31-37); MEAN CORPUSCULAR VOLUME 89 fL (79-100); MONO # 0.8 x10^3/uL (0.0-1.1); MONO % 10 % (0-9); NEUT # 5.2 x10^3uL (1.8-7.7); NEUT % 63 % (31-73); PLATELET COUNT 196 x10^3/uL (140-400); RED BLOOD COUNT 3.97 x10^6/uL (3.50-5.40); RED CELL DISTRIBUTION WIDTH 13.5 % (11.5-14.5); WHITE BLOOD COUNT 8.2 x10^3/uL (4.0-11.0)
[2021-07-06 06:54] LABS: ALBUMIN 2.9 g/dL (3.4-5.0); ALBUMIN/GLOBULIN RATIO 0.9 (1.0-1.7); CALCIUM 8.4 mg/dL (8.5-10.1); CREATININE 0.9 mg/dL (0.6-1.0); GFR 64.8; POTASSIUM 4.3 mmol/L (3.5-5.1); TOTAL BILIRUBIN 0.2 mg/dL (0.2-1.0); TOTAL PROTEIN 6.1 g/dL (6.4-8.2)
[2021-07-06] MEDS: INSULIN LISPRO 300 UNITS/3 ML VIAL. SQ SCH ×3 (08:00→17:00)
[2021-07-06] MEDS: PRENATAL MULTIVITAMIN TABLET. PO SCH (08:23)
[2021-07-06] MEDS: FERROUS SULFATE 325 MG TABLET. PO SCH (08:23)
[2021-07-06] MEDS: LINAGLIPTIN 5 MG TABLET PO SCH (08:23)
[2021-07-06] MEDS: ASCORBIC ACID 500 MG TABLET PO SCH (08:23)
[2021-07-06] MEDS: ASPIRIN ENTERIC COATED 81 MG TABLET.DR. PO SCH (08:23)
[2021-07-06] MEDS: SUCRALFATE 1 GM TABLET. PO SCH ×2 (08:23→20:08)
[2021-07-06] MEDS: levoFLOXacin 250 MG TABLET PO SCH (08:23)
[2021-07-06] MEDS: glipiZIDE 5 MG TABLET PO SCH ×2 (08:23→20:10)
[2021-07-06] MEDS: GABAPENTIN 100 MG CAPSULE. PO SCH ×3 (08:23→17:00)
[2021-07-06] MEDS: PANTOPRAZOLE 40 MG TABLET. PO SCH (08:23)
[2021-07-06] MEDS: LUBIPROSTONE 24 MCG CAPSULE PO SCH ×2 (08:23→20:07)
[2021-07-06] MEDS: FLUTICASONE 50MCG/NASAL SPRAY 16GM BOTTLE. NS SCH (08:26)
[2021-07-06] MEDS: risperiDONE ORAL 1 MG/ML 30ml BOTTLE. SL SCH (08:26)
[2021-07-06] MEDS: VALPROATE ACID 250 MG/5 ML ORAL SOLUTION PO SCH ×2 (08:26→20:10)
[2021-07-06] MEDS: INSULIN GLARGINE SYRINGE. SQ SCH (09:00)
[2021-07-06] MEDS ORDERED: FOSFOMYCIN TROMETHAMINE 3 GM PACKET PO ONE (16:00)
[2021-07-06 16:09] VITALS: BP 126/76
[2021-07-06] MEDS: LACTOBACILLUS RHAMNOSUS GG 1 CAPSULE. PO SCH (20:08)
[2021-07-06] MEDS: ATORVASTATIN CALCIUM 20 MG TABLET PO SCH (20:11)
--- NOTE | 2021-07-06 21:34 | PDOC ---
Exam Note: Adolph Note: Please also refer to the separate dictated note~for this date of service dictated separately.~Patient seen individually. Discussed the patient with Nursing staff reviewed the chart.~Reviewed interim history and current functioning. Reviewed vital signs,~Labs/ Radiology~and current medications noted below. Continue current treatment with the changes noted in the dictated addendum note Assessment: Vital Signs/I&O: Vital Signs Date Time Temp Pulse Resp B/P (MAP) Pulse Ox O2 Delivery O2 Flow Rate FiO2 07/06/21 16:09 97.2 65 16 126/76 (93) 98 Room Air I & O 07/05/21 07/05/21 07/06/21 15:00 23:00 07:00 Intake Total 1140 ml 760 ml Balance 1140 ml 760 ml Labs: Laboratory Tests Test 07/06/21 06:14 07/06/21 07:39 07/06/21 11:56 07/06/21 16:50 White Blood Count 8.2 x10^3/uL (4.0-11.0) Red Blood Count 3.97 x10^6/uL (3.50-5.40) Hemoglobin 11.6 g/dL (12.0-15.5) L Hematocrit 35.2 % (36.0-47.0) L Mean Corpuscular Volume 89 fL (79-100) Mean Corpuscular Hemoglobin 29 pg (25-35) Mean Corpuscular Hemoglobin Concent 33 g/dL (31-37) Red Cell Distribution Width 13.5 % (11.5-14.5) Platelet Count 196 x10^3/uL (140-400) Neutrophils (%) (Auto) 63 % (31-73) Lymphocytes (%) (Auto) 24 % (24-48) Monocytes (%) (Auto) 10 % (0-9) H Eosinophils (%) (Auto) 2 % (0-3) Basophils (%) (Auto) 1 % (0-3) Neutrophils # (Auto) 5.2 x10^3uL (1.8-7.7) Lymphocytes # (Auto) 2.0 x10^3/uL (1.0-4.8) Monocytes # (Auto) 0.8 x10^3/uL (0.0-1.1) Eosinophils # (Auto) 0.2 x10^3/uL (0.0-0.7) Basophils # (Auto) 0.1 x10^3/uL (0.0-0.2) Sodium Level 140 mmol/L (136-145) Potassium Level 4.3 mmol/L (3.5-5.1) Chloride Level 103 mmol/L (98-107) Carbon Dioxide Level 28 mmol/L (21-32) Anion Gap 9 (6-14) Blood Urea Nitrogen 20 mg/dL (7-20) Creatinine 0.9 mg/dL (0.6-1.0) Estimated GFR (Cockcroft-Gault) 64.8 BUN/Creatinine Ratio 22 (6-20) H Glucose Level 191 mg/dL (70-99) H Calcium Level 8.4 mg/dL (8.5-10.1) L Total Bilirubin 0.2 mg/dL (0.2-1.0) Aspartate Amino Transferase (AST) 12 U/L (15-37) L Alanine Aminotransferase (ALT) 19 U/L (14-59) Alkaline Phosphatase 68 U/L (46-116) Total Protein 6.1 g/dL (6.4-8.2) L Albumin 2.9 g/dL (3.4-5.0) L Albumin/Globulin Ratio 0.9 (1.0-1.7) L Glucose (Fingerstick) 191 mg/dL (70-99) H 209 mg/dL (70-99) H 216 mg/dL (70-99) H Test 07/06/21 19:03 Glucose (Fingerstick) 241 mg/dL (70-99) H Current Medications: Meds: Laboratory Tests Test 07/06/21 06:14 07/06/21 07:39 07/06/21 11:56 07/06/21 16:50 White Blood Count 8.2 x10^3/uL Red Blood Count 3.97 x10^6/uL Hemoglobin 11.6 g/dL Hematocrit 35.2 % Mean Corpuscular Volume 89 fL Mean Corpuscular Hemoglobin 29 pg Mean Corpuscular Hemoglobin Concent 33 g/dL Red Cell Distribution Width 13.5 % Platelet Count 196 x10^3/uL Neutrophils (%) (Auto) 63 % Lymphocytes (%) (Auto) 24 % Monocytes (%) (Auto) 10 % Eosinophils (%) (Auto) 2 % Basophils (%) (Auto) 1 % Neutrophils # (Auto) 5.2 x10^3uL Lymphocytes # (Auto) 2.0 x10^3/uL Monocytes # (Auto) 0.8 x10^3/uL Eosinophils # (Auto) 0.2 x10^3/uL Basophils # (Auto) 0.1 x10^3/uL Sodium Level 140 mmol/L Potassium Level 4.3 mmol/L Chloride Level 103 mmol/L Carbon Dioxide Level 28 mmol/L Anion Gap 9 Blood Urea Nitrogen 20 mg/dL Creatinine 0.9 mg/dL Estimated GFR (Cockcroft-Gault) 64.8 BUN/Creatinine Ratio 22 Glucose Level 191 mg/dL Calcium Level 8.4 mg/dL Total Bilirubin 0.2 mg/dL Aspartate Amino Transf (AST/SGOT) 12 U/L Alanine Aminotransferase (ALT/SGPT) 19 U/L Alkaline Phosphatase 68 U/L Total Protein 6.1 g/dL Albumin 2.9 g/dL Albumin/Globulin Ratio 0.9 Glucose (Fingerstick) 191 mg/dL 209 mg/dL 216 mg/dL Test 07/06/21 19:03 Glucose (Fingerstick) 241 mg/dL Current Medications Medications (Trade) Dose Ordered Sig/Karsten Route PRN Reason Start Time Stop Time Status Last Admin Dose Admin Acetaminophen (Tylenol) 650 mg PRN Q6HRS PRN PO MILD PAIN / TEMP > 100.3'F 06/09/21 21:45 06/16/21 04:52 Multi-Ingredient Ointment (Analgesic [place]) 1 bia PRN QID PRN TP MUSCLE PAIN 06/09/21 21:45 Al Hydroxide/Mg Hydroxide (Mylanta Plus Xs) 15 ml PRN AFTMEALHC PRN PO DYSPEPSIA 06/09/21 21:45 Magnesium Hydroxide (Milk Of Magnesia) 2,400 mg PRN QHS PRN PO 1ST CHOICE CONSTIPATION 06/09/21 21:45 Aspirin (Aspirin Enteric Coated) 81 mg DAILY PO 06/10/21 09:00 07/06/21 08:23 Atorvastatin Calcium (Lipitor) 20 mg QHS PO 06/10/21 21:00 07/06/21 20:11 Dicyclomine HCl (Bentyl) 20 mg PRN Q6HRS PRN PO GI SYMPTOMS 06/09/21 22:30 Fluticasone Propionate (Flonase) 2 spray DAILY NS 06/10/21 09:00 07/06/21 08:26 Glipizide (Glucotrol) 5 mg BID PO 06/10/21 09:00 07/06/21 20:10 Insulin Glargine (Lantus Syringe) 16 unit DAILY SQ 06/10/21 09:00 07/06/21 09:00 Lamotrigine (LaMICtal) 100 mg BID PO 06/10/21 09:00 06/16/21 13:52 DC 06/16/21 09:49 Levothyroxine Sodium (Synthroid) 175 mcg DAILY06 PO 06/10/21 06:00 07/05/21 21:37 Megestrol Acetate (Megace Oral Susp) 400 mg BIDWMEALS PO 06/10/21 08:00 06/19/21 01:22 DC 06/18/21 09:57 Olanzapine (ZyPREXA) 5 mg PRN Q2HR PRN PO ANXIETY / AGITATION 06/09/21 22:30 06/10/21 10:34 DC Ondansetron HCl (Zofran Odt) 4 mg BID PO 06/10/21 09:00 06/10/21 20:29 DC 06/10/21 08:53 Pantoprazole Sodium (Protonix) 40 mg DAILYAC PO 06/10/21 07:30 07/06/21 08:23 Quetiapine Fumarate (SEROquel) 100 mg TID PO 06/10/21 09:00 06/12/21 04:58 DC 06/11/21 21:19 Sertraline HCl (Zoloft) 100 mg DAILY PO 06/10/21 09:00 06/16/21 13:52 DC 06/15/21 08:00 Sucralfate (Carafate) 2 gm BID PO 06/10/21 09:00 07/06/21 20:08 Linagliptin (Tradjenta) 5 mg DAILY PO 06/10/21 09:00 07/06/21 08:23 Ascorbic Acid (Vitamin C) 500 mg DAILY PO 06/10/21 09:00 07/06/21 08:23 Ferrous Sulfate (Feosol) 325 mg DAILY PO 06/10/21 09:00 07/06/21 08:23 Lubiprostone (Amitiza) 24 mcg BID PO 06/10/21 09:00 07/06/21 20:07 Non-Formulary Medication (Nitrofurantoin Macrocrystal (Nitrofurantoin)) 100 mg BID PO 06/10/21 10:30 06/14/21 22:00 Cancel Multivit/ Folic Acid/Iron (Multivitamin ) 1 tab DAILY PO 06/10/21 09:00 07/06/21 08:23 Insulin Human Lispro (HumaLOG) 0-7 UNITS TIDWMEALS SQ 06/10/21 08:00 07/06/21 12:00 Dextrose (Dextrose 50%-Water Syringe) 12.5 gm PRN Q15MIN PRN IV SEE COMMENTS 06/09/21 23:00 Lamotrigine (LaMICtal) 25 mg BID PO 06/10/21 09:00 06/16/21 13:52 DC 06/15/21 20:02 Nitrofurantoin Macrocrystals (Macrobid) 100 mg BID PO 06/10/21 10:45 06/14/21 22:00 DC 06/14/21 20:01 Olanzapine (ZyPREXA ZYDIS) 2.5 mg PRN Q2HR PRN PO PSYCHOSIS 06/10/21 10:45 06/14/21 19:52 DC 06/13/21 22:29 Vitamin D (Vitamin D3) 50,000 unit WEEKLY PO 06/10/21 17:00 07/01/21 09:10 Polyethylene Glycol (miraLAX) 17 gm PRN DAILY PRN PO 2ND CHOICE CONSTIPATION 06/10/21 19:45 Ondansetron HCl (Zofran Odt) 4 mg PRN Q4HRS PRN PO NAUSEA/VOMITING 06/10/21 20:27 06/14/21 11:11 Risperidone (RisperDAL) 0.5 mg BID PO 06/12/21 09:00 06/13/21 18:26 DC 06/13/21 09:20 Divalproex Sodium (Depakote Er) 500 mg QHS PO 06/12/21 21:00 06/14/21 17:08 DC 06/13/21 19:44 Risperidone (RisperDAL) 1 mg BID PO 06/13/21 21:00 06/14/21 18:34 DC 06/13/21 19:46 Divalproex Sodium (Depakote Er) 1,000 mg QHS PO 06/14/21 21:00 06/23/21 18:52 DC 06/22/21 20:03 Risperidone (RisperDAL) 2 mg BID SL 06/14/21 21:00 Cancel Risperidone (RisperDAL) 2 mg DAILY PO 06/14/21 18:45 06/16/21 19:50 DC 06/16/21 11:30 Olanzapine (ZyPREXA ZYDIS) 5 mg PRN Q2HR PRN PO PSYCHOSIS 06/14/21 20:00 07/04/21 20:05 Olanzapine (ZyPREXA ZYDIS) 10 mg 1X ONCE PO 06/14/21 20:00 06/14/21 20:01 DC 06/14/21 20:02 Risperidone (RisperDAL) 1 mg 1X ONCE SL 06/16/21 20:00 06/16/21 20:01 DC 06/16/21 20:14 Risperidone (RisperDAL) 3 mg DAILY SL 06/17/21 09:00 06/29/21 17:00 DC 06/29/21 08:28 Trazodone HCl (Desyrel) 50 mg PRN QHS PRN PO INSOMNIA, MAY REPEAT X1 06/16/21 20:00 07/04/21 20:05 Nitrofurantoin Macrocrystals (Macrobid) 100 mg BID PO 06/19/21 21:00 06/26/21 09:01 DC 06/26/21 09:19 Divalproex Sodium (Depakote Er) 1,500 mg QHS PO 06/23/21 21:00 06/26/21 20:35 DC 06/24/21 20:13 Risperidone (RisperDAL CONSTA) 25 mg Q2WKS IM 06/27/21 09:00 07/05/21 17:36 DC 06/27/21 11:44 Risperidone (RisperDAL CONSTA) 25 mg Q2WKS IM 06/27/21 09:00 UNV Valproic Acid (Depakene) 500 mg DAILY PO 06/27/21 09:00 07/06/21 08:26 Valproic Acid (Depakene) 1,000 mg HS PO 06/26/21 21:00 07/06/21 20:10 Risperidone (RisperDAL) 4 mg DAILY SL 06/30/21 09:00 07/06/21 08:26 Gabapentin (Neurontin) 100 mg TID@0900,1300,1700 PO 07/03/21 09:00 07/06/21 17:00 Levofloxacin (Levaquin) 250 mg DAILY PO 07/05/21 17:00 07/06/21 15:35 DC 07/06/21 08:23 Risperidone (RisperDAL CONSTA) 50 mg Q2WKS IM 07/11/21 09:00 07/05/21 17:42 DC Risperidone (RisperDAL CONSTA) 50 mg Q2WKS IM 07/11/21 09:00 Lactobacillus Rhamnosus (Culturelle) 1 cap BID PO 07/06/21 21:00 07/06/21 20:08 Fosfomycin Tromethamine (Monurol) 3 gm 1X ONCE PO 07/06/21 16:00 07/06/21 16:01 DC 07/06/21 16:00 Current Medications Medications (Trade) Dose Ordered Sig/Karsten Route PRN Reason Start Time Stop Time Status Last Admin Dose Admin Lactobacillus Rhamnosus (Culturelle) 1 cap BID PO 07/06/21 21:00 07/06/21 20:08 Fosfomycin Tromethamine (Monurol) 3 gm 1X ONCE PO 07/06/21 16:00 07/06/21 16:01 DC 07/06/21 16:00 I have reviewed the current psychotropics carefully including drug interactions. Risk benefit ratio favors no change other than as noted in my dictated progress note. Diagnosis: Problems: (1) Schizoaffective disorder, bipolar type (2) Impulse control disorder, unspecified (3) Anxiety disorder, unspecified (4) Bipolar disorder, current episode manic severe with psychotic features RIGOBERTO SANDERS MD July 06, 2021 21:34
[2021-07-07 06:04] VITALS: BP 105/66
[2021-07-07] MEDS: LEVOTHYROXINE 175 MCG TABLET PO SCH (06:19)
--- NOTE | 2021-07-07 06:33 | PDOC ---
Exam Note: Adolph Note: This note is a late entry for 07/06/2021 covers elements not covered in my initial note. Subjective: The patient was seen individually on 07/06/2021, discussed and reviewed the chart with Marj KAHN. The patient slept 6-1/4 hours previous night. She slept through breakfast and has been lying herself on the floor. I met with her after she had finished supper. She wheeled herself out of the dining room and then put herself on the floor on the corridor refusing to get out till two of the nursing staff assisted her. She has been placed on Monurol for UTI per Dr. Whipple. Review of Systems: Ambulation impaired, in wheelchair. No CV, , pulmonary, eye, ENT system symptoms on review. Reliability poor. Mental Status Exam: Patient is oriented to herself and situation. Speech moderate latency. Often response is monosyllabic. Abstraction fair. Computation impaired. Language function intact. Attention span short. Mood and affect withdrawn. Laboratory Data: Reviewed. Impression: Bipolar 1 disorder manic with psychotic features. Anxiety disorder unspecified. Impulse control disorder unspecified. Mild cognitive impairment. Plan: Maintain rest of the psychotropics unchanged. Reviewed drug interactions and risk-benefit ratio. Adjust as clinically indicated. We are increasing Risperal Consta 250 mg IM q.2 weeks with the next dosage. Treat the UTI. We gradually reduce oral Risperdal. Valproic acid level is therapeutic at 89. Assessment: Vital Signs/I&O: Vital Signs Date Time Temp Pulse Resp B/P (MAP) Pulse Ox O2 Delivery O2 Flow Rate FiO2 07/07/21 06:04 98.4 74 20 105/66 (79) 98 07/06/21 16:09 Room Air I & O 07/06/21 07/06/21 07/07/21 15:00 23:00 07:00 Intake Total 600 ml 480 ml Balance 600 ml 480 ml Labs: Laboratory Tests Test 07/06/21 07:39 07/06/21 11:56 07/06/21 16:50 07/06/21 19:03 Glucose (Fingerstick) 191 mg/dL (70-99) H 209 mg/dL (70-99) H 216 mg/dL (70-99) H 241 mg/dL (70-99) H Current Medications: Meds: Current Medications Medications (Trade) Dose Ordered Sig/Karsten Route PRN Reason Start Time Stop Time Status Last Admin Dose Admin Lactobacillus Rhamnosus (Culturelle) 1 cap BID PO 07/06/21 21:00 07/06/21 20:08 Fosfomycin Tromethamine (Monurol) 3 gm 1X ONCE PO 07/06/21 16:00 07/06/21 16:01 DC 07/06/21 16:00 I have reviewed the current psychotropics carefully including drug interactions. Risk benefit ratio favors no change other than as noted in my dictated progress note. Diagnosis: Problems: (1) Schizoaffective disorder, bipolar type (2) Impulse control disorder, unspecified (3) Anxiety disorder, unspecified (4) Bipolar disorder, current episode manic severe with psychotic features RIGOBERTO SANDERS MD July 07, 2021 06:33
[2021-07-07] MEDS: INSULIN LISPRO 300 UNITS/3 ML VIAL. SQ SCH ×3 (08:00→17:00)
[2021-07-07] MEDS: PRENATAL MULTIVITAMIN TABLET. PO SCH (08:15)
[2021-07-07] MEDS: LUBIPROSTONE 24 MCG CAPSULE PO SCH ×2 (08:15→20:08)
[2021-07-07] MEDS: FERROUS SULFATE 325 MG TABLET. PO SCH (08:15)
[2021-07-07] MEDS: ASPIRIN ENTERIC COATED 81 MG TABLET.DR. PO SCH (08:15)
[2021-07-07] MEDS: glipiZIDE 5 MG TABLET PO SCH ×2 (08:15→20:09)
[2021-07-07] MEDS: PANTOPRAZOLE 40 MG TABLET. PO SCH (08:15)
[2021-07-07] MEDS: risperiDONE ORAL 1 MG/ML 30ml BOTTLE. SL SCH (08:16)
[2021-07-07] MEDS: SUCRALFATE 1 GM TABLET. PO SCH ×2 (08:16→20:09)
[2021-07-07] MEDS: GABAPENTIN 100 MG CAPSULE. PO SCH ×3 (08:16→17:15)
[2021-07-07] MEDS: LINAGLIPTIN 5 MG TABLET PO SCH (08:16)
[2021-07-07] MEDS: ASCORBIC ACID 500 MG TABLET PO SCH (08:21)
[2021-07-07] MEDS: LACTOBACILLUS RHAMNOSUS GG 1 CAPSULE. PO SCH ×2 (08:21→20:09)
[2021-07-07] MEDS: FLUTICASONE 50MCG/NASAL SPRAY 16GM BOTTLE. NS SCH (08:21)
[2021-07-07] MEDS: VALPROATE ACID 250 MG/5 ML ORAL SOLUTION PO SCH ×2 (08:21→20:09)
[2021-07-07] MEDS: INSULIN GLARGINE SYRINGE. SQ SCH (09:00)
[2021-07-07 16:24] VITALS: BP 139/78
[2021-07-07] MEDS: ATORVASTATIN CALCIUM 20 MG TABLET PO SCH (20:10)
--- NOTE | 2021-07-07 21:45 | PDOC ---
Exam Note: Adolph Note: Please also refer to the separate dictated note~for this date of service dictated separately.~Patient seen individually. Discussed the patient with Nursing staff reviewed the chart.~Reviewed interim history and current functioning. Reviewed vital signs,~Labs/ Radiology~and current medications noted below. Continue current treatment with the changes noted in the dictated addendum note Assessment: Vital Signs/I&O: Vital Signs Date Time Temp Pulse Resp B/P (MAP) Pulse Ox O2 Delivery O2 Flow Rate FiO2 07/07/21 16:24 98.1 79 18 139/78 (98) 99 Room Air I & O 07/06/21 07/06/21 07/07/21 15:00 23:00 07:00 Intake Total 600 ml 480 ml Balance 600 ml 480 ml Labs: Laboratory Tests Test 07/07/21 07:47 07/07/21 11:45 07/07/21 17:05 07/07/21 19:18 Glucose (Fingerstick) 176 mg/dL (70-99) H 256 mg/dL (70-99) H 271 mg/dL (70-99) H 245 mg/dL (70-99) H Current Medications: Meds: Laboratory Tests Test 07/07/21 07:47 07/07/21 11:45 07/07/21 17:05 07/07/21 19:18 Glucose (Fingerstick) 176 mg/dL 256 mg/dL 271 mg/dL 245 mg/dL Current Medications Medications (Trade) Dose Ordered Sig/Karsten Route PRN Reason Start Time Stop Time Status Last Admin Dose Admin Acetaminophen (Tylenol) 650 mg PRN Q6HRS PRN PO MILD PAIN / TEMP > 100.3'F 06/09/21 21:45 06/16/21 04:52 Multi-Ingredient Ointment (Analgesic [place]) 1 bia PRN QID PRN TP MUSCLE PAIN 06/09/21 21:45 Al Hydroxide/Mg Hydroxide (Mylanta Plus Xs) 15 ml PRN AFTMEALHC PRN PO DYSPEPSIA 06/09/21 21:45 Magnesium Hydroxide (Milk Of Magnesia) 2,400 mg PRN QHS PRN PO 1ST CHOICE CONSTIPATION 06/09/21 21:45 Aspirin (Aspirin Enteric Coated) 81 mg DAILY PO 06/10/21 09:00 07/07/21 08:15 Atorvastatin Calcium (Lipitor) 20 mg QHS PO 06/10/21 21:00 07/07/21 20:10 Dicyclomine HCl (Bentyl) 20 mg PRN Q6HRS PRN PO GI SYMPTOMS 06/09/21 22:30 Fluticasone Propionate (Flonase) 2 spray DAILY NS 06/10/21 09:00 07/07/21 08:21 Glipizide (Glucotrol) 5 mg BID PO 06/10/21 09:00 07/07/21 20:09 Insulin Glargine (Lantus Syringe) 16 unit DAILY SQ 06/10/21 09:00 07/07/21 09:00 Lamotrigine (LaMICtal) 100 mg BID PO 06/10/21 09:00 06/16/21 13:52 DC 06/16/21 09:49 Levothyroxine Sodium (Synthroid) 175 mcg DAILY06 PO 06/10/21 06:00 07/07/21 06:19 Megestrol Acetate (Megace Oral Susp) 400 mg BIDWMEALS PO 06/10/21 08:00 06/19/21 01:22 DC 06/18/21 09:57 Olanzapine (ZyPREXA) 5 mg PRN Q2HR PRN PO ANXIETY / AGITATION 06/09/21 22:30 06/10/21 10:34 DC Ondansetron HCl (Zofran Odt) 4 mg BID PO 06/10/21 09:00 06/10/21 20:29 DC 06/10/21 08:53 Pantoprazole Sodium (Protonix) 40 mg DAILYAC PO 06/10/21 07:30 07/07/21 08:15 Quetiapine Fumarate (SEROquel) 100 mg TID PO 06/10/21 09:00 06/12/21 04:58 DC 06/11/21 21:19 Sertraline HCl (Zoloft) 100 mg DAILY PO 06/10/21 09:00 06/16/21 13:52 DC 06/15/21 08:00 Sucralfate (Carafate) 2 gm BID PO 06/10/21 09:00 07/07/21 20:09 Linagliptin (Tradjenta) 5 mg DAILY PO 06/10/21 09:00 07/07/21 08:16 Ascorbic Acid (Vitamin C) 500 mg DAILY PO 06/10/21 09:00 07/07/21 08:21 Ferrous Sulfate (Feosol) 325 mg DAILY PO 06/10/21 09:00 07/07/21 08:15 Lubiprostone (Amitiza) 24 mcg BID PO 06/10/21 09:00 07/07/21 20:08 Non-Formulary Medication (Nitrofurantoin Macrocrystal (Nitrofurantoin)) 100 mg BID PO 06/10/21 10:30 06/14/21 22:00 Cancel Multivit/ Folic Acid/Iron (Multivitamin ) 1 tab DAILY PO 06/10/21 09:00 07/07/21 08:15 Insulin Human Lispro (HumaLOG) 0-7 UNITS TIDWMEALS SQ 06/10/21 08:00 07/07/21 17:00 Dextrose (Dextrose 50%-Water Syringe) 12.5 gm PRN Q15MIN PRN IV SEE COMMENTS 06/09/21 23:00 Lamotrigine (LaMICtal) 25 mg BID PO 06/10/21 09:00 06/16/21 13:52 DC 06/15/21 20:02 Nitrofurantoin Macrocrystals (Macrobid) 100 mg BID PO 06/10/21 10:45 06/14/21 22:00 DC 06/14/21 20:01 Olanzapine (ZyPREXA ZYDIS) 2.5 mg PRN Q2HR PRN PO PSYCHOSIS 06/10/21 10:45 06/14/21 19:52 DC 06/13/21 22:29 Vitamin D (Vitamin D3) 50,000 unit WEEKLY PO 06/10/21 17:00 07/01/21 09:10 Polyethylene Glycol (miraLAX) 17 gm PRN DAILY PRN PO 2ND CHOICE CONSTIPATION 06/10/21 19:45 Ondansetron HCl (Zofran Odt) 4 mg PRN Q4HRS PRN PO NAUSEA/VOMITING 06/10/21 20:27 06/14/21 11:11 Risperidone (RisperDAL) 0.5 mg BID PO 06/12/21 09:00 06/13/21 18:26 DC 06/13/21 09:20 Divalproex Sodium (Depakote Er) 500 mg QHS PO 06/12/21 21:00 06/14/21 17:08 DC 06/13/21 19:44 Risperidone (RisperDAL) 1 mg BID PO 06/13/21 21:00 06/14/21 18:34 DC 06/13/21 19:46 Divalproex Sodium (Depakote Er) 1,000 mg QHS PO 06/14/21 21:00 06/23/21 18:52 DC 06/22/21 20:03 Risperidone (RisperDAL) 2 mg BID SL 06/14/21 21:00 Cancel Risperidone (RisperDAL) 2 mg DAILY PO 06/14/21 18:45 06/16/21 19:50 DC 06/16/21 11:30 Olanzapine (ZyPREXA ZYDIS) 5 mg PRN Q2HR PRN PO PSYCHOSIS 06/14/21 20:00 07/04/21 20:05 Olanzapine (ZyPREXA ZYDIS) 10 mg 1X ONCE PO 06/14/21 20:00 06/14/21 20:01 DC 06/14/21 20:02 Risperidone (RisperDAL) 1 mg 1X ONCE SL 06/16/21 20:00 06/16/21 20:01 DC 06/16/21 20:14 Risperidone (RisperDAL) 3 mg DAILY SL 06/17/21 09:00 06/29/21 17:00 DC 06/29/21 08:28 Trazodone HCl (Desyrel) 50 mg PRN QHS PRN PO INSOMNIA, MAY REPEAT X1 06/16/21 20:00 07/04/21 20:05 Nitrofurantoin Macrocrystals (Macrobid) 100 mg BID PO 06/19/21 21:00 06/26/21 09:01 DC 06/26/21 09:19 Divalproex Sodium (Depakote Er) 1,500 mg QHS PO 06/23/21 21:00 06/26/21 20:35 DC 06/24/21 20:13 Risperidone (RisperDAL CONSTA) 25 mg Q2WKS IM 06/27/21 09:00 07/05/21 17:36 DC 06/27/21 11:44 Risperidone (RisperDAL CONSTA) 25 mg Q2WKS IM 06/27/21 09:00 UNV Valproic Acid (Depakene) 500 mg DAILY PO 06/27/21 09:00 07/07/21 08:21 Valproic Acid (Depakene) 1,000 mg HS PO 06/26/21 21:00 07/07/21 20:09 Risperidone (RisperDAL) 4 mg DAILY SL 06/30/21 09:00 07/07/21 08:16 Gabapentin (Neurontin) 100 mg TID@0900,1300,1700 PO 07/03/21 09:00 07/07/21 17:15 Levofloxacin (Levaquin) 250 mg DAILY PO 07/05/21 17:00 07/06/21 15:35 DC 07/06/21 08:23 Risperidone (RisperDAL CONSTA) 50 mg Q2WKS IM 07/11/21 09:00 07/05/21 17:42 DC Risperidone (RisperDAL CONSTA) 50 mg Q2WKS IM 07/11/21 09:00 Lactobacillus Rhamnosus (Culturelle) 1 cap BID PO 07/06/21 21:00 07/07/21 20:09 Fosfomycin Tromethamine (Monurol) 3 gm 1X ONCE PO 07/06/21 16:00 07/06/21 16:01 DC 07/06/21 16:00 I have reviewed the current psychotropics carefully including drug interactions. Risk benefit ratio favors no change other than as noted in my dictated progress note. Diagnosis: Problems: (1) Schizoaffective disorder, bipolar type (2) Impulse control disorder, unspecified (3) Anxiety disorder, unspecified (4) Bipolar disorder, current episode manic severe with psychotic features RIGOBERTO SANDERS MD July 07, 2021 21:45
[2021-07-08] MEDS: LEVOTHYROXINE 175 MCG TABLET PO SCH (05:23)
[2021-07-08 05:56] VITALS: BP 112/77
--- NOTE | 2021-07-08 07:59 | PDOC ---
Exam Note: Adolph Note: This note is a late entry for 07/07/2021 covers elements not covered in my initial note. Subjective: The patient was reviewed at treatment team meeting individually in the morning on 07/07/2021 with Thi Marsh, Brianna Massey, and Anita Alan (bilingual social worker), Krystin, activity therapy, and Jacey KAHN, discussed and reviewed the chart. The patient slept 8 hours previous night. Average sleep 6-1/2 hours. Appetite 60%. She is resistive to medications. She is frequently putting herself on the floor. Appetite is fair. We discussed with Hien KAHN in the evening as well. She at times curses staff, less combative, has not attended any groups. She is able to ambulate on her own at times. We will repeat UA on Sunday to make sure UTI has resolved post Monurol. Review of Systems: Ambulation impaired, in wheelchair. No CV, , pulmonary, eye, ENT system symptoms on review. Mental Status Exam: Patient is oriented to herself and situation. Speech moderate latency. Often response is monosyllabic. Abstraction fair. Computation impaired. Language function intact. Attention span short. Mood and affect withdrawn. Overall the patient states she is not feeling very well, less paranoid. Laboratory Data: Reviewed. Impression: Bipolar 1 disorder manic with psychotic features. Anxiety disorder unspecified. Impulse control disorder unspecified. Mild cognitive impairment. Plan: Maintain rest of the psychotropics unchanged. Reviewed drug interactions and risk-benefit ratio. Adjust as clinically indicated. Assessment: Vital Signs/I&O: Vital Signs Date Time Temp Pulse Resp B/P (MAP) Pulse Ox O2 Delivery O2 Flow Rate FiO2 07/08/21 05:56 98.1 63 20 112/77 (89) 99 Room Air I & O 07/07/21 07/07/21 07/08/21 15:00 23:00 07:00 Intake Total 680 ml 720 ml Balance 680 ml 720 ml Labs: Laboratory Tests Test 07/07/21 11:45 07/07/21 17:05 07/07/21 19:18 07/08/21 07:45 Glucose (Fingerstick) 256 mg/dL (70-99) H 271 mg/dL (70-99) H 245 mg/dL (70-99) H 182 mg/dL (70-99) H Current Medications: I have reviewed the current psychotropics carefully including drug interactions. Risk benefit ratio favors no change other than as noted in my dictated progress note. Diagnosis: Problems: (1) Schizoaffective disorder, bipolar type (2) Impulse control disorder, unspecified (3) Anxiety disorder, unspecified (4) Bipolar disorder, current episode mixed, severe, with psychotic features RIGOBERTO SANDERS MD July 08, 2021 07:59
[2021-07-08] MEDS: INSULIN LISPRO 300 UNITS/3 ML VIAL. SQ SCH ×3 (08:00→17:00)
[2021-07-08] MEDS: VALPROATE ACID 250 MG/5 ML ORAL SOLUTION PO SCH ×2 (08:38→20:20)
[2021-07-08] MEDS: GABAPENTIN 100 MG CAPSULE. PO SCH ×3 (08:39→17:32)
[2021-07-08] MEDS: ASPIRIN ENTERIC COATED 81 MG TABLET.DR. PO SCH (08:39)
[2021-07-08] MEDS: FERROUS SULFATE 325 MG TABLET. PO SCH (08:39)
[2021-07-08] MEDS: LUBIPROSTONE 24 MCG CAPSULE PO SCH ×2 (08:39→20:14)
[2021-07-08] MEDS: SUCRALFATE 1 GM TABLET. PO SCH ×2 (08:39→20:14)
[2021-07-08] MEDS: PANTOPRAZOLE 40 MG TABLET. PO SCH (08:39)
[2021-07-08] MEDS: PRENATAL MULTIVITAMIN TABLET. PO SCH (08:40)
[2021-07-08] MEDS: glipiZIDE 5 MG TABLET PO SCH ×2 (08:40→20:19)
[2021-07-08] MEDS: FLUTICASONE 50MCG/NASAL SPRAY 16GM BOTTLE. NS SCH (08:40)
[2021-07-08] MEDS: LACTOBACILLUS RHAMNOSUS GG 1 CAPSULE. PO SCH ×2 (08:40→20:19)
[2021-07-08] MEDS: ASCORBIC ACID 500 MG TABLET PO SCH (08:40)
[2021-07-08] MEDS: LINAGLIPTIN 5 MG TABLET PO SCH (08:41)
[2021-07-08] MEDS: INSULIN GLARGINE SYRINGE. SQ SCH (08:41)
[2021-07-08] MEDS: risperiDONE ORAL 1 MG/ML 30ml BOTTLE. SL SCH (08:49)
[2021-07-08] MEDS: CHOLECALCIFEROL (VITAMIN D3) 50,000 UNIT CAPSULE PO SCH (08:51)
[2021-07-08 15:00] VITALS: BP 151/83
[2021-07-08] MEDS: ATORVASTATIN CALCIUM 20 MG TABLET PO SCH (20:19)
--- NOTE | 2021-07-08 21:40 | PDOC ---
Exam Note: Adolph Note: Please also refer to the separate dictated note~for this date of service dictated separately.~Patient seen individually. Discussed the patient with Nursing staff reviewed the chart.~Reviewed interim history and current functioning. Reviewed vital signs,~Labs/ Radiology~and current medications noted below. Continue current treatment with the changes noted in the dictated addendum note Assessment: Vital Signs/I&O: Vital Signs Date Time Temp Pulse Resp B/P (MAP) Pulse Ox O2 Delivery O2 Flow Rate FiO2 07/08/21 05:56 98.1 63 20 112/77 (89) 99 Room Air I & O 07/07/21 07/07/21 07/08/21 15:00 23:00 07:00 Intake Total 680 ml 720 ml Balance 680 ml 720 ml Labs: Laboratory Tests Test 07/08/21 07:45 07/08/21 11:34 07/08/21 17:05 07/08/21 19:18 Glucose (Fingerstick) 182 mg/dL (70-99) H 209 mg/dL (70-99) H 228 mg/dL (70-99) H 285 mg/dL (70-99) H Current Medications: Meds: Laboratory Tests Test 07/08/21 07:45 07/08/21 11:34 07/08/21 17:05 07/08/21 19:18 Glucose (Fingerstick) 182 mg/dL 209 mg/dL 228 mg/dL 285 mg/dL Current Medications Medications (Trade) Dose Ordered Sig/Karsten Route PRN Reason Start Time Stop Time Status Last Admin Dose Admin Acetaminophen (Tylenol) 650 mg PRN Q6HRS PRN PO MILD PAIN / TEMP > 100.3'F 06/09/21 21:45 06/16/21 04:52 Multi-Ingredient Ointment (Analgesic [place]) 1 bia PRN QID PRN TP MUSCLE PAIN 06/09/21 21:45 Al Hydroxide/Mg Hydroxide (Mylanta Plus Xs) 15 ml PRN AFTMEALHC PRN PO DYSPEPSIA 06/09/21 21:45 Magnesium Hydroxide (Milk Of Magnesia) 2,400 mg PRN QHS PRN PO 1ST CHOICE CONSTIPATION 06/09/21 21:45 Aspirin (Aspirin Enteric Coated) 81 mg DAILY PO 06/10/21 09:00 07/08/21 08:39 Atorvastatin Calcium (Lipitor) 20 mg QHS PO 06/10/21 21:00 07/08/21 20:19 Dicyclomine HCl (Bentyl) 20 mg PRN Q6HRS PRN PO GI SYMPTOMS 06/09/21 22:30 Fluticasone Propionate (Flonase) 2 spray DAILY NS 06/10/21 09:00 07/08/21 08:40 Glipizide (Glucotrol) 5 mg BID PO 06/10/21 09:00 07/08/21 20:19 Insulin Glargine (Lantus Syringe) 16 unit DAILY SQ 06/10/21 09:00 07/08/21 08:41 Lamotrigine (LaMICtal) 100 mg BID PO 06/10/21 09:00 06/16/21 13:52 DC 06/16/21 09:49 Levothyroxine Sodium (Synthroid) 175 mcg DAILY06 PO 06/10/21 06:00 07/08/21 05:23 Megestrol Acetate (Megace Oral Susp) 400 mg BIDWMEALS PO 06/10/21 08:00 06/19/21 01:22 DC 06/18/21 09:57 Olanzapine (ZyPREXA) 5 mg PRN Q2HR PRN PO ANXIETY / AGITATION 06/09/21 22:30 06/10/21 10:34 DC Ondansetron HCl (Zofran Odt) 4 mg BID PO 06/10/21 09:00 06/10/21 20:29 DC 06/10/21 08:53 Pantoprazole Sodium (Protonix) 40 mg DAILYAC PO 06/10/21 07:30 07/08/21 08:39 Quetiapine Fumarate (SEROquel) 100 mg TID PO 06/10/21 09:00 06/12/21 04:58 DC 06/11/21 21:19 Sertraline HCl (Zoloft) 100 mg DAILY PO 06/10/21 09:00 06/16/21 13:52 DC 06/15/21 08:00 Sucralfate (Carafate) 2 gm BID PO 06/10/21 09:00 07/08/21 20:14 Linagliptin (Tradjenta) 5 mg DAILY PO 06/10/21 09:00 07/08/21 08:41 Ascorbic Acid (Vitamin C) 500 mg DAILY PO 06/10/21 09:00 07/08/21 08:40 Ferrous Sulfate (Feosol) 325 mg DAILY PO 06/10/21 09:00 07/08/21 08:39 Lubiprostone (Amitiza) 24 mcg BID PO 06/10/21 09:00 07/08/21 20:14 Non-Formulary Medication (Nitrofurantoin Macrocrystal (Nitrofurantoin)) 100 mg BID PO 06/10/21 10:30 06/14/21 22:00 Cancel Multivit/ Folic Acid/Iron (Multivitamin ) 1 tab DAILY PO 06/10/21 09:00 07/08/21 08:40 Insulin Human Lispro (HumaLOG) 0-7 UNITS TIDWMEALS SQ 06/10/21 08:00 07/08/21 17:00 Dextrose (Dextrose 50%-Water Syringe) 12.5 gm PRN Q15MIN PRN IV SEE COMMENTS 06/09/21 23:00 Lamotrigine (LaMICtal) 25 mg BID PO 06/10/21 09:00 06/16/21 13:52 DC 06/15/21 20:02 Nitrofurantoin Macrocrystals (Macrobid) 100 mg BID PO 06/10/21 10:45 06/14/21 22:00 DC 06/14/21 20:01 Olanzapine (ZyPREXA ZYDIS) 2.5 mg PRN Q2HR PRN PO PSYCHOSIS 06/10/21 10:45 06/14/21 19:52 DC 06/13/21 22:29 Vitamin D (Vitamin D3) 50,000 unit WEEKLY PO 06/10/21 17:00 07/08/21 08:51 Polyethylene Glycol (miraLAX) 17 gm PRN DAILY PRN PO 2ND CHOICE CONSTIPATION 06/10/21 19:45 Ondansetron HCl (Zofran Odt) 4 mg PRN Q4HRS PRN PO NAUSEA/VOMITING 06/10/21 20:27 06/14/21 11:11 Risperidone (RisperDAL) 0.5 mg BID PO 06/12/21 09:00 06/13/21 18:26 DC 06/13/21 09:20 Divalproex Sodium (Depakote Er) 500 mg QHS PO 06/12/21 21:00 06/14/21 17:08 DC 06/13/21 19:44 Risperidone (RisperDAL) 1 mg BID PO 06/13/21 21:00 06/14/21 18:34 DC 06/13/21 19:46 Divalproex Sodium (Depakote Er) 1,000 mg QHS PO 06/14/21 21:00 06/23/21 18:52 DC 06/22/21 20:03 Risperidone (RisperDAL) 2 mg BID SL 06/14/21 21:00 Cancel Risperidone (RisperDAL) 2 mg DAILY PO 06/14/21 18:45 06/16/21 19:50 DC 06/16/21 11:30 Olanzapine (ZyPREXA ZYDIS) 5 mg PRN Q2HR PRN PO PSYCHOSIS 06/14/21 20:00 07/08/21 14:04 Olanzapine (ZyPREXA ZYDIS) 10 mg 1X ONCE PO 06/14/21 20:00 06/14/21 20:01 DC 06/14/21 20:02 Risperidone (RisperDAL) 1 mg 1X ONCE SL 06/16/21 20:00 06/16/21 20:01 DC 06/16/21 20:14 Risperidone (RisperDAL) 3 mg DAILY SL 06/17/21 09:00 06/29/21 17:00 DC 06/29/21 08:28 Trazodone HCl (Desyrel) 50 mg PRN QHS PRN PO INSOMNIA, MAY REPEAT X1 06/16/21 20:00 07/04/21 20:05 Nitrofurantoin Macrocrystals (Macrobid) 100 mg BID PO 06/19/21 21:00 06/26/21 09:01 DC 06/26/21 09:19 Divalproex Sodium (Depakote Er) 1,500 mg QHS PO 06/23/21 21:00 06/26/21 20:35 DC 06/24/21 20:13 Risperidone (RisperDAL [place]) 25 mg Q2WKS IM 06/27/21 09:00 07/05/21 17:36 DC 06/27/21 11:44 Risperidone (RisperDAL CONSTA) 25 mg Q2WKS IM 06/27/21 09:00 UNV Valproic Acid (Depakene) 500 mg DAILY PO 06/27/21 09:00 07/08/21 08:38 Valproic Acid (Depakene) 1,000 mg HS PO 06/26/21 21:00 07/08/21 20:20 Risperidone (RisperDAL) 4 mg DAILY SL 06/30/21 09:00 07/08/21 08:49 Gabapentin (Neurontin) 100 mg TID@0900,1300,1700 PO 07/03/21 09:00 07/08/21 17:32 Levofloxacin (Levaquin) 250 mg DAILY PO 07/05/21 17:00 07/06/21 15:35 DC 07/06/21 08:23 Risperidone (RisperDAL [place]) 50 mg Q2WKS IM 07/11/21 09:00 07/05/21 17:42 DC Risperidone (RisperDAL CONSTA) 50 mg Q2WKS IM 07/11/21 09:00 Lactobacillus Rhamnosus (Culturelle) 1 cap BID PO 07/06/21 21:00 07/08/21 20:19 Fosfomycin Tromethamine (Monurol) 3 gm 1X ONCE PO 07/06/21 16:00 07/06/21 16:01 DC 07/06/21 16:00 I have reviewed the current psychotropics carefully including drug interactions. Risk benefit ratio favors no change other than as noted in my dictated progress note. Diagnosis: Problems: (1) Schizoaffective disorder, bipolar type (2) Impulse control disorder, unspecified (3) Anxiety disorder, unspecified (4) Bipolar disorder, current episode mixed, severe, with psychotic features RIGOBERTO SANDERS MD July 08, 2021 21:40
[2021-07-09] MEDS: LEVOTHYROXINE 175 MCG TABLET PO SCH (05:15)
[2021-07-09 06:10] VITALS: BP 153/74
[2021-07-09] MEDS: PANTOPRAZOLE 40 MG TABLET. PO SCH (07:40)
[2021-07-09] MEDS: LUBIPROSTONE 24 MCG CAPSULE PO SCH ×2 (07:40→20:48)
[2021-07-09] MEDS: ASPIRIN ENTERIC COATED 81 MG TABLET.DR. PO SCH (07:40)
[2021-07-09] MEDS: glipiZIDE 5 MG TABLET PO SCH ×2 (07:40→20:49)
[2021-07-09] MEDS: LINAGLIPTIN 5 MG TABLET PO SCH (07:41)
[2021-07-09] MEDS: GABAPENTIN 100 MG CAPSULE. PO SCH ×3 (07:41→17:00)
[2021-07-09] MEDS: VALPROATE ACID 250 MG/5 ML ORAL SOLUTION PO SCH ×2 (07:41→20:50)
[2021-07-09] MEDS: INSULIN LISPRO 300 UNITS/3 ML VIAL. SQ SCH ×3 (08:00→17:00)
[2021-07-09] MEDS: LACTOBACILLUS RHAMNOSUS GG 1 CAPSULE. PO SCH ×2 (09:00→20:48)
[2021-07-09] MEDS: ASCORBIC ACID 500 MG TABLET PO SCH (09:00)
[2021-07-09] MEDS: SUCRALFATE 1 GM TABLET. PO SCH ×2 (09:00→20:48)
[2021-07-09] MEDS: PRENATAL MULTIVITAMIN TABLET. PO SCH (09:00)
[2021-07-09] MEDS: INSULIN GLARGINE SYRINGE. SQ SCH (09:00)
[2021-07-09] MEDS: risperiDONE ORAL 1 MG/ML 30ml BOTTLE. SL SCH (09:00)
[2021-07-09] MEDS: FERROUS SULFATE 325 MG TABLET. PO SCH (09:00)
[2021-07-09] MEDS: FLUTICASONE 50MCG/NASAL SPRAY 16GM BOTTLE. NS SCH (09:00)
[2021-07-09 15:00] VITALS: BP 110/54
[2021-07-09] MEDS: ATORVASTATIN CALCIUM 20 MG TABLET PO SCH (20:49)
--- NOTE | 2021-07-09 22:02 | PDOC ---
Exam Note: Adolph Note: This note is a late entry for 07/08/2021 covers elements not covered in my initial note. Subjective: The patient was seen individually on 07/08/2021, discussed and reviewed the chart with Jacey KAHN. The patient slept 8-1/4 hours previous night. She is still putting herself on the floor repeatedly. She was sitting in the side of her bed this evening as I went to meet with her in her room. She has been apologizing two staff of being inappropriate and putting herself on the floor stating she made concerted effort not to do that again. Review of Systems: Ambulation impaired, in wheelchair. No CV, , pulmonary, eye, ENT system symptoms on review. Mental Status Exam: Patient is oriented to herself and situation. She is not very verbal, but little better eye contact. Speech moderate latency. Often response is monosyllabic. Abstraction fair. Computation impaired. Language function intact. Attention span short. Mood and affect less paranoid. No active hallucinations. Laboratory Data: Reviewed. Impression: Bipolar 1 disorder manic with psychotic features. Anxiety disorder unspecified. Impulse control disorder unspecified. Mild cognitive impairment. Plan: Maintain rest of the psychotropics unchanged. Reviewed drug interactions and risk-benefit ratio. Adjust as clinically indicated. Assessment: Vital Signs/I&O: Vital Signs Date Time Temp Pulse Resp B/P (MAP) Pulse Ox O2 Delivery O2 Flow Rate FiO2 07/09/21 15:00 98.4 102 20 110/54 (72) 98 Room Air I & O 07/08/21 07/08/21 07/09/21 15:00 23:00 07:00 Intake Total 490 ml 720 ml Balance 490 ml 720 ml Labs: Laboratory Tests Test 07/09/21 07:48 07/09/21 11:48 07/09/21 17:01 07/09/21 19:31 Glucose (Fingerstick) 210 mg/dL (70-99) H 289 mg/dL (70-99) H 318 mg/dL (70-99) H 304 mg/dL (70-99) H Current Medications: I have reviewed the current psychotropics carefully including drug interactions. Risk benefit ratio favors no change other than as noted in my dictated progress note. Diagnosis: Problems: (1) Schizoaffective disorder, bipolar type (2) Impulse control disorder, unspecified (3) Anxiety disorder, unspecified (4) Bipolar disorder, current episode manic severe with psychotic features RIGOBERTO SANDERS MD July 09, 2021 22:02
--- NOTE | 2021-07-09 22:03 | PDOC ---
Exam Note: Adolph Note: Please also refer to the separate dictated note~for this date of service dictated separately.~Patient seen individually. Discussed the patient with Nursing staff reviewed the chart.~Reviewed interim history and current functioning. Reviewed vital signs,~Labs/ Radiology~and current medications noted below. Continue current treatment with the changes noted in the dictated addendum note Assessment: Vital Signs/I&O: Vital Signs Date Time Temp Pulse Resp B/P (MAP) Pulse Ox O2 Delivery O2 Flow Rate FiO2 07/09/21 15:00 98.4 102 20 110/54 (72) 98 Room Air I & O 07/08/21 07/08/21 07/09/21 15:00 23:00 07:00 Intake Total 490 ml 720 ml Balance 490 ml 720 ml Labs: Laboratory Tests Test 07/09/21 07:48 07/09/21 11:48 07/09/21 17:01 07/09/21 19:31 Glucose (Fingerstick) 210 mg/dL (70-99) H 289 mg/dL (70-99) H 318 mg/dL (70-99) H 304 mg/dL (70-99) H Current Medications: Meds: Laboratory Tests Test 07/09/21 07:48 07/09/21 11:48 07/09/21 17:01 07/09/21 19:31 Glucose (Fingerstick) 210 mg/dL 289 mg/dL 318 mg/dL 304 mg/dL Current Medications Medications (Trade) Dose Ordered Sig/Karsten Route PRN Reason Start Time Stop Time Status Last Admin Dose Admin Acetaminophen (Tylenol) 650 mg PRN Q6HRS PRN PO MILD PAIN / TEMP > 100.3'F 06/09/21 21:45 06/16/21 04:52 Multi-Ingredient Ointment (Analgesic [place]) 1 bia PRN QID PRN TP MUSCLE PAIN 06/09/21 21:45 Al Hydroxide/Mg Hydroxide (Mylanta Plus Xs) 15 ml PRN AFTMEALHC PRN PO DYSPEPSIA 06/09/21 21:45 Magnesium Hydroxide (Milk Of Magnesia) 2,400 mg PRN QHS PRN PO 1ST CHOICE CONSTIPATION 06/09/21 21:45 Aspirin (Aspirin Enteric Coated) 81 mg DAILY PO 06/10/21 09:00 07/09/21 07:40 Atorvastatin Calcium (Lipitor) 20 mg QHS PO 06/10/21 21:00 07/09/21 20:49 Dicyclomine HCl (Bentyl) 20 mg PRN Q6HRS PRN PO GI SYMPTOMS 06/09/21 22:30 Fluticasone Propionate (Flonase) 2 spray DAILY NS 06/10/21 09:00 07/08/21 08:40 Glipizide (Glucotrol) 5 mg BID PO 06/10/21 09:00 07/09/21 20:49 Insulin Glargine (Lantus Syringe) 16 unit DAILY SQ 06/10/21 09:00 07/09/21 09:00 Lamotrigine (LaMICtal) 100 mg BID PO 06/10/21 09:00 06/16/21 13:52 DC 06/16/21 09:49 Levothyroxine Sodium (Synthroid) 175 mcg DAILY06 PO 06/10/21 06:00 07/09/21 05:15 Megestrol Acetate (Megace Oral Susp) 400 mg BIDWMEALS PO 06/10/21 08:00 06/19/21 01:22 DC 06/18/21 09:57 Olanzapine (ZyPREXA) 5 mg PRN Q2HR PRN PO ANXIETY / AGITATION 06/09/21 22:30 06/10/21 10:34 DC Ondansetron HCl (Zofran Odt) 4 mg BID PO 06/10/21 09:00 06/10/21 20:29 DC 06/10/21 08:53 Pantoprazole Sodium (Protonix) 40 mg DAILYAC PO 06/10/21 07:30 07/09/21 07:40 Quetiapine Fumarate (SEROquel) 100 mg TID PO 06/10/21 09:00 06/12/21 04:58 DC 06/11/21 21:19 Sertraline HCl (Zoloft) 100 mg DAILY PO 06/10/21 09:00 06/16/21 13:52 DC 06/15/21 08:00 Sucralfate (Carafate) 2 gm BID PO 06/10/21 09:00 07/09/21 20:48 Linagliptin (Tradjenta) 5 mg DAILY PO 06/10/21 09:00 07/09/21 07:41 Ascorbic Acid (Vitamin C) 500 mg DAILY PO 06/10/21 09:00 07/09/21 09:00 Ferrous Sulfate (Feosol) 325 mg DAILY PO 06/10/21 09:00 07/09/21 09:00 Lubiprostone (Amitiza) 24 mcg BID PO 06/10/21 09:00 07/09/21 20:48 Non-Formulary Medication (Nitrofurantoin Macrocrystal (Nitrofurantoin)) 100 mg BID PO 06/10/21 10:30 06/14/21 22:00 Cancel Multivit/ Folic Acid/Iron (Multivitamin ) 1 tab DAILY PO 06/10/21 09:00 07/09/21 09:00 Insulin Human Lispro (HumaLOG) 0-7 UNITS TIDWMEALS SQ 06/10/21 08:00 07/09/21 17:00 Dextrose (Dextrose 50%-Water Syringe) 12.5 gm PRN Q15MIN PRN IV SEE COMMENTS 06/09/21 23:00 Lamotrigine (LaMICtal) 25 mg BID PO 06/10/21 09:00 06/16/21 13:52 DC 06/15/21 20:02 Nitrofurantoin Macrocrystals (Macrobid) 100 mg BID PO 06/10/21 10:45 06/14/21 22:00 DC 06/14/21 20:01 Olanzapine (ZyPREXA ZYDIS) 2.5 mg PRN Q2HR PRN PO PSYCHOSIS 06/10/21 10:45 06/14/21 19:52 DC 06/13/21 22:29 Vitamin D (Vitamin D3) 50,000 unit WEEKLY PO 06/10/21 17:00 07/08/21 08:51 Polyethylene Glycol (miraLAX) 17 gm PRN DAILY PRN PO 2ND CHOICE CONSTIPATION 06/10/21 19:45 Ondansetron HCl (Zofran Odt) 4 mg PRN Q4HRS PRN PO NAUSEA/VOMITING 06/10/21 20:27 06/14/21 11:11 Risperidone (RisperDAL) 0.5 mg BID PO 06/12/21 09:00 06/13/21 18:26 DC 06/13/21 09:20 Divalproex Sodium (Depakote Er) 500 mg QHS PO 06/12/21 21:00 06/14/21 17:08 DC 06/13/21 19:44 Risperidone (RisperDAL) 1 mg BID PO 06/13/21 21:00 06/14/21 18:34 DC 06/13/21 19:46 Divalproex Sodium (Depakote Er) 1,000 mg QHS PO 06/14/21 21:00 06/23/21 18:52 DC 06/22/21 20:03 Risperidone (RisperDAL) 2 mg BID SL 06/14/21 21:00 Cancel Risperidone (RisperDAL) 2 mg DAILY PO 06/14/21 18:45 06/16/21 19:50 DC 06/16/21 11:30 Olanzapine (ZyPREXA ZYDIS) 5 mg PRN Q2HR PRN PO PSYCHOSIS 06/14/21 20:00 07/08/21 14:04 Olanzapine (ZyPREXA ZYDIS) 10 mg 1X ONCE PO 06/14/21 20:00 06/14/21 20:01 DC 06/14/21 20:02 Risperidone (RisperDAL) 1 mg 1X ONCE SL 06/16/21 20:00 06/16/21 20:01 DC 06/16/21 20:14 Risperidone (RisperDAL) 3 mg DAILY SL 06/17/21 09:00 06/29/21 17:00 DC 06/29/21 08:28 Trazodone HCl (Desyrel) 50 mg PRN QHS PRN PO INSOMNIA, MAY REPEAT X1 06/16/21 20:00 07/04/21 20:05 Nitrofurantoin Macrocrystals (Macrobid) 100 mg BID PO 06/19/21 21:00 06/26/21 09:01 DC 06/26/21 09:19 Divalproex Sodium (Depakote Er) 1,500 mg QHS PO 06/23/21 21:00 06/26/21 20:35 DC 06/24/21 20:13 Risperidone (RisperDAL CONSTA) 25 mg Q2WKS IM 06/27/21 09:00 07/05/21 17:36 DC 06/27/21 11:44 Risperidone (RisperDAL CONSTA) 25 mg Q2WKS IM 06/27/21 09:00 UNV Valproic Acid (Depakene) 500 mg DAILY PO 06/27/21 09:00 07/09/21 07:41 Valproic Acid (Depakene) 1,000 mg HS PO 06/26/21 21:00 07/09/21 20:50 Risperidone (RisperDAL) 4 mg DAILY SL 06/30/21 09:00 07/09/21 09:00 Gabapentin (Neurontin) 100 mg TID@0900,1300,1700 PO 07/03/21 09:00 07/09/21 17:00 Levofloxacin (Levaquin) 250 mg DAILY PO 07/05/21 17:00 07/06/21 15:35 DC 07/06/21 08:23 Risperidone (RisperDAL CONSTA) 50 mg Q2WKS IM 07/11/21 09:00 07/05/21 17:42 DC Risperidone (RisperDAL CONSTA) 50 mg Q2WKS IM 07/11/21 09:00 Lactobacillus Rhamnosus (Culturelle) 1 cap BID PO 07/06/21 21:00 07/09/21 20:48 Fosfomycin Tromethamine (Monurol) 3 gm 1X ONCE PO 07/06/21 16:00 07/06/21 16:01 DC 07/06/21 16:00 I have reviewed the current psychotropics carefully including drug interactions. Risk benefit ratio favors no change other than as noted in my dictated progress note. Diagnosis: Problems: (1) Schizoaffective disorder, bipolar type (2) Impulse control disorder, unspecified (3) Anxiety disorder, unspecified (4) Bipolar disorder, current episode manic severe with psychotic features RIGOBERTO SANDERS MD July 09, 2021 22:02
[2021-07-10] MEDS: LEVOTHYROXINE 175 MCG TABLET PO SCH (05:36)
[2021-07-10 06:07] VITALS: BP 140/76
[2021-07-10] MEDS: LUBIPROSTONE 24 MCG CAPSULE PO SCH ×3 (07:52→21:00)
[2021-07-10] MEDS: PANTOPRAZOLE 40 MG TABLET. PO SCH (07:52)
[2021-07-10] MEDS: GABAPENTIN 100 MG CAPSULE. PO SCH ×3 (07:52→16:59)
[2021-07-10] MEDS: glipiZIDE 5 MG TABLET PO SCH ×3 (07:52→21:00)
[2021-07-10] MEDS: ASPIRIN ENTERIC COATED 81 MG TABLET.DR. PO SCH (07:52)
[2021-07-10] MEDS: LINAGLIPTIN 5 MG TABLET PO SCH (07:52)
[2021-07-10] MEDS: VALPROATE ACID 250 MG/5 ML ORAL SOLUTION PO SCH ×4 (07:53→21:00)
[2021-07-10] MEDS: INSULIN LISPRO 300 UNITS/3 ML VIAL. SQ SCH ×3 (08:00→17:00)
[2021-07-10] MEDS: LACTOBACILLUS RHAMNOSUS GG 1 CAPSULE. PO SCH ×2 (09:00→20:00)
[2021-07-10] MEDS: SUCRALFATE 1 GM TABLET. PO SCH ×3 (09:00→21:00)
[2021-07-10] MEDS: FLUTICASONE 50MCG/NASAL SPRAY 16GM BOTTLE. NS SCH (09:00)
[2021-07-10] MEDS: risperiDONE ORAL 1 MG/ML 30ml BOTTLE. SL SCH (09:00)
[2021-07-10] MEDS: ASCORBIC ACID 500 MG TABLET PO SCH (09:00)
[2021-07-10] MEDS: FERROUS SULFATE 325 MG TABLET. PO SCH (09:00)
[2021-07-10] MEDS: PRENATAL MULTIVITAMIN TABLET. PO SCH (09:00)
[2021-07-10] MEDS: INSULIN GLARGINE SYRINGE. SQ SCH (09:00)
[2021-07-10 15:56] VITALS: BP 140/55
[2021-07-10] MEDS: ATORVASTATIN CALCIUM 20 MG TABLET PO SCH ×2 (20:01→21:00)
--- NOTE | 2021-07-10 21:50 | PDOC ---
Exam Note: Adolph Note: Please also refer to the separate dictated note~for this date of service dictated separately.~Patient seen individually. Discussed the patient with Nursing staff reviewed the chart.~Reviewed interim history and current functioning. Reviewed vital signs,~Labs/ Radiology~and current medications noted below. Continue current treatment with the changes noted in the dictated addendum note Assessment: Vital Signs/I&O: Vital Signs Date Time Temp Pulse Resp B/P (MAP) Pulse Ox O2 Delivery O2 Flow Rate FiO2 07/10/21 15:56 98.0 80 16 140/55 (83) 95 Room Air I & O 07/09/21 07/09/21 07/10/21 15:00 23:00 07:00 Intake Total 360 ml 0 ml Balance 360 ml 0 ml Labs: Laboratory Tests Test 07/10/21 08:13 07/10/21 12:02 07/10/21 19:25 Glucose (Fingerstick) 263 mg/dL (70-99) H 151 mg/dL (70-99) H 232 mg/dL (70-99) H Current Medications: Meds: Laboratory Tests Test 07/10/21 08:13 07/10/21 12:02 07/10/21 19:25 Glucose (Fingerstick) 263 mg/dL 151 mg/dL 232 mg/dL Current Medications Medications (Trade) Dose Ordered Sig/Karsten Route PRN Reason Start Time Stop Time Status Last Admin Dose Admin Acetaminophen (Tylenol) 650 mg PRN Q6HRS PRN PO MILD PAIN / TEMP > 100.3'F 06/09/21 21:45 06/16/21 04:52 Multi-Ingredient Ointment (Analgesic [place]) 1 bia PRN QID PRN TP MUSCLE PAIN 06/09/21 21:45 Al Hydroxide/Mg Hydroxide (Mylanta Plus Xs) 15 ml PRN AFTMEALHC PRN PO DYSPEPSIA 06/09/21 21:45 Magnesium Hydroxide (Milk Of Magnesia) 2,400 mg PRN QHS PRN PO 1ST CHOICE CONSTIPATION 06/09/21 21:45 Aspirin (Aspirin Enteric Coated) 81 mg DAILY PO 06/10/21 09:00 07/10/21 07:52 Atorvastatin Calcium (Lipitor) 20 mg QHS PO 06/10/21 21:00 07/09/21 20:49 Dicyclomine HCl (Bentyl) 20 mg PRN Q6HRS PRN PO GI SYMPTOMS 06/09/21 22:30 Fluticasone Propionate (Flonase) 2 spray DAILY NS 06/10/21 09:00 07/08/21 08:40 Glipizide (Glucotrol) 5 mg BID PO 06/10/21 09:00 07/10/21 20:01 Insulin Glargine (Lantus Syringe) 16 unit DAILY SQ 06/10/21 09:00 07/10/21 09:00 Lamotrigine (LaMICtal) 100 mg BID PO 06/10/21 09:00 06/16/21 13:52 DC 06/16/21 09:49 Levothyroxine Sodium (Synthroid) 175 mcg DAILY06 PO 06/10/21 06:00 07/10/21 05:36 Megestrol Acetate (Megace Oral Susp) 400 mg BIDWMEALS PO 06/10/21 08:00 06/19/21 01:22 DC 06/18/21 09:57 Olanzapine (ZyPREXA) 5 mg PRN Q2HR PRN PO ANXIETY / AGITATION 06/09/21 22:30 06/10/21 10:34 DC Ondansetron HCl (Zofran Odt) 4 mg BID PO 06/10/21 09:00 06/10/21 20:29 DC 06/10/21 08:53 Pantoprazole Sodium (Protonix) 40 mg DAILYAC PO 06/10/21 07:30 07/10/21 07:52 Quetiapine Fumarate (SEROquel) 100 mg TID PO 06/10/21 09:00 06/12/21 04:58 DC 06/11/21 21:19 Sertraline HCl (Zoloft) 100 mg DAILY PO 06/10/21 09:00 06/16/21 13:52 DC 06/15/21 08:00 Sucralfate (Carafate) 2 gm BID PO 06/10/21 09:00 07/10/21 20:01 Linagliptin (Tradjenta) 5 mg DAILY PO 06/10/21 09:00 07/10/21 07:52 Ascorbic Acid (Vitamin C) 500 mg DAILY PO 06/10/21 09:00 07/09/21 09:00 Ferrous Sulfate (Feosol) 325 mg DAILY PO 06/10/21 09:00 07/09/21 09:00 Lubiprostone (Amitiza) 24 mcg BID PO 06/10/21 09:00 07/10/21 20:01 Non-Formulary Medication (Nitrofurantoin Macrocrystal (Nitrofurantoin)) 100 mg BID PO 06/10/21 10:30 06/14/21 22:00 Cancel Multivit/ Folic Acid/Iron (Multivitamin ) 1 tab DAILY PO 06/10/21 09:00 07/09/21 09:00 Insulin Human Lispro (HumaLOG) 0-7 UNITS TIDWMEALS SQ 06/10/21 08:00 07/10/21 17:00 Dextrose (Dextrose 50%-Water Syringe) 12.5 gm PRN Q15MIN PRN IV SEE COMMENTS 06/09/21 23:00 Lamotrigine (LaMICtal) 25 mg BID PO 06/10/21 09:00 06/16/21 13:52 DC 06/15/21 20:02 Nitrofurantoin Macrocrystals (Macrobid) 100 mg BID PO 06/10/21 10:45 06/14/21 22:00 DC 06/14/21 20:01 Olanzapine (ZyPREXA ZYDIS) 2.5 mg PRN Q2HR PRN PO PSYCHOSIS 06/10/21 10:45 06/14/21 19:52 DC 06/13/21 22:29 Vitamin D (Vitamin D3) 50,000 unit WEEKLY PO 06/10/21 17:00 07/08/21 08:51 Polyethylene Glycol (miraLAX) 17 gm PRN DAILY PRN PO 2ND CHOICE CONSTIPATION 06/10/21 19:45 Ondansetron HCl (Zofran Odt) 4 mg PRN Q4HRS PRN PO NAUSEA/VOMITING 06/10/21 20:27 06/14/21 11:11 Risperidone (RisperDAL) 0.5 mg BID PO 06/12/21 09:00 06/13/21 18:26 DC 06/13/21 09:20 Divalproex Sodium (Depakote Er) 500 mg QHS PO 06/12/21 21:00 06/14/21 17:08 DC 06/13/21 19:44 Risperidone (RisperDAL) 1 mg BID PO 06/13/21 21:00 06/14/21 18:34 DC 06/13/21 19:46 Divalproex Sodium (Depakote Er) 1,000 mg QHS PO 06/14/21 21:00 06/23/21 18:52 DC 06/22/21 20:03 Risperidone (RisperDAL) 2 mg BID SL 06/14/21 21:00 Cancel Risperidone (RisperDAL) 2 mg DAILY PO 06/14/21 18:45 06/16/21 19:50 DC 06/16/21 11:30 Olanzapine (ZyPREXA ZYDIS) 5 mg PRN Q2HR PRN PO PSYCHOSIS 06/14/21 20:00 07/10/21 17:00 Olanzapine (ZyPREXA ZYDIS) 10 mg 1X ONCE PO 06/14/21 20:00 06/14/21 20:01 DC 06/14/21 20:02 Risperidone (RisperDAL) 1 mg 1X ONCE SL 06/16/21 20:00 06/16/21 20:01 DC 06/16/21 20:14 Risperidone (RisperDAL) 3 mg DAILY SL 06/17/21 09:00 06/29/21 17:00 DC 06/29/21 08:28 Trazodone HCl (Desyrel) 50 mg PRN QHS PRN PO INSOMNIA, MAY REPEAT X1 06/16/21 20:00 07/04/21 20:05 Nitrofurantoin Macrocrystals (Macrobid) 100 mg BID PO 06/19/21 21:00 06/26/21 09:01 DC 06/26/21 09:19 Divalproex Sodium (Depakote Er) 1,500 mg QHS PO 06/23/21 21:00 06/26/21 20:35 DC 06/24/21 20:13 Risperidone (RisperDAL CONSTA) 25 mg Q2WKS IM 06/27/21 09:00 07/05/21 17:36 DC 06/27/21 11:44 Risperidone (RisperDAL CONSTA) 25 mg Q2WKS IM 06/27/21 09:00 UNV Valproic Acid (Depakene) 500 mg DAILY PO 06/27/21 09:00 07/10/21 07:53 Valproic Acid (Depakene) 1,000 mg HS PO 06/26/21 21:00 07/10/21 20:02 Risperidone (RisperDAL) 4 mg DAILY SL 06/30/21 09:00 07/10/21 09:00 Gabapentin (Neurontin) 100 mg TID@0900,1300,1700 PO 07/03/21 09:00 07/10/21 07:52 Levofloxacin (Levaquin) 250 mg DAILY PO 07/05/21 17:00 07/06/21 15:35 DC 07/06/21 08:23 Risperidone (RisperDAL CONSTA) 50 mg Q2WKS IM 07/11/21 09:00 07/05/21 17:42 DC Risperidone (RisperDAL CONSTA) 50 mg Q2WKS IM 07/11/21 09:00 Lactobacillus Rhamnosus (Culturelle) 1 cap BID PO 07/06/21 21:00 07/10/21 20:00 Fosfomycin Tromethamine (Monurol) 3 gm 1X ONCE PO 07/06/21 16:00 07/06/21 16:01 DC 07/06/21 16:00 I have reviewed the current psychotropics carefully including drug interactions. Risk benefit ratio favors no change other than as noted in my dictated progress note. Diagnosis: Problems: (1) Schizoaffective disorder, bipolar type (2) Impulse control disorder, unspecified (3) Anxiety disorder, unspecified (4) Bipolar disorder, current episode manic severe with psychotic features RIGOBERTO SANDERS MD July 10, 2021 21:50
[2021-07-11] MEDS: risperiDONE ORAL 1 MG/ML 30ml BOTTLE. SL SCH (05:11)
[2021-07-11] MEDS: LEVOTHYROXINE 175 MCG TABLET PO SCH (05:11)
[2021-07-11 05:56] VITALS: BP 130/75
[2021-07-11] MEDS: LUBIPROSTONE 24 MCG CAPSULE PO SCH ×2 (07:51→20:03)
[2021-07-11] MEDS: LACTOBACILLUS RHAMNOSUS GG 1 CAPSULE. PO SCH ×2 (07:51→20:03)
[2021-07-11] MEDS: PANTOPRAZOLE 40 MG TABLET. PO SCH (07:51)
[2021-07-11] MEDS: VALPROATE ACID 250 MG/5 ML ORAL SOLUTION PO SCH ×2 (07:51→20:04)
[2021-07-11] MEDS: FERROUS SULFATE 325 MG TABLET. PO SCH (07:51)
[2021-07-11] MEDS: ASCORBIC ACID 500 MG TABLET PO SCH (07:52)
[2021-07-11] MEDS: glipiZIDE 5 MG TABLET PO SCH ×2 (07:52→20:04)
[2021-07-11] MEDS: PRENATAL MULTIVITAMIN TABLET. PO SCH (07:52)
[2021-07-11] MEDS: LINAGLIPTIN 5 MG TABLET PO SCH (07:52)
[2021-07-11] MEDS: SUCRALFATE 1 GM TABLET. PO SCH ×2 (07:52→20:03)
[2021-07-11] MEDS: FLUTICASONE 50MCG/NASAL SPRAY 16GM BOTTLE. NS SCH ×2 (07:52→10:00)
[2021-07-11] MEDS: GABAPENTIN 100 MG CAPSULE. PO SCH ×4 (07:52→17:00)
[2021-07-11] MEDS: INSULIN GLARGINE SYRINGE. SQ SCH (07:54)
[2021-07-11] MEDS: ASPIRIN ENTERIC COATED 81 MG TABLET.DR. PO SCH (07:54)
--- NOTE | 2021-07-11 08:28 | PDOC ---
Exam Note: Adolph Note: This note is a late entry for 07/09/2021 covers elements not covered in my initial note. Subjective: The patient was seen individually on 07/09/2021, discussed and reviewed the chart with Vanessa KAHN. The patient slept 6-1/2 hours previous night. Previous night the patient was putting herself on the floor repeatedly but then she was found to be able to ambulate to the restroom. Today again she is putting herself on the floor, compliant with medications and Glucerna. Appetite is 100%. Urine is positive for ESBL and will be repeated on 07/11. She is back on contact precautions. I met with her in her room. Review of Systems: Ambulation impaired, in wheelchair. No CV, , pulmonary, e ye, ENT system symptoms on review. Mental Status Exam: Patient is oriented to herself and situation. She is pleasant, somewhat apologetic for some of her previous behaviors. I addressed this with her. Speech coherent. Often response is monosyllabic. Abstraction fair. Computation impaired. Language function intact. Attention span short. Mood and affect anxious. Laboratory Data: Reviewed. Impression: Bipolar 1 disorder manic with psychotic features. Anxiety disorder unspecified. Impulse control disorder unspecified. Mild cognitive impairment. Plan: Maintain rest of the psychotropics unchanged. Reviewed drug interactions and risk-benefit ratio. Adjust as clinically indicated. Assessment: Vital Signs/I&O: Vital Signs Date Time Temp Pulse Resp B/P (MAP) Pulse Ox O2 Delivery O2 Flow Rate FiO2 07/11/21 05:56 97.5 62 16 130/75 (93) 97 Room Air I & O 07/10/21 07/10/21 07/11/21 15:00 23:00 07:00 Intake Total 360 ml 240 ml Balance 360 ml 240 ml Labs: Laboratory Tests Test 07/10/21 12:02 07/10/21 19:25 07/11/21 08:15 Glucose (Fingerstick) 151 mg/dL (70-99) H 232 mg/dL (70-99) H 223 mg/dL (70-99) H Current Medications: I have reviewed the current psychotropics carefully including drug interactions. Risk benefit ratio favors no change other than as noted in my dictated progress note. Diagnosis: Problems: (1) Schizoaffective disorder, bipolar type (2) Impulse control disorder, unspecified (3) Anxiety disorder, unspecified (4) Bipolar disorder, current episode manic severe with psychotic features RIGOBERTO SANDERS MD July 11, 2021 08:28
[2021-07-11] MEDS ORDERED: risperiDONE MICROSPHERES 50 MG/2 ML DISP.SYRIN. IM SCH (09:00)
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
[2021-07-11] MEDS: risperiDONE MICROSPHERES 50 MG/2 ML DISP.SYRIN. IM SCH (09:43)
[2021-07-11] MEDS: INSULIN LISPRO 300 UNITS/3 ML VIAL. SQ SCH ×3 (09:45→17:00)
[2021-07-11 16:07] VITALS: BP 126/81
[2021-07-11] MEDS: ATORVASTATIN CALCIUM 20 MG TABLET PO SCH (20:04)
--- NOTE | 2021-07-11 21:29 | PDOC ---
Exam Note: Adolph Note: Please also refer to the separate dictated note~for this date of service dictated separately.~Patient seen individually. Discussed the patient with Nursing staff reviewed the chart.~Reviewed interim history and current functioning. Reviewed vital signs,~Labs/ Radiology~and current medications noted below. Continue current treatment with the changes noted in the dictated addendum note Assessment: Vital Signs/I&O: Vital Signs Date Time Temp Pulse Resp B/P (MAP) Pulse Ox O2 Delivery O2 Flow Rate FiO2 07/11/21 16:07 97.9 67 18 126/81 (96) 99 Room Air I & O 07/10/21 07/10/21 07/11/21 14:59 22:59 06:59 Intake Total 360 ml 240 ml Balance 360 ml 240 ml Labs: Laboratory Tests Test 07/11/21 08:15 07/11/21 12:05 07/11/21 19:15 Glucose (Fingerstick) 223 mg/dL (70-99) H 277 mg/dL (70-99) H 185 mg/dL (70-99) H Current Medications: Meds: Laboratory Tests Test 07/11/21 08:15 07/11/21 12:05 07/11/21 19:15 Glucose (Fingerstick) 223 mg/dL 277 mg/dL 185 mg/dL Current Medications Medications (Trade) Dose Ordered Sig/Karsten Route PRN Reason Start Time Stop Time Status Last Admin Dose Admin Acetaminophen (Tylenol) 650 mg PRN Q6HRS PRN PO MILD PAIN / TEMP > 100.3'F 06/09/21 21:45 06/16/21 04:52 Multi-Ingredient Ointment (Analgesic [place]) 1 bia PRN QID PRN TP MUSCLE PAIN 06/09/21 21:45 Al Hydroxide/Mg Hydroxide (Mylanta Plus Xs) 15 ml PRN AFTMEALHC PRN PO DYSPEPSIA 06/09/21 21:45 Magnesium Hydroxide (Milk Of Magnesia) 2,400 mg PRN QHS PRN PO 1ST CHOICE CONSTIPATION 06/09/21 21:45 Aspirin (Aspirin Enteric Coated) 81 mg DAILY PO 06/10/21 09:00 07/11/21 07:54 Atorvastatin Calcium (Lipitor) 20 mg QHS PO 06/10/21 21:00 07/11/21 20:04 Dicyclomine HCl (Bentyl) 20 mg PRN Q6HRS PRN PO GI SYMPTOMS 06/09/21 22:30 Fluticasone Propionate (Flonase) 2 spray DAILY NS 06/10/21 09:00 07/08/21 08:40 Glipizide (Glucotrol) 5 mg BID PO 06/10/21 09:00 07/11/21 20:04 Insulin Glargine (Lantus Syringe) 16 unit DAILY SQ 06/10/21 09:00 07/11/21 07:54 Lamotrigine (LaMICtal) 100 mg BID PO 06/10/21 09:00 06/16/21 13:52 DC 06/16/21 09:49 Levothyroxine Sodium (Synthroid) 175 mcg DAILY06 PO 06/10/21 06:00 07/11/21 05:11 Megestrol Acetate (Megace Oral Susp) 400 mg BIDWMEALS PO 06/10/21 08:00 06/19/21 01:22 DC 06/18/21 09:57 Olanzapine (ZyPREXA) 5 mg PRN Q2HR PRN PO ANXIETY / AGITATION 06/09/21 22:30 06/10/21 10:34 DC Ondansetron HCl (Zofran Odt) 4 mg BID PO 06/10/21 09:00 06/10/21 20:29 DC 06/10/21 08:53 Pantoprazole Sodium (Protonix) 40 mg DAILYAC PO 06/10/21 07:30 07/11/21 07:51 Quetiapine Fumarate (SEROquel) 100 mg TID PO 06/10/21 09:00 06/12/21 04:58 DC 06/11/21 21:19 Sertraline HCl (Zoloft) 100 mg DAILY PO 06/10/21 09:00 06/16/21 13:52 DC 06/15/21 08:00 Sucralfate (Carafate) 2 gm BID PO 06/10/21 09:00 07/11/21 20:03 Linagliptin (Tradjenta) 5 mg DAILY PO 06/10/21 09:00 07/11/21 07:52 Ascorbic Acid (Vitamin C) 500 mg DAILY PO 06/10/21 09:00 07/11/21 07:52 Ferrous Sulfate (Feosol) 325 mg DAILY PO 06/10/21 09:00 07/11/21 07:51 Lubiprostone (Amitiza) 24 mcg BID PO 06/10/21 09:00 07/11/21 20:03 Non-Formulary Medication (Nitrofurantoin Macrocrystal (Nitrofurantoin)) 100 mg BID PO 06/10/21 10:30 06/14/21 22:00 Cancel Multivit/ Folic Acid/Iron (Multivitamin ) 1 tab DAILY PO 06/10/21 09:00 07/11/21 07:52 Insulin Human Lispro (HumaLOG) 0-7 UNITS TIDWMEALS SQ 06/10/21 08:00 07/11/21 12:49 Dextrose (Dextrose 50%-Water Syringe) 12.5 gm PRN Q15MIN PRN IV SEE COMMENTS 06/09/21 23:00 Lamotrigine (LaMICtal) 25 mg BID PO 06/10/21 09:00 06/16/21 13:52 DC 06/15/21 20:02 Nitrofurantoin Macrocrystals (Macrobid) 100 mg BID PO 06/10/21 10:45 06/14/21 22:00 DC 06/14/21 20:01 Olanzapine (ZyPREXA ZYDIS) 2.5 mg PRN Q2HR PRN PO PSYCHOSIS 06/10/21 10:45 06/14/21 19:52 DC 06/13/21 22:29 Vitamin D (Vitamin D3) 50,000 unit WEEKLY PO 06/10/21 17:00 07/08/21 08:51 Polyethylene Glycol (miraLAX) 17 gm PRN DAILY PRN PO 2ND CHOICE CONSTIPATION 06/10/21 19:45 Ondansetron HCl (Zofran Odt) 4 mg PRN Q4HRS PRN PO NAUSEA/VOMITING 06/10/21 20:27 06/14/21 11:11 Risperidone (RisperDAL) 0.5 mg BID PO 06/12/21 09:00 06/13/21 18:26 DC 06/13/21 09:20 Divalproex Sodium (Depakote Er) 500 mg QHS PO 06/12/21 21:00 06/14/21 17:08 DC 06/13/21 19:44 Risperidone (RisperDAL) 1 mg BID PO 06/13/21 21:00 06/14/21 18:34 DC 06/13/21 19:46 Divalproex Sodium (Depakote Er) 1,000 mg QHS PO 06/14/21 21:00 06/23/21 18:52 DC 06/22/21 20:03 Risperidone (RisperDAL) 2 mg BID SL 06/14/21 21:00 Cancel Risperidone (RisperDAL) 2 mg DAILY PO 06/14/21 18:45 06/16/21 19:50 DC 06/16/21 11:30 Olanzapine (ZyPREXA ZYDIS) 5 mg PRN Q2HR PRN PO PSYCHOSIS 06/14/21 20:00 07/10/21 17:00 Olanzapine (ZyPREXA ZYDIS) 10 mg 1X ONCE PO 06/14/21 20:00 06/14/21 20:01 DC 06/14/21 20:02 Risperidone (RisperDAL) 1 mg 1X ONCE SL 06/16/21 20:00 06/16/21 20:01 DC 06/16/21 20:14 Risperidone (RisperDAL) 3 mg DAILY SL 06/17/21 09:00 06/29/21 17:00 DC 06/29/21 08:28 Trazodone HCl (Desyrel) 50 mg PRN QHS PRN PO INSOMNIA, MAY REPEAT X1 06/16/21 20:00 07/04/21 20:05 Nitrofurantoin Macrocrystals (Macrobid) 100 mg BID PO 06/19/21 21:00 06/26/21 09:01 DC 06/26/21 09:19 Divalproex Sodium (Depakote Er) 1,500 mg QHS PO 06/23/21 21:00 06/26/21 20:35 DC 06/24/21 20:13 Risperidone (RisperDAL CONSTA) 25 mg Q2WKS IM 06/27/21 09:00 07/05/21 17:36 DC 06/27/21 11:44 Risperidone (RisperDAL CONSTA) 25 mg Q2WKS IM 06/27/21 09:00 UNV Valproic Acid (Depakene) 500 mg DAILY PO 06/27/21 09:00 07/11/21 07:51 Valproic Acid (Depakene) 1,000 mg HS PO 06/26/21 21:00 07/11/21 20:04 Risperidone (RisperDAL) 4 mg DAILY SL 06/30/21 09:00 07/11/21 05:11 Gabapentin (Neurontin) 100 mg TID@0900,1300,1700 PO 07/03/21 09:00 07/11/21 07:52 Levofloxacin (Levaquin) 250 mg DAILY PO 07/05/21 17:00 07/06/21 15:35 DC 07/06/21 08:23 Risperidone (RisperDAL CONSTA) 50 mg Q2WKS IM 07/11/21 09:00 07/05/21 17:42 DC Risperidone (RisperDAL CONSTA) 50 mg Q2WKS IM 07/11/21 09:00 07/11/21 09:43 Lactobacillus Rhamnosus (Culturelle) 1 cap BID PO 07/06/21 21:00 07/11/21 20:03 Fosfomycin Tromethamine (Monurol) 3 gm 1X ONCE PO 07/06/21 16:00 07/06/21 16:01 DC 07/06/21 16:00 Current Medications Medications (Trade) Dose Ordered Sig/Karsten Route PRN Reason Start Time Stop Time Status Last Admin Dose Admin Risperidone (RisperDAL CONSTA) 50 mg Q2WKS IM 07/11/21 09:00 07/11/21 09:43 I have reviewed the current psychotropics carefully including drug interactions. Risk benefit ratio favors no change other than as noted in my dictated progress note. Diagnosis: Problems: (1) Schizoaffective disorder, bipolar type (2) Impulse control disorder, unspecified (3) Anxiety disorder, unspecified (4) Bipolar disorder, current episode manic severe with psychotic features RIGOBERTO SANDERS MD July 11, 2021 21:29
[2021-07-12] MEDS: LEVOTHYROXINE 175 MCG TABLET PO SCH (05:54)
[2021-07-12 06:14] VITALS: BP 105/70
[2021-07-12] MEDS: GABAPENTIN 100 MG CAPSULE. PO SCH ×3 (07:43→17:44)
[2021-07-12] MEDS: LUBIPROSTONE 24 MCG CAPSULE PO SCH ×3 (07:44→20:22)
[2021-07-12] MEDS: SUCRALFATE 1 GM TABLET. PO SCH ×3 (07:44→20:06)
[2021-07-12] MEDS: PANTOPRAZOLE 40 MG TABLET. PO SCH ×2 (07:44→12:00)
[2021-07-12] MEDS: LINAGLIPTIN 5 MG TABLET PO SCH ×2 (07:44→12:00)
[2021-07-12] MEDS: ASPIRIN ENTERIC COATED 81 MG TABLET.DR. PO SCH ×2 (07:44→12:00)
[2021-07-12] MEDS: glipiZIDE 5 MG TABLET PO SCH ×3 (07:44→20:05)
[2021-07-12] MEDS: ASCORBIC ACID 500 MG TABLET PO SCH ×2 (07:44→12:00)
[2021-07-12] MEDS: PRENATAL MULTIVITAMIN TABLET. PO SCH ×2 (07:44→12:00)
[2021-07-12] MEDS: LACTOBACILLUS RHAMNOSUS GG 1 CAPSULE. PO SCH ×3 (07:44→20:05)
[2021-07-12] MEDS: FERROUS SULFATE 325 MG TABLET. PO SCH ×2 (07:44→12:00)
[2021-07-12] MEDS: VALPROATE ACID 250 MG/5 ML ORAL SOLUTION PO SCH ×2 (07:45→20:05)
[2021-07-12] MEDS: risperiDONE ORAL 1 MG/ML 30ml BOTTLE. SL SCH (07:45)
--- NOTE | 2021-07-12 08:40 | PDOC ---
Exam Note: Adolph Note: This note is a late entry for 07/11/2021 covers elements not covered in my initial note. Subjective: The patient was seen individually on 07/11/2021, discussed and reviewed the chart with Uche KAHN. The patient slept 6-1/4 hours previous night. Previous night she was quite uncooperative, combative, non-compliant with medications. Today she is more cooperative, refused her oral medications. She did get the higher dosage of Risperdal Consta 50 mg. She is withdrawn, still spends time on the floor but less so this evening as I met with her. She took her a.m. meds in [facility]. Review of Systems: Ambulation impaired, in wheelchair. No CV, , pulmonary, eye, ENT system symptoms on review. Mental Status Exam: Patient is oriented to herself and situation. I met with her in the dayroom. Speech moderate latency. Often response is monosyllabic. Abstraction fair. Computation impaired. Language function intact. Attention span short. Mood and affect withdrawn, less paranoid. Laboratory Data: Reviewed. Impression: Bipolar 1 disorder manic with psychotic features. Anxiety disorder unspecified. Impulse control disorder unspecified. Mild cognitive impairment. Plan: Continue current psychotropics along with increased Risperdal Consta. Reviewed drug interactions and risk-benefit ratio. Adjust as clinically indicated. Assessment: Vital Signs/I&O: Vital Signs Date Time Temp Pulse Resp B/P (MAP) Pulse Ox O2 Delivery O2 Flow Rate FiO2 07/12/21 06:14 98.2 99 16 105/70 (82) 98 Room Air I & O 07/11/21 07/11/21 07/12/21 15:00 23:00 07:00 Intake Total 480 ml 600 ml Balance 480 ml 600 ml Labs: Laboratory Tests Test 07/11/21 12:05 07/11/21 19:15 07/12/21 07:24 Glucose (Fingerstick) 277 mg/dL (70-99) H 185 mg/dL (70-99) H 235 mg/dL (70-99) H Current Medications: Meds: Current Medications Medications (Trade) Dose Ordered Sig/Karsten Route PRN Reason Start Time Stop Time Status Last Admin Dose Admin Risperidone (RisperDAL CONSTA) 50 mg Q2WKS IM 07/11/21 09:00 07/11/21 09:43 I have reviewed the current psychotropics carefully including drug interactions. Risk benefit ratio favors no change other than as noted in my dictated progress note. Diagnosis: Problems: (1) Schizoaffective disorder, bipolar type (2) Impulse control disorder, unspecified (3) Anxiety disorder, unspecified (4) Bipolar disorder, current episode manic severe with psychotic features RIGOBERTO SANDERS MD July 12, 2021 08:40
[2021-07-12] MEDS: FLUTICASONE 50MCG/NASAL SPRAY 16GM BOTTLE. NS SCH (09:00)
[2021-07-12] MEDS: INSULIN LISPRO 300 UNITS/3 ML VIAL. SQ SCH ×3 (09:07→17:44)
[2021-07-12] MEDS: INSULIN GLARGINE SYRINGE. SQ SCH (10:06)
[2021-07-12 16:19] VITALS: BP 120/77
[2021-07-12] MEDS: ATORVASTATIN CALCIUM 20 MG TABLET PO SCH (20:05)
--- NOTE | 2021-07-12 21:32 | PDOC ---
Exam Note: Adolph Note: Please also refer to the separate dictated note~for this date of service dictated separately.~Patient seen individually. Discussed the patient with Nursing staff reviewed the chart.~Reviewed interim history and current functioning. Reviewed vital signs,~Labs/ Radiology~and current medications noted below. Continue current treatment with the changes noted in the dictated addendum note Assessment: Vital Signs/I&O: Vital Signs Date Time Temp Pulse Resp B/P (MAP) Pulse Ox O2 Delivery O2 Flow Rate FiO2 07/12/21 16:19 98.0 81 16 120/77 (91) 96 Room Air I & O 07/11/21 07/11/21 07/12/21 15:00 23:00 07:00 Intake Total 480 ml 600 ml Balance 480 ml 600 ml Labs: Laboratory Tests Test 07/12/21 07:24 07/12/21 09:20 07/12/21 11:33 07/12/21 17:36 Glucose (Fingerstick) 235 mg/dL (70-99) H 231 mg/dL (70-99) H 183 mg/dL (70-99) H POC SARS CoV-2 Antigen Negative (NEGATIVE) Test 07/12/21 19:13 Glucose (Fingerstick) 155 mg/dL (70-99) H Current Medications: Meds: Laboratory Tests Test 07/12/21 07:24 07/12/21 09:20 07/12/21 11:33 07/12/21 17:36 Glucose (Fingerstick) 235 mg/dL 231 mg/dL 183 mg/dL POC SARS CoV-2 Antigen Negative Test 07/12/21 19:13 Glucose (Fingerstick) 155 mg/dL Current Medications Medications (Trade) Dose Ordered Sig/Karsten Route PRN Reason Start Time Stop Time Status Last Admin Dose Admin Acetaminophen (Tylenol) 650 mg PRN Q6HRS PRN PO MILD PAIN / TEMP > 100.3'F 06/09/21 21:45 06/16/21 04:52 Multi-Ingredient Ointment (Analgesic [place]) 1 bia PRN QID PRN TP MUSCLE PAIN 06/09/21 21:45 Al Hydroxide/Mg Hydroxide (Mylanta Plus Xs) 15 ml PRN AFTMEALHC PRN PO DYSPEPSIA 06/09/21 21:45 Magnesium Hydroxide (Milk Of Magnesia) 2,400 mg PRN QHS PRN PO 1ST CHOICE CONSTIPATION 06/09/21 21:45 Aspirin (Aspirin Enteric Coated) 81 mg DAILY PO 06/10/21 09:00 07/11/21 07:54 Atorvastatin Calcium (Lipitor) 20 mg QHS PO 06/10/21 21:00 07/12/21 20:05 Dicyclomine HCl (Bentyl) 20 mg PRN Q6HRS PRN PO GI SYMPTOMS 06/09/21 22:30 Fluticasone Propionate (Flonase) 2 spray DAILY NS 06/10/21 09:00 07/08/21 08:40 Glipizide (Glucotrol) 5 mg BID PO 06/10/21 09:00 07/12/21 20:05 Insulin Glargine (Lantus Syringe) 16 unit DAILY SQ 06/10/21 09:00 07/12/21 10:06 Lamotrigine (LaMICtal) 100 mg BID PO 06/10/21 09:00 06/16/21 13:52 DC 06/16/21 09:49 Levothyroxine Sodium (Synthroid) 175 mcg DAILY06 PO 06/10/21 06:00 07/12/21 05:54 Megestrol Acetate (Megace Oral Susp) 400 mg BIDWMEALS PO 06/10/21 08:00 06/19/21 01:22 DC 06/18/21 09:57 Olanzapine (ZyPREXA) 5 mg PRN Q2HR PRN PO ANXIETY / AGITATION 06/09/21 22:30 06/10/21 10:34 DC Ondansetron HCl (Zofran Odt) 4 mg BID PO 06/10/21 09:00 06/10/21 20:29 DC 06/10/21 08:53 Pantoprazole Sodium (Protonix) 40 mg DAILYAC PO 06/10/21 07:30 07/11/21 07:51 Quetiapine Fumarate (SEROquel) 100 mg TID PO 06/10/21 09:00 06/12/21 04:58 DC 06/11/21 21:19 Sertraline HCl (Zoloft) 100 mg DAILY PO 06/10/21 09:00 06/16/21 13:52 DC 06/15/21 08:00 Sucralfate (Carafate) 2 gm BID PO 06/10/21 09:00 07/12/21 20:06 Linagliptin (Tradjenta) 5 mg DAILY PO 06/10/21 09:00 07/11/21 07:52 Ascorbic Acid (Vitamin C) 500 mg DAILY PO 06/10/21 09:00 07/11/21 07:52 Ferrous Sulfate (Feosol) 325 mg DAILY PO 06/10/21 09:00 07/11/21 07:51 Lubiprostone (Amitiza) 24 mcg BID PO 06/10/21 09:00 07/12/21 20:22 Non-Formulary Medication (Nitrofurantoin Macrocrystal (Nitrofurantoin)) 100 mg BID PO 06/10/21 10:30 06/14/21 22:00 Cancel Multivit/ Folic Acid/Iron (Multivitamin ) 1 tab DAILY PO 06/10/21 09:00 07/11/21 07:52 Insulin Human Lispro (HumaLOG) 0-7 UNITS TIDWMEALS SQ 06/10/21 08:00 07/12/21 17:44 Dextrose (Dextrose 50%-Water Syringe) 12.5 gm PRN Q15MIN PRN IV SEE COMMENTS 06/09/21 23:00 Lamotrigine (LaMICtal) 25 mg BID PO 06/10/21 09:00 06/16/21 13:52 DC 06/15/21 20:02 Nitrofurantoin Macrocrystals (Macrobid) 100 mg BID PO 06/10/21 10:45 06/14/21 22:00 DC 06/14/21 20:01 Olanzapine (ZyPREXA ZYDIS) 2.5 mg PRN Q2HR PRN PO PSYCHOSIS 06/10/21 10:45 06/14/21 19:52 DC 06/13/21 22:29 Vitamin D (Vitamin D3) 50,000 unit WEEKLY PO 06/10/21 17:00 07/08/21 08:51 Polyethylene Glycol (miraLAX) 17 gm PRN DAILY PRN PO 2ND CHOICE CONSTIPATION 06/10/21 19:45 Ondansetron HCl (Zofran Odt) 4 mg PRN Q4HRS PRN PO NAUSEA/VOMITING 06/10/21 20:27 06/14/21 11:11 Risperidone (RisperDAL) 0.5 mg BID PO 06/12/21 09:00 06/13/21 18:26 DC 06/13/21 09:20 Divalproex Sodium (Depakote Er) 500 mg QHS PO 06/12/21 21:00 06/14/21 17:08 DC 06/13/21 19:44 Risperidone (RisperDAL) 1 mg BID PO 06/13/21 21:00 06/14/21 18:34 DC 06/13/21 19:46 Divalproex Sodium (Depakote Er) 1,000 mg QHS PO 06/14/21 21:00 06/23/21 18:52 DC 06/22/21 20:03 Risperidone (RisperDAL) 2 mg BID SL 06/14/21 21:00 Cancel Risperidone (RisperDAL) 2 mg DAILY PO 06/14/21 18:45 06/16/21 19:50 DC 06/16/21 11:30 Olanzapine (ZyPREXA ZYDIS) 5 mg PRN Q2HR PRN PO PSYCHOSIS 06/14/21 20:00 07/11/21 22:25 Olanzapine (ZyPREXA ZYDIS) 10 mg 1X ONCE PO 06/14/21 20:00 06/14/21 20:01 DC 06/14/21 20:02 Risperidone (RisperDAL) 1 mg 1X ONCE SL 06/16/21 20:00 06/16/21 20:01 DC 06/16/21 20:14 Risperidone (RisperDAL) 3 mg DAILY SL 06/17/21 09:00 06/29/21 17:00 DC 06/29/21 08:28 Trazodone HCl (Desyrel) 50 mg PRN QHS PRN PO INSOMNIA, MAY REPEAT X1 06/16/21 20:00 07/04/21 20:05 Nitrofurantoin Macrocrystals (Macrobid) 100 mg BID PO 06/19/21 21:00 06/26/21 09:01 DC 06/26/21 09:19 Divalproex Sodium (Depakote Er) 1,500 mg QHS PO 06/23/21 21:00 06/26/21 20:35 DC 06/24/21 20:13 Risperidone (RisperDAL CONSTA) 25 mg Q2WKS IM 06/27/21 09:00 07/05/21 17:36 DC 06/27/21 11:44 Risperidone (RisperDAL CONSTA) 25 mg Q2WKS IM 06/27/21 09:00 UNV Valproic Acid (Depakene) 500 mg DAILY PO 06/27/21 09:00 07/12/21 07:45 Valproic Acid (Depakene) 1,000 mg HS PO 06/26/21 21:00 07/12/21 20:05 Risperidone (RisperDAL) 4 mg DAILY SL 06/30/21 09:00 07/12/21 07:45 Gabapentin (Neurontin) 100 mg TID@0900,1300,1700 PO 07/03/21 09:00 07/11/21 07:52 Levofloxacin (Levaquin) 250 mg DAILY PO 07/05/21 17:00 07/06/21 15:35 DC 07/06/21 08:23 Risperidone (RisperDAL CONSTA) 50 mg Q2WKS IM 07/11/21 09:00 07/05/21 17:42 DC Risperidone (RisperDAL CONSTA) 50 mg Q2WKS IM 07/11/21 09:00 07/11/21 09:43 Lactobacillus Rhamnosus (Culturelle) 1 cap BID PO 07/06/21 21:00 07/12/21 20:05 Fosfomycin Tromethamine (Monurol) 3 gm 1X ONCE PO 07/06/21 16:00 07/06/21 16:01 DC 07/06/21 16:00 I have reviewed the current psychotropics carefully including drug interactions. Risk benefit ratio favors no change other than as noted in my dictated progress note. Diagnosis: Problems: (1) Schizoaffective disorder, bipolar type (2) Impulse control disorder, unspecified (3) Anxiety disorder, unspecified (4) Bipolar disorder, current episode manic severe with psychotic features RIGOBERTO SANDERS MD July 12, 2021 21:32
[2021-07-13 06:09] VITALS: BP 123/76
[2021-07-13] MEDS: LEVOTHYROXINE 175 MCG TABLET PO SCH (06:22)
[2021-07-13] MEDS: SUCRALFATE 1 GM TABLET. PO SCH ×2 (07:49→20:18)
[2021-07-13] MEDS: FERROUS SULFATE 325 MG TABLET. PO SCH (07:49)
[2021-07-13] MEDS: ASCORBIC ACID 500 MG TABLET PO SCH (07:50)
[2021-07-13] MEDS: glipiZIDE 5 MG TABLET PO SCH ×2 (07:50→20:18)
[2021-07-13] MEDS: ASPIRIN ENTERIC COATED 81 MG TABLET.DR. PO SCH (07:50)
[2021-07-13] MEDS: PANTOPRAZOLE 40 MG TABLET. PO SCH (07:50)
[2021-07-13] MEDS: GABAPENTIN 100 MG CAPSULE. PO SCH ×3 (07:50→17:00)
[2021-07-13] MEDS: LACTOBACILLUS RHAMNOSUS GG 1 CAPSULE. PO SCH ×2 (07:50→20:18)
[2021-07-13] MEDS: PRENATAL MULTIVITAMIN TABLET. PO SCH (07:50)
[2021-07-13] MEDS: LUBIPROSTONE 24 MCG CAPSULE PO SCH ×2 (07:50→20:19)
[2021-07-13] MEDS: risperiDONE ORAL 1 MG/ML 30ml BOTTLE. SL SCH (07:50)
[2021-07-13] MEDS: LINAGLIPTIN 5 MG TABLET PO SCH (07:50)
[2021-07-13] MEDS: VALPROATE ACID 250 MG/5 ML ORAL SOLUTION PO SCH ×2 (07:50→20:17)
[2021-07-13] MEDS: INSULIN LISPRO 300 UNITS/3 ML VIAL. SQ SCH ×3 (07:50→17:35)
--- NOTE | 2021-07-13 08:49 | PDOC ---
Exam Note: Adolph Note: This note is a late entry for 07/12/2021 covers elements not covered in my initial note. Subjective: The patient was seen individually on 07/12/2021, discussed and reviewed the chart with Uche KAHN. There has been Covid exposure on the unit and the unit has been placed on quarantine as determined by Infectious Disease Department. The patient slept 6 hours previous night. Last night the patient crawled into the hallway naked, tries to put herself on the floor. Received Zyprexa at 10.30 at night. Today she is somewhat withdrawn. Refused some of her medications, took it later. UA is awaited. Again put herself on the floor today. She had had her supper. She was seated with her head on the table while she was seated in the wheelchair. Review of Systems: Ambulation impaired, in wheelchair. No CV, , pulmonary, eye, ENT system symptoms on review. Mental Status Exam: Patient is oriented to herself and situation. I met with her in the dining room. Speech coherent. Often response is monosyllabic. Abstraction fair. Computation impaired. Language function intact. Attention span short. Mood and affect withdrawn. Laboratory Data: Reviewed. Impression: Bipolar 1 disorder manic with psychotic features. Anxiety disorder unspecified. Impulse control disorder unspecified. Mild cognitive impairment. Plan: Continue current psychotropics along with increased Risperdal Consta. Reviewed drug interactions and risk-benefit ratio. Adjust as clinically indicated. Assessment: Vital Signs/I&O: Vital Signs Date Time Temp Pulse Resp B/P (MAP) Pulse Ox O2 Delivery O2 Flow Rate FiO2 07/13/21 06:09 98.3 71 20 123/76 (92) 95 Room Air I & O 07/12/21 07/12/21 07/13/21 15:00 23:00 07:00 Intake Total 480 ml 360 ml Balance 480 ml 360 ml Labs: Laboratory Tests Test 07/12/21 09:20 07/12/21 11:33 07/12/21 17:36 07/12/21 19:13 POC SARS CoV-2 Antigen Negative (NEGATIVE) Glucose (Fingerstick) 231 mg/dL (70-99) H 183 mg/dL (70-99) H 155 mg/dL (70-99) H Test 07/13/21 07:39 Glucose (Fingerstick) 96 mg/dL (70-99) Current Medications: I have reviewed the current psychotropics carefully including drug interactions. Risk benefit ratio favors no change other than as noted in my dictated progress note. Diagnosis: Problems: (1) Schizoaffective disorder, bipolar type (2) Impulse control disorder, unspecified (3) Anxiety disorder, unspecified (4) Bipolar disorder, current episode manic severe with psychotic features RIGOBERTO SANDERS MD July 13, 2021 08:49
[2021-07-13] MEDS: FLUTICASONE 50MCG/NASAL SPRAY 16GM BOTTLE. NS SCH (09:00)
[2021-07-13] MEDS: INSULIN GLARGINE SYRINGE. SQ SCH (10:55)
[2021-07-13 11:06] LABS: AMORPHOUS SEDIMENT,UR PRESENT /HPF; BACTERIA,URINE FEW /HPF (0-FEW); CLARITY,URINE HAZY; COLOR,URINE YELLOW; GLUCOSE,URINE NEG (NEG); NITRITE,URINE NEG (NEG); SQUAMOUS EPITHELIAL CELL,UR MOD /LPF; UROBILINOGEN,URINE 0.2 mg/dL (0.2 mg/dL)
[2021-07-13 16:56] VITALS: BP 120/82
[2021-07-13] MEDS: ATORVASTATIN CALCIUM 20 MG TABLET PO SCH (20:18)
--- NOTE | 2021-07-13 21:54 | PDOC ---
Exam Note: Adolph Note: Please also refer to the separate dictated note~for this date of service dictated separately.~Patient seen individually. Discussed the patient with Nursing staff reviewed the chart.~Reviewed interim history and current functioning. Reviewed vital signs,~Labs/ Radiology~and current medications noted below. Continue current treatment with the changes noted in the dictated addendum note Assessment: Vital Signs/I&O: Vital Signs Date Time Temp Pulse Resp B/P (MAP) Pulse Ox O2 Delivery O2 Flow Rate FiO2 07/13/21 16:56 97.9 98 20 120/82 (95) 100 07/13/21 06:09 Room Air I & O 07/12/21 07/12/21 07/13/21 15:00 23:00 07:00 Intake Total 480 ml 360 ml Balance 480 ml 360 ml Labs: Laboratory Tests Test 07/13/21 07:39 07/13/21 10:30 07/13/21 11:59 07/13/21 16:59 Glucose (Fingerstick) 96 mg/dL (70-99) 167 mg/dL (70-99) H 203 mg/dL (70-99) H Urine Collection Type U cath Urine Color Yellow Urine Clarity Hazy Urine pH 7.0 Urine Specific [place] 1.025 Urine Protein Neg (NEG-TRACE) Urine Glucose (UA) Neg mg/dL (NEG) Urine Ketones (Stick) Neg mg/dL (NEG) Urine Blood Trace (NEG) Urine Nitrite Neg (NEG) Urine Bilirubin Neg (NEG) Urine Urobilinogen Dipstick 0.2 mg/dL (0.2 mg/dL) Urine Leukocyte Esterase Trace (NEG) Urine RBC 1-2 /HPF (0-2) Urine WBC 5-10 /HPF (0-4) Urine Squamous Epithelial Cells Mod /LPF Urine Amorphous Sediment Present /HPF Urine Bacteria Few /HPF (0-FEW) Test 07/13/21 19:06 Glucose (Fingerstick) 235 mg/dL (70-99) H Current Medications: Meds: Laboratory Tests Test 07/13/21 07:39 07/13/21 10:30 07/13/21 11:59 07/13/21 16:59 Glucose (Fingerstick) 96 mg/dL 167 mg/dL 203 mg/dL Urine Collection Type U cath Urine Color Yellow Urine Clarity Hazy Urine pH 7.0 Urine Specific [place] 1.025 Urine Protein Neg Urine Glucose (UA) Neg mg/dL Urine Ketones (Stick) Neg mg/dL Urine Blood Trace Urine Nitrite Neg Urine Bilirubin Neg Urine Urobilinogen Dipstick 0.2 mg/dL Urine Leukocyte Esterase Trace Urine RBC 1-2 /HPF Urine WBC 5-10 /HPF Urine Squamous Epithelial Cells Mod /LPF Urine Amorphous Sediment Present /HPF Urine Bacteria Few /HPF Test 07/13/21 19:06 Glucose (Fingerstick) 235 mg/dL Current Medications Medications (Trade) Dose Ordered Sig/Karsten Route PRN Reason Start Time Stop Time Status Last Admin Dose Admin Acetaminophen (Tylenol) 650 mg PRN Q6HRS PRN PO MILD PAIN / TEMP > 100.3'F 06/09/21 21:45 06/16/21 04:52 Multi-Ingredient Ointment (Analgesic [place]) 1 bia PRN QID PRN TP MUSCLE PAIN 06/09/21 21:45 Al Hydroxide/Mg Hydroxide (Mylanta Plus Xs) 15 ml PRN AFTMEALHC PRN PO DYSPEPSIA 06/09/21 21:45 Magnesium Hydroxide (Milk Of Magnesia) 2,400 mg PRN QHS PRN PO 1ST CHOICE CONSTIPATION 06/09/21 21:45 Aspirin (Aspirin Enteric Coated) 81 mg DAILY PO 06/10/21 09:00 07/13/21 07:50 Atorvastatin Calcium (Lipitor) 20 mg QHS PO 06/10/21 21:00 07/13/21 20:18 Dicyclomine HCl (Bentyl) 20 mg PRN Q6HRS PRN PO GI SYMPTOMS 06/09/21 22:30 Fluticasone Propionate (Flonase) 2 spray DAILY NS 06/10/21 09:00 07/13/21 11:54 DC 07/08/21 08:40 Glipizide (Glucotrol) 5 mg BID PO 06/10/21 09:00 07/13/21 20:18 Insulin Glargine (Lantus Syringe) 16 unit DAILY SQ 06/10/21 09:00 07/13/21 10:55 Lamotrigine (LaMICtal) 100 mg BID PO 06/10/21 09:00 06/16/21 13:52 DC 06/16/21 09:49 Levothyroxine Sodium (Synthroid) 175 mcg DAILY06 PO 06/10/21 06:00 5/11/22 06:22 Megestrol Acetate (Megace Oral Susp) 400 mg BIDWMEALS PO 06/10/21 08:00 06/19/21 01:22 DC 06/18/21 09:57 Olanzapine (ZyPREXA) 5 mg PRN Q2HR PRN PO ANXIETY / AGITATION 06/09/21 22:30 06/10/21 10:34 DC Ondansetron HCl (Zofran Odt) 4 mg BID PO 06/10/21 09:00 06/10/21 20:29 DC 06/10/21 08:53 Pantoprazole Sodium (Protonix) 40 mg DAILYAC PO 06/10/21 07:30 07/13/21 07:50 Quetiapine Fumarate (SEROquel) 100 mg TID PO 06/10/21 09:00 06/12/21 04:58 DC 06/11/21 21:19 Sertraline HCl (Zoloft) 100 mg DAILY PO 06/10/21 09:00 06/16/21 13:52 DC 06/15/21 08:00 Sucralfate (Carafate) 2 gm BID PO 06/10/21 09:00 07/13/21 20:18 Linagliptin (Tradjenta) 5 mg DAILY PO 06/10/21 09:00 07/13/21 07:50 Ascorbic Acid (Vitamin C) 500 mg DAILY PO 06/10/21 09:00 07/13/21 07:50 Ferrous Sulfate (Feosol) 325 mg DAILY PO 06/10/21 09:00 07/13/21 07:49 Lubiprostone (Amitiza) 24 mcg BID PO 06/10/21 09:00 07/13/21 20:19 Non-Formulary Medication (Nitrofurantoin Macrocrystal (Nitrofurantoin)) 100 mg BID PO 06/10/21 10:30 06/14/21 22:00 Cancel Multivit/ Folic Acid/Iron (Multivitamin ) 1 tab DAILY PO 06/10/21 09:00 07/13/21 07:50 Insulin Human Lispro (HumaLOG) 0-7 UNITS TIDWMEALS SQ 06/10/21 08:00 07/13/21 17:35 Dextrose (Dextrose 50%-Water Syringe) 12.5 gm PRN Q15MIN PRN IV SEE COMMENTS 06/09/21 23:00 Lamotrigine (LaMICtal) 25 mg BID PO 06/10/21 09:00 06/16/21 13:52 DC 06/15/21 20:02 Nitrofurantoin Macrocrystals (Macrobid) 100 mg BID PO 06/10/21 10:45 06/14/21 22:00 DC 06/14/21 20:01 Olanzapine (ZyPREXA ZYDIS) 2.5 mg PRN Q2HR PRN PO PSYCHOSIS 06/10/21 10:45 06/14/21 19:52 DC 06/13/21 22:29 Vitamin D (Vitamin D3) 50,000 unit WEEKLY PO 06/10/21 17:00 07/08/21 08:51 Polyethylene Glycol (miraLAX) 17 gm PRN DAILY PRN PO 2ND CHOICE CONSTIPATION 06/10/21 19:45 Ondansetron HCl (Zofran Odt) 4 mg PRN Q4HRS PRN PO NAUSEA/VOMITING 06/10/21 20:27 06/14/21 11:11 Risperidone (RisperDAL) 0.5 mg BID PO 06/12/21 09:00 06/13/21 18:26 DC 06/13/21 09:20 Divalproex Sodium (Depakote Er) 500 mg QHS PO 06/12/21 21:00 06/14/21 17:08 DC 06/13/21 19:44 Risperidone (RisperDAL) 1 mg BID PO 06/13/21 21:00 06/14/21 18:34 DC 06/13/21 19:46 Divalproex Sodium (Depakote Er) 1,000 mg QHS PO 06/14/21 21:00 06/23/21 18:52 DC 06/22/21 20:03 Risperidone (RisperDAL) 2 mg BID SL 06/14/21 21:00 Cancel Risperidone (RisperDAL) 2 mg DAILY PO 06/14/21 18:45 06/16/21 19:50 DC 06/16/21 11:30 Olanzapine (ZyPREXA ZYDIS) 5 mg PRN Q2HR PRN PO PSYCHOSIS 06/14/21 20:00 07/11/21 22:25 Olanzapine (ZyPREXA ZYDIS) 10 mg 1X ONCE PO 06/14/21 20:00 06/14/21 20:01 DC 06/14/21 20:02 Risperidone (RisperDAL) 1 mg 1X ONCE SL 06/16/21 20:00 06/16/21 20:01 DC 06/16/21 20:14 Risperidone (RisperDAL) 3 mg DAILY SL 06/17/21 09:00 06/29/21 17:00 DC 06/29/21 08:28 Trazodone HCl (Desyrel) 50 mg PRN QHS PRN PO INSOMNIA, MAY REPEAT X1 06/16/21 20:00 07/04/21 20:05 Nitrofurantoin Macrocrystals (Macrobid) 100 mg BID PO 06/19/21 21:00 06/26/21 09:01 DC 06/26/21 09:19 Divalproex Sodium (Depakote Er) 1,500 mg QHS PO 06/23/21 21:00 06/26/21 20:35 DC 06/24/21 20:13 Risperidone (RisperDAL CONSTA) 25 mg Q2WKS IM 06/27/21 09:00 07/05/21 17:36 DC 06/27/21 11:44 Risperidone (RisperDAL CONSTA) 25 mg Q2WKS IM 06/27/21 09:00 UNV Valproic Acid (Depakene) 500 mg DAILY PO 06/27/21 09:00 07/13/21 07:50 Valproic Acid (Depakene) 1,000 mg HS PO 06/26/21 21:00 07/13/21 20:17 Risperidone (RisperDAL) 4 mg DAILY SL 06/30/21 09:00 07/13/21 17:15 DC 07/13/21 07:50 Gabapentin (Neurontin) 100 mg TID@0900,1300,1700 PO 07/03/21 09:00 07/13/21 07:50 Levofloxacin (Levaquin) 250 mg DAILY PO 07/05/21 17:00 07/06/21 15:35 DC 07/06/21 08:23 Risperidone (RisperDAL CONSTA) 50 mg Q2WKS IM 07/11/21 09:00 07/05/21 17:42 DC Risperidone (RisperDAL CONSTA) 50 mg Q2WKS IM 07/11/21 09:00 07/11/21 09:43 Lactobacillus Rhamnosus (Culturelle) 1 cap BID PO 07/06/21 21:00 07/13/21 20:18 Fosfomycin Tromethamine (Monurol) 3 gm 1X ONCE PO 07/06/21 16:00 07/06/21 16:01 DC 07/06/21 16:00 Risperidone (RisperDAL) 2 mg DAILY SL 07/14/21 09:00 Haloperidol Lactate (HALDOL 10mg ORAL CONC) 5 mg DAILY PO 07/14/21 09:00 I have reviewed the current psychotropics carefully including drug interactions. Risk benefit ratio favors no change other than as noted in my dictated progress note. Diagnosis: Problems: (1) Schizoaffective disorder, bipolar type (2) Impulse control disorder, unspecified (3) Anxiety disorder, unspecified (4) Bipolar disorder, current episode manic severe with psychotic features RIGOBERTO SANDERS MD July 13, 2021 21:54
[2021-07-14 06:17] VITALS: BP 145/83
[2021-07-14] MEDS: LEVOTHYROXINE 175 MCG TABLET PO SCH (06:23)
[2021-07-14] MEDS: LINAGLIPTIN 5 MG TABLET PO SCH (08:00)
[2021-07-14] MEDS: glipiZIDE 5 MG TABLET PO SCH ×2 (08:00→20:19)
[2021-07-14] MEDS: PRENATAL MULTIVITAMIN TABLET. PO SCH (08:00)
[2021-07-14] MEDS: GABAPENTIN 100 MG CAPSULE. PO SCH ×3 (08:00→17:24)
[2021-07-14] MEDS: ASCORBIC ACID 500 MG TABLET PO SCH (08:00)
[2021-07-14] MEDS: FERROUS SULFATE 325 MG TABLET. PO SCH (08:00)
[2021-07-14] MEDS: PANTOPRAZOLE 40 MG TABLET. PO SCH (08:00)
[2021-07-14] MEDS: LACTOBACILLUS RHAMNOSUS GG 1 CAPSULE. PO SCH ×2 (08:00→20:18)
[2021-07-14] MEDS: SUCRALFATE 1 GM TABLET. PO SCH ×2 (08:00→20:18)
[2021-07-14] MEDS: LUBIPROSTONE 24 MCG CAPSULE PO SCH ×2 (08:00→20:18)
[2021-07-14] MEDS: VALPROATE ACID 250 MG/5 ML ORAL SOLUTION PO SCH ×2 (08:00→20:19)
[2021-07-14] MEDS: HALOPERIDOL 10 MG/5 ML ORAL.CONC. PO SCH (08:01)
[2021-07-14] MEDS: ASPIRIN ENTERIC COATED 81 MG TABLET.DR. PO SCH (08:01)
[2021-07-14] MEDS: INSULIN LISPRO 300 UNITS/3 ML VIAL. SQ SCH ×3 (08:11→17:26)
[2021-07-14] MEDS: INSULIN GLARGINE SYRINGE. SQ SCH (08:12)
[2021-07-14] MEDS: risperiDONE ORAL 1 MG/ML 30ml BOTTLE. SL SCH (08:14)
--- NOTE | 2021-07-14 08:31 | PDOC ---
Exam Note: Adolph Note: This note is a late entry for 07/13/2021 covers elements not covered in my initial note. Subjective: The patient was seen individually on 07/13/2021, discussed and reviewed the chart with Uche KAHN. There has been Covid exposure on the unit and the unit has been placed on quarantine as determined by Infectious Disease Department. The patient slept 6-3/4 hours previous night. Per nursing report the patient has had a heck off a day. She did have a straight cath UA and this is reflex to culture but had a trace of leukocyte esterase, few bacteria and 5-10 WBCs. Previous night she had called from the hallway into her room and was naked, defecated in the hallway, smeared feces all around. Today she has acted helpless, withdrawn in her room, puts herself on the floor, stripped herself today, incontinent, spread the bowel fecal matter all over the hallway and staff took her to the bathroom to wash her and change her. She was hitting, biting, kicking staff in the shower. Review of Systems: Ambulation impaired, in wheelchair. No CV, , pulmonary, eye, ENT system symptoms on review. I met with her in the dining room. There was complaint of tiredness. Mental Status Exam: Patient is oriented to herself and situation. Speech coherent. Often response is monosyllabic. Abstraction fair. Computation impaired. Language function intact. Attention span short. Mood and affect withdrawn. She remains psychotic, paranoid, anxious. No suicidal or homicidal ideation, not very verbally interactive. Laboratory Data: Reviewed. Impression: Bipolar 1 disorder manic with psychotic features. Anxiety disorder unspecified. Impulse control disorder unspecified. Mild cognitive impairment. Plan: We will add Haldol 5 mg daily for her ongoing psychosis which persists despite valproic level therapeutic and a healthy dosage of Risperdal Consta and oral Risperdal, to avoid any adverse reaction from using two antipsychotics, we will reduce the oral Risperdal down from 4 mg a day to 2 mg a day. Maintain rest psychotropics unchanged. Reviewed drug interactions and risk-benefit ratio. Adjust as clinically indicated. Assessment: Vital Signs/I&O: Vital Signs Date Time Temp Pulse Resp B/P (MAP) Pulse Ox O2 Delivery O2 Flow Rate FiO2 07/14/21 06:17 97.5 66 16 145/83 (103) 100 07/13/21 06:09 Room Air I & O 07/13/21 07/13/21 07/14/21 15:00 23:00 07:00 Intake Total 120 ml 360 ml Balance 120 ml 360 ml Labs: Laboratory Tests Test 07/13/21 10:30 07/13/21 11:59 07/13/21 16:59 07/13/21 19:06 Urine Collection Type U cath Urine Color Yellow Urine Clarity Hazy Urine pH 7.0 Urine Specific [place] 1.025 Urine Protein Neg (NEG-TRACE) Urine Glucose (UA) Neg mg/dL (NEG) Urine Ketones (Stick) Neg mg/dL (NEG) Urine Blood Trace (NEG) Urine Nitrite Neg (NEG) Urine Bilirubin Neg (NEG) Urine Urobilinogen Dipstick 0.2 mg/dL (0.2 mg/dL) Urine Leukocyte Esterase Trace (NEG) Urine RBC 1-2 /HPF (0-2) Urine WBC 5-10 /HPF (0-4) Urine Squamous Epithelial Cells Mod /LPF Urine Amorphous Sediment Present /HPF Urine Bacteria Few /HPF (0-FEW) Glucose (Fingerstick) 167 mg/dL (70-99) H 203 mg/dL (70-99) H 235 mg/dL (70-99) H Test 07/14/21 07:38 Glucose (Fingerstick) 224 mg/dL (70-99) H Current Medications: Meds: Current Medications Medications (Trade) Dose Ordered Sig/Karsten Route PRN Reason Start Time Stop Time Status Last Admin Dose Admin Risperidone (RisperDAL) 2 mg DAILY SL 07/14/21 09:00 07/14/21 08:14 Haloperidol Lactate (HALDOL 10mg ORAL CONC) 5 mg DAILY PO 07/14/21 09:00 07/14/21 08:01 I have reviewed the current psychotropics carefully including drug interactions. Risk benefit ratio favors no change other than as noted in my dictated progress note. Diagnosis: Problems: (1) Schizoaffective disorder, bipolar type (2) Impulse control disorder, unspecified (3) Anxiety disorder, unspecified (4) Bipolar disorder, current episode manic severe with psychotic features RIGOBERTO SANDERS MD July 14, 2021 08:31
--- NOTE | 2021-07-14 13:06 | TX PLAN ---
Interdisciplinary Tx Plan Admission Information Jun 09, 2021 at 20:18 Legal Status (on Admission): Court Appointed Guardian DPOA/Guardian Name: Arcelia Munoz Contact Verified Code Status: Full Code Allergies: Coded Allergies: Beta-Blockers (Beta-Adrenergic Bloc (Verified Allergy, Intermediate, 06/09/21) caffeine (Verified Allergy, Unknown, 06/09/21) pseudoephedrine (Verified Allergy, Unknown, 06/09/21) Diagnoses Primary Diagnosis: Schizoaffective d/o with acute psychosis Reasons for Admission: Aggressive, Delusions, Agitated, Hallucinations, Combative, Suspicious/paranoid, Poor impulse control Problem in Patient's Words: Per intake record, talking to the devil, attempted to climb out a window, walking in the [place] naked, fighting staff. Problems Active Problems: Aggressive/combative Resistant to cares/medications Delusional Suspicious/Paranoid Hallucintations Disrobing in public Inactive Problems: Intakes are averaging 60% Sleep is averaging 7.5 hours at night Pt Strengths/Limitations Ability for [place]: Poor Cognitive Functioning/Ability: Fair Communication Skills/Ability: Fair Financial Resources: Fair Insight/Judgement: Poor Intellectual Ability: Fair Physical Health: Fair Social Skills: Poor Stability in Family: Poor Verbal Skills: Fair Discharge Criteria Discharge Criteria: Adequate arrangements @DC, Improved behavior, Improved mood/thought Preliminary Discharge Plan Preliminary DC Plan: Prison Other Arrangements: [facility] [place] Special Precautions Special Precautions: Agitation/Assault Fall Risk: High Initial D/C Plan To return to [facility] [place] once stable. Identified Discharge Needs: Out patient psychiatry and counseling if available 24 hour care and supervision for safety Currently Utilized Resources Currently Utilized Resources/P: PCP 24 hour care provided by [facility] Referrals Community Resources: Out patient psychiatry and counseling if available Identified Problems/Hx/Goals Objectives/Short-Term Goals Short Term Goals: Control abnormal behavior, Dec. Aggression, Dec. Hallucination/Delus, Dec. Outbursts, Improved Social Skills, Medication Stabilization, Monitor Med Effects, Prevent Deterioration Short Term Goals in Patient's: Mood and behavior stabilization Interventions/Frequency Staff Interventions/Frequency&: Nursing to provide routine safety checks, medication administration, and adl support. Psychiatrist to see three times weekly. SW to see twice weekly. PT/OT eval and treat if indicated. Mikaela will be invited to attend recreational and SW group activites while hospitalized. History Vocational History: Unknown Social: Unknown Education: Unknown Community Follow-up PCP Psychiatry and counseling if available Community Provider/Family Inpu: This SW is assisting with care while assigned SW, Nancy Alan, is out of the office. Treatment team meeting was held this date. Mikaela is averaging 60% of meal intakes and 7.5 hours of sleep at night. She was combative, hitting and biting staff, during her shower on 07/13/21. She defacated on the floor of her room and fingerpainted in the feces. She frequently disrobes in public areas. She puts herslef on the floor and goes to sleep. UA is pending, Risperdal consta has been increased. VPA is 88. Mikaela has had no group participation over the last week. Tentative d/c late next week or early the following. SW will provide update to Christopher Shelby. 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
[2021-07-14 16:43] VITALS: BP 129/84
[2021-07-14] MEDS: ATORVASTATIN CALCIUM 20 MG TABLET PO SCH (20:20)
--- NOTE | 2021-07-14 21:04 | PDOC ---
Exam Note: Adolph Note: Please also refer to the separate dictated note~for this date of service dictated separately.~Patient seen individually. Discussed the patient with Nursing staff reviewed the chart.~Reviewed interim history and current functioning. Reviewed vital signs,~Labs/ Radiology~and current medications noted below. Continue current treatment with the changes noted in the dictated addendum note Assessment: Vital Signs/I&O: Vital Signs Date Time Temp Pulse Resp B/P (MAP) Pulse Ox O2 Delivery O2 Flow Rate FiO2 07/14/21 16:43 97.5 67 20 129/84 (99) 99 07/13/21 06:09 Room Air I & O 07/13/21 07/13/21 07/14/21 15:00 23:00 07:00 Intake Total 120 ml 360 ml Balance 120 ml 360 ml Labs: Laboratory Tests Test 07/14/21 07:38 07/14/21 12:01 07/14/21 17:11 07/14/21 19:22 Glucose (Fingerstick) 224 mg/dL (70-99) H 317 mg/dL (70-99) H 274 mg/dL (70-99) H 277 mg/dL (70-99) H Current Medications: Meds: Laboratory Tests Test 07/14/21 07:38 07/14/21 12:01 07/14/21 17:11 07/14/21 19:22 Glucose (Fingerstick) 224 mg/dL 317 mg/dL 274 mg/dL 277 mg/dL Current Medications Medications (Trade) Dose Ordered Sig/Karsten Route PRN Reason Start Time Stop Time Status Last Admin Dose Admin Acetaminophen (Tylenol) 650 mg PRN Q6HRS PRN PO MILD PAIN / TEMP > 100.3'F 06/09/21 21:45 06/16/21 04:52 Multi-Ingredient Ointment (Analgesic [place]) 1 bia PRN QID PRN TP MUSCLE PAIN 06/09/21 21:45 Al Hydroxide/Mg Hydroxide (Mylanta Plus Xs) 15 ml PRN AFTMEALHC PRN PO DYSPEPSIA 06/09/21 21:45 Magnesium Hydroxide (Milk Of Magnesia) 2,400 mg PRN QHS PRN PO 1ST CHOICE CONSTIPATION 06/09/21 21:45 Aspirin (Aspirin Enteric Coated) 81 mg DAILY PO 06/10/21 09:00 07/14/21 08:01 Atorvastatin Calcium (Lipitor) 20 mg QHS PO 06/10/21 21:00 07/14/21 20:20 Dicyclomine HCl (Bentyl) 20 mg PRN Q6HRS PRN PO GI SYMPTOMS 06/09/21 22:30 Fluticasone Propionate (Flonase) 2 spray DAILY NS 06/10/21 09:00 07/13/21 11:54 DC 07/08/21 08:40 Glipizide (Glucotrol) 5 mg BID PO 06/10/21 09:00 07/14/21 20:19 Insulin Glargine (Lantus Syringe) 16 unit DAILY SQ 06/10/21 09:00 07/14/21 08:12 Lamotrigine (LaMICtal) 100 mg BID PO 06/10/21 09:00 06/16/21 13:52 DC 06/16/21 09:49 Levothyroxine Sodium (Synthroid) 175 mcg DAILY06 PO 06/10/21 06:00 07/14/21 06:23 Megestrol Acetate (Megace Oral Susp) 400 mg BIDWMEALS PO 06/10/21 08:00 06/19/21 01:22 DC 06/18/21 09:57 Olanzapine (ZyPREXA) 5 mg PRN Q2HR PRN PO ANXIETY / AGITATION 06/09/21 22:30 06/10/21 10:34 DC Ondansetron HCl (Zofran Odt) 4 mg BID PO 06/10/21 09:00 06/10/21 20:29 DC 06/10/21 08:53 Pantoprazole Sodium (Protonix) 40 mg DAILYAC PO 06/10/21 07:30 07/14/21 08:00 Quetiapine Fumarate (SEROquel) 100 mg TID PO 06/10/21 09:00 06/12/21 04:58 DC 06/11/21 21:19 Sertraline HCl (Zoloft) 100 mg DAILY PO 06/10/21 09:00 06/16/21 13:52 DC 06/15/21 08:00 Sucralfate (Carafate) 2 gm BID PO 06/10/21 09:00 07/14/21 20:18 Linagliptin (Tradjenta) 5 mg DAILY PO 06/10/21 09:00 07/14/21 08:00 Ascorbic Acid (Vitamin C) 500 mg DAILY PO 06/10/21 09:00 07/14/21 08:00 Ferrous Sulfate (Feosol) 325 mg DAILY PO 06/10/21 09:00 07/14/21 08:00 Lubiprostone (Amitiza) 24 mcg BID PO 06/10/21 09:00 07/14/21 20:18 Non-Formulary Medication (Nitrofurantoin Macrocrystal (Nitrofurantoin)) 100 mg BID PO 06/10/21 10:30 06/14/21 22:00 Cancel Multivit/ Folic Acid/Iron (Multivitamin ) 1 tab DAILY PO 06/10/21 09:00 07/14/21 08:00 Insulin Human Lispro (HumaLOG) 0-7 UNITS TIDWMEALS SQ 06/10/21 08:00 07/14/21 17:26 Dextrose (Dextrose 50%-Water Syringe) 12.5 gm PRN Q15MIN PRN IV SEE COMMENTS 06/09/21 23:00 Lamotrigine (LaMICtal) 25 mg BID PO 06/10/21 09:00 06/16/21 13:52 DC 06/15/21 20:02 Nitrofurantoin Macrocrystals (Macrobid) 100 mg BID PO 06/10/21 10:45 06/14/21 22:00 DC 06/14/21 20:01 Olanzapine (ZyPREXA ZYDIS) 2.5 mg PRN Q2HR PRN PO PSYCHOSIS 06/10/21 10:45 06/14/21 19:52 DC 06/13/21 22:29 Vitamin D (Vitamin D3) 50,000 unit WEEKLY PO 06/10/21 17:00 07/08/21 08:51 Polyethylene Glycol (miraLAX) 17 gm PRN DAILY PRN PO 2ND CHOICE CONSTIPATION 06/10/21 19:45 Ondansetron HCl (Zofran Odt) 4 mg PRN Q4HRS PRN PO NAUSEA/VOMITING 06/10/21 20:27 06/14/21 11:11 Risperidone (RisperDAL) 0.5 mg BID PO 06/12/21 09:00 06/13/21 18:26 DC 06/13/21 09:20 Divalproex Sodium (Depakote Er) 500 mg QHS PO 06/12/21 21:00 06/14/21 17:08 DC 06/13/21 19:44 Risperidone (RisperDAL) 1 mg BID PO 06/13/21 21:00 06/14/21 18:34 DC 06/13/21 19:46 Divalproex Sodium (Depakote Er) 1,000 mg QHS PO 06/14/21 21:00 06/23/21 18:52 DC 06/22/21 20:03 Risperidone (RisperDAL) 2 mg BID SL 06/14/21 21:00 Cancel Risperidone (RisperDAL) 2 mg DAILY PO 06/14/21 18:45 06/16/21 19:50 DC 06/16/21 11:30 Olanzapine (ZyPREXA ZYDIS) 5 mg PRN Q2HR PRN PO PSYCHOSIS 06/14/21 20:00 07/11/21 22:25 Olanzapine (ZyPREXA ZYDIS) 10 mg 1X ONCE PO 06/14/21 20:00 06/14/21 20:01 DC 06/14/21 20:02 Risperidone (RisperDAL) 1 mg 1X ONCE SL 06/16/21 20:00 06/16/21 20:01 DC 06/16/21 20:14 Risperidone (RisperDAL) 3 mg DAILY SL 06/17/21 09:00 06/29/21 17:00 DC 06/29/21 08:28 Trazodone HCl (Desyrel) 50 mg PRN QHS PRN PO INSOMNIA, MAY REPEAT X1 06/16/21 20:00 07/04/21 20:05 Nitrofurantoin Macrocrystals (Macrobid) 100 mg BID PO 06/19/21 21:00 06/26/21 09:01 DC 06/26/21 09:19 Divalproex Sodium (Depakote Er) 1,500 mg QHS PO 06/23/21 21:00 06/26/21 20:35 DC 06/24/21 20:13 Risperidone (RisperDAL CONSTA) 25 mg Q2WKS IM 06/27/21 09:00 07/05/21 17:36 DC 06/27/21 11:44 Risperidone (RisperDAL CONSTA) 25 mg Q2WKS IM 06/27/21 09:00 UNV Valproic Acid (Depakene) 500 mg DAILY PO 06/27/21 09:00 07/14/21 08:00 Valproic Acid (Depakene) 1,000 mg HS PO 06/26/21 21:00 07/14/21 20:19 Risperidone (RisperDAL) 4 mg DAILY SL 06/30/21 09:00 07/13/21 17:15 DC 07/13/21 07:50 Gabapentin (Neurontin) 100 mg TID@0900,1300,1700 PO 07/03/21 09:00 07/14/21 17:24 Levofloxacin (Levaquin) 250 mg DAILY PO 07/05/21 17:00 07/06/21 15:35 DC 07/06/21 08:23 Risperidone (RisperDAL CONSTA) 50 mg Q2WKS IM 07/11/21 09:00 07/05/21 17:42 DC Risperidone (RisperDAL CONSTA) 50 mg Q2WKS IM 07/11/21 09:00 07/11/21 09:43 Lactobacillus Rhamnosus (Culturelle) 1 cap BID PO 07/06/21 21:00 07/14/21 20:18 Fosfomycin Tromethamine (Monurol) 3 gm 1X ONCE PO 07/06/21 16:00 07/06/21 16:01 DC 07/06/21 16:00 Risperidone (RisperDAL) 2 mg DAILY SL 07/14/21 09:00 07/14/21 08:14 Haloperidol Lactate (HALDOL 10mg ORAL CONC) 5 mg DAILY PO 07/14/21 09:00 07/14/21 08:01 Current Medications Medications (Trade) Dose Ordered Sig/Karsten Route PRN Reason Start Time Stop Time Status Last Admin Dose Admin Risperidone (RisperDAL) 2 mg DAILY SL 07/14/21 09:00 07/14/21 08:14 Haloperidol Lactate (HALDOL 10mg ORAL CONC) 5 mg DAILY PO 07/14/21 09:00 07/14/21 08:01 I have reviewed the current psychotropics carefully including drug interactions. Risk benefit ratio favors no change other than as noted in my dictated progress note. Diagnosis: Problems: (1) Schizoaffective disorder, bipolar type (2) Impulse control disorder, unspecified (3) Anxiety disorder, unspecified (4) Bipolar disorder, current episode manic severe with psychotic features RIGOBERTO SANDERS MD July 14, 2021 21:04
[2021-07-15] MEDS: LEVOTHYROXINE 175 MCG TABLET PO SCH (06:10)
[2021-07-15 06:28] VITALS: BP 145/88
[2021-07-15] MEDS: risperiDONE ORAL 1 MG/ML 30ml BOTTLE. SL SCH (08:09)
[2021-07-15] MEDS: HALOPERIDOL 10 MG/5 ML ORAL.CONC. PO SCH (08:09)
[2021-07-15] MEDS: LUBIPROSTONE 24 MCG CAPSULE PO SCH ×2 (08:10→19:50)
[2021-07-15] MEDS: FERROUS SULFATE 325 MG TABLET. PO SCH (08:10)
[2021-07-15] MEDS: PANTOPRAZOLE 40 MG TABLET. PO SCH (08:10)
[2021-07-15] MEDS: VALPROATE ACID 250 MG/5 ML ORAL SOLUTION PO SCH ×2 (08:10→19:49)
[2021-07-15] MEDS: glipiZIDE 5 MG TABLET PO SCH ×2 (08:10→19:50)
[2021-07-15] MEDS: LACTOBACILLUS RHAMNOSUS GG 1 CAPSULE. PO SCH ×2 (08:10→19:50)
[2021-07-15] MEDS: SUCRALFATE 1 GM TABLET. PO SCH ×2 (08:10→19:50)
[2021-07-15] MEDS: LINAGLIPTIN 5 MG TABLET PO SCH (08:10)
[2021-07-15] MEDS: ASCORBIC ACID 500 MG TABLET PO SCH (08:11)
[2021-07-15] MEDS: GABAPENTIN 100 MG CAPSULE. PO SCH ×3 (08:11→17:14)
[2021-07-15] MEDS: ASPIRIN ENTERIC COATED 81 MG TABLET.DR. PO SCH (08:11)
[2021-07-15] MEDS: PRENATAL MULTIVITAMIN TABLET. PO SCH (08:11)
[2021-07-15] MEDS: INSULIN LISPRO 300 UNITS/3 ML VIAL. SQ SCH ×3 (08:22→17:18)
[2021-07-15] MEDS: CHOLECALCIFEROL (VITAMIN D3) 50,000 UNIT CAPSULE PO SCH (08:23)
[2021-07-15] MEDS: INSULIN GLARGINE SYRINGE. SQ SCH (09:09)
[2021-07-15 16:25] VITALS: BP 140/85
[2021-07-15] MEDS: ATORVASTATIN CALCIUM 20 MG TABLET PO SCH (19:50)
--- NOTE | 2021-07-15 21:44 | PDOC ---
Exam Note: Adolph Note: This note is a late entry for 07/14/2021 covers elements not covered in my initial note. Subjective: The patient was reviewed at treatment team meeting individually in the morning on 07/14/2021 with Thi Marsh, Brianna Massey, and Anita Alan (socially responsible investment adviser), and Krystin, activity therapy, and Sujatha KAHN, discussed and reviewed the chart. The patient slept 7-1/2 hours previous night. Appetite 75%. Average sleep 7-1/2 hours. She remains quite psychotic, paranoid, defecating in her room, in bed, floor. She was hitting, biting, kicking at nursing staff as they attempted to resist her through the showers after her incontinence. UA culture & sensitivity awaited. She often strips herself down in her room and then comes out in the hallway, oblivious of what she is doing, somewhat sedated. She has not attended any group therapy in the past week. Review of Systems: Ambulation impaired, in wheelchair. No CV, , pulmonary, eye, ENT system symptoms on review. Mental Status Exam: Patient is oriented to herself and situation. She is still paranoid with mood lability. Speech coherent. Often response is monosyllabic. Abstraction fair. Computation impaired. Language function intact. Attention span short. Mood and affect withdrawn. No suicidal or homicidal ideation. Laboratory Data: Reviewed. Impression: Bipolar 1 disorder manic with psychotic features. Anxiety disorder unspecified. Impulse control disorder unspecified. Mild cognitive impairment. Plan: We will just increase her antipsychotics by adding Haldol 5 mg daily. Maintain rest psychotropics unchanged. Reviewed drug interactions and risk- benefit ratio. Adjust as clinically indicated. Assessment: Vital Signs/I&O: Vital Signs Date Time Temp Pulse Resp B/P (MAP) Pulse Ox O2 Delivery O2 Flow Rate FiO2 07/15/21 16:25 97.9 78 17 140/85 (103) 98 07/13/21 06:09 Room Air I & O 07/14/21 07/14/21 07/15/21 15:00 23:00 07:00 Intake Total 860 ml 440 ml Balance 860 ml 440 ml Labs: Laboratory Tests Test 07/15/21 07:41 07/15/21 17:09 07/15/21 19:40 Glucose (Fingerstick) 196 mg/dL (70-99) H 190 mg/dL (70-99) H 178 mg/dL (70-99) H Current Medications: I have reviewed the current psychotropics carefully including drug interactions. Risk benefit ratio favors no change other than as noted in my dictated progress note. Diagnosis: Problems: (1) Schizoaffective disorder, bipolar type (2) Impulse control disorder, unspecified (3) Anxiety disorder, unspecified (4) Bipolar disorder, current episode manic severe with psychotic features RIGOBERTO SANDERS MD July 15, 2021 21:44
--- NOTE | 2021-07-15 22:02 | PDOC ---
Exam Note: Adolph Note: Please also refer to the separate dictated note~for this date of service dictated separately.~Patient seen individually. Discussed the patient with Nursing staff reviewed the chart.~Reviewed interim history and current functioning. Reviewed vital signs,~Labs/ Radiology~and current medications noted below. Continue current treatment with the changes noted in the dictated addendum note Assessment: Vital Signs/I&O: Vital Signs Date Time Temp Pulse Resp B/P (MAP) Pulse Ox O2 Delivery O2 Flow Rate FiO2 07/15/21 16:25 97.9 78 17 140/85 (103) 98 07/13/21 06:09 Room Air I & O 07/14/21 07/14/21 07/15/21 15:00 23:00 07:00 Intake Total 860 ml 440 ml Balance 860 ml 440 ml Labs: Laboratory Tests Test 07/15/21 07:41 07/15/21 17:09 07/15/21 19:40 Glucose (Fingerstick) 196 mg/dL (70-99) H 190 mg/dL (70-99) H 178 mg/dL (70-99) H Current Medications: Meds: Laboratory Tests Test 07/15/21 07:41 07/15/21 17:09 07/15/21 19:40 Glucose (Fingerstick) 196 mg/dL 190 mg/dL 178 mg/dL Current Medications Medications (Trade) Dose Ordered Sig/Karsten Route PRN Reason Start Time Stop Time Status Last Admin Dose Admin Acetaminophen (Tylenol) 650 mg PRN Q6HRS PRN PO MILD PAIN / TEMP > 100.3'F 06/09/21 21:45 06/16/21 04:52 Multi-Ingredient Ointment (Analgesic [place]) 1 bia PRN QID PRN TP MUSCLE PAIN 06/09/21 21:45 Al Hydroxide/Mg Hydroxide (Mylanta Plus Xs) 15 ml PRN AFTMEALHC PRN PO DYSPEPSIA 06/09/21 21:45 Magnesium Hydroxide (Milk Of Magnesia) 2,400 mg PRN QHS PRN PO 1ST CHOICE CONSTIPATION 06/09/21 21:45 Aspirin (Aspirin Enteric Coated) 81 mg DAILY PO 06/10/21 09:00 07/15/21 08:11 Atorvastatin Calcium (Lipitor) 20 mg QHS PO 06/10/21 21:00 07/15/21 19:50 Dicyclomine HCl (Bentyl) 20 mg PRN Q6HRS PRN PO GI SYMPTOMS 06/09/21 22:30 Fluticasone Propionate (Flonase) 2 spray DAILY NS 06/10/21 09:00 07/13/21 11:54 DC 07/08/21 08:40 Glipizide (Glucotrol) 5 mg BID PO 06/10/21 09:00 07/15/21 19:50 Insulin Glargine (Lantus Syringe) 16 unit DAILY SQ 06/10/21 09:00 07/15/21 09:09 Lamotrigine (LaMICtal) 100 mg BID PO 06/10/21 09:00 06/16/21 13:52 DC 06/16/21 09:49 Levothyroxine Sodium (Synthroid) 175 mcg DAILY06 PO 06/10/21 06:00 07/15/21 06:10 Megestrol Acetate (Megace Oral Susp) 400 mg BIDWMEALS PO 06/10/21 08:00 06/19/21 01:22 DC 06/18/21 09:57 Olanzapine (ZyPREXA) 5 mg PRN Q2HR PRN PO ANXIETY / AGITATION 06/09/21 22:30 06/10/21 10:34 DC Ondansetron HCl (Zofran Odt) 4 mg BID PO 06/10/21 09:00 06/10/21 20:29 DC 06/10/21 08:53 Pantoprazole Sodium (Protonix) 40 mg DAILYAC PO 06/10/21 07:30 07/15/21 08:10 Quetiapine Fumarate (SEROquel) 100 mg TID PO 06/10/21 09:00 06/12/21 04:58 DC 06/11/21 21:19 Sertraline HCl (Zoloft) 100 mg DAILY PO 06/10/21 09:00 06/16/21 13:52 DC 06/15/21 08:00 Sucralfate (Carafate) 2 gm BID PO 06/10/21 09:00 07/15/21 19:50 Linagliptin (Tradjenta) 5 mg DAILY PO 06/10/21 09:00 07/15/21 08:10 Ascorbic Acid (Vitamin C) 500 mg DAILY PO 06/10/21 09:00 07/15/21 08:11 Ferrous Sulfate (Feosol) 325 mg DAILY PO 06/10/21 09:00 07/15/21 08:10 Lubiprostone (Amitiza) 24 mcg BID PO 06/10/21 09:00 07/15/21 19:50 Non-Formulary Medication (Nitrofurantoin Macrocrystal (Nitrofurantoin)) 100 mg BID PO 06/10/21 10:30 06/14/21 22:00 Cancel Multivit/ Folic Acid/Iron (Multivitamin ) 1 tab DAILY PO 06/10/21 09:00 07/15/21 08:11 Insulin Human Lispro (HumaLOG) 0-7 UNITS TIDWMEALS SQ 06/10/21 08:00 07/15/21 17:18 Dextrose (Dextrose 50%-Water Syringe) 12.5 gm PRN Q15MIN PRN IV SEE COMMENTS 06/09/21 23:00 Lamotrigine (LaMICtal) 25 mg BID PO 06/10/21 09:00 06/16/21 13:52 DC 06/15/21 20:02 Nitrofurantoin Macrocrystals (Macrobid) 100 mg BID PO 06/10/21 10:45 06/14/21 22:00 DC 06/14/21 20:01 Olanzapine (ZyPREXA ZYDIS) 2.5 mg PRN Q2HR PRN PO PSYCHOSIS 06/10/21 10:45 06/14/21 19:52 DC 06/13/21 22:29 Vitamin D (Vitamin D3) 50,000 unit WEEKLY PO 06/10/21 17:00 07/08/21 08:51 Polyethylene Glycol (miraLAX) 17 gm PRN DAILY PRN PO 2ND CHOICE CONSTIPATION 06/10/21 19:45 Ondansetron HCl (Zofran Odt) 4 mg PRN Q4HRS PRN PO NAUSEA/VOMITING 06/10/21 20:27 06/14/21 11:11 Risperidone (RisperDAL) 0.5 mg BID PO 06/12/21 09:00 06/13/21 18:26 DC 06/13/21 09:20 Divalproex Sodium (Depakote Er) 500 mg QHS PO 06/12/21 21:00 06/14/21 17:08 DC 06/13/21 19:44 Risperidone (RisperDAL) 1 mg BID PO 06/13/21 21:00 06/14/21 18:34 DC 06/13/21 19:46 Divalproex Sodium (Depakote Er) 1,000 mg QHS PO 06/14/21 21:00 06/23/21 18:52 DC 06/22/21 20:03 Risperidone (RisperDAL) 2 mg BID SL 06/14/21 21:00 Cancel Risperidone (RisperDAL) 2 mg DAILY PO 06/14/21 18:45 06/16/21 19:50 DC 06/16/21 11:30 Olanzapine (ZyPREXA ZYDIS) 5 mg PRN Q2HR PRN PO PSYCHOSIS 06/14/21 20:00 07/11/21 22:25 Olanzapine (ZyPREXA ZYDIS) 10 mg 1X ONCE PO 06/14/21 20:00 06/14/21 20:01 DC 06/14/21 20:02 Risperidone (RisperDAL) 1 mg 1X ONCE SL 06/16/21 20:00 06/16/21 20:01 DC 06/16/21 20:14 Risperidone (RisperDAL) 3 mg DAILY SL 06/17/21 09:00 06/29/21 17:00 DC 06/29/21 08:28 Trazodone HCl (Desyrel) 50 mg PRN QHS PRN PO INSOMNIA, MAY REPEAT X1 06/16/21 20:00 07/04/21 20:05 Nitrofurantoin Macrocrystals (Macrobid) 100 mg BID PO 06/19/21 21:00 06/26/21 09:01 DC 06/26/21 09:19 Divalproex Sodium (Depakote Er) 1,500 mg QHS PO 06/23/21 21:00 06/26/21 20:35 DC 06/24/21 20:13 Risperidone (RisperDAL CONSTA) 25 mg Q2WKS IM 06/27/21 09:00 07/05/21 17:36 DC 06/27/21 11:44 Risperidone (RisperDAL CONSTA) 25 mg Q2WKS IM 06/27/21 09:00 UNV Valproic Acid (Depakene) 500 mg DAILY PO 06/27/21 09:00 07/15/21 08:10 Valproic Acid (Depakene) 1,000 mg HS PO 06/26/21 21:00 07/15/21 19:49 Risperidone (RisperDAL) 4 mg DAILY SL 06/30/21 09:00 07/13/21 17:15 DC 07/13/21 07:50 Gabapentin (Neurontin) 100 mg TID@0900,1300,1700 PO 07/03/21 09:00 07/15/21 17:14 Levofloxacin (Levaquin) 250 mg DAILY PO 07/05/21 17:00 07/06/21 15:35 DC 07/06/21 08:23 Risperidone (RisperDAL CONSTA) 50 mg Q2WKS IM 07/11/21 09:00 07/05/21 17:42 DC Risperidone (RisperDAL CONSTA) 50 mg Q2WKS IM 07/11/21 09:00 07/11/21 09:43 Lactobacillus Rhamnosus (Culturelle) 1 cap BID PO 07/06/21 21:00 07/15/21 19:50 Fosfomycin Tromethamine (Monurol) 3 gm 1X ONCE PO 07/06/21 16:00 07/06/21 16:01 DC 07/06/21 16:00 Risperidone (RisperDAL) 2 mg DAILY SL 07/14/21 09:00 07/15/21 08:09 Haloperidol Lactate (HALDOL 10mg ORAL CONC) 5 mg DAILY PO 07/14/21 09:00 07/15/21 08:09 I have reviewed the current psychotropics carefully including drug interactions. Risk benefit ratio favors no change other than as noted in my dictated progress note. Diagnosis: Problems: (1) Schizoaffective disorder, bipolar type (2) Impulse control disorder, unspecified (3) Anxiety disorder, unspecified (4) Bipolar disorder, current episode manic severe with psychotic features RIGOBERTO SANDERS MD July 15, 2021 22:02
[2021-07-16] MEDS: LEVOTHYROXINE 175 MCG TABLET PO SCH (05:34)
[2021-07-16 06:05] VITALS: BP 110/70
[2021-07-16 07:15] LABS: BASO # 0.2 x10^3/uL (0.0-0.2); BASO % 2 % (0-3); EOS # 0.2 x10^3/uL (0.0-0.7); EOS % 2 % (0-3); HEMATOCRIT 39.3 % (36.0-47.0); LYMPH # 2.7 x10^3/uL (1.0-4.8); LYMPH % 28 % (24-48); MEAN CORPUSCULAR HEMOGLOBIN 29 pg (25-35); MEAN CORPUSCULAR HGB CONC 33 g/dL (31-37); MEAN CORPUSCULAR VOLUME 89 fL (79-100); MONO % 10 % (0-9); NEUT # 5.5 x10^3uL (1.8-7.7); NEUT % 58 % (31-73); PLATELET COUNT 263 x10^3/uL (140-400); RED BLOOD COUNT 4.41 x10^6/uL (3.50-5.40); RED CELL DISTRIBUTION WIDTH 13.9 % (11.5-14.5); WHITE BLOOD COUNT 9.5 x10^3/uL (4.0-11.0)
[2021-07-16 07:28] LABS: ALBUMIN 3.4 g/dL (3.4-5.0); ALBUMIN/GLOBULIN RATIO 0.9 (1.0-1.7); CALCIUM 9.5 mg/dL (8.5-10.1); CREATININE 1.1 mg/dL (0.6-1.0); GFR 51.4; POTASSIUM 5.4 mmol/L (3.5-5.1); TOTAL BILIRUBIN 0.2 mg/dL (0.2-1.0); TOTAL PROTEIN 7.1 g/dL (6.4-8.2)
[2021-07-16] MEDS: risperiDONE ORAL 1 MG/ML 30ml BOTTLE. SL SCH (07:37)
[2021-07-16] MEDS: glipiZIDE 5 MG TABLET PO SCH ×2 (07:38→19:46)
[2021-07-16] MEDS: ASPIRIN ENTERIC COATED 81 MG TABLET.DR. PO SCH (07:38)
[2021-07-16] MEDS: SUCRALFATE 1 GM TABLET. PO SCH ×2 (07:38→19:47)
[2021-07-16] MEDS: LACTOBACILLUS RHAMNOSUS GG 1 CAPSULE. PO SCH ×2 (07:38→19:46)
[2021-07-16] MEDS: PRENATAL MULTIVITAMIN TABLET. PO SCH (07:38)
[2021-07-16] MEDS: LUBIPROSTONE 24 MCG CAPSULE PO SCH ×2 (07:39→19:48)
[2021-07-16] MEDS: GABAPENTIN 100 MG CAPSULE. PO SCH ×3 (07:39→17:00)
[2021-07-16] MEDS: VALPROATE ACID 250 MG/5 ML ORAL SOLUTION PO SCH ×2 (07:39→19:47)
[2021-07-16] MEDS: PANTOPRAZOLE 40 MG TABLET. PO SCH (07:39)
[2021-07-16] MEDS: LINAGLIPTIN 5 MG TABLET PO SCH (07:39)
[2021-07-16] MEDS: ASCORBIC ACID 500 MG TABLET PO SCH (07:39)
[2021-07-16] MEDS: HALOPERIDOL 10 MG/5 ML ORAL.CONC. PO SCH (07:39)
[2021-07-16] MEDS: FERROUS SULFATE 325 MG TABLET. PO SCH (07:40)
[2021-07-16] MEDS: INSULIN LISPRO 300 UNITS/3 ML VIAL. SQ SCH ×3 (08:00→17:00)
--- NOTE | 2021-07-16 08:38 | PDOC ---
Exam Note: Adolph Note: This note is a late entry for 07/15/2021 covers elements not covered in my initial note. Subjective: The patient was seen individually on 07/15/2021, discussed and reviewed the chart with Emi KAHN. The patient slept 4-1/2 hours previous night. I met with her in her room at length. She puts herself on the floor, at times compliant with medications. She had Glucerna for lunch and nothing else, refused rest of her lunch, did eat breakfast. She has been intermittently psychotic. Review of Systems: Ambulation impaired, in wheelchair. No CV, , pulmonary, eye, ENT system symptoms on review. Mental Status Exam: Patient is oriented to herself and situation. Speech moderate to marked latency. Often response is monosyllabic. Abstraction fair. Computation impaired. Language function intact. Mood and affect withdrawn, not very verbal as I met with her. She is still paranoid. Laboratory Data: Reviewed. Impression: Bipolar 1 disorder manic with psychotic features. Anxiety disorder unspecified. Impulse control disorder unspecified. Mild cognitive impairment. Plan: Maintain continue psychotropics unchanged. Reviewed drug interactions and risk-benefit ratio. Adjust as clinically indicated. Dr. Salmeron will cover for me from 07/16/2021 until 08/02/2021. Assessment: Vital Signs/I&O: Vital Signs Date Time Temp Pulse Resp B/P (MAP) Pulse Ox O2 Delivery O2 Flow Rate FiO2 07/16/21 06:05 97.8 85 16 110/70 (83) 99 07/13/21 06:09 Room Air I & O 07/15/21 07/15/21 07/16/21 15:00 23:00 07:00 Intake Total 827 ml 120 ml Balance 827 ml 120 ml Labs: Laboratory Tests Test 07/15/21 17:09 07/15/21 19:40 07/16/21 06:49 07/16/21 07:23 Glucose (Fingerstick) 190 mg/dL (70-99) H 178 mg/dL (70-99) H 219 mg/dL (70-99) H White Blood Count 9.5 x10^3/uL (4.0-11.0) Red Blood Count 4.41 x10^6/uL (3.50-5.40) Hemoglobin 13.0 g/dL (12.0-15.5) Hematocrit 39.3 % (36.0-47.0) Mean Corpuscular Volume 89 fL (79-100) Mean Corpuscular Hemoglobin 29 pg (25-35) Mean Corpuscular Hemoglobin Concent 33 g/dL (31-37) Red Cell Distribution Width 13.9 % (11.5-14.5) Platelet Count 263 x10^3/uL (140-400) Neutrophils (%) (Auto) 58 % (31-73) Lymphocytes (%) (Auto) 28 % (24-48) Monocytes (%) (Auto) 10 % (0-9) H Eosinophils (%) (Auto) 2 % (0-3) Basophils (%) (Auto) 2 % (0-3) Neutrophils # (Auto) 5.5 x10^3uL (1.8-7.7) Lymphocytes # (Auto) 2.7 x10^3/uL (1.0-4.8) Monocytes # (Auto) 1.0 x10^3/uL (0.0-1.1) Eosinophils # (Auto) 0.2 x10^3/uL (0.0-0.7) Basophils # (Auto) 0.2 x10^3/uL (0.0-0.2) Sodium Level 140 mmol/L (136-145) Potassium Level 5.4 mmol/L (3.5-5.1) H Chloride Level 102 mmol/L (98-107) Carbon Dioxide Level 30 mmol/L (21-32) Anion Gap 8 (6-14) Blood Urea Nitrogen 22 mg/dL (7-20) H Creatinine 1.1 mg/dL (0.6-1.0) H Estimated GFR (Cockcroft-Gault) 51.4 BUN/Creatinine Ratio 20 (6-20) Glucose Level 182 mg/dL (70-99) H Calcium Level 9.5 mg/dL (8.5-10.1) Total Bilirubin 0.2 mg/dL (0.2-1.0) Aspartate Amino Transferase (AST) 7 U/L (15-37) L Alanine Aminotransferase (ALT) 21 U/L (14-59) Alkaline Phosphatase 90 U/L (46-116) Total Protein 7.1 g/dL (6.4-8.2) Albumin 3.4 g/dL (3.4-5.0) Albumin/Globulin Ratio 0.9 (1.0-1.7) L Current Medications: I have reviewed the current psychotropics carefully including drug interactions. Risk benefit ratio favors no change other than as noted in my dictated progress note. Diagnosis: Problems: (1) Schizoaffective disorder, bipolar type (2) Impulse control disorder, unspecified (3) Anxiety disorder, unspecified (4) Bipolar disorder, current episode manic severe with psychotic features RIGOBERTO SANDERS MD July 16, 2021 08:37
[2021-07-16] MEDS: INSULIN GLARGINE SYRINGE. SQ SCH (09:00)
[2021-07-16 15:50] VITALS: BP 127/81
[2021-07-16] MEDS: ATORVASTATIN CALCIUM 20 MG TABLET PO SCH (19:47)
[2021-07-17] MEDS: LEVOTHYROXINE 175 MCG TABLET PO SCH (05:12)
[2021-07-17 06:19] VITALS: BP 108/70
[2021-07-17] MEDS: PANTOPRAZOLE 40 MG TABLET. PO SCH (07:30)
[2021-07-17] MEDS: LUBIPROSTONE 24 MCG CAPSULE PO SCH ×2 (07:52→20:05)
[2021-07-17] MEDS: ASPIRIN ENTERIC COATED 81 MG TABLET.DR. PO SCH (07:52)
[2021-07-17] MEDS: SUCRALFATE 1 GM TABLET. PO SCH ×2 (07:53→20:05)
[2021-07-17] MEDS: FERROUS SULFATE 325 MG TABLET. PO SCH (07:54)
[2021-07-17] MEDS: VALPROATE ACID 250 MG/5 ML ORAL SOLUTION PO SCH ×2 (07:54→20:05)
[2021-07-17] MEDS: LACTOBACILLUS RHAMNOSUS GG 1 CAPSULE. PO SCH ×2 (07:54→20:05)
[2021-07-17] MEDS: HALOPERIDOL 10 MG/5 ML ORAL.CONC. PO SCH (07:55)
[2021-07-17] MEDS: glipiZIDE 5 MG TABLET PO SCH ×2 (07:55→20:05)
[2021-07-17] MEDS: GABAPENTIN 100 MG CAPSULE. PO SCH ×3 (07:56→17:00)
[2021-07-17] MEDS: LINAGLIPTIN 5 MG TABLET PO SCH (07:56)
[2021-07-17] MEDS: PRENATAL MULTIVITAMIN TABLET. PO SCH (07:56)
[2021-07-17] MEDS: risperiDONE ORAL 1 MG/ML 30ml BOTTLE. SL SCH (07:57)
[2021-07-17] MEDS: ASCORBIC ACID 500 MG TABLET PO SCH (07:57)
[2021-07-17] MEDS: INSULIN LISPRO 300 UNITS/3 ML VIAL. SQ SCH ×3 (08:00→17:00)
[2021-07-17] MEDS: INSULIN GLARGINE SYRINGE. SQ SCH (09:00)
--- NOTE | 2021-07-17 11:04 | PN ---
DATE: 07/16/2021 SUBJECTIVE: The patient was seen today, met with the staff, chart reviewed. I am also covering for Dr. Malave. Staff reports she is exhibiting unusual behaviors, pretends to be sleeping when people try to talk to her. The patient is also seeking attention by throwing herself on the floor. The patient also delusional and poor eye contact. OBSERVATION: VITAL SIGNS: Temperature 97.8, blood pressure 110/70, pulse 85, respirations 16, O2 sat 99%. GENERAL: Slept about 6 hours last night. The patient's appetite is fair. CURRENT MEDICATIONS: Include haloperidol 5 mg daily, Risperdal 2 mg daily. She is also on Risperdal Consta 50 mg IM every 2 weeks, gabapentin 100 mg 3 times a day, valproic acid ____ mg daily and 1000 mg at night. She is also on p.r.n. trazodone 50 mg at night and olanzapine 5 mg q. 2 hours. LABORATORY DATA: The patient's lab reviewed. The patient's Depakote level was 88. ASSESSMENT: 1. Bipolar disorder type 1 with psychotic features. 2. Anxiety disorder, unspecified. PLAN: To continue with the treatment. LENGTH OF STAY: Five to seven days. JUWAN/RALEIGH DR: Lan TID: [id number]
[2021-07-17 15:42] VITALS: BP 130/74
[2021-07-17] MEDS: ATORVASTATIN CALCIUM 20 MG TABLET PO SCH (20:06)
--- NOTE | 2021-07-18 00:10 | PN ---
DATE: 07/17/2021 SUBJECTIVE: The patient was seen today, met with the staff. Chart reviewed and also covering for Dr. Malave. Staff reports increased agitation, increased anxiety, restlessness, noncompliant with the medication, usually prefers to be on the floor, rolling around, apparently spent most of the night on the floor last night. OBSERVATION: VITAL SIGNS: Temperature 98.7, blood pressure 108/70, pulse 75, respirations 16, O2 sat 95%. GENERAL: Slept about 6 hours last night. The patient's appetite is fair. CURRENT MEDICATIONS: Include Haldol 5 mg daily, Risperdal 2 mg daily and Risperdal Consta 50 mg IM every 2 weeks, gabapentin 100 mg 3 times a day and also Depakote 500 mg daily and 1000 mg at night. She is also on trazodone 50 mg at night and olanzapine 5 mg q. 2 hours p.r.n. LABORATORY DATA: The patient's lab reviewed. ASSESSMENT: 1. Bipolar disorder type 1 with psychotic features. 2. Anxiety disorder, unspecified. PLAN: To continue with treatment. LENGTH OF STAY: Five to seven days. DELROY DR: Lan TID: [id number]
[2021-07-18] MEDS: LEVOTHYROXINE 175 MCG TABLET PO SCH (05:36)
[2021-07-18 05:58] VITALS: BP 116/72
[2021-07-18 07:18] LABS: GFR 57.4; POTASSIUM 4.9 mmol/L (3.5-5.1)
[2021-07-18] MEDS: LACTOBACILLUS RHAMNOSUS GG 1 CAPSULE. PO SCH ×2 (07:29→19:58)
[2021-07-18] MEDS: ASCORBIC ACID 500 MG TABLET PO SCH (07:29)
[2021-07-18] MEDS: GABAPENTIN 100 MG CAPSULE. PO SCH ×4 (07:29→17:20)
[2021-07-18] MEDS: ASPIRIN ENTERIC COATED 81 MG TABLET.DR. PO SCH (07:29)
[2021-07-18] MEDS: LUBIPROSTONE 24 MCG CAPSULE PO SCH ×2 (07:29→19:57)
[2021-07-18] MEDS: PANTOPRAZOLE 40 MG TABLET. PO SCH (07:29)
[2021-07-18] MEDS: HALOPERIDOL 10 MG/5 ML ORAL.CONC. PO SCH (07:29)
[2021-07-18] MEDS: FERROUS SULFATE 325 MG TABLET. PO SCH (07:29)
[2021-07-18] MEDS: SUCRALFATE 1 GM TABLET. PO SCH ×2 (07:29→19:58)
[2021-07-18] MEDS: LINAGLIPTIN 5 MG TABLET PO SCH (07:29)
[2021-07-18] MEDS: PRENATAL MULTIVITAMIN TABLET. PO SCH (07:29)
[2021-07-18] MEDS: VALPROATE ACID 250 MG/5 ML ORAL SOLUTION PO SCH ×2 (07:29→19:58)
[2021-07-18] MEDS: glipiZIDE 5 MG TABLET PO SCH ×2 (07:29→19:58)
[2021-07-18] MEDS: risperiDONE ORAL 1 MG/ML 30ml BOTTLE. SL SCH (07:31)
[2021-07-18] MEDS: INSULIN GLARGINE SYRINGE. SQ SCH (09:50)
[2021-07-18] MEDS: INSULIN LISPRO 300 UNITS/3 ML VIAL. SQ SCH ×3 (09:51→17:21)
[2021-07-18 16:01] VITALS: BP 119/72
[2021-07-18] MEDS: ATORVASTATIN CALCIUM 20 MG TABLET PO SCH (19:59)
[2021-07-19] MEDS: LEVOTHYROXINE 175 MCG TABLET PO SCH (05:50)
[2021-07-19 06:18] VITALS: BP 138/86
[2021-07-19] MEDS: risperiDONE ORAL 1 MG/ML 30ml BOTTLE. SL SCH (07:49)
[2021-07-19] MEDS: ASPIRIN ENTERIC COATED 81 MG TABLET.DR. PO SCH (07:49)
[2021-07-19] MEDS: LINAGLIPTIN 5 MG TABLET PO SCH (07:50)
[2021-07-19] MEDS: PANTOPRAZOLE 40 MG TABLET. PO SCH (07:50)
[2021-07-19] MEDS: glipiZIDE 5 MG TABLET PO SCH ×2 (07:50→19:36)
[2021-07-19] MEDS: GABAPENTIN 100 MG CAPSULE. PO SCH ×3 (07:50→16:28)
[2021-07-19] MEDS: INSULIN LISPRO 300 UNITS/3 ML VIAL. SQ SCH ×3 (08:00→17:00)
[2021-07-19] MEDS: VALPROATE ACID 250 MG/5 ML ORAL SOLUTION PO SCH ×2 (08:53→19:37)
[2021-07-19] MEDS: ASCORBIC ACID 500 MG TABLET PO SCH (09:00)
[2021-07-19] MEDS: LACTOBACILLUS RHAMNOSUS GG 1 CAPSULE. PO SCH ×2 (09:00→19:36)
[2021-07-19] MEDS: SELENIUM SULFIDE 1% TOPICAL SHAMPOO 207ML BOTTLE. TP SCH (09:00)
[2021-07-19] MEDS: INSULIN GLARGINE SYRINGE. SQ SCH (09:00)
[2021-07-19] MEDS: PRENATAL MULTIVITAMIN TABLET. PO SCH (09:00)
--- NOTE | 2021-07-19 09:43 | PN ---
DATE: 07/18/2021 SUBJECTIVE: The patient was seen today, met with the staff. Chart reviewed and also covering for Dr. Malave. The patient's behavior has been unpredictable. She puts herself on the floor, also refusing medications at times. The patient is still agitated at times and difficult to redirect. CURRENT MEDICATIONS: The patient's current medications include Risperdal Consta 50 mg IM q. 2 weeks, Risperdal 2 mg daily, Haldol 5 mg daily, Depakene 500 mg daily and 1000 mg at night. She is also on gabapentin 100 mg daily. The patient is not showing any side effects to medications. LABORATORY DATA: The patient's lab reviewed. ASSESSMENT: 1. Bipolar disorder type 1 with psychotic features. 2. Anxiety disorder, unspecified. PLAN: To continue with treatment. The patient's Haldol was discontinued 5 mg at night. LENGTH OF STAY: Five to seven days. LAI DR: Lan TID: [id number] [facility]
[2021-07-19 16:10] VITALS: BP 133/77
[2021-07-19] MEDS: LUBIPROSTONE 24 MCG CAPSULE PO SCH ×2 (16:28→19:36)
[2021-07-19] MEDS: SUCRALFATE 1 GM TABLET. PO SCH ×2 (16:28→19:37)
[2021-07-19] MEDS: FERROUS SULFATE 325 MG TABLET. PO SCH (16:28)
[2021-07-19] MEDS: ATORVASTATIN CALCIUM 20 MG TABLET PO SCH (19:36)
[2021-07-20] MEDS: LEVOTHYROXINE 175 MCG TABLET PO SCH (05:01)
[2021-07-20 05:35] VITALS: BP 115/72
--- NOTE | 2021-07-20 06:41 | PN ---
DATE: 07/19/2021 SUBJECTIVE: The patient was seen today, met with the staff. Chart reviewed. The patient continues to be withdrawn, refusing to participate in assessment. She is compliant with the medications. OBSERVATION: VITAL SIGNS: Temperature 97.1, blood pressure 133/77, pulse 76, respirations 20, O2 sat 100%. GENERAL: Slept about 7-1/2 hours last night. The patient's appetite is fair. CURRENT MEDICATIONS: Risperdal 2 mg daily, Risperdal Consta 50 mg every 2 weeks, IM, gabapentin 100 mg t.i.d., valproic acid 500 mg daily and 1000 mg at night and trazodone 50 mg at night p.r.n. The patient is not having any side effects to the medications. LABORATORY DATA: The patient's lab reviewed. ASSESSMENT: 1. Bipolar disorder type 1 with psychotic features. 2. Anxiety disorder, unspecified. PLAN: To continue with treatment. LENGTH OF STAY: Five to seven days. FLAKITO DR: Lan TID: [id number] [facility]ICJim
[2021-07-20] MEDS: PRENATAL MULTIVITAMIN TABLET. PO SCH (08:28)
[2021-07-20] MEDS: LINAGLIPTIN 5 MG TABLET PO SCH (08:28)
[2021-07-20] MEDS: ASCORBIC ACID 500 MG TABLET PO SCH (08:28)
[2021-07-20] MEDS: LUBIPROSTONE 24 MCG CAPSULE PO SCH ×2 (08:28→20:55)
[2021-07-20] MEDS: ASPIRIN ENTERIC COATED 81 MG TABLET.DR. PO SCH (08:28)
[2021-07-20] MEDS: LACTOBACILLUS RHAMNOSUS GG 1 CAPSULE. PO SCH ×2 (08:29→20:54)
[2021-07-20] MEDS: GABAPENTIN 100 MG CAPSULE. PO SCH ×3 (08:29→17:10)
[2021-07-20] MEDS: PANTOPRAZOLE 40 MG TABLET. PO SCH (08:29)
[2021-07-20] MEDS: glipiZIDE 5 MG TABLET PO SCH ×2 (08:29→20:54)
[2021-07-20] MEDS: SUCRALFATE 1 GM TABLET. PO SCH ×2 (08:29→20:55)
[2021-07-20] MEDS: FERROUS SULFATE 325 MG TABLET. PO SCH (08:29)
[2021-07-20] MEDS: VALPROATE ACID 250 MG/5 ML ORAL SOLUTION PO SCH ×2 (08:30→20:54)
[2021-07-20] MEDS: risperiDONE ORAL 1 MG/ML 30ml BOTTLE. SL SCH (08:36)
[2021-07-20] MEDS: INSULIN GLARGINE SYRINGE. SQ SCH (08:37)
[2021-07-20] MEDS: INSULIN LISPRO 300 UNITS/3 ML VIAL. SQ SCH ×3 (08:39→17:00)
[2021-07-20 16:11] VITALS: BP 111/61
[2021-07-20] MEDS: ATORVASTATIN CALCIUM 20 MG TABLET PO SCH (20:55)
--- NOTE | 2021-07-21 04:20 | PN ---
DATE: 07/20/2021 SUBJECTIVE: The patient was seen today, met with the staff. Chart was reviewed and covering for Dr. Malave. The patient's behavior remains the same, demanding and refusing meals at times, but no combative behaviors. OBSERVATION: VITAL SIGNS: Temperature 98.6, blood pressure 115/72, pulse 54, respirations 18, O2 sat 98%. GENERAL: Slept about 7 hours last night. The patient's appetite is fair. CURRENT MEDICATIONS: Risperdal 2 mg daily, Risperdal Consta 50 mg q. 2 weeks IM, gabapentin 100 mg t.i.d., valproic acid 50 mg daily and 1000 mg at night, and trazodone 50 mg at night p.r.n. The patient is not having any side effects to medications. LABORATORY DATA: The patient's lab reviewed. ASSESSMENT: 1. Bipolar disorder type 1 with psychotic features. 2. Anxiety disorder, unspecified. PLAN: To continue with treatment. LENGTH OF STAY: Five to seven days. MATTHEW DR: Lan TID: [id number]
[2021-07-21] MEDS: LEVOTHYROXINE 175 MCG TABLET PO SCH (05:13)
[2021-07-21 05:51] VITALS: BP 185/77
[2021-07-21] MEDS: PANTOPRAZOLE 40 MG TABLET. PO SCH ×2 (07:30→07:50)
[2021-07-21] MEDS: GABAPENTIN 100 MG CAPSULE. PO SCH ×4 (07:50→17:07)
[2021-07-21] MEDS: LINAGLIPTIN 5 MG TABLET PO SCH ×2 (07:50→09:00)
[2021-07-21] MEDS: VALPROATE ACID 250 MG/5 ML ORAL SOLUTION PO SCH ×3 (07:51→20:24)
[2021-07-21] MEDS: ASPIRIN ENTERIC COATED 81 MG TABLET.DR. PO SCH ×2 (07:51→09:00)
[2021-07-21] MEDS: glipiZIDE 5 MG TABLET PO SCH ×3 (07:51→20:24)
[2021-07-21] MEDS: risperiDONE ORAL 1 MG/ML 30ml BOTTLE. SL SCH ×2 (07:51→09:00)
[2021-07-21] MEDS: INSULIN LISPRO 300 UNITS/3 ML VIAL. SQ SCH ×3 (08:00→17:00)
[2021-07-21] MEDS: LACTOBACILLUS RHAMNOSUS GG 1 CAPSULE. PO SCH ×2 (09:00→20:24)
[2021-07-21] MEDS: FERROUS SULFATE 325 MG TABLET. PO SCH (09:00)
[2021-07-21] MEDS: INSULIN GLARGINE SYRINGE. SQ SCH (09:00)
[2021-07-21] MEDS: SELENIUM SULFIDE 1% TOPICAL SHAMPOO 207ML BOTTLE. TP SCH (09:00)
[2021-07-21] MEDS: LUBIPROSTONE 24 MCG CAPSULE PO SCH ×2 (09:00→20:24)
[2021-07-21] MEDS: PRENATAL MULTIVITAMIN TABLET. PO SCH (09:00)
--- NOTE | 2021-07-21 14:21 | TX PLAN ---
Interdisciplinary Tx Plan Admission Information Jun 09, 2021 at 20:18 Legal Status (on Admission): Court Appointed Guardian DPOA/Guardian Name: Arcelia Munoz Contact Verified Code Status: Full Code Allergies: Coded Allergies: Beta-Blockers (Beta-Adrenergic Bloc (Verified Allergy, Intermediate, 06/09/21) caffeine (Verified Allergy, Unknown, 06/09/21) pseudoephedrine (Verified Allergy, Unknown, 06/09/21) Diagnoses Primary Diagnosis: Schizoaffective d/o with acute psychosis Reasons for Admission: Aggressive, Delusions, Agitated, Hallucinations, Combative, Suspicious/paranoid, Poor impulse control Problem in Patient's Words: Per intake record, talking to the devil, attempted to climb out a window, walking in the [place] naked, fighting staff. Problems Active Problems: Aggressive/combative Resistant to cares/medications Delusional Suspicious/Paranoid Hallucintations Disrobing in public Inactive Problems: Intakes are averaging 60% Sleep is averaging 7.5 hours at night Pt Strengths/Limitations Ability for [place]: Poor Cognitive Functioning/Ability: Fair Communication Skills/Ability: Fair Financial Resources: Fair Insight/Judgement: Poor Intellectual Ability: Fair Physical Health: Fair Social Skills: Poor Stability in Family: Poor Verbal Skills: Fair Discharge Criteria Discharge Criteria: Adequate arrangements @DC, Improved behavior, Improved mood/thought Preliminary Discharge Plan Preliminary [place] Plan: [place] [facility] [place] Special Precautions: Agitation/Assault Fall Risk: High Initial D/C Plan To return to [facility] [place] once stable. Identified Discharge Needs: Out patient psychiatry and counseling if available 24 hour care and supervision for safety Currently Utilized Resources Currently Utilized Resources/P: PCP 24 hour care provided by [facility] Referrals Community Resources: Out patient psychiatry and counseling if available Identified Problems/Hx/Goals Objectives/Short-Term Goals Short Term Goals: Control abnormal behavior, Dec. Aggression, Dec. Hallucination/Delus, Dec. Outbursts, Improved Social Skills, Medication Stabilization, Monitor Med Effects, Prevent Deterioration Short Term Goals in Patient's: Mood and behavior stabilization Interventions/Frequency Staff Interventions/Frequency&: Nursing to provide routine safety checks, medication administration, and adl support. Psychiatrist to see three times weekly. SW to see twice weekly. PT/OT eval and treat if indicated. Mikaela will be invited to attend recreational and SW group activites while hospitalized. History Vocational History: Unknown Social: Unknown Education: Unknown Community Follow-up PCP Psychiatry and counseling if available Community Provider/Family Inpu: This SW is assisting with care while assigned SW, Nancy Alan, is out of the office. Treatment team meeting was held this date. Mikaela is averaging 60% of meal intakes and 7.5 hours of sleep at night. She was combative, hitting and biting staff, during her shower on 07/13/21. She defacated on the floor of her room and fingerpainted in the feces. She frequently disrobes in public areas. She puts herslef on the floor and goes to sleep. UA is pending, Risperdal consta has been increased. VPA is 88. Mikaela has had no group participation over the last week. Tentative d/c late next week or early the following. SW will provide update to Christopher Shelby. Treatment Plan Explained Patient/Ocean Biologist had this treatment plan explained to him/her as indicated by the signature below and has been given the opportunity to ask questions and make suggestions: Date: Patient/Ocean Biologist Signature: Status Update Update WEEKLY NOTE/UPDATE: Mikaela is averaging 60% of meal intakes and 6.5 hours of sleep at night. Mikaela's behavior varies over the course of a day. At times, she is agreeable to attend meals and at other times she declines and prefers to sleep. She has little interaction with others, often not responding to verbal communication from others. Mikaela does not initiate conversation with others. Mikaela lays on the floor frequently but is able to get herself up when she desires. She has been incontinent and requires staff support to manage this. Medications are still being put into food or drink. Mikaela has declined to attend recreational therapy activities. Tentative d/c late next week provided mood and behavior has stabilized. MELISSA HYDE July 21, 2021 14:21
[2021-07-21 16:08] VITALS: BP 125/67
[2021-07-21] MEDS: SUCRALFATE 1 GM TABLET. PO SCH ×2 (17:07→20:23)
[2021-07-21] MEDS: ASCORBIC ACID 500 MG TABLET PO SCH (17:07)
[2021-07-21] MEDS: ATORVASTATIN CALCIUM 20 MG TABLET PO SCH (20:24)
--- NOTE | 2021-07-22 03:28 | PN ---
DATE: 07/21/2021 SUBJECTIVE: The patient was seen today, met with the staff. Chart was reviewed and covering for Dr. Malave. Also participated in the treatment review meeting today. Staff reports continued behavior problems, increased confusion, frequently wanting to stay on the floor. Also, staff reports she vomited once last night. OBSERVATION: VITAL SIGNS: Temperature 97.9, blood pressure 125/67, pulse 88, respirations 20, O2 sat 97%. CURRENT MEDICATIONS: Include Risperdal 2 mg daily, Risperdal Consta 50 mg q. 2 weeks IM, gabapentin 100 mg t.i.d. and valproic acid 500 mg daily and 1000 mg at night. The patient also receiving trazodone 50 mg at night p.r.n. The patient is not exhibiting any side effects. LABORATORY DATA: The patient's lab reviewed. ASSESSMENT: 1. Bipolar disorder type 1 with psychotic features. 2. Anxiety disorder, unspecified. PLAN: To continue with treatment. LENGTH OF STAY: Five to seven days. TIARA DR: Lan TID: [id number]
[2021-07-22] MEDS: LEVOTHYROXINE 175 MCG TABLET PO SCH (05:22)
[2021-07-22 06:06] VITALS: BP 140/79
[2021-07-22] MEDS: INSULIN LISPRO 300 UNITS/3 ML VIAL. SQ SCH ×3 (08:00→17:00)
[2021-07-22] MEDS: ASCORBIC ACID 500 MG TABLET PO SCH (08:08)
[2021-07-22] MEDS: GABAPENTIN 100 MG CAPSULE. PO SCH ×3 (08:08→17:00)
[2021-07-22] MEDS: ASPIRIN ENTERIC COATED 81 MG TABLET.DR. PO SCH (08:09)
[2021-07-22] MEDS: glipiZIDE 5 MG TABLET PO SCH ×3 (08:09→21:00)
[2021-07-22] MEDS: LINAGLIPTIN 5 MG TABLET PO SCH (08:09)
[2021-07-22] MEDS: PANTOPRAZOLE 40 MG TABLET. PO SCH (08:09)
[2021-07-22] MEDS: PRENATAL MULTIVITAMIN TABLET. PO SCH (08:09)
[2021-07-22] MEDS: LACTOBACILLUS RHAMNOSUS GG 1 CAPSULE. PO SCH ×3 (08:09→21:00)
[2021-07-22] MEDS: CHOLECALCIFEROL (VITAMIN D3) 50,000 UNIT CAPSULE PO SCH (08:09)
[2021-07-22] MEDS: LUBIPROSTONE 24 MCG CAPSULE PO SCH ×3 (08:09→21:00)
[2021-07-22] MEDS: SUCRALFATE 1 GM TABLET. PO SCH ×3 (08:10→21:00)
[2021-07-22] MEDS: VALPROATE ACID 250 MG/5 ML ORAL SOLUTION PO SCH ×3 (08:10→21:00)
[2021-07-22] MEDS: FERROUS SULFATE 325 MG TABLET. PO SCH (08:10)
[2021-07-22] MEDS: INSULIN GLARGINE SYRINGE. SQ SCH (08:11)
[2021-07-22] MEDS: risperiDONE ORAL 1 MG/ML 30ml BOTTLE. SL SCH (09:00)
[2021-07-22 15:39] VITALS: BP 140/75
[2021-07-22] MEDS: ATORVASTATIN CALCIUM 20 MG TABLET PO SCH ×2 (20:42→21:00)
[2021-07-23] MEDS: LEVOTHYROXINE 175 MCG TABLET PO SCH ×2 (05:08→06:00)
[2021-07-23 06:10] VITALS: BP 142/82
[2021-07-23] MEDS: INSULIN LISPRO 300 UNITS/3 ML VIAL. SQ SCH ×3 (08:00→17:00)
[2021-07-23] MEDS: LUBIPROSTONE 24 MCG CAPSULE PO SCH ×2 (08:10→19:50)
[2021-07-23] MEDS: LACTOBACILLUS RHAMNOSUS GG 1 CAPSULE. PO SCH ×2 (08:10→19:50)
[2021-07-23] MEDS: PRENATAL MULTIVITAMIN TABLET. PO SCH (08:10)
[2021-07-23] MEDS: PANTOPRAZOLE 40 MG TABLET. PO SCH (08:10)
[2021-07-23] MEDS: SUCRALFATE 1 GM TABLET. PO SCH ×2 (08:10→19:50)
[2021-07-23] MEDS: ASPIRIN ENTERIC COATED 81 MG TABLET.DR. PO SCH (08:10)
[2021-07-23] MEDS: risperiDONE ORAL 1 MG/ML 30ml BOTTLE. SL SCH (08:11)
[2021-07-23] MEDS: LINAGLIPTIN 5 MG TABLET PO SCH (08:11)
[2021-07-23] MEDS: VALPROATE ACID 250 MG/5 ML ORAL SOLUTION PO SCH ×2 (08:11→19:51)
[2021-07-23] MEDS: FERROUS SULFATE 325 MG TABLET. PO SCH (08:11)
[2021-07-23] MEDS: GABAPENTIN 100 MG CAPSULE. PO SCH ×3 (08:11→17:10)
[2021-07-23] MEDS: ASCORBIC ACID 500 MG TABLET PO SCH (08:11)
[2021-07-23] MEDS: glipiZIDE 5 MG TABLET PO SCH ×2 (08:11→19:50)
[2021-07-23] MEDS: INSULIN GLARGINE SYRINGE. SQ SCH (08:20)
[2021-07-23] MEDS: SELENIUM SULFIDE 1% TOPICAL SHAMPOO 207ML BOTTLE. TP SCH (09:00)
[2021-07-23 15:41] VITALS: BP 122/69
[2021-07-23] MEDS: ATORVASTATIN CALCIUM 20 MG TABLET PO SCH (19:49)
[2021-07-23 21:07] LABS: BASO # 0.2 x10^3/uL (0.0-0.2); BASO % 2 % (0-3); EOS # 0.2 x10^3/uL (0.0-0.7); EOS % 1 % (0-3); HEMATOCRIT 37.4 % (36.0-47.0); HEMOGLOBIN 12.5 g/dL (12.0-15.5); LYMPH # 2.5 x10^3/uL (1.0-4.8); LYMPH % 20 % (24-48); MEAN CORPUSCULAR HEMOGLOBIN 30 pg (25-35); MEAN CORPUSCULAR HGB CONC 33 g/dL (31-37); MEAN CORPUSCULAR VOLUME 88 fL (79-100); MONO % 8 % (0-9); NEUT % 70 % (31-73); PLATELET COUNT 229 x10^3/uL (140-400); RED BLOOD COUNT 4.23 x10^6/uL (3.50-5.40); WHITE BLOOD COUNT 12.9 x10^3/uL (4.0-11.0)
[2021-07-23 21:23] LABS: ALBUMIN 3.3 g/dL (3.4-5.0); ALBUMIN/GLOBULIN RATIO 0.9 (1.0-1.7); GFR 57.4; TOTAL BILIRUBIN 0.2 mg/dL (0.2-1.0)
--- NOTE | 2021-07-24 04:16 | PN ---
DATE: 07/23/2021 SUBJECTIVE: The patient was seen today, met with the staff. Chart was reviewed and covering for Dr. Malave. The patient still withdrawn, flat, cooperative with showers, but refused to take her night medications. OBSERVATION: VITAL SIGNS: Temperature 97.1, blood pressure 142/82, pulse 57, respirations 16, O2 sat 98%. GENERAL: Slept about 8 hours last night. Her appetite decreased. CURRENT MEDICATIONS: Risperdal 2 mg daily, Risperdal Consta 50 mg q. 2 weeks IM, gabapentin 100 mg t.i.d. and valproic acid 500 mg daily and 1000 mg at night. The patient is not having any side effects to medications. LABORATORY DATA: Reviewed. ASSESSMENT: 1. Bipolar disorder type 1 with psychotic features. 2. Anxiety disorder, unspecified. PLAN: To continue with treatment. LENGTH OF STAY: Five to seven days. DELROY DR: Lan TID: [id number]
[2021-07-24 05:55] VITALS: BP 138/84
[2021-07-24] MEDS: LEVOTHYROXINE 175 MCG TABLET PO SCH (06:16)
[2021-07-24] MEDS: INSULIN LISPRO 300 UNITS/3 ML VIAL. SQ SCH ×3 (08:00→17:27)
[2021-07-24] MEDS: risperiDONE ORAL 1 MG/ML 30ml BOTTLE. SL SCH (08:18)
[2021-07-24] MEDS: VALPROATE ACID 250 MG/5 ML ORAL SOLUTION PO SCH ×2 (08:19→19:57)
[2021-07-24] MEDS: ASCORBIC ACID 500 MG TABLET PO SCH (08:20)
[2021-07-24] MEDS: ASPIRIN ENTERIC COATED 81 MG TABLET.DR. PO SCH (08:20)
[2021-07-24] MEDS: LUBIPROSTONE 24 MCG CAPSULE PO SCH ×2 (08:20→19:55)
[2021-07-24] MEDS: glipiZIDE 5 MG TABLET PO SCH ×2 (08:20→19:55)
[2021-07-24] MEDS: FERROUS SULFATE 325 MG TABLET. PO SCH (08:20)
[2021-07-24] MEDS: GABAPENTIN 100 MG CAPSULE. PO SCH ×3 (08:20→17:14)
[2021-07-24] MEDS: LINAGLIPTIN 5 MG TABLET PO SCH (08:20)
[2021-07-24] MEDS: SUCRALFATE 1 GM TABLET. PO SCH ×2 (08:20→19:56)
[2021-07-24] MEDS: LACTOBACILLUS RHAMNOSUS GG 1 CAPSULE. PO SCH ×2 (08:20→19:55)
[2021-07-24] MEDS: PRENATAL MULTIVITAMIN TABLET. PO SCH (08:20)
[2021-07-24] MEDS: PANTOPRAZOLE 40 MG TABLET. PO SCH (08:20)
[2021-07-24] MEDS: INSULIN GLARGINE SYRINGE. SQ SCH (08:51)
--- NOTE | 2021-07-24 12:17 | PN ---
DATE: 07/22/2021 SUBJECTIVE: This is a late entry for the 07/21/2021. The patient was seen today, met with the staff, chart was reviewed and covering for Dr. Malave. The patient continues to show improvement, but having problems including increased confusion, behavior problems and frequently wanting to stay on the floor. Staff reports no major physical problems today. OBSERVATION: VITAL SIGNS: Temperature 98.7, blood pressure 140/75, pulse 80, respirations 18, O2 sat 94%. CURRENT MEDICATIONS: Risperdal 2 mg daily, Risperdal Consta 50 mg IM q. 2 weeks, gabapentin 100 mg 3 times a day and valproic acid 500 mg daily and 1000 mg at night. The patient is also receiving trazodone 50 mg at night p.r.n. The patient is not having any side effects to medications. LABORATORY DATA: The patient's lab reviewed. ASSESSMENT: 1. Bipolar disorder type 1 with psychotic features. 2. Anxiety disorder, unspecified. PLAN: Continue with the treatment. LENGTH OF STAY: Five to seven days. TERI/ACE/LEXII DR: Lan TID: [id number]
[2021-07-24 16:06] VITALS: BP 137/84
[2021-07-24] MEDS: ATORVASTATIN CALCIUM 20 MG TABLET PO SCH (19:56)
--- NOTE | 2021-07-25 01:02 | PN ---
DATE: 07/24/2021 SUBJECTIVE: The patient was seen today, met with the staff, chart was reviewed, I am covering for Dr. Malave. The patient's behavior remains the same. She is withdrawn, marked blunting of affect, stays in bed, limited interaction, but able to respond to questions. The patient is medication compliant. OBSERVATION: VITAL SIGNS: Temperature 97.6, blood pressure 138/84, pulse 83, respirations 20, O2 sat 98%. GENERAL: Slept about 6 hours last night. The patient's appetite is fair. CURRENT MEDICATIONS: Risperdal 2 mg daily, Risperdal Consta 50 mg IM q. 2 weeks, gabapentin 100 mg 3 times a day, and valproic acid 500 mg daily and 1000 mg at night. The patient is also on trazodone 50 mg at night p.r.n. The patient is not having any side effects to medications. LABORATORY DATA: The patient's lab reviewed. ASSESSMENT: 1. Bipolar disorder type 1 with psychotic features. 2. Anxiety disorder, unspecified. PLAN: To continue with treatment. LENGTH OF STAY: Five to seven days. GOLD DR: Lan TID: [id number]
[2021-07-25] MEDS: LEVOTHYROXINE 175 MCG TABLET PO SCH (06:06)
[2021-07-25 06:08] VITALS: BP 118/74
[2021-07-25] MEDS: VALPROATE ACID 250 MG/5 ML ORAL SOLUTION PO SCH ×2 (08:11→20:10)
[2021-07-25] MEDS: risperiDONE ORAL 1 MG/ML 30ml BOTTLE. SL SCH (08:11)
[2021-07-25] MEDS: FERROUS SULFATE 325 MG TABLET. PO SCH (08:12)
[2021-07-25] MEDS: ASPIRIN ENTERIC COATED 81 MG TABLET.DR. PO SCH (08:13)
[2021-07-25] MEDS: LUBIPROSTONE 24 MCG CAPSULE PO SCH ×2 (08:13→20:10)
[2021-07-25] MEDS: GABAPENTIN 100 MG CAPSULE. PO SCH ×3 (08:13→17:19)
[2021-07-25] MEDS: LACTOBACILLUS RHAMNOSUS GG 1 CAPSULE. PO SCH ×2 (08:13→20:10)
[2021-07-25] MEDS: PRENATAL MULTIVITAMIN TABLET. PO SCH (08:13)
[2021-07-25] MEDS: SUCRALFATE 1 GM TABLET. PO SCH ×2 (08:13→20:10)
[2021-07-25] MEDS: ASCORBIC ACID 500 MG TABLET PO SCH (08:13)
[2021-07-25] MEDS: glipiZIDE 5 MG TABLET PO SCH ×2 (08:13→20:10)
[2021-07-25] MEDS: PANTOPRAZOLE 40 MG TABLET. PO SCH (08:13)
[2021-07-25] MEDS: LINAGLIPTIN 5 MG TABLET PO SCH (08:13)
[2021-07-25] MEDS: INSULIN GLARGINE SYRINGE. SQ SCH (08:32)
[2021-07-25] MEDS: INSULIN LISPRO 300 UNITS/3 ML VIAL. SQ SCH ×3 (08:32→17:24)
[2021-07-25] MEDS: SELENIUM SULFIDE 1% TOPICAL SHAMPOO 207ML BOTTLE. TP SCH (09:00)
[2021-07-25] MEDS: risperiDONE MICROSPHERES 50 MG/2 ML DISP.SYRIN. IM SCH (10:01)
[2021-07-25 16:05] VITALS: BP 120/76
[2021-07-25] MEDS: ATORVASTATIN CALCIUM 20 MG TABLET PO SCH (20:10)
[2021-07-26] MEDS: LEVOTHYROXINE 175 MCG TABLET PO SCH (05:44)
[2021-07-26 06:03] VITALS: BP 108/65
--- NOTE | 2021-07-26 06:18 | PN ---
DATE: 07/25/2021 SUBJECTIVE: The patient was seen today, met with the staff, chart reviewed, and covering for Dr. Malave. Staff reports continued behavior problems, withdrawn, isolative, minimal interaction, needing assistance with ADLs. OBSERVATION EXAMINATION: VITAL SIGNS: Temperature 97.5, blood pressure 120/76, pulse 70, respirations 20, O2 sat 99%. Appetite fair. GENERAL: Slept about 6-7 hours last night. The patient stays in bed most of the time. CURRENT MEDICATIONS: Risperdal 2 mg daily, Risperdal Consta 50 mg IM q. 2 weeks, gabapentin 100 mg 3 times a day, valproic acid 500 mg daily and 1000 mg at night, and trazodone 50 mg at night p.r.n. The patient is not having any side effects to the medications. LABORATORY DATA: The patient's lab reviewed. ASSESSMENT: 1. Bipolar disorder type 1 with psychotic features. 2. Anxiety disorder, unspecified. PLAN: To continue with the treatment. LENGTH OF STAY: 5-[address]: Lan TID: [id number]
[2021-07-26] MEDS: risperiDONE ORAL 1 MG/ML 30ml BOTTLE. SL SCH (07:57)
[2021-07-26] MEDS: VALPROATE ACID 250 MG/5 ML ORAL SOLUTION PO SCH ×2 (07:58→19:52)
[2021-07-26] MEDS: LUBIPROSTONE 24 MCG CAPSULE PO SCH ×2 (08:00→19:49)
[2021-07-26] MEDS: LINAGLIPTIN 5 MG TABLET PO SCH (08:00)
[2021-07-26] MEDS: glipiZIDE 5 MG TABLET PO SCH ×2 (08:00→19:48)
[2021-07-26] MEDS: GABAPENTIN 100 MG CAPSULE. PO SCH ×3 (08:00→17:28)
[2021-07-26] MEDS: FERROUS SULFATE 325 MG TABLET. PO SCH (08:00)
[2021-07-26] MEDS: ASPIRIN ENTERIC COATED 81 MG TABLET.DR. PO SCH (08:00)
[2021-07-26] MEDS: PANTOPRAZOLE 40 MG TABLET. PO SCH (08:00)
[2021-07-26] MEDS: PRENATAL MULTIVITAMIN TABLET. PO SCH (08:00)
[2021-07-26] MEDS: ASCORBIC ACID 500 MG TABLET PO SCH (08:00)
[2021-07-26] MEDS: LACTOBACILLUS RHAMNOSUS GG 1 CAPSULE. PO SCH ×2 (08:00→19:48)
[2021-07-26] MEDS: SUCRALFATE 1 GM TABLET. PO SCH ×2 (08:00→19:49)
[2021-07-26] MEDS: INSULIN LISPRO 300 UNITS/3 ML VIAL. SQ SCH ×3 (08:32→17:00)
[2021-07-26] MEDS: INSULIN GLARGINE SYRINGE. SQ SCH (08:33)
[2021-07-26 09:18] LABS: BACTERIA,URINE 0 /HPF (0-FEW); CLARITY,URINE CLOUDY; COLOR,URINE YELLOW; GLUCOSE,URINE NEG (NEG); NITRITE,URINE NEG (NEG); RBC,URINE 0 /HPF (0-2); SQUAMOUS EPITHELIAL CELL,UR MANY /LPF; UROBILINOGEN,URINE 0.2 mg/dL (0.2 mg/dL); WBC,URINE OCC /HPF (0-4)
[2021-07-26 09:19] LABS: AMORPHOUS SEDIMENT,UR PRESENT /HPF
[2021-07-26 16:08] VITALS: BP 133/82
[2021-07-26] MEDS: ATORVASTATIN CALCIUM 20 MG TABLET PO SCH (19:49)
[2021-07-27] MEDS: LEVOTHYROXINE 175 MCG TABLET PO SCH (05:00)
[2021-07-27 06:19] VITALS: BP 141/82
[2021-07-27] MEDS: LUBIPROSTONE 24 MCG CAPSULE PO SCH ×2 (07:49→20:00)
[2021-07-27] MEDS: ASCORBIC ACID 500 MG TABLET PO SCH (07:49)
[2021-07-27] MEDS: FERROUS SULFATE 325 MG TABLET. PO SCH (07:49)
[2021-07-27] MEDS: VALPROATE ACID 250 MG/5 ML ORAL SOLUTION PO SCH ×2 (07:49→20:01)
[2021-07-27] MEDS: glipiZIDE 5 MG TABLET PO SCH ×2 (07:49→20:00)
[2021-07-27] MEDS: SUCRALFATE 1 GM TABLET. PO SCH ×2 (07:49→20:00)
[2021-07-27] MEDS: GABAPENTIN 100 MG CAPSULE. PO SCH ×3 (07:50→17:47)
[2021-07-27] MEDS: PRENATAL MULTIVITAMIN TABLET. PO SCH (07:50)
[2021-07-27] MEDS: LACTOBACILLUS RHAMNOSUS GG 1 CAPSULE. PO SCH ×2 (07:50→19:59)
[2021-07-27] MEDS: PANTOPRAZOLE 40 MG TABLET. PO SCH (07:50)
[2021-07-27] MEDS: SELENIUM SULFIDE 1% TOPICAL SHAMPOO 207ML BOTTLE. TP SCH (07:50)
[2021-07-27] MEDS: LINAGLIPTIN 5 MG TABLET PO SCH (07:50)
[2021-07-27] MEDS: ASPIRIN ENTERIC COATED 81 MG TABLET.DR. PO SCH (07:50)
[2021-07-27] MEDS: risperiDONE ORAL 1 MG/ML 30ml BOTTLE. SL SCH (07:51)
[2021-07-27] MEDS: INSULIN LISPRO 300 UNITS/3 ML VIAL. SQ SCH ×3 (08:54→17:00)
[2021-07-27] MEDS: INSULIN GLARGINE SYRINGE. SQ SCH (09:00)
--- NOTE | 2021-07-27 13:28 | PN ---
DATE: 07/26/2021 SUBJECTIVE: The patient was seen today, met with the staff. Chart was reviewed. I am covering for Dr. Malave. Staff reports blunting of affect, social withdrawal and compliant with the medications. OBSERVATION: VITAL SIGNS: Temperature 97.6, blood pressure 133/82, pulse 67, respirations 18, O2 sat 98%. MEDICATIONS: Risperdal 2 mg daily, Risperdal Consta 50 mg every 2 weeks IM, gabapentin 100 mg 3 times a day, valproic acid 500 mg daily and 1000 mg at night, trazodone 50 mg at night, olanzapine 5 mg every 2 hours p.r.n. The patient is not having any side effects to the medications. LABORATORY DATA: The patient's lab reviewed. ASSESSMENT: 1. Bipolar disorder type 1 with psychotic features. 2. Anxiety disorder, unspecified. PLAN: To continue with the treatment. LENGTH OF STAY: Five to seven days. XIMENA DR: Lan TID: [id number]
[2021-07-27 16:22] VITALS: BP 137/80
[2021-07-27] MEDS: ATORVASTATIN CALCIUM 20 MG TABLET PO SCH (20:00)
[2021-07-28] MEDS: LEVOTHYROXINE 175 MCG TABLET PO SCH (06:00)
[2021-07-28 06:19] VITALS: BP 141/75
[2021-07-28] MEDS ORDERED: DIPHENOXYLATE/ATROPINE TABLET. PO PRN (06:30)
[2021-07-28] MEDS: INSULIN LISPRO 300 UNITS/3 ML VIAL. SQ SCH ×3 (07:48→18:00)
[2021-07-28] MEDS: ASPIRIN ENTERIC COATED 81 MG TABLET.DR. PO SCH (07:56)
[2021-07-28] MEDS: LACTOBACILLUS RHAMNOSUS GG 1 CAPSULE. PO SCH ×2 (07:56→20:04)
[2021-07-28] MEDS: FERROUS SULFATE 325 MG TABLET. PO SCH (07:56)
[2021-07-28] MEDS: ASCORBIC ACID 500 MG TABLET PO SCH (07:56)
[2021-07-28] MEDS: SUCRALFATE 1 GM TABLET. PO SCH ×2 (07:56→20:04)
[2021-07-28] MEDS: glipiZIDE 5 MG TABLET PO SCH ×2 (07:56→20:05)
[2021-07-28] MEDS: VALPROATE ACID 250 MG/5 ML ORAL SOLUTION PO SCH (07:56)
[2021-07-28] MEDS: PRENATAL MULTIVITAMIN TABLET. PO SCH (07:56)
[2021-07-28] MEDS: GABAPENTIN 100 MG CAPSULE. PO SCH ×3 (07:56→17:57)
[2021-07-28] MEDS: LINAGLIPTIN 5 MG TABLET PO SCH (07:56)
[2021-07-28] MEDS: LUBIPROSTONE 24 MCG CAPSULE PO SCH ×2 (07:56→20:04)
[2021-07-28] MEDS: PANTOPRAZOLE 40 MG TABLET. PO SCH (07:57)
[2021-07-28] MEDS: risperiDONE ORAL 1 MG/ML 30ml BOTTLE. SL SCH (07:57)
[2021-07-28] MEDS: INSULIN GLARGINE SYRINGE. SQ SCH (08:40)
--- NOTE | 2021-07-28 10:16 | PN ---
DATE: 07/27/2021 SUBJECTIVE: The patient was seen today, met with the staff. Chart was reviewed and I am covering for Dr. Malave. The patient continues to be withdrawn, isolative, but medication compliant. Still isolates herself, stays in her room most of the time, minimal interaction with the staff or residents. OBSERVATION: VITAL SIGNS: Temperature 97.6, blood pressure 141/82, pulse 57, respirations 18, O2 sat 98%. GENERAL: Slept about 7 hours last night. The patient's current weight is 218 pounds. LABORATORY DATA: The patient's lab reviewed. ASSESSMENT: 1. Bipolar disorder type 1 with psychotic features. 2. Anxiety disorder, unspecified. PLAN: To continue with the treatment. LENGTH OF STAY: Five to seven days. TERA DR: Lan TID: [id number]
--- NOTE | 2021-07-28 15:34 | TX PLAN ---
Interdisciplinary Tx Plan Admission Information Jun 09, 2021 at 20:18 Legal Status (on Admission): Court Appointed Guardian DPOA/Guardian Name: Arcelia Munoz Contact Verified Code Status: Full Code Allergies: Coded Allergies: Beta-Blockers (Beta-Adrenergic Bloc (Verified Allergy, Intermediate, 06/09/21) caffeine (Verified Allergy, Unknown, 06/09/21) pseudoephedrine (Verified Allergy, Unknown, 06/09/21) Diagnoses Primary Diagnosis: Schizoaffective d/o with acute psychosis Reasons for Admission: Aggressive, Delusions, Agitated, Hallucinations, Combative, Suspicious/paranoid, Poor impulse control Problem in Patient's Words: Per intake record, talking to the devil, attempted to climb out a window, walking in the [place] naked, fighting staff. Problems Active Problems: Aggressive/combative Resistant to cares/medications Delusional Suspicious/Paranoid Hallucintations Disrobing in public Inactive Problems: Intakes are averaging 60% Sleep is averaging 7.5 hours at night Pt Strengths/Limitations Ability for [place]: Poor Cognitive Functioning/Ability: Fair Communication Skills/Ability: Fair Financial Resources: Fair Insight/Judgement: Poor Intellectual Ability: Fair Physical Health: Fair Social Skills: Poor Stability in Family: Poor Verbal Skills: Fair Discharge Criteria Discharge Criteria: Adequate arrangements @DC, Improved behavior, Improved mood/thought Preliminary Discharge Plan Preliminary DC Plan: [facility] Other Arrangements: [facility] Special Precautions Special Precautions: Agitation/Assault Fall Risk: High Initial D/C Plan To return to [facility] [place] once stable. Identified Discharge Needs: Out patient psychiatry and counseling if available 24 hour care and supervision for safety Currently Utilized Resources Currently Utilized Resources/P: PCP 24 hour care provided by [facility] Referrals Community Resources: Out patient psychiatry and counseling if available Identified Problems/Hx/Goals Objectives/Short-Term Goals Short Term Goals: Control abnormal behavior, Dec. Aggression, Dec. Hallucination/Delus, Dec. Outbursts, Improved Social Skills, Medication Stabilization, Monitor Med Effects, Prevent Deterioration Short Term Goals in Patient's: Mood and behavior stabilization Interventions/Frequency Staff Interventions/Frequency&: Nursing to provide routine safety checks, medication administration, and adl support. Psychiatrist to see three times weekly. SW to see twice weekly. PT/OT eval and treat if indicated. Mikaela will be invited to attend recreational and SW group activites while hospitalized. History Vocational History: Unknown Social: Unknown Education: Unknown Community Follow-up PCP Psychiatry and counseling if available Community Provider/Family Inpu: This SW is assisting with care while assigned SW, Nancy Alan, is out of the office. Treatment team meeting was held this date. Mikaela is averaging 60% of meal intakes and 7.5 hours of sleep at night. She was combative, hitting and biting staff, during her shower on 07/13/21. She defacated on the floor of her room and fingerpainted in the feces. She frequently disrobes in public areas. She puts herslef on the floor and goes to sleep. UA is pending, Risperdal consta has been increased. VPA is 88. Mikaela has had no group participation over the last week. Tentative d/c late next week or early the following. SW will provide update to Christopher Shelby. 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 She often sleeps throughout the day as she prefers to isolate to her room. She is frequently asked to attend groups, and often declines, but on occasion staff can get her to join. Pt has demonstrated some improvement with not laying on the floor as often. Pt also continues to have episodes of incontinence and is noted to have shaking in her arms. The shaking too was noted upon admission, but appears to have significantly decreased. As of recent, pt has shown better medication compliance, therefore, the [place] will be tried in pill form to assist with the taste. Pt will return to facility once team feels her behaviors are stable for discharge. RAY ALAN July 28, 2021 15:34
[2021-07-28 16:34] VITALS: BP 138/82
[2021-07-28] MEDS: DIVALPROEX 125 MG CAP.SPRINK PO SCH (20:04)
[2021-07-28] MEDS: ATORVASTATIN CALCIUM 20 MG TABLET PO SCH (20:04)
--- NOTE | 2021-07-29 04:02 | PN ---
DATE: 07/28/2021 SUBJECTIVE: The patient was seen today, met with the staff, chart reviewed, and covering for Dr. Malave. Staff reports she has been mostly compliant with the medications, cooperative with the medications, still withdrawn, decreased psychomotor activity, refusing supper at times. OBSERVATION: VITAL SIGNS: Temperature 98.5, blood pressure 138/82, pulse 77, respirations 20, O2 sat 94%. GENERAL: The patient slept about 8 hours last night. CURRENT MEDICATIONS: Depakote 500 mg daily, 1000 mg at night; Risperdal 2 mg daily, Risperdal 50 mg IM q. 2 weeks; gabapentin 100 mg 3 times a day, trazodone 50 mg at bedtime p.r.n., olanzapine 5 mg q. 2 hours p.r.n. The patient is not having any side effects to medications. LABORATORY DATA: The patient's lab reviewed. ASSESSMENT: 1. Bipolar disorder type 1 with psychotic features. 2. Anxiety disorder, unspecified. PLAN: To continue treatment. LENGTH OF STAY: Five to seven days. YAEL DR: Lan TID: [id number]
[2021-07-29 05:46] VITALS: BP 142/81
[2021-07-29] MEDS: LEVOTHYROXINE 175 MCG TABLET PO SCH (06:16)
[2021-07-29] MEDS: LUBIPROSTONE 24 MCG CAPSULE PO SCH ×3 (07:37→20:05)
[2021-07-29] MEDS: ASCORBIC ACID 500 MG TABLET PO SCH (07:37)
[2021-07-29] MEDS: GABAPENTIN 100 MG CAPSULE. PO SCH ×3 (07:37→17:26)
[2021-07-29] MEDS: ASPIRIN ENTERIC COATED 81 MG TABLET.DR. PO SCH (07:37)
[2021-07-29] MEDS: PRENATAL MULTIVITAMIN TABLET. PO SCH (07:37)
[2021-07-29] MEDS: LINAGLIPTIN 5 MG TABLET PO SCH (07:37)
[2021-07-29] MEDS: PANTOPRAZOLE 40 MG TABLET. PO SCH (07:37)
[2021-07-29] MEDS: risperiDONE ORAL 1 MG/ML 30ml BOTTLE. SL SCH (07:38)
[2021-07-29] MEDS: FERROUS SULFATE 325 MG TABLET. PO SCH (07:38)
[2021-07-29] MEDS: CHOLECALCIFEROL (VITAMIN D3) 50,000 UNIT CAPSULE PO SCH (07:38)
[2021-07-29] MEDS: SUCRALFATE 1 GM TABLET. PO SCH ×3 (07:38→20:05)
[2021-07-29] MEDS: DIVALPROEX 125 MG CAP.SPRINK PO SCH ×3 (07:38→20:05)
[2021-07-29] MEDS: LACTOBACILLUS RHAMNOSUS GG 1 CAPSULE. PO SCH ×3 (07:38→20:05)
[2021-07-29] MEDS: glipiZIDE 5 MG TABLET PO SCH ×3 (07:38→20:05)
[2021-07-29] MEDS: SELENIUM SULFIDE 1% TOPICAL SHAMPOO 207ML BOTTLE. TP SCH (07:39)
[2021-07-29] MEDS: INSULIN LISPRO 300 UNITS/3 ML VIAL. SQ SCH ×4 (08:00→17:38)
[2021-07-29] MEDS: INSULIN GLARGINE SYRINGE. SQ SCH (09:55)
[2021-07-29 15:34] VITALS: BP 139/79
[2021-07-29] MEDS: ATORVASTATIN CALCIUM 20 MG TABLET PO SCH ×2 (19:55→20:06)
[2021-07-29] MEDS: traZODone 50 MG TABLET. PO PRN ×2 (19:56→20:06)
[2021-07-30] MEDS: LEVOTHYROXINE 175 MCG TABLET PO SCH (05:24)
[2021-07-30 05:49] VITALS: BP 107/74
[2021-07-30] MEDS: risperiDONE ORAL 1 MG/ML 30ml BOTTLE. SL SCH (07:46)
[2021-07-30] MEDS: LUBIPROSTONE 24 MCG CAPSULE PO SCH ×2 (07:46→21:00)
[2021-07-30] MEDS: SUCRALFATE 1 GM TABLET. PO SCH ×2 (07:46→21:00)
[2021-07-30] MEDS: LACTOBACILLUS RHAMNOSUS GG 1 CAPSULE. PO SCH ×2 (07:47→21:00)
[2021-07-30] MEDS: PRENATAL MULTIVITAMIN TABLET. PO SCH (07:47)
[2021-07-30] MEDS: GABAPENTIN 100 MG CAPSULE. PO SCH ×3 (07:47→17:00)
[2021-07-30] MEDS: glipiZIDE 5 MG TABLET PO SCH ×2 (07:47→21:00)
[2021-07-30] MEDS: ASPIRIN ENTERIC COATED 81 MG TABLET.DR. PO SCH (07:47)
[2021-07-30] MEDS: DIVALPROEX 125 MG CAP.SPRINK PO SCH ×2 (07:47→21:00)
[2021-07-30] MEDS: LINAGLIPTIN 5 MG TABLET PO SCH (07:47)
[2021-07-30] MEDS: ASCORBIC ACID 500 MG TABLET PO SCH (07:47)
[2021-07-30] MEDS: FERROUS SULFATE 325 MG TABLET. PO SCH (07:47)
[2021-07-30] MEDS: PANTOPRAZOLE 40 MG TABLET. PO SCH (07:47)
[2021-07-30] MEDS: INSULIN LISPRO 300 UNITS/3 ML VIAL. SQ SCH ×3 (09:30→17:00)
[2021-07-30] MEDS: INSULIN GLARGINE SYRINGE. SQ SCH (09:31)
--- NOTE | 2021-07-30 11:05 | PN ---
DATE: 07/29/2021 SUBJECTIVE: The patient was seen today, met with the staff. Chart was reviewed and covering for Dr. Malave. Staff reports no change in her behavior. Still withdrawn, refusing medications at times, mostly compliant with the treatment, but stays in bed most of the time. OBSERVATION: VITAL SIGNS: Temperature 97.9, blood pressure 139/79, pulse 90, respirations 20, O2 sat 98%. GENERAL: Slept about 7 hours last night. The patient's appetite is fair. CURRENT MEDICATIONS: Depakote 500 mg daily, 1000 mg at night, Risperdal 2 mg daily, Risperdal 50 mg Consta IM q. 2 weeks, gabapentin 100 mg 3 times a day, trazodone 50 mg at bedtime p.r.n., and olanzapine 5 mg q. 2 hours p.r.n. The patient is not having any side effects to medications. LABORATORY DATA: The patient's lab reviewed. ASSESSMENT: 1. Bipolar disorder type 1 with psychotic features. 2. Anxiety disorder, unspecified. PLAN: To continue with the treatment. LENGTH OF STAY: Five to seven days. MANA DR: TERI/libia TID: [id number]
[2021-07-30 16:09] VITALS: BP 114/75
[2021-07-30] MEDS: ATORVASTATIN CALCIUM 20 MG TABLET PO SCH (21:00)
--- NOTE | 2021-07-31 02:05 | PN ---
DATE: 07/30/2021 SUBJECTIVE: The patient was seen today, met with the staff. Chart was reviewed and also covering for Dr. Malave. Staff reports isolating to her room, withdrawn, refusing medications at times, but no major behavior problems. OBSERVATIONS: VITAL SIGNS: Stable. GENERAL: The patient's appetite and sleep have improved. CURRENT MEDICATIONS: Depakote 500 mg daily and 1000 mg at night, Risperdal 2 mg daily and Risperdal 50 mg Consta IM q. 2 weeks, gabapentin 100 mg 3 times a day, trazodone 50 mg at bedtime p.r.n. and olanzapine 5 mg q. 2 hours p.r.n. The patient is not having any side effects to the medications. LABORATORY DATA: Reviewed. ASSESSMENT: 1. Bipolar disorder type 1 with psychotic features. 2. Anxiety disorder, unspecified. PLAN: To continue with the treatment. LENGTH OF STAY: Two to three days. The patient is planned for discharge on 08/01 to return to [facility]. CARA DR: Lan TID: [id number]
[2021-07-31] MEDS: LEVOTHYROXINE 175 MCG TABLET PO SCH (05:10)
[2021-07-31 05:56] VITALS: BP 133/84
[2021-07-31] MEDS: PANTOPRAZOLE 40 MG TABLET. PO SCH (07:30)
[2021-07-31 07:49] LABS: BASO # 0.1 x10^3/uL (0.0-0.2); BASO % 1 % (0-3); EOS # 0.2 x10^3/uL (0.0-0.7); EOS % 2 % (0-3); HEMATOCRIT 37.6 % (36.0-47.0); HEMOGLOBIN 12.6 g/dL (12.0-15.5); LYMPH # 2.2 x10^3/uL (1.0-4.8); LYMPH % 21 % (24-48); MEAN CORPUSCULAR HEMOGLOBIN 30 pg (25-35); MEAN CORPUSCULAR HGB CONC 33 g/dL (31-37); MEAN CORPUSCULAR VOLUME 90 fL (79-100); MONO # 0.9 x10^3/uL (0.0-1.1); MONO % 9 % (0-9); NEUT % 67 % (31-73); PLATELET COUNT 217 x10^3/uL (140-400); RED BLOOD COUNT 4.19 x10^6/uL (3.50-5.40); RED CELL DISTRIBUTION WIDTH 13.7 % (11.5-14.5); WHITE BLOOD COUNT 10.4 x10^3/uL (4.0-11.0)
[2021-07-31 07:59] LABS: ALBUMIN 3.5 g/dL (3.4-5.0); ALBUMIN/GLOBULIN RATIO 0.9 (1.0-1.7); CALCIUM 9.2 mg/dL (8.5-10.1); GFR 57.4; POTASSIUM 4.7 mmol/L (3.5-5.1); TOTAL BILIRUBIN 0.4 mg/dL (0.2-1.0); TOTAL PROTEIN 7.2 g/dL (6.4-8.2)
[2021-07-31] MEDS: INSULIN LISPRO 300 UNITS/3 ML VIAL. SQ SCH ×3 (08:00→17:00)
[2021-07-31] MEDS: risperiDONE ORAL 1 MG/ML 30ml BOTTLE. SL SCH (08:15)
[2021-07-31] MEDS: LINAGLIPTIN 5 MG TABLET PO SCH (09:00)
[2021-07-31] MEDS: ASCORBIC ACID 500 MG TABLET PO SCH (09:00)
[2021-07-31] MEDS: SELENIUM SULFIDE 1% TOPICAL SHAMPOO 207ML BOTTLE. TP SCH (09:00)
[2021-07-31] MEDS: glipiZIDE 5 MG TABLET PO SCH ×2 (09:00→20:42)
[2021-07-31] MEDS: ASPIRIN ENTERIC COATED 81 MG TABLET.DR. PO SCH (09:00)
[2021-07-31] MEDS: DIVALPROEX 125 MG CAP.SPRINK PO SCH ×2 (09:00→20:42)
[2021-07-31] MEDS: LUBIPROSTONE 24 MCG CAPSULE PO SCH ×2 (09:00→20:42)
[2021-07-31] MEDS: FERROUS SULFATE 325 MG TABLET. PO SCH (09:00)
[2021-07-31] MEDS: LACTOBACILLUS RHAMNOSUS GG 1 CAPSULE. PO SCH ×2 (09:00→20:42)
[2021-07-31] MEDS: GABAPENTIN 100 MG CAPSULE. PO SCH ×3 (09:00→17:00)
[2021-07-31] MEDS: SUCRALFATE 1 GM TABLET. PO SCH ×2 (09:00→20:42)
[2021-07-31] MEDS: PRENATAL MULTIVITAMIN TABLET. PO SCH (09:00)
[2021-07-31] MEDS: INSULIN GLARGINE SYRINGE. SQ SCH (09:25)
[2021-07-31 16:05] VITALS: BP 124/64
[2021-07-31] MEDS: ATORVASTATIN CALCIUM 20 MG TABLET PO SCH (20:42)
--- NOTE | 2021-08-01 05:16 | PN ---
DATE: 07/31/2021 SUBJECTIVE: The patient was seen today, met with the staff. Chart was reviewed and covering for Dr. Malave. The patient continues to have problems, noncompliant with the assessment and medications, also refuses to talk to the nurse. The patient also observed that she was dumping pills. The patient has a tendency to put herself on the floor. The patient also gets agitated easily including tried to kick one of the staff. The patient has also been combative. She is delusional and angry. OBSERVATION: VITAL SIGNS: Temperature 98.0, blood pressure 132/84, pulse 56, respirations 20 and O2 sat 94%. GENERAL: Slept about 6-1/2 hours last night. CURRENT MEDICATIONS: Depakote 500 mg daily and 1000 mg at night, Risperdal 2 mg daily and 50 mg of Risperdal Consta IM q. 2 weeks, gabapentin 100 mg 3 times a day, trazodone 50 mg at bedtime p.r.n. and olanzapine 5 mg q. 2 hours p.r.n. She is not having any side effects to the medications. LABORATORY DATA: Reviewed. ASSESSMENT: 1. Bipolar disorder type 1 with psychotic features. 2. Anxiety disorder, unspecified. PLAN: To continue with the treatment. LENGTH OF STAY: Three days. She is planned for discharge back to [facility]. TERI/MARINO/LIZETH DR: TERI/libia TID: [id number] MTDD
[2021-08-01] MEDS: LEVOTHYROXINE 175 MCG TABLET PO SCH (05:34)
[2021-08-01 05:35] VITALS: BP 138/61
[2021-08-01] MEDS: PANTOPRAZOLE 40 MG TABLET. PO SCH (07:30)
[2021-08-01] MEDS: INSULIN LISPRO 300 UNITS/3 ML VIAL. SQ SCH ×3 (08:00→17:00)
[2021-08-01] MEDS: LUBIPROSTONE 24 MCG CAPSULE PO SCH ×2 (08:49→20:12)
[2021-08-01] MEDS: DIVALPROEX 125 MG CAP.SPRINK PO SCH ×2 (08:50→20:12)
[2021-08-01] MEDS: ASPIRIN ENTERIC COATED 81 MG TABLET.DR. PO SCH (08:50)
[2021-08-01] MEDS: LACTOBACILLUS RHAMNOSUS GG 1 CAPSULE. PO SCH ×2 (08:50→20:11)
[2021-08-01] MEDS: SUCRALFATE 1 GM TABLET. PO SCH ×2 (08:50→20:12)
[2021-08-01] MEDS: FERROUS SULFATE 325 MG TABLET. PO SCH (08:50)
[2021-08-01] MEDS: LINAGLIPTIN 5 MG TABLET PO SCH (08:51)
[2021-08-01] MEDS: PRENATAL MULTIVITAMIN TABLET. PO SCH (08:51)
[2021-08-01] MEDS: GABAPENTIN 100 MG CAPSULE. PO SCH ×3 (08:51→17:00)
[2021-08-01] MEDS: ASCORBIC ACID 500 MG TABLET PO SCH (08:51)
[2021-08-01] MEDS: glipiZIDE 5 MG TABLET PO SCH ×2 (08:51→20:12)
[2021-08-01] MEDS: risperiDONE ORAL 1 MG/ML 30ml BOTTLE. SL SCH (08:52)
[2021-08-01] MEDS: INSULIN GLARGINE SYRINGE. SQ SCH (09:00)
[2021-08-01 16:13] VITALS: BP 109/58
[2021-08-01] MEDS: ATORVASTATIN CALCIUM 20 MG TABLET PO SCH (20:12)
--- NOTE | 2021-08-01 23:43 | PN ---
DATE: 08/01/2021 SUBJECTIVE: The patient was seen today, met with the staff. Chart was reviewed and covering for Dr. Malave. Staff reports increased behavior problems, angry, indifferent, refusing medications, also refusing assessments. OBSERVATION: VITAL SIGNS: Temperature 98.4, blood pressure 109/58, pulse 20, respirations 97. GENERAL: Slept about 7 hours last night. The patient's appetite is fair. CURRENT MEDICATIONS: Depakote 500 mg daily and 1000 mg at night, Risperdal 2 mg daily and 50 mg of Risperdal Consta IM q. 2 weeks, gabapentin 100 mg 3 times a day, trazodone 50 mg at night p.r.n. and olanzapine 5 mg q. 2 hours p.r.n. She is not having any side effects to the medications. LABORATORY DATA: The patient's lab reviewed. ASSESSMENT: 1. Bipolar disorder type 1 with psychotic features. 2. Anxiety disorder, unspecified. PLAN: To continue with the treatment. LENGTH OF STAY: Three days. The patient is planned for discharge. CARA DR: Lan TID: [id number]
[2021-08-02] MEDS: LEVOTHYROXINE 175 MCG TABLET PO SCH (04:21)
[2021-08-02 05:37] VITALS: BP 140/76
[2021-08-02 07:21] LABS: AMORPHOUS SEDIMENT,UR PRESENT /HPF; BACTERIA,URINE MANY /HPF (0-FEW); CLARITY,URINE CLOUDY; COLOR,URINE YELLOW; GLUCOSE,URINE NEG (NEG); NITRITE,URINE POS (NEG); SQUAMOUS EPITHELIAL CELL,UR MOD /LPF; UROBILINOGEN,URINE 0.2 mg/dL (0.2 mg/dL)
[2021-08-02] MEDS: PANTOPRAZOLE 40 MG TABLET. PO SCH (07:30)
[2021-08-02] MEDS: INSULIN LISPRO 300 UNITS/3 ML VIAL. SQ SCH ×3 (08:00→17:00)
[2021-08-02] MEDS: INSULIN GLARGINE SYRINGE. SQ SCH (09:00)
[2021-08-02] MEDS: PRENATAL MULTIVITAMIN TABLET. PO SCH (09:00)
[2021-08-02] MEDS: ASCORBIC ACID 500 MG TABLET PO SCH (09:00)
[2021-08-02] MEDS: DIVALPROEX 125 MG CAP.SPRINK PO SCH ×2 (09:00→19:09)
[2021-08-02] MEDS: SUCRALFATE 1 GM TABLET. PO SCH ×2 (09:00→19:10)
[2021-08-02] MEDS: GABAPENTIN 100 MG CAPSULE. PO SCH ×3 (09:00→17:00)
[2021-08-02] MEDS: FERROUS SULFATE 325 MG TABLET. PO SCH (09:00)
[2021-08-02] MEDS: LINAGLIPTIN 5 MG TABLET PO SCH (09:00)
[2021-08-02] MEDS: LACTOBACILLUS RHAMNOSUS GG 1 CAPSULE. PO SCH ×2 (09:00→19:09)
[2021-08-02] MEDS: glipiZIDE 5 MG TABLET PO SCH (09:00)
[2021-08-02] MEDS: SELENIUM SULFIDE 1% TOPICAL SHAMPOO 207ML BOTTLE. TP SCH (09:00)
[2021-08-02] MEDS: ASPIRIN ENTERIC COATED 81 MG TABLET.DR. PO SCH (09:00)
[2021-08-02] MEDS: LUBIPROSTONE 24 MCG CAPSULE PO SCH ×2 (09:00→19:09)
[2021-08-02] MEDS: risperiDONE ORAL 1 MG/ML 30ml BOTTLE. SL SCH (15:40)
[2021-08-02 16:08] VITALS: BP 131/73
[2021-08-02] MEDS: ATORVASTATIN CALCIUM 20 MG TABLET PO SCH (19:09)
[2021-08-02] MEDS ORDERED: glipiZIDE 5 MG TABLET PO SCH (19:30)
[2021-08-02] MEDS ORDERED: LITHIUM CARBONATE 300 MG TABLET PO SCH (21:00)
== END 2021-08-03 | DRG 885 ==
LOC: GEROPSY 20:18
PROVIDERS: ADMIT Psychiatry & Neurology Psychiatry; ATTEND Psychiatry & Neurology Psychiatry
DX: F25.0 Schizoaffective disorder, bipolar type (principal); N39.0 Urinary tract infection, site not specified; E11.9 Type 2 diabetes mellitus without complications; E55.9 Vitamin D deficiency, unspecified; E78.5 Hyperlipidemia, unspecified; E87.6 Hypokalemia; E89.0 Postprocedural hypothyroidism; F03.90 Unspecified dementia, unspecified severity, without behavioral disturbance, psychotic disturbance, mood disturbance, and anxiety; F41.9 Anxiety disorder, unspecified; Z20.822 Contact with and (suspected) exposure to COVID-19; F63.9 Impulse disorder, unspecified; K21.9 Gastro-esophageal reflux disease without esophagitis; K58.1 Irritable bowel syndrome with constipation; R32 Unspecified urinary incontinence; Z79.899 Other long term (current) drug therapy; Z81.8 Family history of other mental and behavioral disorders; Z85.850 Personal history of malignant neoplasm of thyroid; Z87.440 Personal history of urinary (tract) infections; Z91.14 Patient's other noncompliance with medication regimen; Z91.19 Patient's noncompliance with other medical treatment and regimen; Z88.8 Allergy status to other drugs, medicaments and biological substances
CPT/HCPCS: 36415; 80048; 80053; 80061; 80164; 81001; 82140; 82306; 82550; 82947; 83036; 83540; 83550; 83735; 83874; 84436; 84443; 84480; 84484; 85025; 85379; 86592; 87077; 87086; 87186; 93005; J1815; J2794; Q0162; U0003